=== PATIENT | female | born 1970 | race Caucasian/White ===

== ENCOUNTER → 2017-09-24 | Outpatient (CLI) | payer BC, SELFPAY | PROVIDERS: Visit Provider Nurse Practitioner Family | DX: K29.50 Unspecified chronic gastritis without bleeding (principal) | CPT/HCPCS: 36415; 80053; 82607; 85025 ==

== ENCOUNTER → 2017-11-25 11:49 | Outpatient (CLI) | payer BC, SELFPAY ==
[2017-11-25 13:05] LABS: Blood Urea Nitrogen 8 mg/dL (7-18); Creatinine,Serum 0.63 mg/dL (0.55-1.02); Estimated Glomerular Filt Rate 101 ml/min (>60); GFR (African American) 123 ML/MIN (>60)
== END ==
PROVIDERS: PCP Internal Medicine Adolescent Medicine; Visit Provider Internal Medicine Adolescent Medicine
DX: R63.4 Abnormal weight loss (principal)
CPT/HCPCS: 36415; 82565; 84520

== ENCOUNTER → 2017-11-27 09:46 | Outpatient (CLI) | payer BC, SELFPAY ==
--- NOTE | 2017-11-27 09:51 | CT_ITS ---
CT abdomen pelvis wo/w con CLINICAL INDICATION: ITS.REASON: WGT LOSS, ELEVATED LIVER ENZYMES, DYSPEPSIA ORDERING PHYSICIAN: Tamiko Russo PATIENT AGE: 47 years COMPARISON: None TECHNIQUE: Axial images obtained without and with contrast with sagittal and coronal reformats. PROCEDURE: Oral Contrast: Redicat IV Contrast: 75 mL is Isovue-370. FINDINGS: No acute finding in the lung bases. The liver, spleen, adrenal glands, and pancreas have an unremarkable appearance. No calcified gallstones are evident. Small amount of gas is present in the distal esophagus which may be seen with reflux. No renal calculi or ureteral calculi evident. There is minimal ectasia of the right renal pelvis and proximal right ureter which is nonspecific. No obstructing stones evident. No stones evident within the urinary bladder. No abdominal or pelvic mass or adenopathy. Unremarkable appendix. No evidence of diverticulitis. No focal inflammatory change in the abdomen or pelvis. No acute bony anomalies. IMPRESSION: No acute abdominal or pelvic findings. Small amount of gas in the distal esophagus which may be seen with reflux. Minimal ectasia of the right renal collecting system of questionable etiology and clinical significance
--- NOTE | 2017-11-27 10:55 | MM_ITS ---
MM Dig screening mamm BI w/CAD CAD Screening COMPARISON: Digital mammograms 05/02/2015 and 02/09/2013 INDICATION: There is a history of breast cancer patient's paternal aunt. There is been previous biopsy left breast. TECHNIQUE: Standard CC and MLO images were obtained. R2 CAD reviewed. FINDINGS: Prominent fibroglandular densities are seen in the upper outer quadrants of both breasts. There is a biopsy clip upper outer quadrant left breast. There is no suspicious lesion and there are no suspicious microcalcifications. IMPRESSION: Stable exam with no suspicious lesion seen BI-RADS Category: 2 Benign Finding(s) RECOMMENDED FOLLOW-UP: 1YR - 1 YEAR FOLLOW-UP (A letter has been sent to the patient regarding results of the study.)
== END ==
PROVIDERS: Family Provider Nurse Practitioner Family; PCP Internal Medicine Adolescent Medicine; Visit Provider Nurse Practitioner Family
DX: R63.4 Abnormal weight loss (principal); R10.13 Epigastric pain; R74.8 Abnormal levels of other serum enzymes; Z12.31 Encounter for screening mammogram for malignant neoplasm of breast
CPT/HCPCS: 74170; 74178; 77067; Q9967

== ENCOUNTER → 2018-02-06 12:25 | Outpatient (CLI) | payer BC, SELFPAY ==
[2018-02-06 13:16] LABS: Basophils # 0.1 K/mm3 (0-0.2); Basophils % 0.9 % (0.1-2.0); Eosinophils # 0.1 K/mm3 (0.0-0.4); Hematocrit 48.3 % (37.0-47.0); Lymphocytes # 1.5 K/mm3 (0.7-4.5); Lymphocytes % 21.9 K/mm3 (10-50); Mean Corpuscular HGB Conc 31.1 g/dL (31.8-35.4); Mean Corpuscular Hemoglobin 30.4 pg (27.0-31.2); Mean Corpuscular Volume 97.5 fl (81-99); Mean Platelet Volume 8.5 fl (7.4-10.4); Monocytes # 0.5 K/mm3 (0.1-1.0); Monocytes % 6.7 % (1.7-9.3); Neutrophils # 4.8 K/mm3 (1.8-7.8); Neutrophils % 68.5 % (37.0-80.0); Platelet Count 222 K/mm3 (142-424); Red Blood Count 4.95 M/mm3 (4.20-5.40); Red Cell Distribution Width 14.7 % (11.5-17.5); White Blood Count 6.9 K/mm3 (4.8-10.8)
[2018-02-06 13:53] LABS: Alanine Aminotransferase 15 U/L (12-78); Albumin Level 3.4 gm/dL (3.4-5.0); Albumin/Globulin Ratio 0.9 (1.1-1.8); Alkaline Phosphatase 171 U/L (46-116); Anion Gap 12.1 mEq/L (5-15); Aspartate Amino Transferase 17 U/L (15-37); Bilirubin,Total 0.6 mg/dL (0.2-1.0); Blood Urea Nitrogen 5 mg/dL (7-18); Calcium 9.2 mg/dL (8.5-10.1); Carbon Dioxide 29 mmol/L (21.0-32.0); Chloride 104 mmol/L (98-107); Chol/HDL Ratio 3.5 (1-3.5); Cholesterol 184 mg/dL (140-200); Creatinine,Serum 0.54 mg/dL (0.55-1.02); Estimated Glomerular Filt Rate 121 ml/min (>60); GFR (African American) 146 ML/MIN (>60); Globulin 3.8 gm/dl (1.3-3.2); Glucose 80 mg/dL (74-106); HDL Cholesterol 53 mg/dL (29-89); LDL Cholesterol 117 mg/dL (0-130); Potassium 4.1 mmoL/L (3.5-5.1); Sodium 141 mmol/L (136-145); Total Protein,Serum 7.2 gm/dL (6.4-8.2); Triglycerides 71 mg/dL (30-200); VLDL Cholesterol 14 mg/dL (0-40)
[2018-02-07 10:19] LABS: Vitamin D 25 Hydroxy 19.5 ng/mL (30.0-100.0)
== END ==
PROVIDERS: Visit Provider Nurse Practitioner Family
DX: I10 Essential (primary) hypertension (principal); E78.5 Hyperlipidemia, unspecified; E55.9 Vitamin D deficiency, unspecified; J44.9 Chronic obstructive pulmonary disease, unspecified
CPT/HCPCS: 36415; 80053; 80061; 82652; 85025

== ENCOUNTER → 2018-07-17 11:34 | Outpatient (CLI) | payer BC, SELFPAY ==
--- NOTE | 2018-07-17 11:41 | MR_ITS ---
MR head/brain wo/w con Ordering Physician: Sabina Cavanaugh Patient Age: 48 years: Female HISTORY: ITS.REASON: TIA, SYNCOPE Syncopal episode. HISTORY of stroke 3 days ago. Slurred speech blacked out. Headache. Dizzy when standing. Pain at neck. TECHNIQUE: Pre and postcontrast imaging brain performed Precontrast Multiplanar FLAIR, T1, T2 weighted images along with axial diffusion/ADC imaging performed on 1.5 T. Siemens, MRI. Postcontrast imaging [id number] ProHance T1-weighted images axial & coronal plane performed COMPARISON :07/26/2017 MRI brain with and without contrast FINDINGS Diffusion images reveal no acute nor very recent infarct. The sensitive FLAIR images in the axial & coronal plane demonstrate numerous high signal foci throughout deep white matter throughout cerebral hemispheres bilateral. Numerous both periventricular & subcortical high signal foci.. These are most numerous superior to the lateral ventricles bilaterally but are scattered elsewhere throughout the cerebral hemispheres as well. No high signal foci are seen at the posterior fossa... Overall these high signal foci are fairly similar to last year's study. There may be very slight progression of a few of the foci for example at the left frontal lobe subcortical deep white matter; and possibly some very slight additional foci more intense small foci at the right cerebral hemisphere. However changes negligible and could merely be accentuated by differences in imaging parameters noting the slightly different FLAIR parameters utilized today These are nonspecific high signal foci. I would note stated given history of stroke. This would suspect these are most likely related to to underlying microvascular disease. Does this patient have history of significant vascular risk factors?, Such as vasculitis, diabetes, hypertension etc.. In this younger age patient demyelinating disease would be included in the differential & cannot be excluded; however we see no classic or pathognomonic lesions for such are identified.- Specifically NO corpus callosum involvement evident no temporal lobe involvement, (features which would tend to support demyelinating disease). No abnormal enhancement to raise concern regarding a more diffuse process or metastatic disease.. No mass lesions.. Of there are other conditions can arise to the white matter lesions such as sarcoid. Thus clinical Correlation required Postcontrast images show no abnormal areas of enhancement today. No mass lesion. No extra-axial nor subdural collection. Normal enhancement of the dural venous sinuses. CP angles are clear. No abnormal enhancement here. Cranial nerve VII and VIII appear unremarkable, normal. . Included blood sensitive sequence unremarkable.. No recent hemorrhage evident Orbits appear satisfactory. The visualized paranasal sinuses clear and unremarkable. The mastoid air cells unremarkable. Middle ear clear bilaterally no fluid. Mild deviation nasal septum noted. IMPRESSION... No evidence of recent or acute infarct. (Normal diffusion study) . Numerous, fairly Extensive white matter high signal foci cerebral hemispheres bilaterally. These similar to the to Jul 2017 MR brain, with only suggestion of possible subtle progression deep white matter features bilaterally in the interval . If there is a history of stroke & vascular disease, with suspect these are most likely related to microangiopathic ischemic gliotic foci;but in a patient this younger age of of 48, demyelinating disease & other conditions would be included in the differential . No abnormal areas of enhancement post contrast. No mass lesion
--- NOTE | 2018-07-17 12:44 | HMH.ITSHM ---
RELPAX ERGOCALCIFEROL NADOLOL ALPRAZOLAM GABAPENTIN MELOXICAM ZOFRAN DEXILANT FLUOXETINE HYDROCHLORIDE VENLAFAXINE HYDROCHLORIDE TIZANIDINE HYDROCHLORIDE SUPER B COMPLEX PROAIR HFA
== END ==
PROVIDERS: Family Provider Nurse Practitioner Family; PCP Nurse Practitioner Family; Visit Provider Nurse Practitioner Family
DX: G45.9 Transient cerebral ischemic attack, unspecified (principal); R55 Syncope and collapse; R93.89 Abnormal findings on diagnostic imaging of other specified body structures
CPT/HCPCS: 70553; A9576

== ENCOUNTER → 2018-07-18 10:15 | Outpatient (CLI) | payer BC, SELFPAY ==
--- NOTE | 2018-07-18 10:22 | CI_ITS ---
Cerebrovascular Exam Indications: 780.2 Syncope and collapse. IMPRESSIONS 1. The bilateral vertebral arteries are patent with normal antegrade flow. 2. Study suggests less than 20% stenosis involving the right internal carotid artery and the left internal carotid artery. Carotid duplex study. Complete study and Doppler flow study including spectral analysis, color and mesa scale imaging. Location: Vascular laboratory. Patient status: Outpatient. Tables: Arterial flow: + +--------+--------+ Location V sys V ed + +--------+--------+ Right CCA - proximal 53.4cm/s 18.1cm/s + +--------+--------+ Right CCA - distal 64.4cm/s 25.1cm/s + +--------+--------+ Right ECA 55.8cm/s -------- + +--------+--------+ Right ICA - proximal 80.9cm/s 32.2cm/s + +--------+--------+ Right ICA - mid 77.8cm/s 29.9cm/s + +--------+--------+ Right ICA - distal 88.8cm/s 42.4cm/s + +--------+--------+ Right vertebral 46.4cm/s -------- + +--------+--------+ Left CCA - proximal 84.1cm/s 25.9cm/s + +--------+--------+ Left CCA - distal 56.6cm/s 15.7cm/s + +--------+--------+ Left ECA 57.4cm/s -------- + +--------+--------+ Left ICA - proximal 39.3cm/s 19.6cm/s + +--------+--------+ Left ICA - mid 91.9cm/s 35.4cm/s + +--------+--------+ Left ICA - distal 88.8cm/s 33.8cm/s + +--------+--------+ Left vertebral 48.7cm/s -------- + +--------+--------+ Velocity ratios: + + + + + + Right, V sys Right, V ed Left, V sys Left, V ed + + + + + + Max ICA/dist CCA 1.38 1.69 1.62 2.25 + + + + + + (Report amended ) Electronically signed by: Alvaro Buckner [id number]
--- NOTE | 2018-07-18 10:22 | CA_ITS ---
PROCEDURE: 2-D M-mode and color Doppler study INDICATIONS FOR THE TEST: Chest pain COPDX Heart Murmur Tobacco SmokingX Palpitations Fatigue SyncopeX Edema Hypertension Diabetes Mellitus Rheumatic Fever SOB NICE Obesity Hyperlipidemia Family History HD Additional History TACHYCARDIA,MIGRAINES BUBBLE STUDY DONE APPEARS NEGATIVE PATIENT INFORMATION HEIGHT: 62 WEIGHT:105 GENDER: Female B/P:137/94 2-D/M-MODE INTERPRETATION: 2-D MEASUREMENTS OBSERVED VALUES IN CMS Right Ventricular Dimension (RVDd) 2.2 Interventricular Septum (Thickness)(IVsd) .7 Left Ventricular Internal Dimensions(LVIDd) 4.4 Left Ventricular Posterior Wall (Thickness)(LVPWd) .7 Aortic Root 2.9 Aortic Cusp Separation 1.6 Left Atrial Dimensions (LAD) 2.6 2D 1. Left atrium is normal size, left ventricle is normal size, there is no concentric left ventricular hypertrophy, visually estimated ejection fraction of 55% with no regional wall motion abnormality. 2. The right atrium and right ventricle are normal size and contractility. 3. The aortic, mitral and tricuspid valve are grossly normal. 4. The pulmonic valve is poorly visualized. 5. No significant pericardial effusion noted. DOPPLER INTERROGATION: Doppler interrogation of the aortic, mitral and tricuspid valve reveals presence of mild mitral and tricuspid regurgitation, tricuspid regurgitation jet velocity for calculation of the right ventricular systolic pressure, diastolic parameters are within normal range. Agitated saline contrast study fails to identify intracardiac shunt CONCLUSION: 1. Normal left ventricular size, preserved left ventricular systolic function, visually estimated ejection fraction 55% with no regional wall motion abnormality, diastolic parameters are within normal range. 2. Mild mitral and tricuspid regurgitation 3. Agitated saline contrast study fails to identify intracardiac shunt
== END ==
PROVIDERS: Family Provider Nurse Practitioner Family; PCP Nurse Practitioner Family; Visit Provider Nurse Practitioner Family
DX: G45.9 Transient cerebral ischemic attack, unspecified (principal); R55 Syncope and collapse
CPT/HCPCS: 93306; 93880

== ENCOUNTER → 2018-07-24 12:48 | Outpatient (CLI) | payer BC, SELFPAY | PROVIDERS: PCP Internal Medicine Adolescent Medicine; Visit Provider Nurse Practitioner Family | DX: G43.109 Migraine with aura, not intractable, without status migrainosus (principal) | CPT/HCPCS: 93225; 93226 ==

== ENCOUNTER → 2018-08-22 11:49 | Outpatient (CLI) | payer BC, SELFPAY ==
[2018-08-22 12:29] LABS: Basophils # 0.1 K/mm3 (0-0.2); Basophils % 0.8 % (0.1-2.0); Eosinophils # 0.3 K/mm3 (0.0-0.4); Eosinophils % 3.3 % (0.1-12.0); Hematocrit 47.2 % (37.0-47.0); Hemoglobin 15.1 g/dL (12.2-16.2); Lymphocytes % 26.6 % (10-50); Mean Corpuscular Hemoglobin 30.9 pg (27.0-31.2); Mean Corpuscular Volume 96.7 fl (81-99); Monocytes # 0.4 K/mm3 (0.1-1.0); Monocytes % 5.3 % (1.7-9.3); Neutrophils # 4.8 K/mm3 (1.8-7.8); Platelet Count 227 K/mm3 (142-424); Red Blood Count 4.88 M/mm3 (4.20-5.40); Red Cell Distribution Width 14.6 % (11.5-17.5); White Blood Count 7.5 K/mm3 (4.8-10.8)
[2018-08-22 15:16] LABS: Alanine Aminotransferase 29 U/L (12-78); Albumin Level 3.6 gm/dL (3.4-5.0); Alkaline Phosphatase 134 U/L (46-116); Anion Gap 15.2 mEq/L (5-15); Aspartate Amino Transferase 17 U/L (15-37); Bilirubin,Total 0.9 mg/dL (0.2-1.0); Blood Urea Nitrogen 5 mg/dL (7-18); Calcium 9.1 mg/dL (8.5-10.1); Carbon Dioxide 25 mmol/L (21.0-32.0); Chloride 99 mmol/L (98-107); Chol/HDL Ratio 3.2 (1-3.5); Cholesterol 246 mg/dL (140-200); Creatinine,Serum 0.51 mg/dL (0.55-1.02); Estimated Glomerular Filt Rate 129 ml/min (>60); GFR (African American) 156 ML/MIN (>60); Globulin 3.6 gm/dl (1.3-3.2); Glucose 76 mg/dL (74-106); HDL Cholesterol 78 mg/dL (29-89); LDL Cholesterol 147 mg/dL (0-130); Potassium 4.2 mmoL/L (3.5-5.1); Sodium 135 mmol/L (136-145); Total Protein,Serum 7.2 gm/dL (6.4-8.2); Triglycerides 106 mg/dL (30-200); VLDL Cholesterol 21 mg/dL (0-40)
[2018-08-23 15:39] LABS: Hemoglobin A1C 5.6 % (0.0-7.0)
[2018-08-25 11:15] LABS: Vitamin D 25 Hydroxy 40.8 ng/mL (30.0-100.0)
== END ==
PROVIDERS: Visit Provider Nurse Practitioner Family
DX: I67.9 Cerebrovascular disease, unspecified (principal); E55.9 Vitamin D deficiency, unspecified; Z72.0 Tobacco use; Z78.9 Other specified health status
CPT/HCPCS: 36415; 80053; 80061; 82652; 83036; 84443; 85025

== ENCOUNTER → 2018-09-04 12:46 | Outpatient (CLI) | payer BC, SELFPAY ==
--- NOTE | 2018-09-04 12:48 | MR_ITS ---
MR lumbar spine wo con, MR 3-d myelogram/MRCP HISTORY: PT states low back pain which has layered up X 1 month. Left leg pain and some numbness. ITS.REASON: LOW BACK PAIN ORDERING PHYSICIAN: Tamiko Russo PATIENT AGE: 48 years Comparison: Mri 03/15/14 TECHNIQUE: Standard multiplanar multiecho sequences are performed without contrast. 3-D MIP and myelographic images are also rendered and reviewed FINDINGS: Normal alignment. The spinal cord ends at the L1 level. L2-L3: Small Schmorl's nodes not significant change. L3-4: Unremarkable. L4-L5: There is bulging disc at L4-L5. There is a small right paracentral extruded disc which extends inferiorly abutting the anterior aspect of the right L5 nerve root with severe right lateral recess narrowing. This has developed since the previous exam. There is also central and left paracentral disc protrusion at L4-L5 slightly more prominent than when compared to the previous study. This portion of the disc is causing some compression anteriorly on the left L5 nerve root. In addition there is canal stenosis at this level with facet and ligamentum flavum hypertrophy. L5-S1: Degenerative disc disease with bulging disc with small central disc protrusion abutting the anterior medial aspect of both S1 nerve roots. IMPRESSION: 1. L4-L5: There is bulging disc at L4-L5. There is a small right paracentral extruded disc which extends inferiorly abutting the anterior aspect of the right L5 nerve root with severe right lateral recess narrowing. This has developed since the previous exam. There is also central and left paracentral disc protrusion at L4-L5 slightly more prominent than when compared to the previous study. This portion of the disc is causing some compression anteriorly on the left L5 nerve root. In addition there is canal stenosis at this level with facet and ligamentum flavum hypertrophy. 2. L5-S1: Degenerative disc disease with bulging disc with small central disc protrusion abutting the anterior medial aspect of both S1 nerve roots.
== END ==
PROVIDERS: PCP Nurse Practitioner Family; Visit Provider Nurse Practitioner Family
DX: M54.5 Low back pain (principal)
CPT/HCPCS: 72148; 76376

== ENCOUNTER → 2018-09-25 13:06 | Outpatient (POV) | payer BC, SELFPAY | PROVIDERS: Visit Provider Neurological Surgery | DX: Z00.00 Encounter for general adult medical examination without abnormal findings (principal) ==

== ENCOUNTER 2018-10-28 10:00 | Outpatient (RCR) | payer BC, SELFPAY | END 2018-10-28 10:05 | disposition home or self-care (01) | LOC: PT 10:00 | PROVIDERS: Visit Provider Neurological Surgery | DX: M54.5 Low back pain (principal); M54.9 Dorsalgia, unspecified | CPT/HCPCS: 97010; 97014; 97035; 97110; 97140; 97163; G0283 ==

== ENCOUNTER → 2019-04-14 10:17 | Outpatient (CLI) | payer BC, SELFPAY ==
--- NOTE | 2019-04-14 10:26 | MM_ITS ---
MM Dig screening mamm BI w/CAD CAD Screening COMPARISON: Digital mammograms with CAD 11/27/2017 and 05/02/2015 INDICATION: There is a history of breast cancer in the patient's paternal aunt. TECHNIQUE: Standard CC and MLO images were obtained. R2 CAD reviewed. FINDINGS: Moderate fibro glandular densities are seen in both breasts. There are nodular density central portion of the right breast only definitely seen on the exaggerated cc view. This may been present previously but appears more prominent on today's study. This has benign features but recommend patient return for spot compression CC view and 90 degrees lateral view, ultrasound may be necessary as well. Again noted is a biopsy clip left breast. There are no suspicious microcalcifications. IMPRESSION: Moderate diffuse breast density with possible new or developing asymmetric density right breast BI-RADS Category: 0 Need Additional Imaging Evaluation RECOMMENDED FOLLOW-UP: IMM - IMMEDIATE FOLLOW-UP RECOMMENDED (A letter has been sent to the patient regarding results of the study.)
== END ==
PROVIDERS: PCP Internal Medicine Adolescent Medicine; Visit Provider Nurse Practitioner Family
DX: Z12.31 Encounter for screening mammogram for malignant neoplasm of breast (principal)
CPT/HCPCS: 77067

== ENCOUNTER → 2019-04-24 12:52 | Outpatient (CLI) | payer BC, SELFPAY ==
--- NOTE | 2019-04-24 12:58 | MM_ITS ---
MM Dig mamm DX unilat RT CAD COMPARISON: Digital mammograms with CAD 04/14/2019 INDICATION: Additional views of possible interval change in size and appearance of asymmetric density right breast TECHNIQUE: Spot compression MLO and CC views and 90 degrees lateral view FINDINGS: The asymmetric density appears to be a true lesion and does not press out and show slightly irregular borders. Ultrasound performed the same date showed slightly thickened and irregular borders with no acoustic enhancement noted. This does not have findings of a typical benign cyst and recommend the patient have ultrasound-guided biopsy for diagnosis. IMPRESSION: Slightly suspicious asymmetric nodular density right breast BI-RADS Category: 4 Suspicious Abnormality-Biopsy Considered RECOMMENDED FOLLOW-UP: BIO - BIOPSY RECOMMENDED (A letter has been sent to the patient regarding results of the study.)
--- NOTE | 2019-04-24 12:59 | US_ITS ---
US breast RT complete COMPARISON: Ultrasound right breast 03/17/2013 HISTORY: Evaluation of possible change in asymmetric density right breast TECHNIQUE: Targeted ultrasound FINDINGS: Somewhat heterogenic echogenicity seen in the breast parenchyma. There is a dominant hypoechoic lesion at the 7:00 position near the nipple with somewhat crinkled or irregular and slightly thickened borders. There is no acoustic enhancement deep to the lesion. Recommend the patient be scheduled for ultrasound-guided biopsy. There are couple of additional tiny benign-appearing hypoechoic likely cystic lesions. There is a normal-appearing node right axilla. IMPRESSION: Hypoechoic lesion at 7:00 position as described with somewhat suspicious borders and lack of acoustic enhancement and biopsy is recommended.
== END ==
PROVIDERS: PCP Nurse Practitioner Family; Visit Provider Nurse Practitioner Family
DX: R92.8 Other abnormal and inconclusive findings on diagnostic imaging of breast (principal)
CPT/HCPCS: 76641; 77065

== ENCOUNTER → 2019-05-13 12:33 | Outpatient (CLI) | payer BC, SELFPAY ==
--- NOTE | 2019-05-13 | MM_ITS ---
US FNA Breast Right mammogram post biopsy HISTORY: Complex nodule right breast 7:00 with abnormal mammogram and ultrasound ITS.REASON: ABNORMAL MAMM ORDERING PHYSICIAN: Tamiko Russo APRN PATIENT AGE: 49 years COMPARISON: 04/24/2019 TECHNIQUE: Following obtaining informed consent, using aseptic technique and local anesthesia with buffered lidocaine, fine-needle aspiration was performed of the nodule of interest using sonographic guidance less than 1 cc of liquid was aspirated from the nodule in the 7:00 region of the right breast. The nodule dissipated on the ultrasound. The patient tolerated the procedure well without evidence of immediate complications and left the ultrasound suite in stable condition. Right mammogram: Previously noted nodule in the lower outer aspect of the right breast is no longer apparent status post FNA CYTOLOGY:Numerous bone cells consistent with cyst contents IMPRESSION: Status post ultrasound-guided FNA of the complex nodule in the 7:00 region of the right breast which appear to represent a complex cyst and was completely aspirated and no longer evident on the mammogram or the ultrasound. Cytology showed benign findings. Recommendations: 6 month mammographic follow-up per routine protocol
--- NOTE | 2019-05-13 14:34 | HMH.ITSHM ---
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 []lisinopril
== END ==
LOC: RAD 12:33
PROVIDERS: PCP Nurse Practitioner Family; Visit Provider Nurse Practitioner Family
DX: R92.8 Other abnormal and inconclusive findings on diagnostic imaging of breast (principal); N63.13 Unspecified lump in the right breast, lower outer quadrant
CPT/HCPCS: 10005; 76942; 77065

== ENCOUNTER → 2019-06-15 10:33 | Outpatient (CLI) | payer BC, SELFPAY ==
[2019-06-15 11:59] LABS: Alanine Aminotransferase 18 U/L (12-78); Albumin Level 3.7 gm/dL (3.4-5.0); Albumin/Globulin Ratio 1.1 (1.1-1.8); Alkaline Phosphatase 162 U/L (46-116); Anion Gap 15.3 mEq/L (5-15); Aspartate Amino Transferase 19 U/L (15-37); Bilirubin,Total 1.2 mg/dL (0.2-1.0); Blood Urea Nitrogen 5 mg/dL (7-18); Calcium 9.6 mg/dL (8.5-10.1); Carbon Dioxide 26 mmol/L (21.0-32.0); Chloride 103 mmol/L (98-107); Chol/HDL Ratio 4.8 (1-3.5); Cholesterol 207 mg/dL (140-200); Creatinine,Serum 0.64 mg/dL (0.55-1.02); Estimated Glomerular Filt Rate 99 ml/min (>60); GFR (African American) 119 ML/MIN (>60); Globulin 3.4 gm/dl (1.3-3.2); Glucose 97 mg/dL (74-106); HDL Cholesterol 43 mg/dL (29-89); LDL Cholesterol 147 mg/dL (0-130); Potassium 4.3 mmoL/L (3.5-5.1); Sodium 140 mmol/L (136-145); Total Protein,Serum 7.1 gm/dL (6.4-8.2); Triglycerides 86 mg/dL (30-200); VLDL Cholesterol 17 mg/dL (0-40)
[2019-06-15 12:14] LABS: Basophils % 0.6 % (0.1-2.0); Eosinophils # 0.1 K/mm3 (0.0-0.4); Eosinophils % 1.2 % (0.1-12.0); Hematocrit 47.6 % (37.0-47.0); Hemoglobin 15.4 g/dL (12.2-16.2); Lymphocytes # 1.5 K/mm3 (0.7-4.5); Lymphocytes % 19.7 % (10-50); Mean Corpuscular HGB Conc 32.3 g/dL (31.8-35.4); Mean Corpuscular Volume 89.7 fl (81-99); Mean Platelet Volume 10.3 fl (7.4-10.4); Monocytes # 0.4 K/mm3 (0.1-1.0); Monocytes % 5.5 % (1.7-9.3); Neutrophils # 5.6 K/mm3 (1.8-7.8); Platelet Count 187 K/mm3 (142-424); Red Blood Count 5.31 M/mm3 (4.20-5.40); Red Cell Distribution Width 13.3 % (11.5-17.5); White Blood Count 7.7 K/mm3 (4.8-10.8)
[2019-06-16 10:32] LABS: Vitamin D 25 Hydroxy 22.4 ng/mL (30.0-100.0)
== END ==
PROVIDERS: Visit Provider Nurse Practitioner Family
DX: E78.5 Hyperlipidemia, unspecified (principal); E55.9 Vitamin D deficiency, unspecified; Z72.0 Tobacco use
CPT/HCPCS: 36415; 80053; 80061; 82652; 85025

== ENCOUNTER → 2020-02-24 13:44 | Outpatient (CLI) | payer BC, SELFPAY ==
--- NOTE | 2020-02-24 | US_ITS ---
PROCEDURE: MM DIG MAMM DX UNILAT RT CAD Digital Breast Tomosynthesis Included CLINICAL INDICATION: 6 MONTH F/U TO BX COMPARISON: [facility]B DIGITAL MAMM-SCREEN BILATERAL from 02/09/2013 [facility] DIG MAMM-SCREEN ANNY from 05/02/2015 DIG MAMM-SCREEN ANNY from 04/14/2019 DIG MAMM-DX UNI-RT from 04/24/2019 [facility] US Biopsy Breast from 05/13/2019 DIG MAMM-DX UNI-RT from 05/13/2019 TECHNIQUE: Standard CC and MLO images and 3D Tomosynthesis was obtained. R2 CAD reviewed. FINDINGS: There is average fibroglandular tissue. No discrete mass or malignant-appearing microcalcification is evident. There is some asymmetric density in the medial aspect of the right breast which may be due to fibroglandular tissue. Right breast ultrasound: There has been reoccurrence of the complicated cyst at 7 o'clock measuring 7 x 6 mm. This was previously completely aspirated but has recurred. IMPRESSION: Recurrent right breast cyst. Probably benign findings regarding asymmetric density in the medial right breast. Continued six-month follow-up suggested. BI-RAD Category: 3 Probably Benign Finding Short Term Follow-up FOLLOW-UP: 6M 6Month Follow-up (A letter has been sent to the patient regarding results of the study.) Dictated by: Alvaro Buckner MD 02/26/2020 09:48 Electronically signed by Alvaro Buckner MD in [place] 02/26/2020 09:48
--- NOTE | 2020-02-24 13:52 | XR_ITS ---
PROCEDURE: XR HIP RT 2-3V W/PELVIS CLINICAL INDICATION: RT HIP PAIN COMPARISON: No exams were available for comparison FINDINGS: No fracture or dislocation is evident. No significant degenerative change. No lytic or blastic change. Unremarkable soft tissues. IMPRESSION: Negative right hip Dictated by: Alvaro Buckner MD 02/24/2020 14:58 Electronically signed by Alvaro Buckner MD in [place] 02/24/2020 14:58
== END ==
LOC: RAD 13:45
PROVIDERS: PCP Nurse Practitioner Family; Visit Provider Nurse Practitioner Family
DX: R92.8 Other abnormal and inconclusive findings on diagnostic imaging of breast (principal); M25.551 Pain in right hip
CPT/HCPCS: 73502; 76641; 77061; 77065; G0279

== ENCOUNTER → 2020-03-23 11:28 | Outpatient (CLI) | payer BC, SELFPAY ==
[2020-03-23 12:34] LABS: Coronavirus 19 IgG Antibody Negative (Negative); Coronavirus 19 IgM Antibody Negative (Negative)
== END ==
PROVIDERS: Visit Provider Surgery
DX: Z01.818 Encounter for other preprocedural examination (principal)
CPT/HCPCS: 36415; 86328

== ENCOUNTER 2020-03-24 06:36 | Day surgery (SDC) | payer BC, SELFPAY ==
[2020-03-22 10:56] VITALS: BMI 17.5
[2020-03-24] VITALS (7 sets, daily range): BP systolic 77–143; BP diastolic 49–77; PULSE 63–82; RESP 14–20; TEMP 36.1–37; O2SAT 97–99
--- NOTE | 2020-03-24 07:38 | P.PN_ITS ---
[facility] Anesthesia Checklist - Patient Identification Patient Identification: Arm Band, Verbal (Name & ) - Structural Data Admitted From: Home Planned Operative Procedure/s: Colonoscopy Consent for Planned Operative Procedure(s) Verified: Yes Verified Documents: Surgical Consent, History and Physical - NPO Status Verified Time NPO: 00:00 - Chart Verification Results Verified: None - Additional verifications Patient : No Anesthesia Reactions: No - Airway Assessment C-Spine Mobility Assessed: Yes TMJ Mobility Assessed: Yes Dentition: Edentulous (Full set of dentures removed) - Neurological Assessment Level of Consciousness: Awake, Alert, Appropriate, Follows Commands Hx Seizures: No Numbness or tingling in extremities: Yes (Chronic back pain issues) - Anesthesia Plan Anesthesia Risk discussed: Yes Anesthesia Plan: Verified ASA Class: III Anesthesia Type: MAC [facility] History I have reviewed the patient's past medical history: Yes Medical History: Reports:: Anxiety, Chronic Obstructive Pulmonary Disease (COPD), Gastroesophageal Reflux Disease(GERD), Hyperlipidemia Denies:: Cancer, Diabetes Mellitus Type 1, Diabetes Mellitus Type 2, Internal Pacemaker, MRSA, Seizures *Have you ever received a pneumonia vaccine?: Yes *Have you received a flu vaccine this season?: Yes Anesthesia experience/problems:: None Other Surgeries: Yes: Other. No: Pacemaker Amputation: No Fractures: No Comment: lumbar discectomy - *Social History Educational Level: Completed GED/General Educational Development Smoking Status: Current every day smoker Tobacco Type: cigarettes # Packs/Day (cigarettes): 1 #Yrs smoked (if former smoker): 30 Alcohol Intake: never Substance Use Type: denies use *Occupational Status:: unemployed Housing: house Household Members: spouse *Travel in the last 8 weeks: None - Psychiatric History Pschychiatric History:: Reports:: Anxiety Family Hx:: No significant family history
--- NOTE | 2020-03-24 08:03 | P.PCN_ITS ---
- Procedure: Date: 03/24/20 Procedure Performed:: Colonoscopy Indications:: Screening Performing Provider:: Humberto Harkins MD Referring Provider:: . Sedation:: Monitored anesthesia care Procedure:: After informed consent was obtained the patient was taken to the endoscopy suite. Sedation ensued after the patient was transferred to the left lateral decubitus position. Pulse, blood pressure, and oxygen saturation were monitored throughout the procedure. Digital rectal exam revealed no significant abnormality. The colonoscope was placed in position. The entire colon was evaluated. The colonoscope was carefully removed and the patient was transferred to recovery in stable condition. Please see findings and specimens below for detail. Findings:: Bowel preparation fair to moderate Hemorrhoidal tag/cushions with no active bleeding or thrombosis Moderate tortuosity Significant spasticity and lack of relaxation A few isolated sigmoid diverticuli Small scattered hyperplastic-appearing rectosigmoid polyps Specimens:: None Recommendations:: Timing of repeat colonoscopy should be around 3 years secondary to slightly- limited bowel preparation, spasticity, lack of relaxation, and notation of hyperplastic-appearing small rectosigmoid polyps Complications:: No immediate Estimated blood obtained (mL): 0
== END 2020-03-24 08:50 | disposition home or self-care (01) ==
LOC: OUTP 06:37
PROVIDERS: PCP Nurse Practitioner Family; Visit Provider Surgery
PROC: 0DJD8ZZ Inspection of Lower Intestinal Tract, Via Natural or Artificial Opening Endoscopic (ICD-10-PCS; CPT 45378; principal; 2020-03-24 07:30)
DX: Z12.11 Encounter for screening for malignant neoplasm of colon (principal); K63.5 Polyp of colon; K57.90 Diverticulosis of intestine, part unspecified, without perforation or abscess without bleeding; K64.9 Unspecified hemorrhoids; K63.89 Other specified diseases of intestine; K58.9 Irritable bowel syndrome, unspecified; Z88.1 Allergy status to other antibiotic agents; Z88.5 Allergy status to narcotic agent; Z88.8 Allergy status to other drugs, medicaments and biological substances; Z79.899 Other long term (current) drug therapy; Z79.82 Long term (current) use of aspirin; Z72.0 Tobacco use
CPT/HCPCS: 45378; J2704

== ENCOUNTER → 2020-11-19 13:00 | Outpatient (CLI) | payer BC, SELFPAY ==
[2020-11-19 13:21] LABS: Basophils # 0.1 K/mm3 (0-0.2); Basophils % 0.8 % (0.1-2.0); Eosinophils # 0.3 K/mm3 (0.0-0.4); Eosinophils % 3.6 % (0.1-12.0); Hematocrit 46.2 % (37.0-47.0); Hemoglobin 14.9 g/dL (12.2-16.2); Lymphocytes # 2.4 K/mm3 (0.7-4.5); Lymphocytes % 27.4 % (10-50); Mean Corpuscular HGB Conc 32.2 g/dL (31.8-35.4); Mean Corpuscular Hemoglobin 31.8 pg (27.0-31.2); Mean Corpuscular Volume 98.6 fl (81-99); Mean Platelet Volume 9.4 fl (7.4-10.4); Monocytes # 0.5 K/mm3 (0.1-1.0); Neutrophils # 5.5 K/mm3 (1.8-7.8); Neutrophils % 62.1 % (37.0-80.0); Platelet Count 178 K/mm3 (142-424); Red Blood Count 4.68 M/mm3 (4.20-5.40); Red Cell Distribution Width 13.7 % (11.5-17.5); White Blood Count 8.8 K/mm3 (4.8-10.8)
[2020-11-19 14:08] LABS: Alanine Aminotransferase 14 U/L (12-78); Albumin Level 4.3 g/dl (3.5-5.0); Albumin/Globulin Ratio 1.4 (1.1-1.8); Alkaline Phosphatase 129 U/L (38-126); Anion Gap 8.2 mEq/L (5-15); Aspartate Amino Transferase 29 U/L (14-36); Bilirubin,Total 0.7 mg/dl (0.2-1.3); Blood Urea Nitrogen 8 mg/dl (7-17); Calcium 9.3 mg/dl (8.4-10.2); Carbon Dioxide 30 mmol/L (22.0-30.0); Chloride 101 mmol/L (98-107); Chol/HDL Ratio 2.5 (1-3.5); Cholesterol 179 mg/dl (140-200); Estimated Glomerular Filt Rate 89 ml/min (>60); GFR (African American) 107 ML/MIN (>60); Globulin 3.1 g/dL (1.3-3.2); Glucose 84 mg/dl (74-100); HDL Cholesterol 71 mg/dl (40-60); Potassium 4.2 mmoL/L (3.5-5.1); Sodium 135 mmol/L (136-145); Total Protein,Serum 7.4 g/dl (6.3-8.2); Triglycerides 104 mg/dl (30-150); VLDL Cholesterol 21 mg/dL (0-40)
[2020-11-19 14:19] LABS: Direct LDL Cholesterol 90.57 mg/dL (100-129)
[2020-11-19 14:25] LABS: 25-OH Vitamin D, Total 22.2 ng/mL (30-100)
[2020-11-19 14:58] LABS: Vitamin B12 441 pg/mL (239-931)
== END ==
PROVIDERS: Visit Provider Nurse Practitioner Family
DX: E78.5 Hyperlipidemia, unspecified (principal); E55.9 Vitamin D deficiency, unspecified; E53.8 Deficiency of other specified B group vitamins
CPT/HCPCS: 36415; 80053; 80061; 82306; 82607; 85025

== ENCOUNTER → 2020-11-22 14:06 | Outpatient (CLI) | payer BC, SELFPAY ==
--- NOTE | 2020-11-22 14:12 | MM_ITS ---
PROCEDURE: MM DIG MAMM BI DX W/CAD Digital Breast Tomosynthesis Included CLINICAL INDICATION: 6 mth f/u rt, screening lt There is a history of breast cancer in the patient's paternal aunt. There has been a previous biopsy left breast for benign disease. COMPARISON: MG DIG MAMM-SCREEN ANNY from 04/14/2019 MG DIG MAMM-DX UNI-RT from 04/24/2019 MG MM DIG MAMM DX UNILAT RT CAD from 05/13/2019 MG MM DIG MAMM DX UNILAT RT CAD from 02/24/2020 TECHNIQUE: Standard CC and MLO images and 3D Tomosynthesis was obtained. R2 CAD reviewed. FINDINGS: Moderate diffuse fibroglandular densities are seen throughout both breast. The possible asymmetric density medial aspect right breast is less prominent on today's study. There is no suspicious lesion in either breast and no suspicious microcalcifications. IMPRESSION: Moderate diffuse breast density with no suspicious lesions seen BI-RAD Category: 2 Benign Finding(s) FOLLOW-UP: 1YR 1 Year Follow-up (A letter has been sent to the patient regarding results of the study.) Dictated by: Dr. Vini Clinton MD 11/25/2020 08:31 Dr. Vini Clinton MD in [place] 11/25/2020 08:31
== END ==
PROVIDERS: PCP Nurse Practitioner Family; Visit Provider Internal Medicine Adolescent Medicine
DX: R92.8 Other abnormal and inconclusive findings on diagnostic imaging of breast (principal)
CPT/HCPCS: 77062; 77066; G0279

== ENCOUNTER → 2021-01-30 17:01 | Outpatient (CLI) | payer BC, SELFPAY | PROVIDERS: PCP Nurse Practitioner Family; Visit Provider Nurse Practitioner Family | DX: Z20.822 Contact with and (suspected) exposure to COVID-19 (principal); R05 Cough; R50.9 Fever, unspecified | CPT/HCPCS: U0003 ==

== ENCOUNTER → 2021-03-08 12:07 | Outpatient (CLI) | payer BC, SELFPAY ==
--- NOTE | 2021-03-08 12:12 | XR_ITS ---
PROCEDURE: XR CHEST 2V CLINICAL HISTORY: MUCOPURULENT CHRONIC BRONCHITIS COMPARISON: CR CXR CHEST(2 VIEWS-NOT PORTABLE) from 01/04/2017 CR CXR CHEST(2 VIEWS-NOT PORTABLE) from 05/31/2017 CR [id number] XR chest portable from 07/31/2018 FINDINGS: The cardiomediastinal silhouette and pulmonary vascularity are within normal limits. COPD. Lungs are free of acute infiltrate. No acute bony abnormalities. IMPRESSION: COPD changes, no acute finding Dictated by: Alvaro Buckner MD 03/08/2021 12:49 Alvaro Buckner MD in [place] 03/08/2021 12:49
== END ==
PROVIDERS: PCP Nurse Practitioner Family; Visit Provider Internal Medicine Adolescent Medicine
DX: J41.1 Mucopurulent chronic bronchitis (principal)
CPT/HCPCS: 71046

== ENCOUNTER → 2021-03-15 13:48 | Outpatient (CLI) | payer BC, SELFPAY ==
[2021-03-15 14:08] LABS: Alanine Aminotransferase 16 U/L (12-78); Albumin Level 4.1 g/dl (3.5-5.0); Albumin/Globulin Ratio 1.5 (1.1-1.8); Alkaline Phosphatase 111 U/L (38-126); Anion Gap 10.4 mEq/L (5-15); Aspartate Amino Transferase 30 U/L (14-36); Bilirubin,Total 0.5 mg/dl (0.2-1.3); Blood Urea Nitrogen 3 mg/dl (7-17); Calcium 9.4 mg/dl (8.4-10.2); Carbon Dioxide 27 mmol/L (22.0-30.0); Chloride 98 mmol/L (98-107); Estimated Glomerular Filt Rate 106 ml/min (>60); GFR (African American) 128 ML/MIN (>60); Globulin 2.7 g/dL (1.3-3.2); Glucose 82 mg/dl (74-100); Potassium 4.4 mmoL/L (3.5-5.1); Sodium 131 mmol/L (136-145); Total Protein,Serum 6.8 g/dl (6.3-8.2)
[2021-03-15 14:13] LABS: Basophils # 0.1 K/mm3 (0-0.2); Basophils % 0.9 % (0.1-2.0); Eosinophils # 0.1 K/mm3 (0.0-0.4); Eosinophils % 2.1 % (0.1-12.0); Hematocrit 40.9 % (37.0-47.0); Hemoglobin 13.3 g/dL (12.2-16.2); Lymphocytes # 1.9 K/mm3 (0.7-4.5); Lymphocytes % 27.7 % (10-50); Mean Corpuscular HGB Conc 32.6 g/dL (31.8-35.4); Mean Corpuscular Hemoglobin 32.1 pg (27.0-31.2); Mean Corpuscular Volume 98.6 fl (81-99); Mean Platelet Volume 7.8 fl (7.4-10.4); Monocytes # 0.4 K/mm3 (0.1-1.0); Monocytes % 6.3 % (1.7-9.3); Neutrophils # 4.3 K/mm3 (1.8-7.8); Neutrophils % 62.9 % (37.0-80.0); Platelet Count 286 K/mm3 (142-424); Red Blood Count 4.15 M/mm3 (4.20-5.40); Red Cell Distribution Width 13.8 % (11.5-17.5); White Blood Count 6.8 K/mm3 (4.8-10.8)
[2021-03-15 14:14] LABS: C-Reactive Protein 2.3 mg/L (0-4)
[2021-03-15 14:39] LABS: Thyroid Stimulating Hormone 1.47 uIU/mL (0.465-4.68)
[2021-03-15 14:43] LABS: Erythrocyte Sedimentation Rate 17 mm/hr (0-20)
[2021-03-15 14:57] LABS: Vitamin B12 525 pg/mL (239-931)
[2021-03-15 15:24] LABS: 25-OH Vitamin D, Total 51.4 ng/mL (30-100)
[2021-03-20 10:16] LABS: Antinuclear Antibodies, IFA Positive (.)
== END ==
PROVIDERS: Visit Provider Nurse Practitioner Family
DX: L40.9 Psoriasis, unspecified (principal); F32.9 Major depressive disorder, single episode, unspecified; E53.8 Deficiency of other specified B group vitamins; E55.9 Vitamin D deficiency, unspecified
CPT/HCPCS: 80053; 82306; 82607; 84443; 85025; 85651; 86038; 86140

== ENCOUNTER → 2021-06-21 08:55 | Outpatient (CLI) | payer BC, SELFPAY | PROVIDERS: Visit Provider Nurse Practitioner Family | DX: Z20.822 Contact with and (suspected) exposure to COVID-19 (principal) | CPT/HCPCS: C9803; U0003; U0005 ==

== ENCOUNTER → 2021-09-09 11:08 | Outpatient (CLI) | payer BC, SELFPAY ==
[2021-09-09 11:50] LABS: Basophils # 0.2 K/mm3 (0-0.2); Basophils % 0.6 % (0.1-2.0); Eosinophils # 0.3 K/mm3 (0.0-0.4); Hemoglobin 14.5 g/dL (12.2-16.2); Lymphocytes # 1.9 K/mm3 (0.7-4.5); Mean Corpuscular HGB Conc 31.5 g/dL (31.8-35.4); Mean Corpuscular Hemoglobin 30.4 pg (27.0-31.2); Mean Corpuscular Volume 96.5 fl (81-99); Mean Platelet Volume 8.3 fl (7.4-10.4); Monocytes # 0.8 K/mm3 (0.1-1.0); Monocytes % 2.9 % (1.7-9.3); Neutrophils # 23.6 K/mm3 (1.8-7.8); Neutrophils % 88.5 % (37.0-80.0); Platelet Count 251 K/mm3 (142-424); Red Blood Count 4.76 M/mm3 (4.20-5.40); Red Cell Distribution Width 13.4 % (11.5-17.5); White Blood Count 26.7 K/mm3 (4.8-10.8)
[2021-09-09 12:12] LABS: MANUAL DIFFERENTIAL MANUAL DIFFERENTIAL (MANUAL DIFF)
[2021-09-09 14:29] LABS: Lymphocytes % 6 % (10-50); Monocytes % 5 % (2-9); Neutrophils % 86 % (42-76); Platelet Estimate Normal; Total Cells Counted 100
[2021-09-09 15:13] LABS: Chloride 91 mmol/L (98-107); Potassium 4.7 mmoL/L (3.5-5.1); Sodium 129 mmol/L (136-145)
[2021-09-09 15:16] LABS: Alanine Aminotransferase 19 U/L (12-78); Albumin Level 4.4 g/dl (3.5-5.0); Albumin/Globulin Ratio 1.5 (1.1-1.8); Alkaline Phosphatase 156 U/L (38-126); Amylase 56 U/L (30-110); Anion Gap 20.7 mEq/L (5-15); Aspartate Amino Transferase 34 U/L (14-36); Bilirubin,Total 1.2 mg/dl (0.2-1.3); Blood Urea Nitrogen 9 mg/dl (7-17); Calcium 9.6 mg/dl (8.4-10.2); Carbon Dioxide 22 mmol/L (22.0-30.0); Estimated Glomerular Filt Rate 88 ml/min (>60); GFR (African American) 107 ML/MIN (>60); Globulin 2.9 g/dL (1.3-3.2); Glucose 65 mg/dl (74-100); Lipase 35 U/L (23-300); Total Protein,Serum 7.3 g/dl (6.3-8.2)
== END ==
PROVIDERS: Visit Provider Nurse Practitioner Family
DX: R10.10 Upper abdominal pain, unspecified (principal)
CPT/HCPCS: 36415; 80053; 82150; 83690; 85007; 85025

== ENCOUNTER 2021-09-09 13:49 | Emergency (ER) | payer BC, SELFPAY ==
[2021-09-09] VITALS (8 sets, daily range): BP systolic 100–114; BP diastolic 64–72; PULSE 111–116; RESP 18–20; TEMP 36.8; O2SAT 93–96; BMI 24.8
--- NOTE | 2021-09-09 14:11 | XR_ITS ---
PROCEDURE INFORMATION: Exam: XR Chest Exam date and time: 09/09/2021 2:11 PM Age: 51 years old Clinical indication: Cough TECHNIQUE: Imaging protocol: XR of the chest. Views: 1 view. COMPARISON: CR XR CHEST 2V 03/08/2021 12:22 PM FINDINGS: Lungs: 4.1 x 3.0 left hilar mass is present. Atelectasis and/or early infiltrative changes noted within the right lung base. Pleural spaces: Unremarkable. No pleural effusion. No pneumothorax. Heart/Mediastinum: Unremarkable. No cardiomegaly. Bones/joints: Unremarkable. IMPRESSION: 1. Left hilar mass. Further evaluation with CT chest recommended.The lungs are hyperinflated, consistent with underlying small airways disease. Impression. 2. Atelectasis and/or early infiltrative changes noted within the right lung base. Scoliotic curvature of the thoracic spine.
[2021-09-09 14:36] LABS: Basophils # 0.1 K/mm3 (0-0.2); Basophils % 0.2 % (0.1-2.0); Eosinophils # 0.4 K/mm3 (0.0-0.4); Eosinophils % 1.1 % (0.1-12.0); Hemoglobin 13.1 g/dL (12.2-16.2); Lymphocytes # 0.8 K/mm3 (0.7-4.5); Lymphocytes % 2.8 % (10-50); Mean Corpuscular HGB Conc 32.6 g/dL (31.8-35.4); Mean Corpuscular Hemoglobin 30.6 pg (27.0-31.2); Mean Corpuscular Volume 93.8 fl (81-99); Mean Platelet Volume 8.4 fl (7.4-10.4); Monocytes # 1.1 K/mm3 (0.1-1.0); Monocytes % 3.8 % (1.7-9.3); Neutrophils # 27.9 K/mm3 (1.8-7.8); Neutrophils % 92.1 % (37.0-80.0); Platelet Count 266 K/mm3 (142-424); Red Blood Count 4.27 M/mm3 (4.20-5.40); Red Cell Distribution Width 13.4 % (11.5-17.5); White Blood Count 30.3 K/mm3 (4.8-10.8)
--- NOTE | 2021-09-09 14:38 | HMH.EDGENADL ---
ED Disposition Clinical Impression: Bronchitis Leukocytosis Qualifiers: Leukocytosis type: bandemia Qualified Code(s): D72.825 - Bandemia Disposition: Home, Self-Care Condition on Discharge: Good Instructions: Pneumonia-Adult Prescriptions: Doxycycline Monohydrate [Doxycycline Yates 100mg Tab] 100 mg PO Q12 #20 tab Transmission Status: Pending to [id number] Referrals: Tamiko Russo APRN [Primary Care Provider] - - Critical Care Critical Care Time: No Attestation: On 09/09/21, the high probability of a clinically significant, sudden or life threatening deterioration of the following system(s) required my full and direct attention, intervention and personal management. The time I documented below is in addition to time spent performing reported procedures but includes the following listed in this critical care notation. Medical Decision Making - Medical Records Medical records reviewed: Yes: I reviewed the patient's medical records. - Benjamin Inquiry Pt receiving controlled substance: No Vital Signs: 09/09/21 13:51 09/09/21 14:16 Temperature 98.3 F Temperature Source Oral Pulse Rate [Left Radial] 113 H Respiratory Rate 18 Blood Pressure 114/67 Blood Pressure [Right Arm] 105/71 L Blood Pressure Mean [Right Arm] 82 Blood Pressure Source [Right Arm] Automatic Cuff Blood Pressure Position [Right Arm] Sitting 02 Sat by Pulse Oximetry 96 Oxygen Delivery Method Room Air - Lab Data Lab Results 09/09/21 14:00: WBC 30.3 H*, RBC 4.27, Hgb 13.1, Hct 40.0, MCV 93.8, MCH 30.6, MCHC 32.6, RDW 13.4, Plt Count 266, MPV 8.4, Neut % (Auto) 92.1 H, Lymph % (Auto) 2.8 L, Yates % (Auto) 3.8, Eos % (Auto) 1.1, Baso % (Auto) 0.2, Neut # (Auto) 27.9 H, Lymph # (Auto) 0.8, Yates # (Auto) 1.1 H, Eos # (Auto) 0.4, Baso # (Auto) 0.1 09/09/21 14:00: Sodium 126 L, Potassium 3.8, Chloride 93 L, Carbon Dioxide 24, Anion Gap 12.8, BUN 9, Creatinine 0.70, Estimated Creat Clear 93, Estimated GFR 88, Est GFR ( Amer) 107, Glucose 86 D, Calcium 9.4, Total Bilirubin 1.3, AST 38 H, ALT 25, Alkaline Phosphatase 147 H, Total Protein 7.2, Albumin 4.2, Globulin 3.0, Albumin/Globulin Ratio 1.4, Lipase 23 09/09/21 14:00: Lactate 1.9 09/09/21 15:40: Urine Color Yellow, Urine Appearance Clear, Urine pH 7.5, Ur Specific Jupiter 1.010, Urine Protein Negative, Urine Glucose (UA) Negative, Urine Ketones Negative, Urine Blood Trace-l, Urine Nitrate Negative, Urine Bilirubin Negative, Urine Urobilinogen 0.2, Ur Leukocyte Esterase 1+ A, Urine RBC Occasional, Urine WBC Occasional, Ur Squamous Epith Cells 5-10, Urine Bacteria None Result diagrams: 09/09/21 14:00 09/09/21 14:00 Orders (Tests/Meds): ED MEDICATIONS Generic Name Dose Route Start Last Admin Trade Name Freq PRN Reason Stop Dose Admin Sodium Chloride 10 ml 09/09/21 16:26 09/09/21 16:27 Sodium Chloride 0.9% 10ml Syr (Rad Only) IV 10/09/21 16:25 10 ml NEEDED PRN Administration Maintain IV Site Discontinued Medications Generic Name Dose Route Start Last Admin Trade Name Freq PRN Reason Stop Dose Admin Sodium Chloride 1,000 mls @ 999 mls/hr 09/09/21 14:15 09/09/21 14:26 Sod Chlor 0.9% 1000ml Bag IV 09/09/21 15:15 999 mls/hr .Q1H1M BASSAM Administration Iopamidol 75 ml 09/09/21 16:26 09/09/21 16:27 Iopamidol-370 (76%);100ml Bottle IV 09/09/21 16:27 75 ml ONCE ONE Administration ORDERS Category Date Time Status Urine Culture Stat Micro 09/09/21 15:40 Received - CT Data CT Scan: Abdomen, Pelvis, Chest Time Received: 17:[address] Reviewed: Yes: I have reviewed the patient's CT results, I have viewed the radiologist's interpretation Findings Narrative: IMPRESSION: 1. Left hilar lymphadenopathy is present with infiltrative changes noted within the lingula. Short-term follow-up is recommended. 2. Centrilobular emphysematous changes noted bilaterally. 3. No evidence of pulmonary embolism. 4. No
[2021-09-09 15:11] LABS: Chloride 93 mmol/L (98-107); Potassium 3.8 mmoL/L (3.5-5.1); Sodium 126 mmol/L (136-145)
[2021-09-09 15:13] LABS: Blood Urea Nitrogen 9 mg/dl (7-17); Creatinine Clearance Estimated 93 mL/min (50-200); Estimated Glomerular Filt Rate 88 ml/min (>60); GFR (African American) 107 ML/MIN (>60)
[2021-09-09 15:14] LABS: Alanine Aminotransferase 25 U/L (12-78); Albumin Level 4.2 g/dl (3.5-5.0); Albumin/Globulin Ratio 1.4 (1.1-1.8); Alkaline Phosphatase 147 U/L (38-126); Anion Gap 12.8 mEq/L (5-15); Aspartate Amino Transferase 38 U/L (14-36); Bilirubin,Total 1.3 mg/dl (0.2-1.3); Calcium 9.4 mg/dl (8.4-10.2); Carbon Dioxide 24 mmol/L (22.0-30.0); Glucose 86 mg/dl (74-100); Lipase 23 U/L (23-300); Total Protein,Serum 7.2 g/dl (6.3-8.2)
[2021-09-09 15:16] LABS: Lactic Acid 1.9 mmol/L (0.7-2.1)
--- NOTE | 2021-09-09 15:18 | CT_ITS ---
PROCEDURE INFORMATION: Exam: CT Chest With Contrast; Diagnostic Exam date and time: 09/09/2021 3:18 PM Age: 51 years old Clinical indication: Smoker's cough; Patient HX: Cough with neck ache TECHNIQUE: Imaging protocol: Diagnostic computed tomography of the chest with contrast. Radiation optimization: All CT scans at this facility use at least one of these dose optimization techniques: automated exposure control; mA and/or kV adjustment per patient size (includes targeted exams where dose is matched to clinical indication); or iterative reconstruction. Contrast material: ISOVUE; Contrast volume: 75 ml; Contrast route: IV; COMPARISON: CR XR CHEST PORTABLE 09/09/2021 2:37 PM FINDINGS: Lungs: Centrilobular emphysematous changes noted bilaterally. Granulomatous calcifications noted within the mediastinum and bilateral hilar regions. Atelectatic changes noted within both lung bases. Pleural spaces: Unremarkable. No pneumothorax. No pleural effusion. Heart: Unremarkable. No cardiomegaly. No pericardial effusion. Pulmonary arteries: No evidence of pulmonary embolism. Aorta: No evidence of aortic dissection. Lymph nodes: Left hilar lymphadenopathy is present with infiltrative changes noted within the lingula. No mediastinal lymphadenopathy. Bones/joints: Unremarkable. No acute fracture. Soft tissues: Unremarkable. IMPRESSION: 1. Left hilar lymphadenopathy is present with infiltrative changes noted within the lingula. Short-term follow-up is recommended. 2. Centrilobular emphysematous changes noted bilaterally. 3. No evidence of pulmonary embolism. 4. No evidence of aortic dissection. 5. No mediastinal lymphadenopathy. 6. Atelectatic changes noted within both lung bases.
--- NOTE | 2021-09-09 15:18 | CT_ITS ---
PROCEDURE INFORMATION: Exam: CT Abdomen And Pelvis With Contrast Exam date and time: 09/09/2021 3:18 PM Age: 51 years old Clinical indication: Other: Elevated white blood caount; Patient HX: Elevated white blood count; Additional info: Pain TECHNIQUE: Imaging protocol: Computed tomography of the abdomen and pelvis with contrast. Radiation optimization: All CT scans at this facility use at least one of these dose optimization techniques: automated exposure control; mA and/or kV adjustment per patient size (includes targeted exams where dose is matched to clinical indication); or iterative reconstruction. Contrast material: ISOVUE; Contrast volume: 75 ml; Contrast route: IV; COMPARISON: ABDPELWW CT abdomen pelvis wo/w con 11/27/2017 10:35 AM FINDINGS: Liver: Normal. No mass. Gallbladder and bile ducts: Normal. No calcified stones. No ductal dilation. Pancreas: Normal. No ductal dilation. Spleen: Normal. No splenomegaly. Adrenal glands: Normal. No mass. Kidneys and ureters: Normal. No hydronephrosis. Stomach and bowel: Unremarkable. No obstruction. No mucosal thickening. Appendix: No evidence of appendicitis. Intraperitoneal space: Normal. No significant fluid collection. Vasculature: Unremarkable. No abdominal aortic aneurysm. Lymph nodes: Unremarkable. No enlarged lymph nodes. Urinary bladder: Unremarkable as visualized. Reproductive: Unremarkable as visualized. Bones/joints: Unremarkable. No acute fracture. Soft tissues: Soft tissues are normal. IMPRESSION: No acute findings.
[2021-09-09 15:43] LABS: Microscopic, Urine URINE MICROSCOPIC (MICROSCOPIC)
[2021-09-09 15:48] LABS: Appearance,Urine CLEAR (Clear); Bilirubin,Urine Negative (Negative); Blood, Urine TRACE-L (Negative); Color,Urine YELLOW (Yellow); Glucose,Urine (UA) Negative (Negative); Ketones,Urine Negative (Negative); Leukocyte Esterase,Urine 1+ (Negative); Nitrate,Urine Negative (Negative); PH,Urine 7.5 (5.0-8.5); Protein,Urine Negative (Negative); Urobilinogen,Urine 0.2 EU/dl (0.2)
[2021-09-09 15:55] LABS: RBC,Urine Occasional #/hpf (0-3); WBC,Urine Occasional #/hpf (0-3)
== END 2021-09-09 17:49 | disposition home or self-care (01) ==
PROVIDERS: Emergency Provider Emergency Medicine; PCP Nurse Practitioner Family
DX: J20.9 Acute bronchitis, unspecified (principal); D72.825 Bandemia; K21.9 Gastro-esophageal reflux disease without esophagitis; E78.5 Hyperlipidemia, unspecified; I10 Essential (primary) hypertension; F41.9 Anxiety disorder, unspecified; F17.210 Nicotine dependence, cigarettes, uncomplicated; F10.10 Alcohol abuse, uncomplicated
CPT/HCPCS: 36415; 71045; 71260; 74177; 80053; 81001; 83605; 83690; 85025; 87086; 96365; 99283; Q9967

== ENCOUNTER → 2021-09-13 18:00 | Outpatient (CLI) | payer BC, SELFPAY ==
[2021-09-13 19:11] LABS: Basophils # 0.2 K/mm3 (0-0.2); Basophils % 1.5 % (0.1-2.0); Eosinophils # 0.2 K/mm3 (0.0-0.4); Eosinophils % 1.6 % (0.1-12.0); Hematocrit 40.2 % (37.0-47.0); Hemoglobin 12.6 g/dL (12.2-16.2); Lymphocytes # 1.8 K/mm3 (0.7-4.5); Mean Corpuscular HGB Conc 31.3 g/dL (31.8-35.4); Mean Corpuscular Hemoglobin 29.8 pg (27.0-31.2); Mean Corpuscular Volume 95.3 fl (81-99); Mean Platelet Volume 9.3 fl (7.4-10.4); Monocytes # 0.8 K/mm3 (0.1-1.0); Monocytes % 8.3 % (1.7-9.3); Neutrophils # 7.1 K/mm3 (1.8-7.8); Neutrophils % 70.6 % (37.0-80.0); Platelet Count 385 K/mm3 (142-424); Red Blood Count 4.22 M/mm3 (4.20-5.40); Red Cell Distribution Width 13.8 % (11.5-17.5)
[2021-09-13 20:09] LABS: Anion Gap 10.6 mEq/L (5-15); Blood Urea Nitrogen 5 mg/dl (7-17); Calcium 9.3 mg/dl (8.4-10.2); Carbon Dioxide 28 mmol/L (22.0-30.0); Chloride 100 mmol/L (98-107); Estimated Glomerular Filt Rate 105 ml/min (>60); GFR (African American) 128 ML/MIN (>60); Glucose 93 mg/dl (74-100); Potassium 4.6 mmoL/L (3.5-5.1); Sodium 134 mmol/L (136-145)
== END ==
PROVIDERS: Visit Provider Nurse Practitioner Family
DX: D72.829 Elevated white blood cell count, unspecified (principal); R59.0 Localized enlarged lymph nodes
CPT/HCPCS: 80048; 85025

== ENCOUNTER → 2021-10-25 11:40 | Outpatient (CLI) | payer BC, SELFPAY ==
--- NOTE | 2021-10-25 12:01 | XR_ITS ---
FINAL REPORT CLINICAL HISTORY: follow up pneumonia, pt was dx x 1 month ago COMPARISON: September 09, 2021 FINDINGS: Two views of the chest were obtained. The heart size and pulmonary vascularity are within normal limits. The mediastinum is normal. There are improved bilateral pulmonary opacities. No new abnormality is identified. There is no pneumothorax. The bony thorax is intact. IMPRESSION: Improved bilateral pulmonary opacities. Reviewed, Interpreted and Dictated by Balwinder Jose III, MD Transcribed by Eli Aguilar Authenticated by Balwinder Jose III, MD on 10/25/2021 12:34:11 PM [facility]
[2021-10-25 13:12] LABS: Basophils # 0.1 K/mm3 (0-0.2); Basophils % 0.9 % (0.1-2.0); Eosinophils # 0.2 K/mm3 (0.0-0.4); Eosinophils % 1.7 % (0.1-12.0); Hematocrit 42.4 % (37.0-47.0); Hemoglobin 13.3 g/dL (12.2-16.2); Lymphocytes # 2.2 K/mm3 (0.7-4.5); Lymphocytes % 22.4 % (10-50); Mean Corpuscular HGB Conc 31.5 g/dL (31.8-35.4); Mean Corpuscular Hemoglobin 30.4 pg (27.0-31.2); Mean Corpuscular Volume 96.5 fl (81-99); Mean Platelet Volume 9.1 fl (7.4-10.4); Monocytes # 0.5 K/mm3 (0.1-1.0); Monocytes % 5.4 % (1.7-9.3); Neutrophils # 6.8 K/mm3 (1.8-7.8); Neutrophils % 69.5 % (37.0-80.0); Platelet Count 337 K/mm3 (142-424); Red Cell Distribution Width 13.8 % (11.5-17.5); White Blood Count 9.8 K/mm3 (4.8-10.8)
[2021-10-26 08:16] LABS: Alpha-1-Antitrypsin 159 mg/dL (101-187)
[2021-10-29 21:22] LABS: D001-IgE D pteronyssinus <0.10 kU/L (Class 0); D002-IgE D farinae <0.10 kU/L (Class 0); E001-IgE Cat Dander <0.10 kU/L (Class 0); E005-IgE Dog Dander <0.10 kU/L (Class 0); E072-IgE Mouse Urine <0.10 kU/L (Class 0); G002-IgE Bermuda Grass <0.10 kU/L (Class 0); G006-IgE Timothy Grass <0.10 kU/L (Class 0); I006-IgE Cockroach, German <0.10 kU/L (Class 0); Immunoglobulin E, Total 58 IU/mL (6-495); M001-IgE Penicillium chrysogen <0.10 kU/L (Class 0); M002-IgE Cladosporium herbarum <0.10 kU/L (Class 0); M003-IgE Aspergillus fumigatus <0.10 kU/L (Class 0); M006-IgE Alternaria alternata <0.10 kU/L (Class 0); T001-IgE Maple/Box Elder <0.10 kU/L (Class 0); T003-IgE Common Silver Birch <0.10 kU/L (Class 0); T006-IgE Cedar, Mountain <0.10 kU/L (Class 0); T007-IgE Oak, White <0.10 kU/L (Class 0); T008-IgE Elm, American <0.10 kU/L (Class 0); T010-IgE Walnut <0.10 kU/L (Class 0); T011-IgE Maple Leaf Sycamore <0.10 kU/L (Class 0); T014-IgE Cottonwood <0.10 kU/L (Class 0); T015-IgE Ash, White <0.10 kU/L (Class 0); T022-IgE Pecan, Hickory <0.10 kU/L (Class 0); T070-IgE White Mulberry <0.10 kU/L (Class 0); W001-IgE Ragweed, Short <0.10 kU/L (Class 0); W011-IgE Thistle, Russian <0.10 kU/L (Class 0); W014-IgE Pigweed, Common <0.10 kU/L (Class 0); W018-IgE Sheep Sorrel <0.10 kU/L (Class 0)
== END ==
PROVIDERS: PCP Nurse Practitioner Family; Visit Provider Internal Medicine Pulmonary Disease
DX: R06.02 Shortness of breath (principal); J44.9 Chronic obstructive pulmonary disease, unspecified; J45.909 Unspecified asthma, uncomplicated
CPT/HCPCS: 36415; 71046; 82103; 82785; 85025; 86003

== ENCOUNTER → 2021-11-07 12:57 | Outpatient (CLI) | payer BC, SELFPAY ==
[2021-11-07 13:35] VITALS: PULSE 92; PULSE 97
== END ==
LOC: RT 12:58
PROVIDERS: PCP Nurse Practitioner Family; Visit Provider Internal Medicine Pulmonary Disease
DX: R06.09 Other forms of dyspnea (principal)
CPT/HCPCS: 94060; 94618; 94640; 94727; 94729

== ENCOUNTER → 2022-04-19 12:31 | Outpatient (CLI) | payer BC, SELFPAY ==
--- NOTE | 2022-04-19 | CA_ITS ---
FINAL REPORT TECHNIQUE: Ultrasound images of the deep venous system were obtained from the right groin to the calf veins. CLINICAL HISTORY: .rt leg pain x 3 days FINDINGS: The deep venous system is normally compressible. Normal flow is identified. IMPRESSION: No evidence of right lower extremity DVT. Reviewed, Interpreted and Dictated by Bran Smyth MD Transcribed by Saul Espitia Authenticated and [facility]
[2022-04-19 14:01] LABS: Basophils # 0.1 K/mm3 (0-0.2); Basophils % 1.6 % (0.1-2.0); Eosinophils # 0.2 K/mm3 (0.0-0.4); Eosinophils % 1.9 % (0.1-12.0); Hematocrit 40.1 % (37.0-47.0); Hemoglobin 12.7 g/dL (12.2-16.2); Lymphocytes # 1.8 K/mm3 (0.7-4.5); Lymphocytes % 21.8 % (10-50); Mean Corpuscular HGB Conc 31.6 g/dL (31.8-35.4); Mean Corpuscular Hemoglobin 28.2 pg (27.0-31.2); Mean Corpuscular Volume 89.2 fl (81-99); Mean Platelet Volume 9.2 fl (7.4-10.4); Monocytes # 0.4 K/mm3 (0.1-1.0); Monocytes % 5.1 % (1.7-9.3); Neutrophils # 5.7 K/mm3 (1.8-7.8); Neutrophils % 69.7 % (37.0-80.0); Platelet Count 276 K/mm3 (142-424); Red Cell Distribution Width 14.4 % (11.5-17.5); White Blood Count 8.2 K/mm3 (4.8-10.8)
[2022-04-19 14:17] LABS: Alanine Aminotransferase 16 U/L (12-78); Albumin/Globulin Ratio 1.4 (1.1-1.8); Alkaline Phosphatase 194 U/L (38-126); Anion Gap 13.3 mEq/L (5-15); Aspartate Amino Transferase 27 U/L (14-36); Bilirubin,Total 0.4 mg/dl (0.2-1.3); Blood Urea Nitrogen 2 mg/dl (7-17); Calcium 9.4 mg/dl (8.4-10.2); Carbon Dioxide 26 mmol/L (22.0-30.0); Chloride 95 mmol/L (98-107); Estimated Glomerular Filt Rate 105 ml/min (>60); GFR (African American) 127 ML/MIN (>60); Globulin 2.8 g/dL (1.3-3.2); Glucose 94 mg/dl (74-100); Potassium 4.3 mmoL/L (3.5-5.1); Sodium 130 mmol/L (136-145); Total Protein,Serum 6.8 g/dl (6.3-8.2)
[2022-04-19 14:25] LABS: NT Pro Brain Natriuretic Pep. 72.6 pg/mL (0-125)
[2022-04-19 14:46] LABS: Thyroid Stimulating Hormone 1.02 uIU/mL (0.465-4.68)
== END ==
LOC: RT 12:34
PROVIDERS: PCP Nurse Practitioner Family; Visit Provider Nurse Practitioner Family
DX: R60.0 Localized edema (principal)
CPT/HCPCS: 36415; 80053; 83880; 84443; 85025; 93971

== ENCOUNTER → 2022-04-27 09:16 | Outpatient (CLI) | payer BC, SELFPAY ==
--- NOTE | 2022-04-27 09:33 | US_ITS ---
FINAL REPORT CLINICAL HISTORY: .DM, HLD, TIA/CVA, FINDINGS: COMPLETE ANKLE/BRACHIAL INDICES BILATERAL The right TYLOR is 1.1. The left TYLOR is 1.1. IMPRESSION: ABIs are within normal limits bilaterally. Reviewed, Interpreted and Dictated by Balwinder Jose III, MD Transcribed by Anna Rebolledo Authenticated and [facility]
== END ==
LOC: RT 09:17
PROVIDERS: PCP Nurse Practitioner Family; Visit Provider Nurse Practitioner Family
DX: R60.0 Localized edema (principal); R09.89 Other specified symptoms and signs involving the circulatory and respiratory systems
CPT/HCPCS: 93923

== ENCOUNTER → 2022-05-03 10:49 | Outpatient (CLI) | payer BC, SELFPAY ==
--- NOTE | 2022-05-03 10:53 | XR_ITS ---
FINAL REPORT CLINICAL HISTORY: LEFT FOOT PAIN FINDINGS: AP, oblique and lateral views of the left foot were obtained. There is no prior exam for comparison. There is no acute fracture or dislocation. The joint spaces are preserved. Soft tissues are normal. IMPRESSION: No acute osseous abnormality of the left foot. Reviewed, Interpreted and Dictated by Trish Bautista MD Transcribed by Emperatriz Tovar Authenticated and [facility]
== END ==
LOC: RAD 10:49
PROVIDERS: PCP Nurse Practitioner Family; Visit Provider Nurse Practitioner Family
DX: M79.672 Pain in left foot (principal)
CPT/HCPCS: 73630

== ENCOUNTER → 2022-12-12 12:41 | Outpatient (CLI) | payer BC, SELFPAY ==
--- NOTE | 2022-12-12 13:03 | CT_ITS ---
FINAL REPORT CLINICAL HISTORY: H/O TOBACCO USE, currently smokes 1 pk per day 35 yrs, no cancer hx COMPARISON: 09/09/2021 FINDINGS: Low-Dose Chest CT Axial images were obtained from the lung apex to the mid abdomen by computed tomography. Low-dose protocol was utilized. CTDI vol (mGy): 2.90 DLP (mGy-cm): 92.99 There is no axillary adenopathy. There is no hilar adenopathy. There are multiple borderline size mediastinal lymph nodes. The heart is proper size. There is no pericardial or pleural effusion. Lung window images demonstrate moderate changes of emphysema with mild pulmonary scarring. There is been interval resolution of lingular pneumonia. There is a calcified granuloma in the left lower lobe. Limited images of the upper abdomen are unremarkable. IMPRESSION: Lung RADS category 1. Recommend 12 month follow-up low-dose chest CT. Reviewed, Interpreted and Dictated by Balwinder Jose III, MD Transcribed by Eli Aguilar Authenticated and [facility]
[2022-12-12 13:10] LABS: Basophils # 0.1 K/mm3 (0-0.2); Basophils % 0.9 % (0.1-2.0); Eosinophils # 0.2 K/mm3 (0.0-0.4); Eosinophils % 2.4 % (0.1-12.0); Hematocrit 44.3 % (37.0-47.0); Hemoglobin 13.7 g/dL (12.2-16.2); Lymphocytes # 1.6 K/mm3 (0.7-4.5); Lymphocytes % 25.4 % (10-50); Mean Corpuscular Hemoglobin 26.1 pg (27.0-31.2); Mean Corpuscular Volume 84.3 fl (81-99); Mean Platelet Volume 8.7 fl (7.4-10.4); Monocytes # 0.3 K/mm3 (0.1-1.0); Monocytes % 5.3 % (1.7-9.3); Neutrophils # 4.1 K/mm3 (1.8-7.8); Platelet Count 295 K/mm3 (142-424); Red Blood Count 5.25 M/mm3 (4.20-5.40); Red Cell Distribution Width 15.4 % (11.5-17.5); White Blood Count 6.2 K/mm3 (4.8-10.8)
[2022-12-12 13:36] LABS: Hemoglobin A1C 5.7 % (4.0-6.0)
[2022-12-12 15:36] LABS: Alanine Aminotransferase 16 U/L (12-78); Albumin Level 4.5 g/dl (3.5-5.0); Albumin/Globulin Ratio 1.6 (1.1-1.8); Alkaline Phosphatase 191 U/L (38-126); Anion Gap 11.3 mEq/L (5-15); Aspartate Amino Transferase 26 U/L (14-36); Bilirubin,Total 0.7 mg/dl (0.2-1.3); Blood Urea Nitrogen 5 mg/dl (7-17); Calcium 8.8 mg/dl (8.4-10.2); Carbon Dioxide 29 mmol/L (22.0-30.0); Chloride 96 mmol/L (98-107); Chol/HDL Ratio 5.1 (1-3.5); Cholesterol 241 mg/dl (140-200); Estimated Glomerular Filt Rate 105 ml/min (>60); GFR (African American) 127 ML/MIN (>60); Globulin 2.9 g/dL (1.3-3.2); Glucose 92 mg/dl (74-100); HDL Cholesterol 47 mg/dl (40-60); Potassium 4.3 mmoL/L (3.5-5.1); Sodium 132 mmol/L (136-145); Total Protein,Serum 7.4 g/dl (6.3-8.2); Triglycerides 160 mg/dl (30-150); VLDL Cholesterol 32 mg/dL (0-40)
[2022-12-12 15:42] LABS: 25-OH Vitamin D, Total 22.3 ng/mL (30-100)
[2022-12-12 15:47] LABS: Direct LDL Cholesterol 154.26 mg/dL (100-129)
[2022-12-12 16:07] LABS: Thyroid Stimulating Hormone 1.59 uIU/mL (0.465-4.68)
[2022-12-12 16:26] LABS: Vitamin B12 370 pg/mL (239-931)
== END ==
LOC: RAD 12:41
PROVIDERS: PCP Nurse Practitioner Family; Visit Provider Nurse Practitioner Family
DX: Z87.891 Personal history of nicotine dependence (principal); Z12.2 Encounter for screening for malignant neoplasm of respiratory organs; J44.9 Chronic obstructive pulmonary disease, unspecified; E78.5 Hyperlipidemia, unspecified; E53.8 Deficiency of other specified B group vitamins; E55.9 Vitamin D deficiency, unspecified; R63.5 Abnormal weight gain
CPT/HCPCS: 36415; 71271; 80053; 80061; 82306; 82607; 83036; 84443; 85025

== ENCOUNTER 2023-04-03 10:16 | Emergency (ER) | payer OTHER, SELFPAY ==
--- NOTE | 2023-04-03 10:17 | HMH.EDGENADL ---
Discharge Plan Disposition Patient Disposition: Xfer [facility] Condition: Critical Chief Complaint: Headache Prescriptions Prescriptions: No Action omeprazole 40 mg capsule,delayed release(DR/EC) 40 mg PO DAILY aspirin 81 mg tablet,delayed release (DR/EC) 81 mg PO DAILY atorvastatin 40 mg tablet 10 mg PO DAILY Breo Ellipta 100-25 mcg/dose blister with device 1 inh INHALATION DAILY Qty: 90 3RF fluticasone propionate [Flonase Allergy Relief] 50 mcg/actuation spray,suspension 1 spray INTRANASAL DAILY 90 Days Qty: 16 3RF Rx Instructions: administer into each nostril All Day Allergy (cetirizine) 10 mg capsule 10 mg PO DAILY PRN (Reason: allergy symptoms) Qty: 30 0RF paroxetine HCl 40 mg tablet 40 mg PO DAILY buspirone 10 mg tablet 10 mg PO TID ondansetron HCl 4 mg tablet 4 mg PO HS metoprolol succinate [Toprol XL] 50 mg tablet extended release 24 hr 50 mg PO DAILY diphenhydramine-acetaminophen [Tylenol PM Extra Strength] 25-500 mg tablet 1 tab PO HS PRN meloxicam 15 MG tablet 15 mg PO DAILY alprazolam 0.5 MG tablet 0.5 mg PO TID albuterol sulfate 8.5 GM HFA aerosol inhaler 2 puffs IH QIDP PRN (Reason: Shortness Of Breath Or Wheezing) gabapentin 300 mg capsule 300 mg PO BID aripiprazole 20 mg tablet 5 mg PO DAILY doxycycline monohydrate 100 MG tablet 100 mg PO Q12 Qty: 20 0RF Referrals Follow up/Referrals: Provider,Referral, MD [Primary Care Provider] - See instructions Clinical Impressions Clinical Impression: SAH (subarachnoid hemorrhage), Ruptured aneurysm of intracranial artery Discharge ED Provider: Asha Culp General Adult HPI General Chief complaint: Headache Stated complaint: headache Time Seen by Provider: 04/03/23 10:26 History of Present Illness HPI narrative: Patient is a 53-year-old female presenting with a thunderclap headache. She states this began 30 minutes prior to arrival and time of onset to time of maximal intensity was a matter of moments stating that it was a 10 out of 10 diffuse headache associated with some neck meningismus that is subsequently improved over the last 30 minutes now is down to a 4 out of 10. She had no neurologic deficits at any point during this time. She was brought in by EMS no medications were given. She does state that her grandmother has a history of a ruptured cerebral aneurysm and she from this in her 20s. No other family history. Patient has no neck pain or any other symptoms at the moment. She is not anticoagulated but is on aspirin. Related Data Home Medications Medication Instructions Recorded Confirmed albuterol sulfate 90 mcg/actuation 2 puffs IH QIDP PRN Shortness Of 07/14/18 10/25/21 aerosol inhaler Breath Or Wheezing alprazolam 0.5 mg tablet 0.5 mg PO TID anxiety 07/14/18 10/25/21 meloxicam 15 mg tablet 15 mg PO DAILY Arthritis 07/14/18 10/25/21 aspirin 81 mg tablet,delayed 81 mg PO DAILY . 03/02/20 10/25/21 release omeprazole 40 mg capsule,delayed 40 mg PO DAILY . 03/02/20 10/25/21 release aripiprazole 20 mg tablet 5 mg PO DAILY . 10/25/21 10/25/21 atorvastatin 40 mg tablet 10 mg PO DAILY . 10/25/21 10/25/21 buspirone 10 mg tablet 10 mg PO TID 10/25/21 10/25/21 diphenhydramine 25 1 tab PO HS PRN 10/25/21 10/25/21 mg-acetaminophen 500 mg tablet (Tylenol PM Extra Strength) gabapentin 300 mg capsule 300 mg PO BID Pain 10/25/21 10/25/21 metoprolol succinate 50 mg 50 mg PO DAILY 10/25/21 10/25/21 tablet,extended release 24 hr (Toprol XL) ondansetron HCl 4 mg tablet 4 mg PO HS 10/25/21 10/25/21 paroxetine HCl 40 mg tablet 40 mg PO DAILY 10/25/21 10/25/21 Previous Rx's Medication Instructions Recorded doxycycline monohydrate 100 mg 100 mg PO Q12 #20 tabs 09/09/21 tablet cetirizine 10 mg capsule (All Day 10 mg PO DAILY PRN allergy 11/15/21 Allergy (cetirizine)) symptoms #30 caps fluticasone furoate 100 1 inh
--- NOTE | 2023-04-03 10:19 | CT_ITS ---
FINAL REPORT TECHNIQUE: Thin section axial CT with IV contrast supplemented with multiplanar reconstruction under CT angiogram protocol. This study was performed with techniques to keep radiation doses as low as reasonably achievable (ALARA). Individualized dose reduction techniques using automated exposure control or adjustment of mA and/or kV according to the patient''s size were employed. NASCET criteria was utilized during interpretation. CLINICAL HISTORY: thunderclap BROWN, r/u SAH/vascular dissection COMPARISON: None FINDINGS: Aortic arch: Arch shows no significant narrowing. Great vessel origins are widely patent. Right carotid: No significant stenosis is seen of the cervical common or internal carotid artery. Left carotid: No significant stenosis is seen of the cervical common or internal carotid artery. Vertebral: Left vertebral artery is dominant. No significant stenosis is present. IMPRESSION: No evidence of significant stenosis or major branch occlusion. Reviewed, Interpreted and Dictated by Balwinder Jose III, MD Transcribed by Macey Hinton Authenticated and [facility]
--- NOTE | 2023-04-03 10:19 | CT_ITS ---
FINAL REPORT TECHNIQUE: Thin section axial CT with IV contrast supplemented with multiplanar reconstruction under CT angiogram protocol. 3-D reconstructions were performed. This study was performed with techniques to keep radiation doses as low as reasonably achievable (ALARA). Individualized dose reduction techniques using automated exposure control or adjustment of mA and/or kV according to the patient''s size were employed. CLINICAL HISTORY: thunderclap BROWN, r/u SAH/vascular dissection COMPARISON: None FINDINGS: The distal vertebral and basilar arteries and left internal carotid artery have an unremarkable appearance. There is a 6 mm focus of contrast in the region of the right posterior communicating artery consistent with right posterior communicating aneurysm. The anterior, middle, and posterior cerebral arteries have an unremarkable appearance. 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 Reviewed, Interpreted and Dictated by Balwinder Jose III, MD Transcribed by Macey Hinton Authenticated and [facility]
--- NOTE | 2023-04-03 10:19 | CT_ITS ---
FINAL REPORT CLINICAL HISTORY: thunderclap BROWN, r/u SAH/vascular dissection, stroke protocol FINDINGS: HEAD CT HISTORY: Thunderclap headache TECHNIQUE: Multiple axial CT images were performed from the foramen magnum to the vertex without enhancement. FINDINGS: The ventricles are normal in size.There is a widespread subarachnoid hemorrhage worrisome for aneurysmal rupture. No masses are identified. IMPRESSION: . Widespread subarachnoid hemorrhage worsened for aneurysmal rupture. Dr. Culp, the emergency room physician, was phoned this report. Films reviewed , interpreted and dictated by Dr. Jose Transcribed by Yovani Gill PA-C. Reviewed, Interpreted and Dictated by Balwinder Jose III, MD Transcribed by ALAN Funez Authenticated and [facility]
[2023-04-03 10:21] VITALS: BMI 29.2
[2023-04-03 10:27] VITALS: BP 143/88; PULSE 81; O2SAT 92
[2023-04-03 10:27] LABS: Basophils % 0.4 % (0.1-2.0); Eosinophils # 0.1 K/mm3 (0.0-0.4); Eosinophils % 1.8 % (0.1-12.0); Hematocrit 44.5 % (37.0-47.0); Hemoglobin 13.3 g/dL (12.2-16.2); Lymphocytes % 25.4 % (10-50); Mean Corpuscular HGB Conc 29.9 g/dL (31.8-35.4); Mean Corpuscular Hemoglobin 25.7 pg (27.0-31.2); Mean Corpuscular Volume 86.2 fl (81-99); Mean Platelet Volume 8.6 fl (7.4-10.4); Monocytes # 0.4 K/mm3 (0.1-1.0); Monocytes % 4.3 % (1.7-9.3); Neutrophils # 5.5 K/mm3 (1.8-7.8); Neutrophils % 68.1 % (37.0-80.0); Platelet Count 283 K/mm3 (142-424); Red Blood Count 5.16 M/mm3 (4.20-5.40); Red Cell Distribution Width 15.5 % (11.5-17.5)
[2023-04-03 10:30] VITALS: BP 148/87; BP 150/98; PULSE 70; PULSE 73; RESP 20; TEMP 36.8; O2SAT 92; O2SAT 98; BMI 29.2
[2023-04-03 10:39] LABS: Alanine Aminotransferase 23 U/L (12-78); Albumin Level 4.1 g/dl (3.5-5.0); Albumin/Globulin Ratio 1.3 (1.1-1.8); Alkaline Phosphatase 193 U/L (38-126); Anion Gap 13.8 mEq/L (5-15); Aspartate Amino Transferase 32 U/L (14-36); Bilirubin,Total 0.4 mg/dl (0.2-1.3); Blood Urea Nitrogen 10 mg/dl (7-17); Calcium 8.7 mg/dl (8.4-10.2); Carbon Dioxide 27 mmol/L (22.0-30.0); Chloride 97 mmol/L (98-107); Creatinine Clearance Estimated 124 mL/min (50-200); Estimated Glomerular Filt Rate 105 ml/min (>60); GFR (African American) 127 ML/MIN (>60); Globulin 3.1 g/dL (1.3-3.2); Glucose 136 mg/dl (74-100); Potassium 3.8 mmoL/L (3.5-5.1); Sodium 134 mmol/L (136-145); Total Protein,Serum 7.2 g/dl (6.3-8.2)
--- NOTE | 2023-04-03 10:48 | PC.NURSE ---
Called [facility] for possible transfer
--- NOTE | 2023-04-03 10:50 | PC.NURSE ---
[facility] contacted for weather check. [place] [facility] available and on hold at this time.
--- NOTE | 2023-04-03 10:50 | PC.NURSE ---
pt moved from room 11 to room 4 at this time and placed on air sampling and monitoring
[2023-04-03 10:56] VITALS: BP 167/92; PULSE 77; O2SAT 93
--- NOTE | 2023-04-03 10:57 | INFXCTL.NOTE ---
Dr. Culp speaking with Radiologist at this time
--- NOTE | 2023-04-03 10:57 | PC.NURSE ---
[facility] declined transport at this time
--- NOTE | 2023-04-03 10:58 | PC.NURSE ---
Dr. Culp speaking with [facility].
[2023-04-03 11:00] VITALS: BP 147/92; PULSE 87; O2SAT 91
--- NOTE | 2023-04-03 11:00 | PC.NURSE ---
pt accepted to [facility] by Dr. Bowens
--- NOTE | 2023-04-03 11:04 | PC.NURSE ---
[facility] declined due to weather.
[2023-04-03 11:12] VITALS: BP 151/82; PULSE 84; O2SAT 95
--- NOTE | 2023-04-03 11:19 | PC.NURSE ---
no changes to orientation. pt a&o x4. pt reports mild headache with no other complaints
--- NOTE | 2023-04-03 11:20 | PC.NURSE ---
[facility] arrived
--- NOTE | 2023-04-03 11:24 | PC.NURSE ---
[facility] at for patient transfer to [facility]
[2023-04-03 11:33] VITALS: BP 133/87; PULSE 80; RESP 20; TEMP 36.8; O2SAT 96
== END 2023-04-03 11:35 ==
PROVIDERS: Emergency Provider Student in an Organized Health Care Education/Training Program; PCP Nurse Practitioner Family
DX: I60.7 Nontraumatic subarachnoid hemorrhage from unspecified intracranial artery (principal); G44.53 Primary thunderclap headache; F17.210 Nicotine dependence, cigarettes, uncomplicated
CPT/HCPCS: 51702; 70450; 70496; 70498; 80053; 85025; 96361; 96374; 96375; 99291; Q9967

== ENCOUNTER → 2023-05-20 16:08 | Outpatient (CLI) | payer OTHER, SELFPAY ==
[2023-05-20 16:23] LABS: Microscopic, Urine URINE MICROSCOPIC (MICROSCOPIC)
--- NOTE | 2023-05-20 16:30 | XR_ITS ---
PROCEDURE INFORMATION: Exam: XR Abdomen Exam date and time: 05/20/2023 4:35 PM Age: 53 years old Clinical indication: Abdominal pain; Other: Right sided abd pain; Additional info: Right sided pain TECHNIQUE: Imaging protocol: Radiologic exam of the abdomen. Views: 2 Views. Upright and supine views. COMPARISON: CT ABDOMEN PELVIS W CON 09/09/2021 4:02 PM FINDINGS: Gastrointestinal tract: Normal. No bowel dilation. Intraperitoneal space: Normal. No free air. Bones/joints: Unremarkable for age. IMPRESSION: No acute findings.
[2023-05-20 16:37] LABS: Appearance,Urine CLEAR (Clear); Bilirubin,Urine Negative (Negative); Blood, Urine TRACE-I (Negative); Color,Urine YELLOW (Yellow); Glucose,Urine (UA) Negative (Negative); Ketones,Urine Negative (Negative); Leukocyte Esterase,Urine TRACE (Negative); Nitrate,Urine Negative (Negative); Protein,Urine Negative (Negative); Specific Gravity, Urine <= 1.005 (1.005-1.030); Urobilinogen,Urine 0.2 EU/dl (0.2)
[2023-05-20 17:10] LABS: RBC,Urine Occasional #/hpf (0-3); Squamous Epithelial Cell,Urine Occasional #/hpf (0-5); WBC,Urine Occasional #/hpf (0-3)
== END ==
PROVIDERS: PCP Nurse Practitioner Family; Visit Provider Nurse Practitioner Family
DX: R10.9 Unspecified abdominal pain (principal)
CPT/HCPCS: 74019; 81001

== ENCOUNTER → 2023-05-29 09:54 | Outpatient (CLI) | payer OTHER, SELFPAY ==
--- NOTE | 2023-05-29 10:05 | MM_ITS ---
PROCEDURE INFORMATION: Exam: MG Bilateral Screening 3D Mammography Exam date and time: 05/29/2023 10:09 AM Age: 53 years old Clinical indication: Screening examination; Family history of breast cancer in aunt. TECHNIQUE: Imaging protocol: Bilateral Screening tomosynthesis and 2D mammography including computer-aided detection (CAD) when performed. COMPARISON: 1. MG MM DIG MAMM BI DX W/CAD 11/22/2020 2:13 PM 2. MG MM DIG MAMM DX UNILAT RT CAD 02/24/2020 2:12 PM 3. MG MM DIG MAMM DX UNILAT RT CAD 05/13/2019 2:12 PM 4. MG DIG MAMM-DX UNI-RT 04/24/2019 1:11 PM FINDINGS: MAMMOGRAPHY: Breast composition: There are scattered areas of fibroglandular density. Mass: None. Architectural distortion: None. Calcifications: No suspicious calcifications. Asymmetric density: None. Skin thickening: None. Axillary adenopathy: None. Other: Left biopsy clip. IMPRESSION: No mammographic evidence of malignancy. Annual screening is recommended unless otherwise clinically indicated. ASSESSMENT: BI-RADS Category 2: Benign
== END ==
PROVIDERS: PCP Nurse Practitioner Family; Visit Provider Nurse Practitioner Family
DX: Z12.31 Encounter for screening mammogram for malignant neoplasm of breast (principal)
CPT/HCPCS: 77063; 77067

== ENCOUNTER → 2023-06-04 07:49 | Outpatient (CLI) | payer OTHER, SELFPAY ==
--- NOTE | 2023-06-04 07:56 | CT_ITS ---
FINAL REPORT TECHNIQUE: Postcontrast axial images through the abdomen and pelvis were performed. This study was performed with techniques to keep radiation doses as low as reasonably achievable, (ALARA). Individualized dose reduction techniques using automated exposure control or adjustment of mA and/or kV according to the patient's size were employed. CLINICAL HISTORY: RT SIDED ABD PAIN,HEMATURIA 75 cc of isovue 370 saline flush FINDINGS: Abdomen: The lung bases are clear. The liver is normal in size and attenuation. The gallbladder is present. The spleen is unremarkable. The adrenals are normal. The pancreas is unremarkable. The kidneys enhance appropriately. The aorta is normal in caliber. No free fluid or adenopathy is identified. No findings for mechanical bowel obstruction are identified. Pelvis: The appendix is not identified. The urinary bladder is unremarkable. The uterus is present. There is a small amount of free fluid which is likely physiologic. There is vacuum disc phenomenon at L4-L5 and L5-S1 with bilateral neural foraminal narrowing most evident on the right. IMPRESSION: No acute process identified. Reviewed, Interpreted and Dictated by Bran Smyth MD Transcribed by Saul Espitia Authenticated and [facility]
[2023-06-04 08:34] LABS: Blood Urea Nitrogen 6 mg/dl (7-17); Estimated Glomerular Filt Rate 88 ml/min (>60); GFR (African American) 106 ML/MIN (>60)
== END ==
PROVIDERS: PCP Nurse Practitioner Family; Visit Provider Nurse Practitioner Family
DX: R10.9 Unspecified abdominal pain (principal); R31.9 Hematuria, unspecified
CPT/HCPCS: 36415; 74177; 82565; 84520; Q9967

== ENCOUNTER → 2023-07-03 09:31 | Outpatient (CLI) | payer OTHER, SELFPAY ==
--- NOTE | 2023-07-03 09:39 | US_ITS ---
PROCEDURE: US TRANSVAGINAL CLINICAL INDICATION: LOWER ABDIMINAL PAIN COMPARISON: No exams were available for comparison FINDINGS: Transabdominal sonographic images of the pelvis were obtained. UTERUS: 4.7 cm x 2.1 cmx 3.6 cm with a combined endometrial thickness of 1.4mm. LEFT OVARY: 1.7 cmx1.0 cmx0.8 cm with a volume of 0.6ml. RIGHT OVARY: 1.8 cmx 1.9 cmx1.0 cm with a volume of 1.8ml. Both ovaries are seen and appear normal. Doppler flow to both ovaries are seen. There is a moderate amount of fluid in the cul-de-sac. There is a shunt visible in the cul-de-sac. IMPRESSION: 1. Anteverted small uterus. 2. The endometrium is thin at 1.4 mm 3. Both ovaries appear normal. They appear atrophic. 4. Moderate fluid in the cul-de-sac with a shunt present. Dictated by: Rg Copeland MD 07/03/2023 17:42 Rg Copeland MD in OV 07/03/2023 17:42
== END ==
PROVIDERS: PCP Nurse Practitioner Family; Visit Provider Nurse Practitioner Family
DX: R10.30 Lower abdominal pain, unspecified (principal)
CPT/HCPCS: 76830

== ENCOUNTER → 2023-12-17 14:52 | Outpatient (CLI) | payer OTHER, SELFPAY | PROVIDERS: PCP Nurse Practitioner Family; Visit Provider Nurse Practitioner Family | DX: G47.30 Sleep apnea, unspecified (principal); G47.36 Sleep related hypoventilation in conditions classified elsewhere; R06.83 Snoring | CPT/HCPCS: G0399 ==

== ENCOUNTER 2024-08-14 08:46 | Emergency (ER) | payer OTHER, SELFPAY ==
[2024-08-14 09:10] VITALS: BP 188/89; PULSE 81; RESP 20; TEMP 36.6; O2SAT 96; BMI 25.2
--- NOTE | 2024-08-14 09:10 | XR_ITS ---
FINAL REPORT CLINICAL HISTORY: fall, right foot pain COMPARISON: None FINDINGS: RIGHT FOOT 3 views of the right foot were obtained. There is a calcification adjacent to the distal lateral calcaneus worrisome for an avulsion fracture. There is a small calcification superior to the distal talus which may also represent a small avulsion fracture. Mild degenerative changes are noted. There is a plantar calcaneal spur. Medial and lateral soft tissue swelling is present. IMPRESSION: Soft tissue swelling with findings worrisome for avulsion fractures as above. Reviewed, Interpreted and Dictated by Balwinder Jose III, MD Transcribed by Macey Hinton Authenticated and . [facility]
--- NOTE | 2024-08-14 09:10 | XR_ITS ---
FINAL REPORT CLINICAL HISTORY: fall, left knee pain COMPARISON: None FINDINGS: Three views of the left knee reveal no evidence of fracture or dislocation. The bony alignment is normal. The joint spaces are preserved. There is no evidence of joint effusion. No localized soft tissue abnormality is seen. IMPRESSION: No acute abnormality identified. Reviewed, Interpreted and Dictated by Balwinder Jose III, MD Transcribed by Macey Hinton Authenticated and [facility]
--- NOTE | 2024-08-14 09:10 | XR_ITS ---
FINAL REPORT CLINICAL HISTORY: fall, right ankle pain COMPARISON: None FINDINGS: RIGHT ANKLE 3 views of the right ankle were obtained. There is a calcification adjacent to the distal lateral calcaneus worrisome for an avulsion fracture. There is a small calcification superior to the distal talus which may also represent a small avulsion fracture. The joint spaces are preserved. There is a plantar calcaneal spur. Medial and lateral soft tissue swelling is present. IMPRESSION: Soft tissue swelling with findings worrisome for avulsion fractures as above. Reviewed, Interpreted and Dictated by Balwinder Jose III, MD Transcribed by Macey Hinton Authenticated and [facility]
--- NOTE | 2024-08-14 09:23 | EXP.UTC ---
Discharge Plan Disposition Patient Disposition: Home, Self-Care Condition: Good Prescriptions Prescriptions: No Action omeprazole 40 mg capsule,delayed release(DR/EC) 40 mg PO DAILY aspirin 81 mg tablet,delayed release (DR/EC) 81 mg PO DAILY atorvastatin 40 mg tablet 10 mg PO DAILY Breo Ellipta 100-25 mcg/dose blister with device 1 inh INHALATION DAILY Qty: 90 3RF fluticasone propionate [Flonase Allergy Relief] 50 mcg/actuation spray,suspension 1 spray INTRANASAL DAILY 90 Days Qty: 16 3RF Rx Instructions: administer into each nostril All Day Allergy (cetirizine) 10 mg capsule 10 mg PO DAILY PRN (Reason: allergy symptoms) Qty: 30 0RF paroxetine HCl 40 mg tablet 40 mg PO DAILY buspirone 10 mg tablet 10 mg PO TID ondansetron HCl 4 mg tablet 4 mg PO HS metoprolol succinate [Toprol XL] 50 mg tablet extended release 24 hr 50 mg PO DAILY diphenhydramine-acetaminophen [Tylenol PM Extra Strength] 25-500 mg tablet 1 tab PO HS PRN meloxicam 15 MG tablet 15 mg PO DAILY alprazolam 0.5 MG tablet 0.5 mg PO TID albuterol sulfate 8.5 GM HFA aerosol inhaler 2 puffs IH QIDP PRN (Reason: Shortness Of Breath Or Wheezing) gabapentin 300 mg capsule 300 mg PO BID aripiprazole 20 mg tablet 5 mg PO DAILY doxycycline monohydrate 100 MG tablet 100 mg PO Q12 Qty: 20 0RF Referrals Follow up/Referrals: Colby Pandey DO [Staff Physician] - See instructions Tamiko Russo APRN [Primary Care Provider] - See instructions Filomena Munoz DPM [Staff Physician] - See instructions Activity Restrictions/Add. Instructions Additional Instructions/Restrictions: *No weight bearing use crutches to get around *RICE, Rest the extremity, Ice 15-20 minutes 3-4 times daily, Compress- wear the claudine wrap as discussed as much as possible to help reduce swelling and pain, Elevate the extremity when at rest *Walking boot is for support and help control swelling, Be sure that is not to tight but not to loose either *Elevate when resting? *Ibuprofen 600-800mg every 6-8 hours as needed for pain an inflammation. If need something more can take Tylenol in between doses of Ibuprofen to help Immediately follow up with your family doctor for new or worsening of symptoms, or no noticeable improvement over the next 3-5 days Call and make appointment with Podiatry or Orthopedics for further evaluation and treatment Clinical Impressions Clinical Impression: Injury of ankle and foot Qualifiers: Encounter type: initial encounter Laterality: right Qualified Code(s): S99.911A - Unspecified injury of right ankle, initial encounter Instructions Patient Instructions: How to Use Crutches, How To Perform RICE (Rest, Ice, Compress, Elevate), How to Use a Walking Boot Print Language Print Language: Austrian Discharge ED Provider: Deysi Payne [facility] General Stated complaint: AO 08/13-pain and swelling L knee, R ankle Time Seen by Provider: 08/14/24 09:23 History of Present Illness Provider Complaint: Patient states that she was walking down the stairs last night when she slipped and fell on the steps twisting her right foot and ankle and landed on her left knee States that this morning she is having pain in her left knee but no swelling but her right foot and ankle is swollen and bruised so she came in to get it checked denies any other injury Related Data Home Medications ?Medication ?Instructions ?Recorded ?Confirmed albuterol sulfate 90 mcg/actuation 2 puffs IH QIDP PRN Shortness Of 07/14/18 10/25/21 aerosol inhaler Breath Or Wheezing alprazolam 0.5 mg tablet 0.5 mg PO TID anxiety 07/14/18 10/25/21 meloxicam 15 mg tablet 15 mg PO DAILY Arthritis 07/14/18 10/25/21 aspirin 81 mg tablet,delayed 81 mg PO DAILY . 03/02/20 10/25/21 release omeprazole 40 mg capsule,delayed 40 mg PO DAILY . 03/02/20 10/25/21 release aripiprazole 20 mg tablet 5 mg PO DAILY . 10/25/21 10/25/21 atorvastatin 40 mg tablet 10 mg PO DAILY . 10/25/21 10/25/21 buspirone 10 mg tablet 10 mg PO TID 10/25/21 10/25/21 diphenhydramine 25 1 tab PO HS PRN 10/25/21 10/25/21 mg-acetaminophen 500 mg tablet (Tylenol PM Extra Strength) gabapentin 300 mg capsule 300 mg PO BID Pain 10/25/21 10/25/21 metoprolol succinate 50 mg 50 mg PO DAILY 10/25/21 10/25/21 tablet,extended release 24 hr (Toprol XL) ondansetron HCl 4 mg tablet 4 mg PO HS 10/25/21 10/25/21 paroxetine HCl 40 mg tablet 40 mg PO DAILY 10/25/21 10/25/21 Previous Rx's ?Medication ?Instructions ?Recorded doxycycline monohydrate 100 mg 100 mg PO Q12 #20 tabs 09/09/21 tablet cetirizine 10 mg capsule (All Day 10 mg PO DAILY PRN allergy 11/15/21 Allergy (cetirizine)) symptoms #30 caps fluticasone furoate 100 1 inh inhalation DAILY #90 ea 11/15/21 mcg-vilanterol 25 mcg/dose inhalation powder (Breo Ellipta) fluticasone propionate 50 1 spray intranasal DAILY 90 days 11/15/21 mcg/actuation nasal #16 grams spray,suspension (Flonase Allergy Relief) Allergies Allergy/AdvReac Type Severity Reaction Status Date / Time cephalexin [CEPHALEXIN] Allergy Mild rash Verified 10/25/21 10:49 codeine [CODEINE] Allergy Mild makes Verified 10/25/21 10:49 jittery and spacy prednisone Allergy rash Verified 10/25/21 10:49 [facility] Disclaimer: The information contained in this section may have been updated after the patient was seen, as this information can be updated by other users. Social History Smoking Status: Current every day smoker tobacco type: cigarettes packs per day: 1 alcohol intake: never substance use type: denies use current occupational status: unemployed Travel in the last 8 weeks: None household members: spouse housing: house number of children: 1 caffeine: Yes ROS Obtained: Yes All systems reviewed & no additional complaints except as documented and Yes Systems reviewed as appropriate & no additional complaints except as documented Constitutional Constitutional: Reports system reviewed and no additional complaints, except as documented and Reports as per HPI ENT Ears, Nose, Mouth, and Throat: Reports system reviewed and no additional complaints, except as documented and Reports as per HPI Cardiovascular Cardiovascular: Reports system reviewed and no additional complaints, except as documented and Reports as per HPI Respiratory Respiratory: Reports system reviewed and no additional complaints, except as documented and Reports as per HPI Gastrointestinal Gastrointestingal: Reports system reviewed and no additional complaints, except as documented and as per HPI Musculoskeletal Musculoskeletal: Reports system reviewed and no additional complaints, except as documented, Reports as per HPI and Reports other Comments: pain in left knee and swelling and bruising in her right ankle and foot Physical Exam General General appearance: alert and in no apparent distress ENT ENT exam: Present mucous membranes moist Expanded ENT Exam Nose exam: Absent sinus tenderness Throat exam: Present normal inspection Chest Chest inspection: Present normal inspection and symmetric chest wall rise Respiratory Respiratory exam: Present normal lung sounds bilaterally; Absent respiratory distress or wheezes Cardiovascular Cardiovascular exam: Present regular rate, normal rhythm and normal heart sounds Abdominal Exam Abdominal exam: Present soft and normal bowel sounds; Absent distention or tenderness Expanded Lower Extremity Exam Left: Leg image: 1. reports tenderness no swelling no bruising Knee exam: Present normal inspection Lower leg exam: Present normal inspection Ankle exam: Present normal inspection Foot/toe exam: Present normal inspection Neurovascular/Tendon exam: Present normal capillary refill Gait: observed and limited by pain Right: Ankle exam: Present tenderness, swelling and ecchymosis Ankle image: 1. swelling and bruising noted Foot/toe exam: Present tenderness, swelling and ecchymosis Neurovascular/Tendon exam: Present normal capillary refill Gait: observed and limited by pain Neurological Exam Neurological exam: Present alert, oriented X3 and normal gait Medical Decision Making Medical Records Screening: Per USPSTF and CDC recommendations, given the prevalence of disease in our region, it is our hospital?s policy to screen for HIV and viral Hepatitis for all patients aged 18 and over and those with ongoing risk factors. Benjamin Inquiry Pt receiving controlled substance: No Benjamin was queried for this patient: No Orders (Tests/Meds): ORDERS Category Date Time Status Ankle XR -Right minimum 3 Views [XR ankle RT min 3V] Exams 08/14/24 09:10 Ordered Stat XR foot RT min 3V Stat Exams 08/14/24 09:10 Ordered XR knee LT 3V Stat Exams 08/14/24 09:10 Ordered Radiology Data #1: Image(s): Knee Image Reviewed: Yes I have reviewed radiologist's interpretation IMPRESSION: No acute abnormality identified. #2: Image(s): Ankle Image Reviewed: Yes I have reviewed radiologist's interpretation IMPRESSION: Soft tissue swelling with findings worrisome for avulsion fractures as above. #3: Image(s): Foot/Toes Image Reviewed: Yes I have reviewed radiologist's interpretation IMPRESSION: Soft tissue swelling with findings worrisome for avulsion fractures as above. Procedures Orthopedic Splinting/Casting Injury #1: Side: right Lower Extremity Injury Location: ankle and foot Lower Extremity Immobilizer: boot orthosis and applied by nurse/dr cantu Other Orthopedic Equipment: crutches Post Cast/Splinting Neuro Status: intact and no change Post Cast/Splinting Vasc Status: intact and no change
[2024-08-14 11:19] VITALS: BP 188/89; PULSE 81; RESP 20; TEMP 36.6; O2SAT 96
== END 2024-08-14 11:28 | disposition home or self-care (01) ==
PROVIDERS: Emergency Provider Nurse Practitioner; PCP Nurse Practitioner Family
DX: S99.911A Unspecified injury of right ankle, initial encounter (principal); M25.571 Pain in right ankle and joints of right foot; M79.671 Pain in right foot; M25.562 Pain in left knee; W10.9XXA Fall (on) (from) unspecified stairs and steps, initial encounter; Y93.89 Activity, other specified; Y92.9 Unspecified place or not applicable
CPT/HCPCS: 73562; 73610; 73630; 99212; G0381

== ENCOUNTER 2024-09-09 12:28 | Outpatient (CLI) | payer OTHER, SELFPAY ==
--- NOTE | 2024-09-09 12:33 | XR_ITS ---
FINAL REPORT CLINICAL HISTORY: right talus avulsion fracture COMPARISON: 08/14/2024 FINDINGS: RIGHT ANKLE: Three views of the right ankle were obtained. There is a small calcification adjacent to the superior distal portion of the talus, stable since the prior exam, and likely an avulsion fracture. There is also a calcification lateral to the calcaneus, likely a prior avulsion fracture. A plantar calcaneal spur is noted. The joint spaces and mortise are intact. There is no soft tissue abnormality. IMPRESSION: Calcifications likely secondary to avulsion fractures as described above. Plantar calcaneal spur. Reviewed, Interpreted and Dictated by Balwinder Jose III, MD Transcribed by Unique Christopher Authenticated and . [facility]
== END 2024-09-09 23:59 | disposition home or self-care (01) ==
LOC: RAD 12:29
PROVIDERS: PCP Nurse Practitioner Family; Visit Provider Podiatrist
DX: S92.151A Displaced avulsion fracture (chip fracture) of right talus, initial encounter for closed fracture (principal)
CPT/HCPCS: 73610

== ENCOUNTER 2025-03-18 12:46 | Outpatient (CLI) | payer OTHER, SELFPAY ==
--- OUTSIDE RECORDS SUMMARY | 2025-01-09 17:30 | XMS_ITS ---
Author Organization [facility] D JAVIER Address [address] [facility] [address] [place] [address] Care Team Providers Care Cad Designer Name Role Phone Berry Santana Primary Care Provider [phone] Tamiko Russo Unavailable [phone] Migration, Provider Unavailable Unavailable Allergies Allergen (clinical drug ingredient) Drug/Non Drug Allergy documented on EMR Reaction Allergy Type Onset Date Status KEFLEX (uncoded) Unknown Allergy Act angie PREDNISONE-ORAL FORM (uncoded) hives Allergy Active TYLENOL # 3 (uncoded) Unknown Allergy Active REASON FOR VISIT [facility] To [facility] Conversion Encounter Medications Medication SIG (Take, Route, Frequency, Duration) Notes Start Date End Date Status Gabapentin 300 MG 2 caps orally once daily at bedtime for 30 days 01/05/2025 Active Losartan Potassium 50 MG 1 tab(s) orally once a day for 90 days 12/08/2024 Active PARoxetine HCl 40 MG 1 tab(s) orally once a day for 90 days Active ARIPiprazole 10 MG 1 tab(s) orally once a day for 90 days Active ALPRAZolam 0.25 MG 1 tab(s) orally every 8 hours for 30 days 10/19/2024 Active Metoprolol Succinate ER 50 MG Take 1 tablet by mouth once daily for 90 Active Omeprazole 40 MG 1 cap(s) orally once a day for 90 days Active Meloxicam 15 MG 1 tab(s) orally once a day for arthritis pain for 90 days Active Atorvastatin Calcium 20 MG 1/2 tab(s) orally once a day for 30 days Active buPROPion HCl ER (SR) 150 MG 1 tab(s) orally 2 times a day for 90 days Active Cyclobenzaprine HCl 5 MG 1 tab(s) orally at bedtime for 90 days Active busPIRone HCl 10 MG 1 tab(s) orally three times a day for 90 days Active Terbinafine HCl 1 % 1 tucker applied topically 2 times a day for 14 days 12/05/2023 Active Albuterol Sulfate (2.5 MG/3ML) 0.083% 3 ml by nebulizer every 4 hours prn for 30 day(s) 06/20/2021 Active Trelegy Ellipta 100 MCG-62.5 MCG-25 MCG/INH 1 PUFF(S) INHALED ONCE A DAY for 90 DAYS *Please review and pick correct strength-formulati on from [employer] options. If intended option is not shown, discontinue and re-order from Quick Search* Active Furosemide 20 MG 1 tab(s) orally once a day as needed for 90 days 04/19/2022 Active ALBUTEROL (EQV-PROAIR HFA) 90 MCG/INH 2 PUFF(S) INHALED EVERY 6 HOURS NEEDED FOR SOA for 30 DAYS *Please review for potential replacement for e-prescription and drug interaction check* Active Encounters Encounter Location Date Provider Diagnosis [facility] IM [facility] [address] [facility] [address] [facility] [address] [place] [address] 01/09/2025 Provider Migration Plan Of Treatment Medication Medication Name Sig Start Date Stop Date Notes Gabapentin 300 MG 2 caps orally once d aily at bedtime for 30 days 01/05/2025 Next Appt Details Provider Name:Tamiko Linder ce, 04/01/2025 12:15:00 PM, [address] [facility] [address] [facility], [address], [place], [place], [address], Progress Notes * Ellyn SALASDOB:[birth year] (55 yo F)Acc No.[id number]:01/09/2025 Patient: Kandace CHAUDHRY Ellyn Asha Provider: Paulie weir Migration :1970 A ge:54 Y S ex:Female Date:01/09/2025 Address:[address] [place], [place] [address], [id number] Pcp:Berry Santana Subjective: * Chief Complaints: * [facility] . [facility] En[facility]. * Medical History: * Medications: T aking ALBUTEROL (EQV-PROAIR HFA) 90 MCG/INH AEROSOL 2 PUFF(S) INHALED EVERY 6 HOURS NEEDED FOR SOA , Notes to Pharmacist: *Please review for potential replacement for e-prescription and drug interaction check*, Taking Furosemide 20 MG Tablet 1 tab(s) orally once a day as needed , Taking Trelegy Ellipta 100 MCG-62.5 MCG-25 MCG/INH POWDER 1 PUFF(S) INHALED ONCE A DAY , Notes to Pharmacist: *Please review and pick correct strength-formulation from [facility] options. If intended option is not shown, discontinue and re-order from Quick Search*, Taking Albuterol Sulfate (2.5 MG/3ML) 0.083% Nebulization Solution 3 ml by nebulizer every 4 hours prn , Taking Terbinafine HCl 1 % Cream 1 tucker applied topically 2 times a day , Taking busPIRone HCl 10 MG Tablet 1 tab(s) orally three times a day , Taking Cyclobenzaprine HCl 5 MG Tablet 1 tab(s) orally at bedtime , Taking Metoprolol Succinate ER 50 MG Tablet Extended Release 24 Hour Take 1 tablet by mouth once daily , Taking buPROPion HCl ER (SR) 150 MG Tablet Extended Release 12 Hour 1 tab(s) orally 2 times a day , Taking Atorvastatin Calcium 20 MG Tablet 1/2 tab(s) orally once a day , Taking Meloxicam 15 MG Tablet 1 tab(s) orally once a day for arthritis pain , Taking Omeprazole 40 MG Capsule Delayed Release 1 cap(s) orally once a day , Taking ALPRAZolam 0.25 MG Tablet 1 tab(s) orally every 8 hours , Taking ARIPiprazole 10 MG Tablet 1 tab(s) orally once a day , Taking PARoxetine HCl 40 MG Tablet 1 tab(s) orally once a day , Taking Losartan Potassium 50 MG Tablet 1 tab(s) orally once a day * Allergies: T YLENOL # 3, KEFLEX, PREDNISONE-ORAL FORM: hives. Objective: * Vitals: Assessment: Plan: * Treatment: * * Electronic signature of Prov ider Migration on 03/18/2025 at 01:45 PM EDT Sign off status: Pending * Provider: Paulie weir Migration Date: 0 01/09/2025 Generated for Rogelio sanders/Immanuel/Carlos on: 0 03/18/2025 01:45 PM EDT
--- OUTSIDE RECORDS SUMMARY | 2025-03-04 11:00 | XMS_ITS | Encounter Summary ---
Author Organization [facility] Address [address] [place] [address] Care Team Providers Care Sports Journalist Name Role Phone Tamiko Russo D[place] Primary Care Provider [phone] Carline Ballesteros Unavailable [phone] Reason for Referral * Imaging (Routine) - Authorized Specialty Diagnoses / Procedures Referred By Contac t Referred To Contact Diagnoses SAH (subarachnoid hemorrhage) ([facility]) Procedures CT Head wo IV Contrast Carline Ballesteros PA [address] [address] Phone: tel: fax: Referral ID Status Reason Start Date Expiration Date V isits Requested Visits Authorized [id number] Authorized 03/04/2025 09/03/2026 1 1 * Consultation (Routine) - Authorized Specialty Diagnoses / Procedures Referred By Contac t Referred To Contact Neurology Diagnoses Intractable headache, unspecified chronicity pattern, unspecified headache type Memory changes Carline Ballesteros PA [address] [address] Phone: tel: fax: Referral ID Status Reason Start Date Expiration Date Visits Requested Visits Authorized [id number] Authorized Specialty Services Required 03/04/2025 09/03/2026 1 1 Scheduling Instructions Please schedule locally for eval Encounter Details Date Type Department Care Team (Late st Contact Info) Description 03/04/2025 11:00 AM EDT Office Visit [place] [facility] [address], [address] [place] [address] Carline Ballesteros PA [address] [place] [address] Cerebral arterial aneurysm (Primary Dx); Pre-op exam; Intractable headache, unspecified chronicity pattern, unspecified headache type; Memory changes; SAH (subarachnoid hemorrhage) ([facility]) Social History Tobacco Use Types Packs/Day Years Used Date Smoking Tobacco: Former Cigarettes 2 2022 Passive Smoke Exposure: Never Smokeless Tobacco: [...] - 03/04/2025 11:00 AM EDT Dear Tamiko Russo APRN, We had the pleasure of seeing your [...] Influenza, recombinant, quadrivalent, injectable, preservative free 09/21/2020 [email or web address] COVID-19 Vaccine (Purple Cap) 12+ 03/16/2021, 04/06/2021 [...] BID Headaches/STM/post SAH Refer to Neurology near [facility] HTN, chronic, stable BP Readings from Last [...] concerns please feel free to contact us: [facility] Department of Neurosurgery [address] [place] [address] [place] [address] ; [1] Patient Active Problem List Diagnosis COPD (chronic obstructive pulmonary disease) ([facility]) Smoker Hypertension TIA (transient ischemic attack) Anxiety History of hyperlipidemia GERD (gastroesophageal reflux disease) Chronic pain Back pain Hyperlipidemia Lumbar disc herniation with radiculopathy [2] Past Surgical History: Procedure Laterality Date BACK SURGERY N/A Back Surgery from [facility] [3] Social History Tobacco Use Smoking status: [...] tablet (5 mg) by mouth every night. Apnrdwtyzsm-Dilsejfqh-Vmgaha (Trelegy Ellipta) 100-62.5-25 MCG/ACT aerosol powder 1 [...] hours. (Patient not taking: Reported on 03/04/2025) tmaowddxpa-npzheeiipeior-wmjiikkl (Esgic) 50-325-40 MG tablet Take 1 tablet by mouth every four hours as needed for post-op headache. Do not exceed 6 tablets per 24 hours. (Patient not taking: Reported on 03/04/2025) 42 tablet 0 cyclobenzaprine (Flexeril) 5 MG tablet (Patient not taking: Reported on 03/04/2025) ergocalciferol (Vitamin D-2) 1.25 MG (88485 UT) capsule (Patient not taking: Reported on [...] documented in this encounter Plan of Treatment Upcoming Encounters Date Type Department Care Team (Late st Contact Info) Description 03/29/2025 8:45 AM EDT Appointment [facility] Interventional Radiology [address] [place] [address] 04/01/2025 9:00 AM EDT Office Visit [place] [facility] [address] [place] [address] Carline Ballesteros PA [address] [place] [address] Scheduled Orders Name Type Priority Associated Diagnoses Orde r Schedule CT Head wo IV Contrast Imaging Routine SAH (subarachnoid hemorrhage) (CMS/HCC) Expected: 03/18/2025 (Approximate), Expires: 09/04/2026 Scheduled Referrals [...] <5 mIU/mL 03/04/2025 2:[address] [facility] Blood Venous blood specimen / Unknown Venipuncture / Unknown 03/04/2025 12:14 PM EDT 03/04/2025 12:15 PM EDT Narrative [facility] - 03/04/2025 2:22 PM EDT [...] PHILLIPS LAB BLOOD ORDERABLES Final R esult [facility] [address] [place] [address] * Protime-INR (03/04/2025 12:14 PM EDT) Prothrombin Time 12.3 12.0 - 14.3 sec LAB COAGULATION METHOD 03/04/2025 1:56 PM EDT [facility] INR 0.9 0.9 - 1.1 LAB COAGULATION METHOD 03/04/2025 1:56 PM EDT [facility] Blood Venous blood specimen / Unknown Venipuncture / Unknown 03/04/2025 12:14 PM EDT 03/04/2025 12:15 PM EDT Narrative [facility] - 03/04/2025 1:56 PM EDT OPTIMAL INR RANGES FOR PATIENT ON ORAL ANTICOAGULANT THERAPY Prevention of venous thromboembolism INR 2.0 to 3.0 In patients with heart disease: Atrial fibrillation INR 2.0 to 3.0 Valvular heart disease INR 2.0 to 3.0 Tissue heart valves INR 2.0 to 3.0 Mechanical prosthetic valves INR 2.5 to 3.5 Prevention of recurrent ME INR 2.5 to 3.5 us Carline PH[facility]IPS LAB BLOOD ORDERABLES Final R esult Performing Organization Address City/[facility]/ZIP Co de Phone Number [facility] [address] [place] [address] * (ABNORMAL) APTT (03/04/2025 12:14 PM EDT) [facility] aPTT 24(L) 25 - 35 sec LAB COAGULATION METHOD 03/04/2025 1:56 PM EDT [facility] Blood Venous blood specimen / Unknown Venipuncture / Unknown 03/04/2025 12:14 PM EDT 03/04/2025 12:15 PM EDT Carline PHILLIPS LAB BLOOD ORDERABLES Final R esult Performing Organization Address City/[facility]/ZIP Co de Phone Number [facility] [address] [place] [address] * (ABNORMAL) CBC and differential (03/04/2025 12:14 PM EDT) [facility] WBC Count 4.30 3.70 - 10.30 10*3/uL LAB HEMATOLOGY METHOD 03/04/2025 1:57 PM EDT [facility] RBC Count 4.93 3.90 - 5.20 10*6/uL LAB HEMATOLOGY METHOD 03/04/2025 1:57 PM EDT [facility] HGB 13.0 11.2 - 15.7 g/dL LAB HEMATOLOGY METHOD 03/04/2025 1:57 PM EDT [facility] HCT 43.3 34.0 - 45.0 % LAB HEMATOLOGY METHOD 03/04/2025 1:57 PM EDT [facility] Platelet Count 234 155 - 369 10*3/uL LAB HEMATOLOGY METHOD 03/04/2025 1:57 PM EDT [facility] MCV 88 79 - 98 fL LAB HEMATOLOGY METHOD 03/04/2025 1:57 PM EDT [facility] MCH 26.4 26.0 - 32.0 pg LAB HEMATOLOGY METHOD 03/04/2025 1:57 PM EDT [facility] MCHC 30.0(L) 30.7 - 35.5 g/dL LAB HEMATOLOGY METHOD 03/04/2025 1:57 PM EDT [facility] RDW 13.2 11.5 - 14.5 % LAB HEMATOLOGY METHOD 03/04/2025 1:57 PM EDT [facility] MPV 11.2 8.8 - 12.5 fL LAB HEMATOLOGY METHOD 03/04/2025 1:57 PM EDT [facility] nRBC 0.0 <=0.0 per 100 WBCs LAB HEMATOLOGY METHOD 03/04/2025 1:57 PM EDT [facility] Differential Type Automated LAB HEMATOLOGY METHOD 03/04/2025 1:57 PM EDT [facility] Neutrophils % 56 % LAB HEMATOLOGY METHOD 03/04/2025 1:57 PM EDT [facility] Lymphocytes % 30 % LAB HEMATOLOGY METHOD 03/04/2025 1:57 PM EDT [facility] Monocytes % 11 % LAB HEMATOLOGY METHOD 03/04/2025 1:57 PM EDT [facility] Eosinophils % 2 % LAB HEMATOLOGY METHOD 03/04/2025 1:57 PM EDT [facility] Basophils % 1 % LAB HEMATOLOGY METHOD 03/04/2025 1:57 PM EDT [facility] Immature Granulocytes % 0 % LAB HEMATOLOGY METHOD 03/04/2025 1:57 PM EDT [facility] Neutrophils Absolute 2.43 1.60 - 6.10 10*3/uL LAB HEMATOLOGY METHOD 03/04/2025 1:57 PM EDT [facility] Lymphocytes Absolute 1.28 1.20 - 3.90 10*3/uL LAB HEMATOLOGY METHOD 03/04/2025 1:57 PM EDT [facility] Monocytes Absolute 0.47 0.30 - 0.90 10*3/uL LAB HEMATOLOGY METHOD 03/04/2025 1:57 PM EDT [facility] Eosinophils Absolute 0.08 0.00 - 0.50 10*3/uL LAB HEMATOLOGY METHOD 03/04/2025 1:57 PM EDT [facility] Basophils Absolute 0.03 0.00 - 0.10 10*3/uL LAB HEMATOLOGY METHOD 03/04/2025 1:57 PM EDT [facility] Immature Granulocytes Absolute 0.01 0.00 - 0.06 10*3/uL LAB HEMATOLOGY METHOD 03/04/2025 1:57 PM EDT [facility] Blood Venous blood specimen / Unknown Venipuncture / Unknown 03/04/2025 12:14 PM EDT 03/04/2025 12:15 PM EDT Narrative [facility] - 03/04/2025 1:57 PM EDT Therapeutic decision making should be based on absolute values, rather than percentages. us Carline PH[facility]IPS LAB BLOOD ORDERABLES Final R esult [facility] [address] [place] [address] * (ABNORMAL) Basic metabolic panel (03/04/2025 12:14 PM EDT) Glucose, Plasma 97 74 - 99 mg/dL 03/04/2025 2:22 PM EDT [facility] BUN, Plasma 7 7 - 21 mg/dL 03/04/2025 2:22 PM EDT [facility] Creatinine, Plasma 0.85 0.60 - 1.10 mg/dL 03/04/2025 2:22 PM EDT [facility] BUN/Creatinine Ratio 8 03/04/2025 2:22 PM EDT [facility] Sodium, Plasma 132(L) 136 - 145 mmol/L 03/04/2025 2:22 PM EDT [facility] Potassium, Plasma 4.3 3.6 - 4.9 mmol/L 03/04/2025 2:22 PM EDT [facility] Chloride, Plasma 96(L) 97 - 107 mmol/L 03/04/2025 2:22 PM EDT [facility] CO2, Plasma 22 22 - 29 mmol/L 03/04/2025 2:22 PM EDT [facility] Anion Gap 14 6 - 16 mmol/L 03/04/2025 2:22 PM EDT [facility] Total Calcium, Plasma 9.5 8.9 - 10.2 mg/dL 03/04/2025 2:22 PM EDT [facility] eGFRcr 81.5 mL/min/1.7 3m*2 03/04/2025 2:22 PM EDT [facility] Comment:Reported eGFRcr in m L/min/1.73m2 is based the CKD-EPI 2020 equation that does not use a race coefficient. Blood Venous blood specimen / Unknown Venipuncture / Unknown 03/04/2025 12:14 PM EDT 03/04/2025 12:15 PM EDT us Carline PH[facility]IPS LAB BLOOD ORDERABLES Final R esult [facility] [address] [place] [address] documented in this encounter Visit Diagnoses Diagnosis Cerebral arterial aneurysm- Primary Cerebral aneurysm, nonruptured Pre-op exam Intractable headache, unspecified chronicity pattern, unspecified headache type Memory changes SAH (subarachnoid hemorrhage) (CMS/HCC) Subarachnoid hemorrhage documented in this encounter Additional Health Concerns Assessment Noted Time A fall risk assessment has been complete d for the patient 03/04/2025 11:04 AM EDT A Body Mass Index follow-up plan has been documented for the patient 03/05/2025 5:42 PM EDT documented as of this encounter Care Teams Sports Journalist Relationship Specialty Start Date End Date Tamiko Russo APRN [address] [place] [address] PCP - General 04/03/23 Carline Ballesteros PA [id number] [place] [address] Physician Quality Technician [employer] Neurosurgery 05/06/23 documented as of this encounter
--- NOTE | 2025-03-18 12:47 | CT_ITS ---
FINAL REPORT TECHNIQUE: Axial CT images were performed through the head. Coronal and sagittal reformatted images were submitted. This study was performed with techniques to keep radiation doses as low as reasonably achievable (ALARA). Individualized dose reduction techniques using automated exposure control or adjustment of mA and/or kV according to the patient's size were employed. CLINICAL HISTORY: SAH COMPARISON: 04/03/2023 FINDINGS: Since the prior 05/26/2023 there has been interval placement of right sided intraventricular shunt, which terminates adjacent to the anterior falx. There is streak artifact present in the right parasellar region, consistent with aneurysm coiling. There is patchy deep white matter low-attenuation, that may be the sequela of chronic microvascular disease. This is greater than would be normally expected for the patient's chronologic age. No acute intracranial abnormality is identified. IMPRESSION: Interval placement of right sided intraventricular shunt since the prior exam, as well as evidence of aneurysm coiling in the interval. Patchy deep white matter low-attenuation foci that may be the sequela of chronic microvascular disease, although this is greater than would be normally expected for the patient's chronologic age. Reviewed, Interpreted and Dictated by Bran Smyth MD Transcribed by Unique [employer] Authenticated and [facility]
--- OUTSIDE RECORDS SUMMARY | 2025-03-18 13:46 | XMS_ITS | Encounter Summary ---
Author Organization [facility] Address [address] [place] [address] Care Team Providers Care Mainspring Barrel Assembly Cleaner Name Role Phone Tamiko Russo Dom HAYNES Primary Care Provider [phone] Carline Ballesteros Unavailable [phone] Reason for Referral * Imaging (Routine) - Pending Review Specialty Diagnoses / Procedures Referred By Contac t Referred To Contact Radiology Diagnoses Hydrocephalus, acquired (CMS/HCC) Cerebral arterial aneurysm Procedures MR Angio Head wo IV Contrast Daniel Villalpando MD [address] [address] Phone: tel: fax: Referral ID Status Reason Start Date Expiration Date V isits Requested Visits Authorized [id number] Pending Review 02/16/2025 08/18/2026 1 1 Encounter Details Date Type Department Care Team (Late st Contact Info) Description 02/16/2025 Orders Only [place] [facility] [address] [place] [address] Daniel Villalpando MD [id number] [place] [address] Hydrocephalus, acquired (CMS/HCC) (Primary Dx); Cerebral arterial aneurysm Social History Tobacco Use Types Packs/Day Years Used Date Smoking Tobacco: Former Cigarettes 2 30 1 2022 Smokeless Tobacco: Never Alcohol Use Standard Drinks/Week Comments Yes 4 (1 standard drink = 0.6 oz pur e alcohol) Comments No Sex and Gender Information Value Date Recorded Sex Assigned at Female 04/20/2023 6:58 AM EDT Legal Sex Female 6:00 PM EDT Gender Identity Female 04/20/2023 6:58 AM EDT Sexual Orientation Not on file documented as of this encounter Plan of Treatment Upcoming Encounters Date Type Department Care Team (Late st Contact Info) Description 03/29/2025 8:45 AM EDT Appointment [facility] Interventional Radiology [address] [place] [address] 04/01/2025 9:00 AM EDT Office Visit [place] [facility] [address] [place] [address] Carline Ballesteros PA [id number] [place] [address] Scheduled Orders Name Type Priority Associated Diagnoses Orde r Schedule MR Angio Head wo IV Contrast Imaging Routine Hydrocephalus, acquired (CMS/HCC) Cerebral arterial aneurysm 1 Occurrences starting 02/16/2025 until 08/19/2026 documented as of this encounter Visit Diagnoses Diagnosis Hydrocephalus, acquired (CMS/HCC)- Primary Cerebral arterial aneurysm Cerebral aneurysm, nonruptured documented in this encounter Additional Health Concerns Assessment Noted Time A fall risk assessment has been complete d for the patient 08/02/2023 3:40 PM EDT documented as of this encounter Care Teams Mainspring Bar[employer] Assembly Cleaner Relationship Specialty Start Date End Date Tamiko Russo APRN [address] [facility] [address] [place] [address] PCP - General 04/03/23 Carline Ballesteros PA [address] [facility] [address] [place] [address] Physician Recreation Technician Neurosurgery 05/06/23 documented as of this encounter
--- OUTSIDE RECORDS SUMMARY | 2025-03-18 13:46 | XMS_ITS | Patient Health Record ---
Author Organization [facility] Address [address] [facility] [address] [facility] [place] [address] Care Team Providers Care Manager Package Name Role Phone Berry Santana Primary Care Provider [phone] Tamiko Russo Unavailable [phone] Migration, Provider Unavailable Unavailable Allergies Allergen (clinical drug ingredient) Drug/Non Drug Allergy documented on EMR Reaction Allergy Type Onset Date Status KEFLEX (uncoded) Unknown Allergy Act angie PREDNISONE-ORAL FORM (uncoded) hives Allergy Active TYLENOL # 3 (uncoded) Unknown Allergy Active Results Component Value Reference Range Notes LIPID PANEL, STANDARD (7600) Reviewed date:08/12/2024 11:05:29 AM Interpretation: Performing Lab:CB, [facility] [id number] [facility], [facility] Gran[facility] ManorBmarZU[address] Mario Vazquez Notes/Report: NON-FASTING; NON-FASTING; NON-FASTING; NON-FASTING; NON-FAST FASTING:YES FASTING: YES CHOLESTEROL, TOTAL 167 <200 mg/dL HDL CHOLESTEROL 67 > OR = 50 mg/dL TRIGLYCERIDES 91 <150 mg/dL LDL-CHOLESTEROL 81 (http://education.91JinRong/faq/RJI884) Reference range: <100 Desirable range <100 mg/dL for primary prevention; <70 mg/dL for patients with CHD or diabetic patients with > or = 2 CHD risk factors. LDL-C is now calculated using the Stephanie calculation, which is a validated novel method providing better accuracy than the Friedewald equation in the estimation of LDL-C. Ever COLINDRES et al. HONORIO. 2013;310(19): 4568-0839 CHOL/HDLC RATIO 2.5 <5.0 (calc) NON HDL CHOLESTEROL 100 <130 mg/dL (calc) For patients with diabetes plus 1 major ASCVD risk factor, treating to a non-HDL-C goal of <100 mg/dL (LDL-C of <70 mg/dL) is considered a therapeutic option. COMPREHENSIVE METABOLIC PANE (06403) Reviewed date:08/12/2024 11:05:29 AM Interpretation: Performing Lab:CB, [facility] Technologiese1355 [employer], Prism Solar [id number] Mario Vazquez Notes/Report: NON-FASTING; NON-FASTING; NON-FASTING; NON-FASTING; NON-FAST FASTING:YES FASTING: YES GLUCOSE 86 65-99 mg/dL Fasting reference interval UREA NITROGEN (BUN) 6 7-25 mg/dL CREATININE 0.77 0.50-1.03 mg/dL EGFR 92 > OR = 60 mL/min/1.73m2 BUN/CREATININE RATIO 8 6-22 (calc) SODIUM 140 135-146 mmol/L POTASSIUM 4.6 3.5-5.3 mmol/L CHLORIDE 103 98-110 mmol/L CARBON DIOXIDE 25 20-32 mmol/L CALCIUM 9.5 8.6-10.4 mg/dL PROTEIN, TOTAL 7.3 6.1-8.1 g/dL ALBUMIN 4.0 3.6-5.1 g/dL GLOBULIN 3.3 1.9-3.7 g/dL (calc) ALBUMIN/GLOBULIN RATIO 1.2 1.0-2.5 (calc) BILIRUBIN, TOTAL 0.3 0.2-1.2 mg/dL ALKALINE PHOSPHATASE 197 37-153 U/L AST 16 10-35 U/L ALT 12 6-29 U/L CBC (INCLUDES DIFF/PLT) (229 9) Reviewed date:08/12/2024 11:05:29 AM Interpretation: Performing Lab:ARLIN, [facility] Pfxt7614 [employer], Prism Solar [id number] Mario Vazquez Notes/Report: NON-FASTING; NON-FASTING; NON-FASTING; NON-FASTING; NON-FAST FASTING:YES FASTING: YES WHITE BLOOD CELL COUNT 6.9 3.8-10.8 Thousand/ uL RED BLOOD CELL COUNT 4.42 3.80-5.10 Million/uL HEMOGLOBIN 13.0 11.7-15.5 g/dL HEMATOCRIT 42.5 35.0-45.0 % MCV 96.2 80.0-100.0 fL MCH 29.4 27.0-33.0 pg MCHC 30.6 32.0-36.0 g/dL For adults, a slight decrease in the calculated MCHC value (in the range of 30 to 32 g/dL) is most likely not clinically significant; however, it should be interpreted with caution in correlation with other red cell parameters and the patient's clinical condition. RDW 12.4 11.0-15.0 % PLATELET COUNT 333 140-400 Thousand/uL MPV 10.6 7.5-12.5 fL ABSOLUTE NEUTROPHILS 5023 5919-7924 cells/uL ABSOLUTE LYMPHOCYTES 5482 889-4311 cells/uL ABSOLUTE MONOCYTES 538 200-950 cells/uL ABSOLUTE EOSINOPHILS 110 15-500 cells/uL ABSOLUTE BASOPHILS 62 0-200 cells/uL NEUTROPHILS 72.8 LYMPHOCYTES 16.9 MONOCYTES 7.8 EOSINOPHILS 1.6 BASOPHILS 0.9 TSH W/REFLEX TO FT4 (53545) Reviewed date:08/12/2024 11:05:29 AM Interpretation: Performing Lab:ARLIN [facility], [employer] Water TechnologiesThlzSQ[address] Mario Vazquez Notes/Report: NON-FASTING; NON-FASTING; NON-FASTING; NON-FASTING; NON-FAST FASTING:YES FASTING: YES TSH W/REFLEX TO FT4 1.92 Ranges First trimester 0.26-2.66 Second trimester 0.55-2.73 Third trimester 0.43-2.91 Reference Range > or = 20 Years 0.40-4.50 VITAMIN D,25-OH,TOTAL,IA (17 306) Reviewed date:08/12/2024 11:05:29 AM Interpretation: Performing Lab:ARLIN [employer], Blue Water TechnologiesTczqNA[address] Mario Vazquez Notes/Report: NON-FASTING; NON-FASTING; NON-FASTING; NON-FASTING; NON-FAST FASTING:YES FASTING: YES VITAMIN D,25-OH,TOTAL,IA 38 30-100 ng/mL educational purposes only.) Vitamin D Status 25-OH Vitamin D: Deficiency: <20 ng/mL Insufficiency: 20 - 29 ng/mL Optimal: > or = 30 ng/mL For 25-OH Vitamin D testing on patients on D2-supplementation and patients for whom quantitation of D2 and D3 fractions is required, the QuestAssureD(TM) 25-OH VIT D, (D2,D3), LC/MS/MS is recommended: order code 56687 (patients >2yrs). See Note 1 Note 1 For additional information, please refer to http://education.[place] [employer] (GLCF)/faq/OHL532 (This link is being provided for informational/ Medications Medication SIG (Take, Route, Frequency, Duration) Notes Start Date End Date Status ARIPiprazole 10 MG Take 1 tablet by mouth once daily for 90 days for 90 Active Cyclobenzaprine HCl 5 MG TAKE 1 TABLET BY MOUTH EVERY DAY AT BEDTIME for 90 Active Terbinafine HCl 1 % 1 tucker applied topically 2 times a day for 14 days 12/05/2023 Active Losartan Potassium 50 MG 1 tab(s) orally once a day for 90 days 12/08/2024 Active Albuterol Sulfate (2.5 MG/3ML) 0.083% 3 ml by nebulizer every 4 hours prn for 30 day(s) 06/20/2021 Active PARoxetine HCl 40 MG 1 tab(s) orally once a day for 90 days Active Trelegy Ellipta 100 MCG-62.5 MCG-25 MCG/INH 1 PUFF(S) INHALED ONCE A DAY for 90 DAYS *Please review and pick correct strength-formulati on from [employer] options. If intended option is not shown, discontinue and re-order from Quick Search* Active Furosemide 20 MG 1 tab(s) orally once a day as needed for 90 days 04/19/2022 Active ALBUTEROL (EQV-PROAIR HFA) 90 MCG/INH 2 PUFF(S) INHALED EVERY 6 HOURS NEEDED FOR SOA for 30 DAYS *Please review for potential replacement for e-prescription and drug interaction check* Active Omeprazole 40 MG 1 cap(s) orally once a day for 90 days Active ALPRAZolam 0.25 MG TAKE 1 TABLET BY MOUTH EVERY 8 HOURS for 30 02/27/2025 Active Meloxicam 15 MG 1 tab(s) orally once a day for arthritis pain for 90 days Active buPROPion HCl ER (SR) 150 MG 1 tab(s) orally 2 times a day for 90 days Active Gabapentin 300 MG 2 caps orally once daily at bedtime for 30 days 01/05/2025 Active Metoprolol Succinate ER 50 MG Take 1 tablet by mouth once daily for 90 Active busPIRone HCl 10 MG 1 tab(s) orally three times a day for 90 days Active Atorvastatin Calcium 20 MG Take 1/2 (one-half) tablet by mouth once daily for 30 Active Immunizations Vaccine Route Administration Date Status Comme nts Prevnar PCV-13 (Pneumococcal conjugate 13) IM Intramuscular 12/19/2015 Administered Pneumococcal Vaccine IM Intramuscular 09/20/2010 Administe red Influenza-Fluzone 3+years (NON-MEDICARE) IM Intramuscular 10/16/2016 Administered Given by Miguelt-10/14/16- Rt arm Influenza-Fluzone 3+years (NON-MEDICARE) IM Intramuscular 07/25/2017 Administered Influenza-Fluzone 3+years (NON-MEDICARE) IM Intramuscular 07/24/2018 Administered FLUZONE 6MO - OLDER IM Intramuscular 09/23/2019 Administer ed Fluvirin--Influenza vaccine 3+ year IM Intramuscular 06/21/2011 Administered Fluvirin--Influenza vaccine 3+ year IM Intramuscular 07/16/2012 Administered Fluvirin--Influenza vaccine 3+ year IM Intramuscular 06/29/2013 Administered Fluvirin--Influenza vaccine 3+ year IM Intramuscular 07/05/2015 Administered Exp date-02/2016 Flublok IM Intramuscular 09/21/2020 Administered Flublok IM Intramuscular 08/10/2024 Administered Social History Tobacco Use: Social History Observation Description Date Details (start date - stop date) Former Smoker NA - NA Smoking: Question Answer Notes Are you a: former smoker How long has it been since y ou last smoked? 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) Active confirmed Problem 36321579 Other chronic pain (G89.29) Active confirmed Problem 94724148 Mucopurulent chronic bronchitis (J41.1) Active confirmed Problem 779513755 Chronic obstructive pulmonary disease, unspecified (J44.9) Active confirmed Problem 657018997 Lumbago with sciatica, right side (M54.41) Active confirmed Problem 09355264 Fibromyalgia (M79.7) Active confirmed Problem 313051163 COPD with exacerbation (J44.1) Active confirmed Problem 56376221 Constipation (K59.00) Active confirmed Problem 21386468 Paresthesia (R20.2) Active confirmed Problem Hematuria (38084853) Hematuria (R31.9) Active c onfirmed Problem 340726164 Tobacco use disorder (Z72.0) Active confirmed Problem 88010847 Essential hypertension (I10) Active confirmed Problem 261971672 GERD without esophagitis (K21.9) Active confirmed Problem 0074674 Psoriasis (L40.9) Active confirmed Problem 61545557 Weight loss (R63.4) Active confirmed Problem 444933251 COPD exacerbatio n (J44.1) Active confirmed Problem 965990868 Nocturnal hypoxi a (G47.34) Active confirmed Problem 25782186 Migraine (G43.909) Active confirmed Problem 54473145 Chronic migraine (G43.709) Active confirmed Problem Insomnia disorder related to another mental disorder (67221674) Insomnia due to mental condition (F51.05) Active confirmed Problem 242999405 Anxiety associated with depression (F41.8) Active confirmed Problem 318663554 Abnormal mammogram (R92.8) Active confirmed Problem 3687889 Arthritis of multiple sites (M19.90) Active confirmed Problem 732308492 Arthropathy, multiple sites (M12.9) Active confirmed Problem 72856227772471757 Spider veins o f both lower extremities (I83.93) Active confirmed Problem 49870934 Other and unspecified hyperlipidemia (E78.5) Active confirmed Problem 96507786 Lumbar degenerative disc disease (M51.36) Active confirmed Problem 10816542 Hyperlipidemia, unspecified hyperlipidemia type (E78.5) Active confirmed Problem 88909526 Alcohol abuse (F10.10) Active confirmed Problem 924023797678 Daytime somnolence (R40.0) Active confirmed Problem 856097184 TIA (transient ischemic attack) (G45.9) Active confirmed Problem 730236607 Right sided abdominal pain (R10.9) Active confirmed Problem 877171649 Alcohol use (Z78.9) Active confirmed Problem 044930552 Leukocytosis, unspecified (D72.829) Active confirmed Problem 553287001 Complicated migraine (G43.109) Active confirmed Problem 06360254 Unspecified vitamin D deficiency (E55.9) Active confirmed Problem 2571247 Chronic gastriti s without bleeding, unspecified gastritis type (K29.50) Active confirmed Problem 293633977 Low vitamin B12 level (E53.8) Active confirmed Problem 175411025 Major depression , chronic (F32.9) Active confirmed Problem 951889581 Secondary insomnia (G47.00) Active confirmed Problem 57753557 Cerebral microvascular disease (I67.9) Active confirmed Problem 076908629 History of subarachnoid hemorrhage (Z86.79) Active confirmed Vital Signs Heart Rate 92 /min 12/22/2024 Temperature 97.7 degrees Fahrenheit 12/22/2024 Blood pressure diastolic 80 mm Hg 12/22/2024 Height 5 ft 3 in in 12/22/2024 Blood pressure systolic 110 mm Hg 12/22/2024 Weight 152.2 lbs 12/22/2024 BMI 26.96 kg/m2 12/22/2024 Encounters Encounter Location Date Provider Diagnosis [facility] [address] [facility] [address] [place] [address] 01/09/2025 Provider Migration [facility] [address] [facility] [address] [place] [address] 05/07/2024 Tamiko Russo Major depression, chronic F32.9 ; Anxiety associated with depression F41.8 ; History of subarachnoid hemorrhage Z86.79 ; Dermatitis L30.9 and Alcohol abuse F10.10 [facility] [address] [address] 07/22/2024 Tamiko Russo URI with cough and congestion J06.9 [facility] [address] [facility] [address] [place] [address] 08/10/2024 Tamiko Russo Major depression, chronic F32.9 ; Anxiety associated with depression F41.8 ; History of subarachnoid hemorrhage Z86.79 ; Alcohol abuse F10.10 ; Chronic obstructive pulmonary disease, unspecified J44.9 ; Unspecified vitamin D deficiency E55.9 ; Other and unspecified hyperlipidemia E78.5 and Immunization(s) administered Z23 [facility] [address] [place] [address] 12/08/2024 Tamiko Rafaela Essential hypertensi on I10 and Upper back pain M54.9 [facility] [address] [place] [address] 12/22/2024 Tamiko Rafaela Essential hypertensi on I10 [facility] [address] [place] [address] 06/05/2024 Berry Besrylan Major depression, chronic F32.9 [facility] [address] [place] [address] 06/10/2024 Tamiko Rafaela [facility] [address] [place] [address] 06/22/2024 Tamiko Rafaela [facility] [address] [place] [address] 08/15/2024 Tamiko Rafaela [facility] [address] [place] [address] 08/18/2024 Tamiko Rafaela [facility] [address] [place] [address] 09/02/2024 Berry Max Major depression, chronic F32.9 [facility] [address] [place] [address] 09/28/2024 Berry Besson [facility] [address] [place] [address] 01/05/2025 Berry Besson [facility] [address] [place] [address] 02/24/2025 Berry Besson [facility] [address] [place] [address] 03/02/2025 Berry Santana Assessments Encounter Date Diagnosis (ICD Code) Assessment Notes Treatment Notes Treatment Clinical Notes Section Notes 05/07/2024 Major depression, chronic (ICD-10 - F32.9) Overall her mood and energy have improved, tolerating current therapy. Reccommend no changes today. continue to work on cessation of alcohol use. Encouraged limiting to no more than one alcoholic drink per day. 06/05/2024 Major depression, chronic (ICD-10 - F32.9) 08/10/2024 Anxiety associated with depression (ICD-10 - F41.8) continue buspar, SSRI and lower dose xanax 08/10/2024 Major depression, chronic (ICD-10 - F32.9) Overall her mood and energy have improved, tolerating current therapy. Reccommend no changes today. continue to work on cessation of alcohol use. Encouraged limiting to no more than one alcoholic drink per day. 09/02/2024 Major depression, chronic (ICD-10 - F32.9) 12/08/2024 Essential hypertension (ICD-10 - I10) add losartan as noted, close FU in 2 weeks, monitor for symptoms. 12/08/2024 Upper back pain (ICD-10 - M54.9) improved 12/22/2024 Essential hypertension (ICD-10 - I10) Rec continue losartan, work on weight loss, good water intake. FU again in 3-4 months, sooner with concerns. 07/22/2024 URI with cough and congestion (ICD-10 - J06.9) Discussed the etiology and expected course of a viral URI. Discussed supportive care and symptom management with PO fluids, Antipyretics, and antihistamines. Discussed the rational for not prescribing antibiotics for viral infection. Discussed the signs and symptoms of worsening condition and need for reassessment in clinic or ED. 08/10/2024 History of subarachnoid hemorrhage (ICD-10 - Z86.79) has NS FU arranged 05/07/2024 Anxiety associated with depression (ICD-10 - F41.8) continue buspar, SSRI and lower dose xanax 05/07/2024 History of subarachnoid hemorrhage (ICD-10 - Z86.79) has NS FU arranged 08/10/2024 Alcohol abuse (ICD-10 - F10.10) 08/10/2024 Chronic obstructive pulmonary disease, unspecified (ICD-10 - J44.9) 05/07/2024 Dermatitis (ICD-10 - L30.9) Continue topical triamcinolone and refer to dermatology 08/10/2024 Unspecified vitamin D deficiency (ICD-10 - E55.9) 08/10/2024 Other and unspecified hyperlipidemia (ICD-10 - E78.5) 05/07/2024 Alcohol abuse (ICD-10 - F10.10) 08/10/2024 Immunization(s) administered (ICD-10 - Z23) Plan Of Treatment Pending Test Test Name Order Date X ray : Chest 11/28/2016 X ray : Spines, Lumbosacral 04/06/2010 CT Scan : Chest, Without Contrast 2016 X ray : Hand, Left 04/06/2010 X ray : Wrist, Left 04/06/2010 Mammogram : Diagnostic 11/21/2020 Mammogram : Left breast 11/22/2020 EKG : In House 01/04/2017 Physical Therapy 02/08/2014 Ultrasound : Gallbladder 12/20/2010 Mammogram : Bilateral 02/04/2013 Mammogram : Bilateral 06/01/2016 Holter Monitor, 48 hour 07/24/2018 H-CBC with AUTO DIFF 02/06/2018 H-CBC with AUTO DIFF 12/20/2010 H-CBC with AUTO DIFF 09/12/2017 H-CBC with AUTO DIFF 12/19/2011 H-CBC with AUTO DIFF 04/14/2015 H-CBC with AUTO DIFF 08/25/2009 H-VITAMIN B12 09/12/2017 H-CMP 09/12/2017 H-CMP 04/14/2015 H-CMP 12/19/2011 H-CMP 12/20/2010 H-CMP 08/25/2009 H-BUN 11/14/2017 H-CREATININE SERUM 11/14/2017 H-LIPID PANEL 04/14/2015 H-LIPID PANEL 12/19/2011 H-LIPID PANEL 12/20/2010 H-LIPID PANEL 02/04/2013 H-LIPID PANEL 08/25/2009 H-TSH 12/19/2011 H-TSH 04/14/2015 H-TSH 08/25/2009 H-VIT D, 25-HYDROXY 04/14/2015 H-VIT D, 25-HYDROXY 12/19/2011 H-RHEUMATOID ARTHRITIS PROFILE 7 H-ANSON PROFILE 01/04/2017 H-H.PYLORI ANTIGEN 12/20/2010 C-FOLATE 02/17/2020 H-SS A 08/25/2009 H-SS B 08/25/2009 h-leutinizing hormone 03/10/2009 M-Complete Blood Count Auto Diff 021 M-Complete Blood Count Auto Diff 018 M-Complete Blood Count Auto Diff 023 M-Complete Blood Count Auto Diff 019 M-Comprehensive Metabolic Panel 05/18/20 19 M-Comprehensive Metabolic Panel 11/08/19 23 M-Comprehensive Metabolic Panel 11/11/19 21 M-Comprehensive Metabolic Panel 08/13/20 18 M-Comprehensive Metabolic Panel 02/13/20 19 M-Hemoglobin A1C 08/13/2018 M-Hemoglobin A1C 11/08/2022 M-Lipid Panel 11/08/2022 M-Lipid Panel 05/18/2019 M-Lipid Panel 02/12/2019 M-Lipid Panel 08/13/2018 M-Lipid Panel 11/11/2020 M-Thyroid Stimulating Hormone 08/13/2018 M-Thyroid Stimulating Hormone 11/08/2022 E-Admo-Xlkcsgz Antibody Titer 03/15/2021 M-Vitamin B12 03/15/2021 M-Vitamin B12 11/08/2022 M-Vitamin B12 11/11/2020 M-Vitamin D 25 Hydroxy 11/11/2020 M-Vitamin D 25 Hydroxy 02/12/2019 M-Vitamin D 25 Hydroxy 08/13/2018 M-Vitamin D 25 Hydroxy 11/08/2022 M-Vitamin D 25 Hydroxy 05/18/2019 M-Vitamin D 25 Hydroxy 03/15/2021 M-COVID PCR SINGLE RAPID 06/20/2021 M-COVID PCR SINGLE RAPID 01/30/2021 Rapid Covid Antigen 03/01/2021 Rapid Covid Antigen 09/13/2021 Next Appt Details Provider Name:Tamiko Fernandes Kailash ce, 04/01/2025 12:15:00 PM, [address] [facility] [address] [facility] [address], [place], [address], Insurance Providers Payer Name Payer Address Payer Phone Subscriber Number Group Number Insured Name Patient Relationship to Insured Coverage Start Date Coverage End Date [employer] [address] [address] [place] [address] [id number] [phone] Ellyn Osuna Self - patient is the insured Medications Administered Medication Instructions Date of Administration Dosage Notes Dexamethasone 4mg Injection 12/20/2021 4 mg Dexamethasone 4mg Injection 06/14/2022 4 mg Dexamethasone 4mg Injection 02/20/2024 4 mg Kenalog 40mg 07/25/2017 40 mg Kenalog 40mg 06/18/2018 40 mg Triamcinolone Acetonide 40mg Injection 08/25/2018 1 mL Triamcinolone Acetonide 40mg Injection 11/30/2020 1 mL Triamcinolone Acetonide 40mg Injection 03/03/2021 1 mL Triamcinolone Acetonide 40mg Injection 05/27/2021 1 mL Kenalog 12/28/2013 1 Kenalog 04/05/2014 Kenalog 07/07/2014 1 mL Kenalog 10/27/2014 1 mL Kenalog 05/11/2015 1 mL Injection give n by So Reich Kenalog 12/19/2015 1 mL Kenalog 05/28/2016 1 mL Kenalog 01/04/2017 1 mL Medical (General) History Medical History History ICD Code migraine headache smoking-COPD depession/anxiety asthma fibromyalgia EGD 2015 with gastritis and duodentitis Stroke TIA Breast biopsy benign 2018 - normal mammo gram 11/2020 Colonoscopy 03/2020, Dr Harkins, repeat in 3 years recommended Subarachnoid Hemorrhage 04/2023, treated at [facility] Nocturnal Hypoxia, started on supplement al O2 12/2023 Surgical History Surgery Date(Month/Year) back surgery 12/2018 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
--- OUTSIDE RECORDS SUMMARY | 2025-03-18 13:46 | XMS_ITS | Encounter Summary ---
Author Organization Healthcare Address [address] [place] [address] Care Team Providers Care Meal Packer Name Role Phone Tamiko Russo D[place] Primary Care Provider [phone]- [phone] Carline Ballesteros Unavailable [phone] Reason for Visit * Reason Comments Med Refill Encounter Details Date Type Department Care Team (Late st Contact Info) Description 07/30/2023 Refill [place] [facility] [address], [address] [place] [address] Sayra Hogan PA [address] [place] [address] Social History Tobacco Use Types Packs/Day Years Used Date Smoking Tobacco: Former Cigarettes Smokeless Tobacco: Never Alcohol Use Standard Drinks/Week Comments Yes 4 (1 standard drink = 0.6 oz pur e alcohol) Comments No Sex and Gender Information Value Date Recorded Sex Assigned at Female 04/20/2023 6:58 AM EDT Legal Sex Female 6:00 PM EDT Gender Identity Female 04/20/2023 6:58 AM EDT Sexual Orientation Not on file documented as of this encounter Miscellaneous Notes * Telephone Encounter - Carline Ballesteros PA - 08/06/2023 2:39 PM EDT Yep, will close. * Telephone Encounter - Carline Ballesteros PA - 08/06/2023 10:36 AM EDT What did they discuss on Saturday? * Telephone Encounter - Carline Ballesteros PA - 07/31/2023 5:04 PM EDT Is she still having headaches 3 months out? Or is it for breakthrough headaches? Let's see how her headaches are doing. She also sees Villalpando intwo days with new scan. Does she have enough until then? documented in this encounter Plan of Treatment Upcoming Encounters Date Type Department Care Team (Late st Contact Info) Description 03/29/2025 8:45 AM EDT Appointment [facility] Inter[facility] Rad[facility] [address] [place] [address] 04/01/2025 9:00 AM EDT Office Visit [place] [facility] [address], [address] [place] [address] Carline Ballesteros PA [address] [address] documented as of this encounter Visit Diagnoses Not on filedocumented in this encounter Additional Health Concerns Assessment Noted Time A fall risk assessment has been complete d for the patient 05/06/2023 10:49 AM EDT documented as of this encounter Care Teams Meal Packer Relationship Specialty Start Date End Date Tamiko Russo APRN [facility] [address] [address] PCP - General 04/03/23 Carline Ballesteros PA [address] [address] Physician Race Car Driver Neurosurgery 05/06/23 documented as of this encounter
--- OUTSIDE RECORDS SUMMARY | 2025-03-18 13:46 | XMS_ITS | Encounter Summary ---
Author Organization [facility] Address [address] [place] [address] Care Team Providers Care Client Services Representative Name Role Phone Tamiko Russo Dom HAYNES Primary Care Provider [phone]- [phone] Carline Ballesteros Unavailable [phone] Encounter Details Date Type Department Care Team (Latest Contact Info) Description 03/04/2025 Travel Social History Tobacco Use Types Packs/Day Years Used Date Smoking Tobacco: Former Cigarettes 2 30 1 - 2022 Passive Smoke Exposure: Never Smokeless Tobacco: Never Alcohol Use Standard Drinks/Week [...] on file documented as of this encounter Functional Status * Over the [...] Health Questionnaire-2 Score 0 02/05 11:04 AM EDJeff Fenton documented as of this encounter Plan of Treatment Upcoming Encounters Date Type Department Care Team (Late st Contact Info) Description 03/29/2025 8:45 AM EDT Appointment [facility] Radiology [address] [place] [address] 04/01/2025 9:00 AM EDT Office Visit [place] [facility] [address], [address] [place] [address] Carline Ballesteros PA [address] [address] documented as of this encounter Visit Diagnoses Not on filedocumented in this encounter Additional Health Concerns Assessment Noted Time A fall risk assessment has been complete d for the patient 03/04/2025 11:04 AM EDT A Body Mass Index follow-up plan has been documented for the patient 03/05/2025 5:42 PM EDT documented as of this encounter Care Teams Client Services Representative Relationship Specialty Start Date End Date Tamiko Russo APRN [address] [address] PCP - General 04/03/23 Carline Ballesteros PA [address] [address] Physician Jigger Artisan Neurosurgery 05/06/23 documented as of this encounter
--- OUTSIDE RECORDS SUMMARY | 2025-03-18 13:46 | XMS_ITS | Encounter Summary ---
Author Organization [facility] Address [address] [place] [address] Care Team Providers Care Claim Representative Name Role Phone Tamiko Russo Dom HAYNES Primary Care Provider [phone]- [phone] Carline Ballesteros Unavailable [phone] Encounter Details Date Type Department Care Team (Late st Contact Info) Description 02/16/2025 Telephone [place] [facility] [address], [address] [place] [address] Daniel Villalpando MD [address] [place] [address] Social History Tobacco Use Types Packs/Day Years Used Date Smoking Tobacco: Former Cigarettes 2 30 1 993 - 2022 Smokeless Tobacco: Never Alcohol Use Standard [...] encounter Miscellaneous Notes * Telephone Encounter - Lala Reynoso - 02/16/2025 11:52 AM EDT Patient Phone Message Reason for Call: Patient is calling to schedule f/u appt. She missed hers last year Best contact number and optimal time of day to reach caller: [phone] Note: Please do not reply to this message. Follow-up communication and further actions as a result of this message need to be communicated with the patient directly, if the patient is not active onMyChart. If the patient is active on MyChart, they will receive notification of the communication/outcome via MyChart. documented in this encounter Plan of Treatment Upcoming Encounters Date Type Department Care Team (Late st Contact Info) Description 03/29/2025 8:45 AM EDT Appointment [facility] Inter[facility] Radiology [address] [place] [address] 04/01/2025 9:00 AM EDT [facility] [place] [facility] [address], [address] [place] [address] Carline Ballesteros PA [address] [address] documented as of this encounter Visit Diagnoses Not on filedocumented in this encounter Additional Health Concerns Assessment Noted Time A fall risk assessment has been complete d for the patient 08/02/2023 3:40 PM EDT documented as of this encounter Care Teams Claim Representative Relationship Specialty Start Date End Date Tamiko Russo APRN [facility] [place] [id number] PCP - General 04/03/23 Carline Ballesteros PA [address] [address] Physician Vascular Specialists Neurosurgery 05/06/23 documented as of this encounter
--- OUTSIDE RECORDS SUMMARY | 2025-03-18 13:46 | XMS_ITS | Encounter Summary ---
Author Organization [facility] Address [address] [place] [address] Care Team Providers Care Manufacturing Machine Operator Name Role Phone Tamiko Russo D[place] Primary Care Provider [phone]- [phone] Carline Ballesteros PA Unavailable [phone] Encounter Details Date Type Department Care Team (Late st Contact Info) Description 04/15/2023 Lab Requisition [facility] [address] [place] [address] Sharifa Torres MD [address] [address] Encounter for general adult medical examination without abnormal findings Social History Tobacco Use Types Packs/Day Years Used Date Smoking Tobacco: Every Day Comments Unknown Sex and Gender Information Value Date Recorded Sex Assigned at Female 04/20/2023 6:58 AM EDT Legal Sex Female 6:00 PM EDT Gender Identity Female 04/20/2023 6:58 AM EDT Sexual Orientation Not on file documented as of this encounter Functional Status * Calculated C-SSRS Risk Score (Lifetime/Recent) Answer Date of Assessment Author No Risk Indicated 04/17/2023 9:00 PM EDT Anant Gallegos RN * Question Answer Date of Assessment Author 1. Wish to be (Past 1 Month) No 023 9:00 PM EDT Anant Gallegos, SONNY 2. Non-Specific Active Suici alva Thoughts (Past 1 Month) No 04/17/2023 9:00 PM EDT Anant Gallegos , RN 6. Suicidal Behavior (Lifetime) No 9:00 PM EDT Anant Gallegos, RN documented as of this encounter Plan of Treatment Upcoming Encounters Date Type Department Care Team (Late st Contact Info) Description 03/29/2025 8:45 AM EDT Appointment [facility] Inter[facility] Radiology [address] [place] [address] 04/01/2025 9:00 AM EDT Office Visit [place] [facility] [address], [address] [place] [address] Carline Ballesteros, ALAN [address] [place] [address] documented as of this encounter Procedures Procedure Name Priority Date/Time Associated Diagnosis Comments MULTI DRUG RESISTANCE TEST Routine 04/15/2023 12:15 PM EDT Encounter for general adult medical examination without abnormal findings documented in this encounter Results * Multi Drug Resistance Test (04/15/2023 12:15 PM EDT) Culture No growth at day 2 04/17/2023 8:48 AM EDT [facility] Swab (Nares and Nkechi Rectal) 04/15/2023 12:15 PM EDT 04/15/2023 1:23 PM EDT us Sharifa Varghese MD LAB MICROBIOLOGY - GENERAL ORDERABLES Final Result [facility] [address] [place] [address] documented in this encounter Visit Diagnoses Diagnosis Encounter for general adult medical examination without abnormal findings documented in this encounter Care Teams Manufacturing Machine Operator Relationship Specialty Start Date End Date Tamiko Russo APRN [address] [address] PCP - General 04/03/23 Carline Ballesteros PA [address] [place] [address] Physician Hospital Nurse Neurosurgery 05/06/23 documented as of this encounter
--- OUTSIDE RECORDS SUMMARY | 2025-03-18 13:46 | XMS_ITS | Encounter Summary ---
Author Organization [facility] Address [address] [place] [address] Care Team Providers Care Casing Splitter Name Role Phone Tamiko Russo [place] Primary Care Provider [phone]- [phone] Carline Ballesteros Unavailable [phone] Reason for Visit * Reason Onset Date Comments HCN - Patient Message 04/30/2023 Post op qu estions and pain meds Encounter Details Date Type Department Care Team (Late st Contact Info) Description 04/30/2023 Telephone [place] [facility] [address] [place] [address] Carline Ballesteros PA [address] [place] [address] HCN - Patient Message (Post op questions and pain meds) Social History Tobacco Use Types Packs/Day Years Used Date Smoking Tobacco: Every Day Comments No Sex and Gender Information Value Date Recorded Sex Assigned at Female 04/20/2023 6:58 AM EDT Legal Sex Female 6:00 PM EDT Gender Identity Female 04/20/2023 6:58 AM EDT Sexual Orientation Not on file documented as of this encounter Miscellaneous Notes * Telephone Encounter - Carline Ballesteros PA - 04/30/2023 10:37 AM EDT Is she speaking of the gabapentin? We can refill that. Is it working for her pain? Carline * Telephone Encounter - Lala Reynoso - 04/30/2023 9:19 AM EDT Patient Phone Message Reason for Call: Spouse is calling to check on when/how stitches will be removed and that pt only has 1 pain pill left for her head hurting and needs something called in to [facility] Best contact number and optimal time of day to reach caller: [phone] Jayce Note: Please do not reply to this message. Follow-up communication and further actions as a result of this message need to be communicated with the patient directly, if the patient is not active on MyChart. If the patient is active on MyChart, they will receive notification of the communication/outcome via GrabInbox[employer]. documented in this encounter Plan of Treatment Upcoming Encounters Date Type Department Care Team (Late st Contact Info) Description 03/29/2025 8:45 AM EDT Appointment [facility] Inter[facility] Radiology [address] [place] [address] 04/01/2025 9:00 AM EDT Office Visit [place] [facility] [address] [place] [address] Carline Ballesteros PA [id number] [place] [address] documented as of this encounter Visit Diagnoses Not on filedocumented in this encounter Care Teams Casing Splitter Relationship Specialty Start Date End Date Tamiko Russo APRN [address] [address] PCP - General 04/03/23 Carline Ballesteros PA [address] [address] Physician Asphalt Tamper Neurosurgery 05/06/23 documented as of this encounter
--- OUTSIDE RECORDS SUMMARY | 2025-03-18 13:46 | XMS_ITS | Encounter Summary ---
Author Organization Healthcare Address [address] [place] [address] Care Team Providers Care Nuclear Powerplant Mechanic Helper Name Role Phone Berry Santana MD Primary Care Provider [phone] Tamiko Russo APRN Primary Care Provider + [phone] Carline Ballesteros Unavailable [phone] Encounter Details Date Type Department Care Team (Late st Contact Info) Description 09/04/2018 Orders Only External Location [address] [place] [address] Provider, External Social History Tobacco Use Types Packs/Day Years Used Date Smoking Tobacco: Never Assessed Comments Unknown Sex and Gender Information Value [...] Appointment [facility] Inter[facility] Radiology [address] [place] [address] 04/01/2025 9:00 AM EDT Office Visit [place] [facility] [address] [place] [address] Carline Ballesteros PA [address] [place] [address] documented as of this encounter Procedures Procedure Name Priority Date/Time Associated Diagnosis Comments MR LUMBAR SPINE W IV CONTRAST 09/04/2018 12:54 PM EST documented in this encounter Results * MR Lumbar Spine w IV Contrast (09/04/2018 12:54 PM EST) Anatomical Region Laterality Modality L-spine Magnetic Resonan ce 09/04/2018 12:5 4 PM EST us External Provider IMG MRI PROCEDURES Final Resul t documented in this encounter Visit Diagnoses Not on filedocumented in this encounter Additional Health Concerns Infection Onset Date Last Indicated Resolved Time Meningitis Rule-Out 04/05/2023 04/05/2023 04/05/20 4:56 PM EDT Meningitis Rule-Out 04/08/2023 04/08/2023 04/08/20 12:36 PM EDT documented as of this encounter Care Teams Nuclear Powerplant Mechanic Helper Relationship Specialty Start Date End Date Berry Santana MD [address] [facility] [address] [facility] [address] [place] [address] PCP - General 02/17/21 04/02/23 Tamiko Russo APRN [address] [place] [address] PCP - General 04/03/23 Carline Ballesteros PA [address] [facility] [address] [place] [address] Physician Latin Dance Instructor Neurosurgery 05/06/23 documented as of this encounter
--- OUTSIDE RECORDS SUMMARY | 2025-03-18 13:46 | XMS_ITS | Encounter Summary ---
Author Organization [facility] Address [address] [place] [address] Care Team Providers Care Laboratory Secretary Name Role Phone Berry Santana MD Primary Care Provider [phone] Tamiko Russo APRN Primary Care Provider + [phone] Carline Ballesteros Unavailable [phone] Encounter Details Date Type Department Care Team (Late st Contact Info) Description 05/22/2022 [facility] [address] [place] [address] Tamiko Russo, DALLAS [address] [id number] Social History Tobacco Use Types Packs/Day Years [...] Appointment [facility] Rad[facility] [address] [place] [address] 04/01/2025 9:00 AM EDT Office Visit [place] [facility] [address] [place] [address] Carline Ballesteros PA [address] [facility] [place] [address] documented as of this encounter Visit Diagnoses Not on filedocumented in this encounter Additional Health Concerns Infection Onset Date Last Indicated Resolved Time Meningitis Rule-Out 04/05/2023 04/05/2023 04/05/20 4:56 PM EDT Meningitis Rule-Out 04/08/2023 04/08/2023 04/08/20 12:36 PM EDT documented as of this encounter Care Teams Laboratory Secretary Relationship Specialty Start Date End Date Berry Santana MD [address] [facility] [address] [facility] [address] [place] [address] PCP - General 02/17/21 04/02/23 Tamiko Russo APRN 1210 [facility] 36 [place] [address] PCP - General 04/03/23 Carline Ballesteros PA [address] [facility]01 [place] [address] Physician Technical Internship Neurosurgery 05/06/23 documented as of this encounter
--- OUTSIDE RECORDS SUMMARY | 2025-03-18 13:46 | XMS_ITS | Encounter Summary ---
Author Organization Healthcare Address [address] [place] [address] Care Team Providers Care Exhibit Technician Name Role Phone Tamiko Russo D[place]AS Primary Care Provider [phone] Carline Ballesteros Unavailable Encounter Details Date Type Department Care Team (Late st Contact Info) Description 03/05/2025 Telephone [place] [facility] [address] [place] [address] Carline Ballesteros PA [address] [place] [address] Social History Tobacco Use Types Packs/Day Years Used Date Smoking Tobacco: Former Cigarettes 3 - 2022 Passive Smoke Exposure: Never Smokeless [...] * Telephone Encounter - Lala Reynoso - 03/05/2025 12:43 PM EDT Patient Phone Message Reason for Call: Can CT order be placed at [facility] instead? Best contact number and optimal time of day to reach caller: [phone] Note: Please do not reply to this [...] Appointment [facility] Interventional Radiology [address] [place] [address] 04/01/2025 9:00 AM EDT Office Visit [place] [facility] [address] [place] [address] Carline Ballesteros PA [id number] [place] [address] documented as of this encounter Visit Diagnoses Not on filedocumented in this encounter Additional Health Concerns Assessment Noted Time A fall risk assessment has been complete d for the patient 03/04/2025 11:04 AM EDT A Body Mass Index follow-up plan has been documented for the patient 03/05/2025 5:42 PM EDT documented as of this encounter Care Teams Exhibit Technician Relationship Specialty Start Date End Date Tamiko Russo APRN [address] [address] PCP - General 04/03/23 Carline Ballesteros PA [id number] [place] [address] Physician Federal Appellate Law Clerk Neurosurgery 05/06/23 documented as of this encounter
--- OUTSIDE RECORDS SUMMARY | 2025-03-18 13:46 | XMS_ITS | Clinical Summary ---
Author Organization [facility] Address [address] [place] [address] Care Team Providers Care Yard Pipe Grader Name Role Phone Tamiko Russo [place] Primary Care Provider [phone]- [phone] Carline Ballesteros Unavailable Allergies Active Allergy Reactions Criticality Noted Date Comments Cephalexin Rash,Other - please document in the comment field,Unknown - Patient states they do not know rxn details Low 11/05/2018 Codeine Dizziness Low 10/25/2021 Prednisone Rash,Unknown - Patient states they do not know rxn details Low 11/05/2018 Pt states that she can't tolerate PO but can tolerate IV. Acetaminophen-Codeine Rash Low 04/03/2023 Medications ARIPiprazole (Abilify) 5 MG tablet Take 1 tablet (5 mg) by mouth 1 (one) time each day. Active atorvastatin (Lipitor) 20 MG tablet Take 1 tablet (20 mg) by mouth 1 (one) time each day. Active buPROPion XL (Wellbutrin XL) 300 MG 24 hr tablet Take 1 tablet (300 mg) by mouth 1 (one) time each day. Active busPIRone (Buspar) 10 MG tablet Take 1 tablet (10 mg) by mouth 3 (three) times a day. Active cyclobenzaprine (Flexeril) 5 MG tablet Take 1 tablet (5 mg) by mouth every night. Active furosemide (Lasix) 20 MG tablet Take 1 tablet (20 mg) by mouth 1 (one) time each day if needed. Active gabapentin (Neurontin) 300 MG capsule Take 2 capsules (600 mg) by mouth every night. Active meloxicam (Mobic) 15 MG tablet Take 1 tablet (15 mg) by mouth 1 (one) time each day. Active metoprolol succinate XL (Toprol-XL) 50 MG 24 hr tablet Take 1 tablet (50 mg) by mouth 1 (one) time each day. Active omeprazole (PriLOSEC) [address] capsule Take 1 capsule (40 mg) by mouth 1 (one) time each day. Active PARoxetine (Paxil) 40 MG tablet Take 1 tablet (40 mg) by mouth 1 (one) time each day. Active triamcinolone (Kenalog) 0.1 % ointment Apply 1 Application topically 2 (two) times a day. Active ALPRAZolam (Xanax) 0.5 MG tablet Take 1 tablet (0.5 mg) by mouth 3 (three) times a day. Active albuterol 108 (90 Base) MCG/ACT inhaler Inhale 2 puffs every 4 (four) hours if needed. Active butalbital-acet aminophen-caffe ine (Esgic) 50-325-40 MG tablet Take 1 tablet by mouth every four hours as needed for post-op headache. Do not exceed 6 tablets per 24 hours. 42 tablet 3 Active Additional Information Patient not taking.Reported on 03/04/2025 ALPRAZolam (Xanax) 0.5 MG tablet 8 Active atorvastatin (Lipitor) 10 MG tablet Take 1 tablet (10 mg) by mouth 1 (one) time each day. 2 Active buPROPion XL (Wellbutrin XL) 300 MG 24 hr tablet Active busPIRone (Buspar) 10 MG tablet every 8 (eight) hours. Active cetirizine (ZyrTEC) 10 MG tablet 1 (one) time each day at the same time. Active cyclobenzaprine (Flexeril) 5 MG tablet 9 Active ergocalciferol (Vitamin D-2) 1.25 MG (48294 UT) capsule 8 Active Fluticasone-Ume clidin-Vilant (Trelegy Ellipta) 100-62.5-25 MCG/ACT aerosol powder 1 (one) time each day at the same time. Active gabapentin (Neurontin) 300 MG capsule 1 cap(s) orally 2 times a day PRN back pain for 30 days 8 Active meloxicam (Mobic) 15 MG tablet 1 tab(s) orally once a day for arthritis pain for 90 days 8 Active omeprazole (PriLOSEC) [address] capsule 1 (one) time each day at the same time. Active pravastatin (Pravachol) 20 MG tablet Take 1 tablet (20 mg) by mouth 1 (one) time each day. 3 Active ALPRAZolam (Xanax) 0.25 MG tablet Take 1 tablet by mouth 3 times a day as needed. 5 Active losartan (Cozaar) 50 MG tablet Take 1 tablet by mouth Daily. 5 Active buPROPion SR (Wellbutrin SR) 150 MG 12 hr tablet Take 1 tablet by mouth 2 times a day. 5 Active topiramate (Topamax) 25 MG tablet Take one at night for one week, then increase to 25mg BID for TWO weeks, then 50mg BID. 60 tablet 1 5 Active Active Problems Problem Noted Date Diagnosed Date Hyperlipidemia 04/21/2023 04/21/2023 History of hyperlipidemia 04/04/2023 Overview (04/12/2023): Triglycerides 150 on admission Continue home atorvastatin GERD (gastroesophageal reflux disease) 3 Overview (04/10/2023): Continue PPI Chronic pain 04/04/2023 Overview (04/12/2023): Continue nightly Gabapentin Continue to follow COPD (chronic obstructive pulmonary disease) Overview (04/10/2023): Continue Dulera, PRN Duo-nebs wean O2 for SpO2 > 88% Smoker 04/03/2023 Overview (04/05/2023): Smoking cessation and education recommended Complicates all aspects of care Hypertension 04/03/2023 Overview (04/10/2023): SBP < 200 PRN Labetalol and Hydralazine Resume home medications as needed TIA (transient ischemic attack) 04/03/2023 Overview (04/10/2023): History of Taking ASA at home Complicates all aspects of care Anxiety 04/03/2023 Overview (04/12/2023): Continue paroxetine, aripiprazole Resume Wellbutrin/Buspar as appropriate Back pain 09/26/2018 04/21/2023 Lumbar disc herniation with radiculopathy 201704/21/2023 Resolved Problems Problem Noted Date Diagnosed Date Resolved Date UTI (urinary tract infection) 04/11/2023 04/11/2023 Overview (04/11/2023): See fever UTI (urinary tract infection) 04/08/2023 04/16/2023 Overview (04/14/2023): UA 04/11 large leuk, (-) nitrites, + bacteria Continue levofloxacin through 04/16 Hydrocephalus, unspecified 04/05/2023 0 04/21/2023 Overview (04/07/2023): See SAH for additional details Hyponatremia 04/05/2023 04/12/2023 Overview (04/11/2023): Goal normonatremia Switch 1.5% to NS Monitor Electrolyte imbalance 04/04/20232022 Overview (04/04/2023): Monitor and replace per ICU protocol History of mood disorder 04/04/2023 Overview (04/04/2023): Continue Paxil, Abilify today Resume Wellbutrin/Buspar as appropriate Atelectasis 04/04/2023 04/06/2023 Overview (04/05/2023): 04/04 CXR - Hypoventilatory changes with perihilar and basilar opacities favoring atelectasis. Pulmonary vascular congestion. Extubated to 3L NC 04/04 Maintain oxygen saturation > 92% Continue Dulera Encourage aggressive pulmonary hygiene - IS, PEP, duonebs SAH (subarachnoid hemorrhage) 04/03/2023 04/21/2023 Overview (04/13/2023): 04/03: SAH HH2F3, R PCOMM aneurysm. S/p coil embo EVD in place - clamped 04/13 Maintain SBP < 200 Normonatremia Daily TCD Monitor for S/S vasospasm Serial neuro exams per ICU protocol Daily nimodipine ECHO 04/04: EF 54%, LV and RV normal Monitor pain closely Maintain euvolemic, Close monitoring of I/Os Aneurysmal subarachnoid hemorrhage 04/06/2023 Encounters Date Type Department Care Team Description 03/05/2025 Telephone [place] [address], [address] [place] [phone] Carline Ballesteros PA 03/04/2025 11:00 AM EDT Office Visit [facility] [address], [address] [place] [phone] Carline Ballesteros PA Cerebral arterial aneurysm (Primary Dx); Pre-op exam; Intractable headache, unspecified chronicity pattern, unspecified headache type; Memory changes; SAH (subarachnoid hemorrhage) ([facility]) 03/04/2025 Orders Only [facility] [address], [address] [place] [phone] Daniel Villalpando MD Pre-op exam (Primary Dx); Cerebral arterial aneurysm 03/04/2025 Travel 02/16/2025 Orders Only [facility] [address], [address] [place] [phone] Daniel Villalpando MD Hydrocephalus, acquired ([facility]) (Primary Dx); Cerebral arterial aneurysm 02/16/2025 Telephone [place] [address], [address] [place] [address] [place] [phone] Daniel Villalpando MD from Last 3 Months Immunizations Immunization Administration Dates Next Due Influenza, injectable, MDCK, preservative free, quadrivalent 10/14/2016 Influenza, injectable, quadrivalent 07/24/2018,1 Influenza, injectable, quadrivalent, preservativ e free 09/23/2019 Influenza, recombinant, quad rivalent, injectable, preservative free 09/21/2020 Family History Medical History Relation Name Comments Breast cancer Mother Cardiac disorder Mother Colon cancer Mother Diabetes Mother Other cancer Mother Stroke Mother Relation Name Status Comments Mother Social History Tobacco Use Types Packs/Day Years Used Date Smoking Tobacco: Former Cigarettes 2022 Passive Smoke Exposure: Never Smokeless Tobacco: [...] AM EDT Sexual Orientation Not on file Last Filed Vital Signs Vital Sign Reading Time Taken Comments Blood Pressure 138/76 03/04/2025 10:53 AM EDT Pulse 72 03/04/2025 10:53 AM EDT Temperature 36.6 C (97.8 F) 04/21/2023 4:18 PM EDT Respiratory Rate 18 08/02/2023 3:36 PM EDT Oxygen Saturation 98% 03/04/2025 10: 53 AM EDT Inhaled Oxygen Concentration - - Weight 68.9 kg (151 lb 14.4 oz) 025 10:53 AM EDT Height 157.5 cm (5' 2 ) 03/04/2025 10:5 3 AM EDT Body Mass Index 27.78 03/04/2025 10:53 AM EDT Plan of Treatment Upcoming Encounters Date Type Department Care Team (Late st Contact Info) Description 03/29/2025 8:45 AM EDT Appointment [facility] Interventional Radiology [address] [place] [address] 04/01/2025 9:00 AM EDT Office Visit [place] [facility] [address], [address] [place] [address] Carline Ballesteros, PA [address] [place] [phone] Health Maintenance Due Date Last Done Comments [facility]-Infant/Child/Adol SDOH Screenings 1970 [facility]- SDOH Screenings 1988 [facility]-Adult SDOH Screenings 1988 [facility]-DTaP,Tdap,and Td Vaccines (1 - Tdap) 1989 [facility]-Hepatitis B Vaccines (1 of 3 - 19+ 3-dose series) 1989 [facility]-Pap Smear 1991 [facility]-Cervical Cancer Screening 2000 [facility]-HPV/Cotest 2000 CT Colonography 2015 Colonoscopy 2015 FIT-DNA 2015 FIT 2015 FOBT 2015 Sigmoidoscopy 2015 [facility]-Colorectal Cancer Screening 2015 [facility]-Breast Cancer Screening 2020 [facility]-Lung Cancer Screening 2020 [facility]-Pneumococcal Vaccine: 50+ Years (1 of 1 - PCV) 2020 [facility]-Zoster Vaccines (1 of 2) 2020 [id number] Vaccine ( season) 2024 04/06/2021, 03/16/2021 [facility]-Depression Screening 03/04/2026 03/04/2025 [facility]-HIV Screening Completed 04/03/2023 [facility]-Hepatitis C Screening Completed 04/03/2023 [facility]-Influenza Vaccine Completed 08/10/2024 , 09/21/2020, 09/23/2019, Additional history exists [facility]-Obesity Intervention Completed 03/04/2025 HPV Vaccines Aged Out No longer eligi ble based on patient's age to complete this topic [facility]-HIB Vaccines Aged Out No longer e ligible based on patient's age to complete this topic [facility]-Hepatitis A Vaccines Aged Out No longer eligible based on patient's age to complete this topic [facility]-IPV Vaccines Aged Out No longer e ligible based on patient's age to complete this topic [facility]-Rotavirus Vaccines Aged Out No lo nger eligible based on patient's age to complete this topic Medical Devices Implanted Type Area Dragsaw Operator Device Identifier Shelf Expiration Date Model / Serial / Lot Coil 360 Ultra 5 X 10 - [id number] Implanted:Qty: 1 on 04/03/2023 by Sandrine Mcguire RN at [facility] Neurovascular-31 7568 07/29/2025 [id number] 0 / / [id number] Hip Stem Inzone Detachment - [id number] Implanted:Qty: 1 on 04/03/2023 by Sandrine Mcguire RN at [facility] [employer] Neurovascular-31 7568 08/18/2024 [id number] / / [id number] Coil 360 Ultra 2.5 X 4 - [id number] Implanted:Qty: 1 on 04/03/2023 by Sandrine Mcguire RN at [facility] Neurovascular-31 7568 06/20/2025 [id number] / / [id number] Catheter Bactiseal Stripe - [id number] Implanted:Qty: 1 on 04/20/2023 by Daniel Villalpando MD at [facility] Right: Cranial Integra [employer] [id number] 12/05/2023 [id number] / / [id number] Catheter Antibiotic Str Vent - [id number] Implanted:Qty: 1 on 04/20/2023 by Daniel Villalpando MD at [facility] Right: Cranial Integra [employer] [id number] 01/05/2024 [id number] / / [id number] Certas Plus Inline Siphon - [id number] Implanted:Qty: 1 on 04/20/2023 by Daniel Villalpando MD at [facility] Right: Cranial Integra [employer] [id number] 12/05/2027 [id number] / / [id number] Procedures Procedure Name Priority Date/Time Associated Diagnosis Comments BASIC METABOLIC PANEL, PLASMA Routine 03/04/2025 12:14 PM EDT Cerebral arterial aneurysm Pre-op exam CBC WITH AUTO DIFFERENTIAL Routine 03/04/2025 12:14 PM EDT Cerebral arterial aneurysm Pre-op exam APTT Routine 03/04/2025 12:14 PM EDT Cerebral arterial aneurysm Pre-op exam PROTHROMBIN TIME(PT) / INR Routine 03/04/2025 12:14 PM EDT Cerebral arterial aneurysm Pre-op exam HCG, QUANTITATIVE Routine 03/04/2025 12: 14 PM EDT Cerebral arterial aneurysm Pre-op exam HEPATITIS C ANTIBODY - ED W/REFLEX TO HCV QUANT PCR STAT 04/03/2023 12:27 PM EDT HIV 1/2 ANTIBODY/ANTIGEN SCREEN WITH REFLEX TO HIV I/II DIFFERENTIATION STAT 04/03/2023 12:27 PM EDT from Last 3 Months or Most Recently Relevant to Health Maintenance Results * (ABNORMAL) APTT (03/04/2025 12:14 PM EDT) aPTT 24(L) 25 - 35 sec LAB COAGULATION METHOD 03/04/2025 1:56 PM EDT [facility] Blood Venous blood specimen / Unknown Venipuncture / Unknown 03/04/2025 12:14 PM EDT 03/04/2025 12:15 PM EDT us Carline PHILLIPS LAB BLOOD ORDERABLES Final R esult [facility] [address] [place] [address] * Protime-INR (03/04/2025 12:14 PM EDT) Prothrombin Time 12.3 12.0 - 14.3 sec LAB COAGULATION METHOD 03/04/2025 1:56 PM EDT [facility] INR 0.9 0.9 - 1.1 LAB COAGULATION METHOD 03/04/2025 1:56 PM EDT [facility] Blood Venous blood specimen / Unknown Venipuncture / Unknown 03/04/2025 12:14 PM EDT 03/04/2025 12:15 PM EDT Narrative [facility] - 03/04/2025 1:56 PM EDT OPTIMAL INR RANGES FOR PATIENT ON ORAL ANTICOAGULANT THERAPY Prevention of venous thromboembolism INR 2.0 to 3.0 In patients with heart disease: Atrial fibrillation INR 2.0 to 3.0 Valvular heart disease INR 2.0 to 3.0 Tissue heart valves INR 2.0 to 3.0 Mechanical prosthetic valves INR 2.5 to 3.5 Prevention of recurrent AK INR 2.5 to 3.5 us Carline PHILLIPS LAB BLOOD ORDERABLES Final R esult [facility] [address] [place] [address] * (ABNORMAL) CBC and differential (03/04/2025 12:14 PM EDT) WBC Count 4.30 3.70 - 10.30 10*3/uL LAB HEMATOLOGY METHOD 03/04/2025 1:57 PM EDT [facility] RBC Count 4.93 3.90 - 5.20 10*6/uL LAB HEMATOLOGY METHOD 03/04/2025 1:57 PM EDT [facility] HGB 13.0 11.2 - 15.7 g/dL LAB HEMATOLOGY METHOD 03/04/2025 1:57 PM EDT [facility] HCT 43.3 34.0 - 45.0 % LAB HEMATOLOGY METHOD 03/04/2025 1:57 PM EDT [facility] Platelet Count 234 155 - 369 10*3/uL LAB HEMATOLOGY METHOD 03/04/2025 1:57 PM EDT [facility] MCV 88 79 - 98 fL LAB HEMATOLOGY METHOD 03/04/2025 1:57 PM EDT [facility] MCH 26.4 26.0 - 32.0 pg LAB HEMATOLOGY METHOD 03/04/2025 1:57 PM EDT [facility] MCHC 30.0(L) 30.7 - 35.5 g/dL LAB HEMATOLOGY METHOD 03/04/2025 1:57 PM EDT [facility] RDW 13.2 11.5 - 14.5 % LAB HEMATOLOGY METHOD 03/04/2025 1:57 PM EDT [facility] MPV 11.2 8.8 - 12.5 fL LAB HEMATOLOGY METHOD 03/04/2025 1:57 PM EDT [facility] nRBC 0.0 <=0.0 per 100 WBCs LAB HEMATOLOGY METHOD 03/04/2025 1:57 PM EDT [facility] Differential Type Automated LAB HEMATOLOGY METHOD 03/04/2025 1:57 PM EDT [facility] Neutrophils % 56 % LAB HEMATOLOGY METHOD 03/04/2025 1:57 PM EDT [facility] Lymphocytes % 30 % LAB HEMATOLOGY METHOD 03/04/2025 1:57 PM EDT [facility] Monocytes % 11 % LAB HEMATOLOGY METHOD 03/04/2025 1:57 PM EDT [facility] Eosinophils % 2 % LAB HEMATOLOGY METHOD 03/04/2025 1:57 PM EDT [facility] Basophils % 1 % LAB HEMATOLOGY METHOD 03/04/2025 1:57 PM EDT [facility] Immature Granulocytes % 0 % LAB HEMATOLOGY METHOD 03/04/2025 1:57 PM EDT [facility] Neutrophils Absolute 2.43 1.60 - 6.10 10*3/uL LAB HEMATOLOGY METHOD 03/04/2025 1:57 PM EDT [facility] Lymphocytes Absolute 1.28 1.20 - 3.90 10*3/uL LAB HEMATOLOGY METHOD 03/04/2025 1:57 PM EDT [facility] Monocytes Absolute 0.47 0.30 - 0.90 10*3/uL LAB HEMATOLOGY METHOD 03/04/2025 1:57 PM EDT [facility] Eosinophils Absolute 0.08 0.00 - 0.50 10*3/uL LAB HEMATOLOGY METHOD 03/04/2025 1:57 PM EDT [facility] Basophils Absolute 0.03 0.00 - 0.10 10*3/uL LAB HEMATOLOGY METHOD 03/04/2025 1:57 PM EDT [facility] Immature Granulocytes Absolute 0.01 0.00 - 0.06 10*3/uL LAB HEMATOLOGY METHOD 03/04/2025 1:57 PM EDT [facility] Blood Venous blood specimen / Unknown Venipuncture / Unknown 03/04/2025 12:14 PM EDT 03/04/2025 12:15 PM EDT Narrative [facility] - 03/04/2025 1:57 PM EDT Therapeutic decision making should be based on absolute values, rather than percentages. Result [facility] Carline PHILLISP LAB BLOOD ORDERABLES Final R esult Performing Organization Address [facility] de Phone Number [facility] [address] [place] [address] * (ABNORMAL) hCG, Total Beta, Quantitative, Plasma (03/04/2025 12:14 PM EDT) hCG, Total Beta 17.8(H) <5 mIU/mL 03/04/2025 2:22 PM EDT [facility] Blood Venous blood specimen / Unknown Venipuncture / Unknown 03/04/2025 12:14 PM EDT 03/04/2025 12:15 PM EDT Narrative [facility] - 03/04/2025 2:22 PM EDT Patients: Normal [...] methods or kits cannot be used interchangeably. Carline PHILLIPS LAB BLOOD ORDERABLES Final R esult Performing Organization Address [facility] Co de Phone Number [facility] [address] [place] [address] * (ABNORMAL) Basic metabolic panel (03/04/2025 12:14 PM EDT) Pathologist [facility] Glucose, Plasma 97 74 - 99 mg/dL 03/04/2025 2:22 PM EDT [facility] BUN, Plasma 7 7 - 21 mg/dL 03/04/2025 2:22 PM EDT [facility] Creatinine, Plasma 0.85 0.60 - 1.10 mg/dL 03/04/2025 2:22 PM EDT [facility] BUN/Creatinine Ratio 8 03/04/2025 2:22 PM EDT [facility] Sodium, Plasma 132(L) 136 - 145 mmol/L 03/04/2025 2:22 PM EDT [facility] Potassium, Plasma 4.3 3.6 - 4.9 mmol/L 03/04/2025 2:22 PM EDT [facility] Chloride, Plasma 96(L) 97 - 107 mmol/L 03/04/2025 2:22 PM EDT [facility] CO2, Plasma 22 22 - 29 mmol/L 03/04/2025 2:22 PM EDT [facility] Anion Gap 14 6 - 16 mmol/L 03/04/2025 2:22 PM EDT [facility] Total Calcium, Plasma 9.5 8.9 - 10.2 mg/dL 03/04/2025 2:22 PM EDT [facility] eGFRcr 81.5 mL/min/1.7 3m*2 03/04/2025 2:22 PM EDT [facility] Comment:Reported eGFRcr in m L/min/1.73m2 is based the CKD-EPI 2020 equation that does not use a race coefficient. Blood Venous blood specimen / Unknown Venipuncture / Unknown 03/04/2025 12:14 PM EDT 03/04/2025 12:15 PM EDT us Carline PHILLIPS LAB BLOOD ORDERABLES Final R esult [facility] [address] [place] [address] * HIV 1 & 2 Antibody/Antigen Screen (04/03/2023 12:27 PM EDT) Pathologist [facility] HIV 1 & 2 Antibody/Antigen Screen Non Reactive Non Reactive 04/03/2023 1:25 PM EDT [facility] Comment:Screening for HIV 1 & 2 antibodies, and P24 antigen is NONREACTIVE. No confirmatory testing is required. Blood Venous blood specimen / Unknown Venipuncture / Unknown 04/03/2023 12:27 PM EDT 04/03/2023 12:40 PM EDT Daquan Burns MD LAB BLOOD ORDERABLES Final Result Performing Organization Address [facility] Co de Phone Number [facility] [address] [place] [address] * Hepatitis C Antibody - ED (04/03/2023 12:27 PM EDT) Hepatitis C Antibody Negative Negative 04/03/2023 1:25 PM EDT [facility] Blood Venous blood specimen / Unknown Venipuncture / Unknown 04/03/2023 12:27 PM EDT 04/03/2023 12:40 PM EDT Daquan Burns MD LAB BLOOD ORDERABLES Final Result Performing Organization Address [facility] de Phone Number [facility] [address] [place] [address] from Last 3 Months or Most Recently Relevant to Health Maintenance Insurance [facility] Advance Directives * Full Code (Latest Code Status on File) Date Activated Date Inactivated Comments 04/03/2023 3:09 PM 04/21/2023 7:12 PM Question Answer Comments Patient has decision-making capacity? Yes Care Teams Yard Pipe Grader Relationship Specialty Start Date End Date Tamiko Russo APRN [address] [address] PCP - General 04/03/23 Carline Ballesteros PA [address] [phone] Physician Business Intelligence Administrator Neurosurgery 05/06/23
--- OUTSIDE RECORDS SUMMARY | 2025-03-18 13:46 | XMS_ITS | Encounter Summary ---
Author Organization Healthcare Address [address] [place] [address] Care Team Providers Care Utility Agent Name Role Phone Tamiko Russo [place] Primary Care Provider [phone] Carline Ballesteros Unavailable [phone] Encounter Details Date Type Department Care Team (Late st Contact Info) Description 03/04/2025 Orders Only [place] [facility] [address] [place] [address] Daniel Villalpando MD [address] [place] [address] Pre-op exam (Primary Dx); Cerebral arterial aneurysm Social History Tobacco Use Types Packs/Day Years Used Date Smoking Tobacco: Former Cigarettes 2 30 1 993 - 2022 Passive Smoke Exposure: Never Smokeless [...] Jeff Child documented as of this encounter Plan of Treatment Upcoming Encounters Date Type Department Care Team (Late st Contact Info) Description 03/29/2025 8:45 AM EDT Appointment [facility] Interventional Radiology [address] [place] [address] 04/01/2025 9:00 AM EDT Office Visit [facility] [address] [place] [address] Carline Ballesteros PA [id number] [place] [address] documented as of this encounter Visit Diagnoses Diagnosis Pre-op exam- Primary Cerebral arterial aneurysm Cerebral aneurysm, nonruptured documented in this encounter Additional Health Concerns Assessment Noted Time A fall risk assessment has been complete d for the patient 03/04/2025 11:04 AM EDT A Body Mass Index follow-up plan has been documented for the patient 03/05/2025 5:42 PM EDT documented as of this encounter Care Teams Utility Agent Relationship Specialty Start Date End Date Tamiko Russo APRN [facility] [address] [address] PCP - General 04/03/23 Carline Ballesteros PA [address] [place] [address] Physician Mattress Specialist Neurosurgery 05/06/23 documented as of this encounter
== END 2025-03-18 23:59 | disposition home or self-care (01) ==
LOC: RAD 12:47
PROVIDERS: PCP Nurse Practitioner Family; Visit Provider Physician Assistant
DX: R90.82 White matter disease, unspecified (principal); R90.89 Other abnormal findings on diagnostic imaging of central nervous system; I60.9 Nontraumatic subarachnoid hemorrhage, unspecified
CPT/HCPCS: 70450

== ENCOUNTER 2025-04-13 15:48 | Outpatient (CLI) | payer OTHER, SELFPAY ==
--- OUTSIDE RECORDS SUMMARY | 2025-01-09 17:30 | XMS_ITS ---
Author Organization [facility] D JAVIER Address [address] [facility] [address] [place] [address] Care Team Providers Care Rate Engineer Name Role Phone Berry Santana Primary Care Provider Tamiko Russo Unavailable [phone] Migration, Provider Unavailable Unavailable Allergies Allergen (clinical drug ingredient) Drug/Non Drug Allergy documented on EMR Reaction Allergy Type Onset Date Status KEFLEX (uncoded) Unknown Allergy Act angie PREDNISONE-ORAL FORM (uncoded) hives Allergy Active TYLENOL # 3 (uncoded) Unknown Allergy Active REASON FOR VISIT [facility] To [facility] Conversion Encounter Medications Medication SIG (Take, Route, [...] review and pick correct strength-formulati on from [employer] options. If intended option is not shown, [...] Active Encounters Encounter Location Date Provider Diagnosis [facility] IM PED [facility] [address] [facility] [address] [place] [address] 01/09/2025 Provider Migration Plan Of Treatment Medication Medication Name Sig Start Date Stop Date Notes Gabapentin 300 MG 2 caps orally once d aily at bedtime; Duration: 30 days 01/05/2025 Progress Notes * Ellyn SALASDOB:[birth year] (55 yo F)Acc No.[id number]:01/09/2025 Patient: Kandace CHAUDHRYEllyn Provider: Paulie weir Migration :1970 A ge:54 Y S ex:Female Date:01/09/2025 Address:[address] [place] [address], [id number] Pcp:Berry Santana Subjective: * Chief Complaints: * [facility] . [facility] En[facility]. * Medical History: * Medications: [...] *Please review and pick correct strength-formulation from [facility] options. If intended option is not shown, [...] Electronic signature of Prov mercedes Migration on 04/13/2025 at 03:50 PM EDT Sign off status: Pending * Provider: Paulie weir Migration Date: 0 01/09/2025 Generated for Rogelio sanders/Immanuel/Kristaitting on: 0 04/13/2025 03:50 PM EDT
--- OUTSIDE RECORDS SUMMARY | 2025-03-04 11:00 | XMS_ITS | Encounter Summary ---
Author Organization [facility] Address [address] [place] [address] Care Team Providers Care Mobile Home Servicer Name Role Phone Tamiko Russo [place] Primary Care Provider [phone] Carline Ballesteros Unavailable [phone] Reason for Referral * Imaging (Routine) - Authorized Specialty Diagnoses / Procedures Referred By Contac t Referred To Contact Diagnoses SAH (subarachnoid hemorrhage) ([facility]) Procedures CT Head wo IV Contrast Carline Ballesteros PA [address] [address] Phone: tel: fax: Referral ID Status Reason Start Date Expiration Date V isits Requested Visits Authorized [id number] Authorized 03/04/2025 09/03/2026 1 1 * Consultation (Routine) - Authorized Specialty Diagnoses / Procedures Referred By Contac t Referred To Contact Neurology Diagnoses Intractable headache, unspecified chronicity pattern, unspecified headache type Memory changes Carline Ballesteros PA [address] [address] Phone: tel: fax: Referral ID Status Reason Start Date Expiration Date Visits Requested Visits Authorized [id number] Authorized Specialty Services Required 03/04/2025 09/03/2026 1 1 Scheduling Instructions Please schedule locally for eval Encounter Details Date Type Department Care Team (Late st Contact Info) Description 03/04/2025 11:00 AM EDT Office Visit [place] [facility] [address], [address] [place] [address] Carline Ballesteros PA [address] [place] [address] Cerebral arterial aneurysm (Primary Dx); Pre-op exam; Intractable headache, unspecified chronicity pattern, unspecified headache type; Memory changes; SAH (subarachnoid hemorrhage) ([facility]) Social History Tobacco Use Types Packs/Day Years [...] Influenza, recombinant, quadrivalent, injectable, preservative free 09/21/2020 [employer] COVID-19 Vaccine (Purple Cap) 12+ 03/16/2021, 04/06/2021 [...] out shunt malfunction F/U with CT third constitution party to evaluate Will start Topamax 25 mg tapering up to 50 BID Headaches/STM/post SAH Refer to Neurology near [facility] HTN, chronic, stable BP Readings from Last [...] concerns please feel free to contact us: [facility] Department of Neurosurgery [address], [place] [address] [place], [place] [id number] ; [1] Patient Active Problem List Diagnosis COPD (chronic obstructive pulmonary disease) ([facility]) Smoker Hypertension TIA (transient ischemic attack) Anxiety History of hyperlipidemia GERD (gastroesophageal reflux disease) Chronic pain Back pain Hyperlipidemia Lumbar disc herniation with radiculopathy [2] Past Surgical History: Procedure Laterality Date BACK SURGERY N/A Back Surgery from [facility] [3] Social History Tobacco Use Smoking status: [...] tablet (5 mg) by mouth every night. Azlzrozprdr-Nphcrkhkb-Eappru (Trelegy Ellipta) 100-62.5-25 MCG/ACT aerosol powder 1 [...] hours. (Patient not taking: Reported on 03/04/2025) yvlpmvzivg-hmsvijjdlrsat-uowvxwzi (Esgic) 50-325-40 MG tablet Take 1 tablet by mouth every four hours as needed for post-op headache. Do not exceed 6 tablets per 24 hours. (Patient not taking: Reported on 03/04/2025) 42 tablet 0 cyclobenzaprine (Flexeril) 5 MG tablet (Patient not taking: Reported on 03/04/2025) ergocalciferol (Vitamin D-2) 1.25 MG (63974 UT) capsule (Patient not taking: Reported on [...] IV Contrast Imaging Routine SAH (subarachnoid hemorrhage) ([facility]) Expected: 03/18/2025 (Approximate), Expires: 09/04/2026 Scheduled Referrals [...] 17.8(H) <5 mIU/mL 03/04/2025 2:22 PM EDT [facility] Blood Venous blood specimen / Unknown Venipuncture / Unknown 03/04/2025 12:14 PM EDT 03/04/2025 12:15 PM EDT Narrative [facility] - 03/04/2025 2:22 PM EDT Patients: [...] PHILLIPS LAB BLOOD ORDERABLES Final R esult [facility] [address] [place] [address] * Protime-INR (03/04/2025 12:14 PM EDT) Prothrombin Time 12.3 12.0 - 14.3 sec LAB COAGULATION METHOD 03/04/2025 1:56 PM EDT [facility] INR 0.9 0.9 - 1.1 LAB COAGULATION METHOD 03/04/2025 1:56 PM EDT [facility] Blood Venous blood specimen / Unknown Venipuncture / Unknown 03/04/2025 12:14 PM EDT 03/04/2025 12:15 PM EDT Narrative [facility] - 03/04/2025 1:56 PM EDT OPTIMAL [...] ORDERABLES Final R esult Performing Organization Address City/[facility]/ZIP Co de Phone Number [facility] [address] [place] [address] * (ABNORMAL) APTT (03/04/2025 12:14 PM EDT) aPTT 24(L) 25 - 35 sec LAB COAGULATION METHOD 03/04/2025 1:56 PM EDT [facility] Blood Venous blood specimen / Unknown Venipuncture / Unknown 03/04/2025 12:14 PM EDT 03/04/2025 12:15 PM EDT us Carline PHILLIPS LAB BLOOD ORDERABLES Final R esult Performing Organization Address City/[facility]/ZIP Co de Phone Number [facility] [address] [place] [address] * (ABNORMAL) CBC and differential (03/04/2025 12:14 PM EDT) Pathologist [facility] WBC Count 4.30 3.70 - 10.30 10*3/uL LAB HEMATOLOGY METHOD 03/04/2025 1:57 PM EDT [facility] RBC Count 4.93 3.90 - 5.20 10*6/uL LAB HEMATOLOGY METHOD 03/04/2025 1:57 PM EDT [facility] HGB 13.0 11.2 - 15.7 g/dL LAB HEMATOLOGY METHOD 03/04/2025 1:57 PM EDT [facility] HCT 43.3 34.0 - 45.0 % LAB HEMATOLOGY METHOD 03/04/2025 1:57 PM EDT [facility] Platelet Count 234 155 - 369 10*3/uL LAB HEMATOLOGY METHOD 03/04/2025 1:57 PM EDT [facility] MCV 88 79 - 98 fL LAB HEMATOLOGY METHOD 03/04/2025 1:57 PM EDT [facility] MCH 26.4 26.0 - 32.0 pg LAB HEMATOLOGY METHOD 03/04/2025 1:57 PM EDT [facility] MCHC 30.0(L) 30.7 - 35.5 g/dL LAB HEMATOLOGY METHOD 03/04/2025 1:57 PM EDT [facility] RDW 13.2 11.5 - 14.5 % LAB HEMATOLOGY METHOD 03/04/2025 1:57 PM EDT [facility] MPV 11.2 8.8 - 12.5 fL LAB HEMATOLOGY METHOD 03/04/2025 1:57 PM EDT [facility] nRBC 0.0 <=0.0 per 100 WBCs LAB HEMATOLOGY METHOD 03/04/2025 1:57 PM EDT [facility] Differential Type Automated LAB HEMATOLOGY METHOD 03/04/2025 1:57 PM EDT [facility] Neutrophils % 56 % LAB HEMATOLOGY METHOD 03/04/2025 1:57 PM EDT [facility] Lymphocytes % 30 % LAB HEMATOLOGY METHOD 03/04/2025 1:57 PM EDT [facility] Monocytes % 11 % LAB HEMATOLOGY METHOD 03/04/2025 1:57 PM EDT [facility] Eosinophils % 2 % LAB HEMATOLOGY METHOD 03/04/2025 1:57 PM EDT [facility] Basophils % 1 % LAB HEMATOLOGY METHOD 03/04/2025 1:57 PM EDT [facility] Immature Granulocytes % 0 % LAB HEMATOLOGY METHOD 03/04/2025 1:57 PM EDT [facility] Neutrophils Absolute 2.43 1.60 - 6.10 10*3/uL LAB HEMATOLOGY METHOD 03/04/2025 1:57 PM EDT [facility] Lymphocytes Absolute 1.28 1.20 - 3.90 10*3/uL LAB HEMATOLOGY METHOD 03/04/2025 1:57 PM EDT [facility] Monocytes Absolute 0.47 0.30 - 0.90 10*3/uL LAB HEMATOLOGY METHOD 03/04/2025 1:57 PM EDT [facility] Eosinophils Absolute 0.08 0.00 - 0.50 10*3/uL LAB HEMATOLOGY METHOD 03/04/2025 1:57 PM EDT [facility] Basophils Absolute 0.03 0.00 - 0.10 10*3/uL LAB HEMATOLOGY METHOD 03/04/2025 1:57 PM EDT [facility] Immature Granulocytes Absolute 0.01 0.00 - 0.06 10*3/uL LAB HEMATOLOGY METHOD 03/04/2025 1:57 PM EDT [facility] Blood Venous blood specimen / Unknown Venipuncture / Unknown 03/04/2025 12:14 PM EDT 03/04/2025 12:15 PM EDT Narrative [facility] - 03/04/2025 1:57 PM EDT Therapeutic decision making should be based on absolute values, rather than percentages. us Carline PHILLIPS LAB BLOOD ORDERABLES Final R esult [facility] [address] [place] [address] * (ABNORMAL) Basic metabolic panel (03/04/2025 12:14 PM EDT) Glucose, Plasma 97 74 - 99 mg/dL 03/04/2025 2:22 PM EDT [facility] BUN, Plasma 7 7 - 21 mg/dL 03/04/2025 2:22 PM EDT [facility] Creatinine, Plasma 0.85 0.60 - 1.10 mg/dL 03/04/2025 2:22 PM EDT [facility] BUN/Creatinine Ratio 8 03/04/2025 2:22 PM EDT [facility] Sodium, Plasma 132(L) 136 - 145 mmol/L 03/04/2025 2:22 PM EDT [facility] Potassium, Plasma 4.3 3.6 - 4.9 mmol/L 03/04/2025 2:22 PM EDT [facility] Chloride, Plasma 96(L) 97 - 107 mmol/L 03/04/2025 2:22 PM EDT [facility] CO2, Plasma 22 22 - 29 mmol/L 03/04/2025 2:22 PM EDT [facility] Anion Gap 14 6 - 16 mmol/L 03/04/2025 2:22 PM EDT [facility] Total Calcium, Plasma 9.5 8.9 - 10.2 mg/dL 03/04/2025 2:22 PM EDT [facility] eGFRcr 81.5 mL/min/1.7 3m*2 03/04/2025 2:22 PM EDT [facility] Comment:Reported eGFRcr in m L/min/1.73m2 is based the CKD-EPI 2020 equation that does not use a race coefficient. Blood Venous blood specimen / Unknown Venipuncture / Unknown 03/04/2025 12:14 PM EDT 03/04/2025 12:15 PM EDT us Carline PH[facility]IPS LAB BLOOD ORDERABLES Final R esult [facility] [address] [place] [address] documented in this encounter Visit Diagnoses Diagnosis Cerebral arterial aneurysm- Primary Cerebral aneurysm, nonruptured Pre-op exam Intractable headache, unspecified chronicity pattern, unspecified headache type Memory changes SAH (subarachnoid hemorrhage) ([facility]) Subarachnoid hemorrhage documented in this encounter Additional Health Concerns Assessment Noted Time A fall risk assessment has been complete d for the patient 03/04/2025 11:04 AM EDT A Body Mass Index follow-up plan has been documented for the patient 03/05/2025 5:42 PM EDT documented as of this encounter Care Teams Mobile Home Servicer Relationship Specialty Start Date End Date Tamiko Russo APRN [address] [address] PCP - General 04/03/23 Carline Ballesteros PA [address] [place] [address] Physician Staff Accountant Neurosurgery 05/06/23 documented as of this encounter
--- OUTSIDE RECORDS SUMMARY | 2025-03-29 07:12 | XMS_ITS | Encounter Summary ---
Author Organization [facility] Address [address] [place] [address] Care Team Providers Care Chiller Operator Name Role Phone Tamiko Russo Dom HAYNES Primary Care Provider [phone] Carline Ballesteros PA Unavailable [phone] Reason for Referral * Imaging (Routine) - Closed Specialty Diagnoses / Procedures Referred By Contac t Referred To Contact Radiology Diagnoses Aneurysm (CMS/HCC) Procedures IR Angiogram Daniel Villalpando MD [address] [address] Phone: tel: fax: Referral ID Status Reason Start Date Expiration Date Visits Re quested Visits Authorized [id number] Closed 03/04/2025 09/03/2026 1 1 Reason for Visit * Imaging (Routine) - Closed Specialty Diagnoses / Procedures Referred By Contac t Referred To Contact Radiology Diagnoses Aneurysm ([facility]/HCC) Procedures IR Angiogram Daniel Villalpando MD [address] [address] Phone: tel: fax: Referral ID Status Reason Start Date Expiration Date Visits Re quested Visits Authorized [id number] Closed 03/04/2025 09/03/2026 1 1 Encounter Details Date Type Department Care Team (Latest Contact Info) Description 03/29/2025 7:12 AM EDT - 03/29/2025 11:59 PM EDT Hospital Encounter [facility] Interventional Radiology [address] [place] [address] Sara Lowe RN ``````````````` ``````````````` `````CH - PACU - MAJOR, PAV A Rogelio Maxwell Aneurysm ([facility]); Pre-op exam Discharge Disposition: Home or Self Care Social History Tobacco Use Types Packs/Day Years Used Date Smoking Tobacco: Former Cigarettes 2 30 1 2022 Passive Smoke Exposure: Never Smokeless Tobacco: [...] Sign Reading Time Taken Comments Blood Pressure 122/72 03/29/2025 12:45 PM EDT Pulse 61 03/29/2025 12:45 PM EDT Temperature 36.3 C (97.4 F) 03/29/2025 9:55 AM EDT Respiratory Rate 19 03/29/2025 12:45 PM EDT Oxygen Saturation 99% 03/29/2025 12:45 PM EDT Inhaled Oxygen Concentration - - Weight 68 kg (149 lb 14.6 oz) 03/29/2025 7:35 AM EDT Height 157.5 cm (5' 2 ) 03/29/2025 7:35 AM EDT Body Mass Index 27.42 03/29/2025 7:35 AM EDT documented in this encounter Functional Status * Calculated C-SSRS Risk Score (Lifetime/Recent) Answer Date of Assessment Author No Risk Indicated 03/29/2025 7:35 AM EDT Rogelio Maxwell * Question Answer Date of Assessment Author 1. Wish to be (Past 1 Month) No 025 7:35 AM EDT Rogelio Maxewll 2. Non-Specific Active Suici alva Thoughts (Past 1 Month) No 03/29/2025 7:35 AM EDT Abdi Maxwell 6. Suicidal Behavior (Lifetime) No 7:35 AM EDT Rogelio Maxwell documented as of this encounter Discharge Instructions * Discharge Instructions* Rogelio Maxwell - 03/29/2025 11:42 AM EDT TR BAND DISCHARGE INSTRUCTIONS Activity -No driving for 24 hours. -No Flexion of the accessed wrist for 24 hours. -No Lifting more than 5 pounds using the accessed wrist/arm. Showering You may shower the day after your procedure. After you shower, pat the procedural site dry and cover with a band-aid. DO NOT soak in the bathtub or immerse in a swimming pool or hot tub for 3 days after your procedure. Dressing You may remove the dressing 24 hours after your procedure and replace it with a regular band-aid. Leave the band-aid on for 24 hours. After 48 hours, no dressing is required. Procedural Site It is normal for you to have a small bruise or a lump at the procedural site for a couple of weeks. Bleeding If you notice a small amount of bleeding at the procedural site, sit down and immediately apply firm pressure to the site for 10 minutes. If the bleeding stops, sit quietly and do not move the affected arm for 2 hours. Notify your doctorof the bleeding as soon as possible. If the bleeding does not stop after 10 minutes, or these is a large amount of bleeding or spurting,call [address] yourself to the hospital. Continue to sit or lie down while holding firm pressure on the site until help arrive. Medications You can continue your medications as previously prescribed to you unless your physician gives you different instructions. Do not start taking Metformin or Glucophage until 48 hours after your procedure, unless your physician gives you different instructions. When to call your doctor You should call your doctor if you experience any of the following: -Changes in the bruise or lump -Redness at the procedural site -Drainage from the procedural site -Increased pain or swelling at the procedural site -Numbness in your wrist or arm If you are unable to get to your doctor???s office to be seen, go to the nearest emergency department. [facility] Department of Neurosurgery [address], [address], [address] [place] [address] When to seek emergency help: Please go to the nearest Emergency Room or dial 911 if: You have heavy bleeding from the procedure site. You need emergency medical help for any reason. When to call the [facility]: Call if you have questions or concerns about the Neurology Interventional Radiology procedure. How to call the [facility]: Saturday-Saturday, 8 a.m.-4:30 p.m., call the [facility] at [phone]. After hours, weekends, and holidays, call [phone]. Ask for the Neurosurgery or [facility] Resident oncall. documented in this encounter Medications at Time of Discharge albuterol 108 (90 Base) MCG/ACT inhaler Inhale 2 puffs every 4 (four) hours if needed. ALPRAZolam (Xanax) 0.25 MG tablet Take 1 tablet by mouth 3 times a day as needed. 03/02/2025 ALPRAZolam (Xanax) 0.5 MG tablet Take 1 tablet (0.5 mg) by mouth 3 (three) times a day. ALPRAZolam (Xanax) 0.5 MG tablet 06/19/2018 ARIPiprazole (Abilify) 5 MG tablet Take 1 tablet (5 mg) by mouth 1 (one) time each day. atorvastatin (Lipitor) 10 MG tablet Take 1 tablet (10 mg) by mouth 1 (one) time each day. 06/04/2022 atorvastatin (Lipitor) 20 MG tablet Take 1 tablet (20 mg) by mouth 1 (one) time each day. buPROPion SR (Wellbutrin SR) 150 MG 12 hr tablet Take 1 tablet by mouth 2 times a day. 12/23/2024 buPROPion XL (Wellbutrin XL) 300 MG 24 hr tablet Take 1 tablet (300 mg) by mouth 1 (one) time each day. buPROPion XL (Wellbutrin XL) 300 MG 24 hr tablet busPIRone (Buspar) 10 MG tablet Take 1 tablet (10 mg) by mouth 3 (three) times a day. busPIRone (Buspar) 10 MG tablet every 8 (eight) hours. butalbital-aceta minophen-caffein e (Esgic) 50-325-40 MG tablet Take 1 tablet by mouth every four hours as needed for post-op headache. Do not exceed 6 tablets per 24 hours. 42 tablet 04/30/2023 cetirizine (ZyrTEC) 10 MG tablet 1 (one) time each day at the same time. cyclobenzaprine (Flexeril) 5 MG tablet Take 1 tablet (5 mg) by mouth every night. cyclobenzaprine (Flexeril) 5 MG tablet 12/25/2018 ergocalciferol (Vitamin D-2) 1.25 MG (48820 UT) capsule 07/28/2018 Fluticasone-Umec lidin-Vilant (Trelegy Ellipta) 100-62.5-25 MCG/ACT aerosol powder 1 (one) time each day at the same time. furosemide (Lasix) 20 MG tablet Take 1 tablet (20 mg) by mouth 1 (one) time each day if needed. gabapentin (Neurontin) 300 MG capsule Take 2 capsules (600 mg) by mouth every night. gabapentin (Neurontin) 300 MG capsule 1 cap(s) orally 2 times a day PRN back pain for 30 days 06/27/2018 meloxicam (Mobic) 15 MG tablet Take 1 tablet (15 mg) by mouth 1 (one) time each day. meloxicam (Mobic) 15 MG tablet 1 tab(s) orally once a day for arthritis pain for 90 days 06/13/2018 metoprolol succinate XL (Toprol-XL) 50 MG 24 hr tablet Take 1 tablet by mouth daily. omeprazole (PriLOSEC) [address] capsule Take 1 capsule (40 mg) by mouth 1 (one) time each day. omeprazole (PriLOSEC) [address] capsule 1 (one) time each day at the same time. PARoxetine (Paxil) 40 MG tablet Take 1 tablet (40 mg) by mouth 1 (one) time each day. pravastatin (Pravachol) 20 MG tablet Take 1 tablet (20 mg) by mouth 1 (one) time each day. 04/27/2023 topiramate (Topamax) 25 MG tablet Take one at night for one week, then increase to 25mg BID for TWO weeks, then 50mg BID. 60 tablet 1 03/04/2025 triamcinolone (Kenalog) 0.1 % ointment Apply 1 Application topically 2 (two) times a day. documented as of this encounter Miscellaneous Notes * Pre-Sedation Documentation - Aviva Ortiz MD - 03/29/2025 8:45 AM EDT Physical Exam Airway Mallampati: II TM distance: >3 FB Neck ROM: full Cardiovascular - normal exam Rhythm: regular Rate: normal Dental - normal exam Pulmonary - normal exam Plan ASA 2 Moderate (Will proceed to IR under conscious sedation ) Aviva Ortiz MD Neuro Endovascular Fellow * Brief Op Note - Daniel Villalpando MD - 03/29/2025 8:45 AM EDT Date: 03/29/25 Location: [facility] Name: Ellyn Salas, : 1970, Diagnoses: Pre-op Diagnosis Aneurysm Post-op Diagnosis Aneurysm Procedure(s): Cerebral Angiogram Attending Surgeon(s): Daniel Villalpando MD Anesthesia: Moderate Sedation (2mg Versed, 50 microgr Fentanyl) ASA: ASA status not filed in the log. Blood Administration: Blood Product Administration History None Estimated Blood Loss: None Findings: s/p coiling of Pcomm aneurysm with stable small neck remnant Complications: None; patient tolerated the procedure well. Submitted by: Daniel Villalpando MD - 03/29/2025 * H&P - vAiva Ortiz MD - 03/29/2025 8:45 AM EDT NEURO INTERVENTIONAL PRE PROCEDURAL H&P NOTE HISTORY OF PRESENT ILLNESS Ellyn Salas is a 55 y.o. 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 Past Medical History[1] Surgical History[2] Family History[3] Social History[4] Cephalexin, Codeine, Prednisone, and Tylenol with codeine #3 [acetaminophen-codeine] REVIEW OF SYSTEMS: 14 system review of systems was conducted and was negative. PHYSICAL EXAMINATION Vitals: There were no vitals filed for this visit. General: No acute distress. HEENT: Normocephalic, atraumatic PULM: No increased work of breathing CV: Vital signs stable. LABS Lab Results Component Value Date GLUCOSE 97 03/04/2025 CALCIUM 9.5 03/04/2025 NA 132 (L) 03/04/2025 K 4.3 03/04/2025 CO2 22 03/04/2025 CL 96 (L) 03/04/2025 BUN 7 03/04/2025 CREATININE 0.85 03/04/2025 Lab Results Component Value Date WBC 4.30 03/04/2025 HGB 13.0 03/04/2025 HCT 43.3 03/04/2025 MCV 88 03/04/2025 PLT 234 03/04/2025 Lab Results Component Value Date INR 0.9 03/04/2025 INR 1.0 04/20/2023 INR 1.0 04/03/2023 ASSESSMENT AND PLAN - Proceed to MEERA Ortiz MD Neuro Endovascular Fellow [1] Past Medical History: Diagnosis Date Anxiety disorder, unspecified Anxiety and depression Cerebral infarction, unspecified (CMS/HCC) Mini stroke History of mood disorder 04/04/2023 Continue Paxil, Abilify today Resume Wellbutrin/Buspar as appropriate Hypertension Personal history of other diseases of the musculoskeletal system and connective tissue History of arthritis Personal history of other diseases of the musculoskeletal system and connective tissue History of fibromyalgia [2] Past Surgical History: Procedure Laterality Date BACK SURGERY N/A Back Surgery from [facility] [3] Family History Problem Relation Name Age of Onset Cardiac disorder Mother Stroke Mother Diabetes Mother Other cancer Mother Breast cancer Mother Colon cancer Mother [4] Social History Tobacco Use Smoking status: Former Current packs/day: 0.00 Average packs/day: 2.0 packs/day for 30.0 years (60.0 ttl pk-yrs) Types: Cigarettes Start date: 1992 Quit date: 2022 Years since quittin.4 Passive exposure: Never Smokeless tobacco: Never Substance Use Topics Alcohol use: Yes Alcohol/week: 4.0 standard drinks of alcohol Types: 4 Cans of beer per week Drug use: Never documented in this encounter Plan of Treatment Not on file documented as of this encounter Procedures Procedure Name Priority Date/Time Associated Diagnosis Comments IR ANGIOGRAM Routine 03/29/2025 9:42 AM EDT Aneurysm (CMS/HCC) documented in this encounter Results * IR Angiogram (03/29/2025 9:42 AM EDT) Anatomical Region Laterality Modality X-Ray Angiograph y Impressions 03/31/2025 4:17 PM EDT Status post coil embolization of a previous right posterior communicating artery aneurysm with no evidence of significant recurrence of aneurysm. The neck of the aneurysm connects to the origin of the posterior communicating artery. COMMUNICATION: I communicated the findings to the patient and her family. Drafted by Daniel Villalpando on 03/31/2025 4:12 PM Final report signed by Daniel Villalpando on 03/31/2025 4:17 PM Narrative 03/31/2025 4:17 PM EDT CLINICAL INDICATION: 55-year-old female with a history of subarachnoid hemorrhage and coiling of a posterior communicating artery aneurysm presents for angiogram. PRE-OP EVALUATION: The patient's preoperative neurological exam demonstrated the following findings: Neurologically intact DATE: 03/29/2025 9:23 AM EXAM: Diagnostic Cerebral Angiogram COMPARISON:Comparison is made to prior angiogram performed on April 03, 2023 TELEPHONE TECHNICIAN: Daniel Villalpando M.D. LENGTH OF PROCEDURE: 20 minutes CONTRAST: 90 cc FLUORO TIME: 4.8 Minutes DOSE: 175 mGy MEDICATIONS: Bupivicaine, Nitroglycerin, Verapamil, Heparin Omnipaque 300. [Conscious sedation was utilized for the procedure, with 2 mg of Versed IV, and 50 micrograms of Fentanyl IV. DURATION OF CONSCIOUS SEDATION: 20 minutes] TECHNIQUE:The procedure was explained in its entirety to patient by Dr. Villalpando prior to transport to the neuroangiography suite. This included a discussion of the risks, benefits, and alternatives to cerebral angiography. Risks discussed included stroke or transient neurologic deficit (TIA), vascular injury, distal embolization, allergic reaction, pain, bleeding, and infection. The patient gave both verbal and written consent to proceed. Timeout was done at the beginning the procedure.Strict hand hygiene protocol was observed. All personnel in the room were attired in surgical hat and mask. The operators were in surgical hat, mask, sterile gown, and sterile gloves. The access site was prepped and draped in the standard sterile fashion with 2% chlorohexadine. Conscious sedation was subsequently initiated with intravenous fentanyl and versed during continuous cardiorespiratory monitoring. The right radial artery was prepped and draped in the usual sterile fashion. Next, the right radial artery was localized with ultrasound. Bupivicaine mixed with nitroglycerin per protocol was infused locally. The artery was accessed using ultrasound and an arterial angiocatheter kit with microwire. The angiocath was advanced into the artery, and the microwire was removed. A cocktail of lidocaine 2%, verapamil, nitroglycerin, and heparin per protocol was infused through the angiocath. The angiocath was exchanged over a wire for a 5 Swiss slender sheath. The sheath was connected to a regulated, pressurized infusion of heparinized saline. During access, ultrasound guidance was used to confirm vessel patency, and to visualize the vascular needle entry during access. Ultrasound images were included in the final report. Radial artery angiogram: Brachial view Contrast was injected and angiography performed through the sheath demonstrating in the AP projection anterograde flow from the brachial to the radial and ulnar arteries. There is no evidence of dissection, pseudoaneurysm, or fistula. A 5 Swiss Nagy 2 catheter was advanced over a 0.035 [place] guidewire through the sheath and into the subclavian artery under fluoroscopic guidance. The catheter was advanced over the guidewire into the Left subclavian artery. Left Vertebral Artery Angiogram: Cervical and Cranial View Using roadmap technique, the catheter was advanced into the left vertebral artery from the left subclavian artery. Contrast was injected and angiography performed in the AP and lateral projection through the left vertebral artery demonstrating the left vertebral artery, and the basilar artery and its branches. No significant stenosis, dissection, or vascular malformation was identified. Left Common Carotid Artery Angiogram: Cervical View The catheter was advanced over the guidewire using fluoroscopic guidance and roadmap technique. Contrast was injected and angiography performed in the AP and lateral projection through the left common carotid artery demonstrating the left common carotid artery, the left external carotid artery and its branches, and the left internal carotid artery. No significant stenosis, dissection, or vascular malformation was identified. Left Common Carotid Artery Angiogram: Cranial View Contrast was injected and angiography performed in the AP, lateral, and oblique projection through the left common carotid artery demonstrating the left external carotid artery branches, the left internal carotid artery, the middle cerebral artery, and anterior cerebral artery. No significant stenosis, dissection, or vascular malformation was identified. Right Common Carotid Artery Angiogram: Cervical View Contrast was injected and angiography performed in the AP and lateral projection through the right common carotid artery demonstrating the right common carotid artery, the right external carotid artery and its branches, and the right internal carotid artery. No significant stenosis, dissection, or vascular malformation was identified. Right Common Carotid Artery Angiogram: Cranial View Contrast was injected and angiography performed in the AP and lateral projection through the right common carotid artery demonstrating the right external carotid artery branches, the right internal carotid artery, the middle cerebral artery, and anterior cerebral artery. No significant stenosis, dissection, or vascular malformation was identified. There is a previously coiled right posterior communicating artery aneurysm. Right Internal Carotid Artery Angiogram: Cranial View Using roadmap technique, the catheter was advanced into the right internal carotid artery. Contrast was injected and angiography performed in the AP, lateral, and oblique projection through the right internal carotid artery demonstrating the right internal carotid artery, the middle cerebral artery, and anterior cerebral artery. No significant stenosis, dissection, or vascular malformation was identified. There is a previously coiled right posterior communicating artery aneurysm. There is patency of the right posterior communicating artery without clear recurrence or residual aneurysm. Right nonselective Vertebral Artery Angiogram: Cervical and Cranial View Using roadmap technique, the catheter was advanced into the right subclavian artery. Contrast was injected and angiography performed in the AP and lateral projection through the right vertebral artery demonstrating the right vertebral artery, and the basilar artery and its branches. No significant stenosis, dissection, or vascular malformation was identified. The catheter was removed. The sheath was again infused with a cocktail of verapamil, nitroglycerin, and heparin. The sheath was removed and the radial artery was closed with a TR band. FINDINGS: Status post coil embolization of a previous right posterior communicating artery aneurysm with no evidence of significant recurrence of aneurysm. The neck of the aneurysm connects to the origin of the posterior communicating artery. Procedure Note Daniel Villalpando MD - 03/31/2025 CLINICAL INDICATION: 55-year-old female with a history of subarachnoidhemorrhage and coiling of a posterior communicating artery aneurysmpresents for angiogram. PRE-OP EVALUATION: The patient's preoperative neurological examdemonstrated the following findings: Neurologically intact DATE: 03/29/2025 9:23 AM EXAM: Diagnostic Cerebral Angiogram COMPARISON:Comparison is made to prior angiogram performed on March TELEPHONE TECHNICIAN: Daniel Villalpando M.D. LENGTH OF PROCEDURE: 20 minutes CONTRAST: 90 cc FLUORO TIME: 4.8 Minutes DOSE: 175 mGy MEDICATIONS: Bupivicaine, Nitroglycerin, Verapamil, Heparin Omnipaque 300.[Conscious sedation was utilized for the procedure, with 2 mg of VersedIV, and 50 micrograms of Fentanyl IV. DURATION OF CONSCIOUS SEDATION: 20 minutes] TECHNIQUE:The procedure was explained in its entirety to patient by prior to transport to the neuroangiography suite. This included adiscussion of the risks, benefits, and alternatives to cerebralangiography. Risks discussed included stroke or transient neurologicdeficit (TIA), vascular injury, distal embolization, allergic reaction,pain, bleeding, and infection. The patient gave both verbal and writtenconsent to proceed. Timeout was done at the beginning the procedure.Strict hand hygieneprotocol was observed. All personnel in the room were attired in surgicalhat and mask. The operators were in surgical hat, mask, sterile gown, andsterile gloves. The access site was prepped and draped in the standardsterile fashion with 2% chlorohexadine. Conscious sedation was subsequently initiated with intravenous fentanyland versed during continuous cardiorespiratory monitoring. The right radial artery was prepped and draped in the usual sterilefashion. Next, the right radial artery was localized with ultrasound.Bupivicaine mixed with nitroglycerin per protocol was infused locally.The artery was accessed using ultrasound and an arterial angiocatheter kitwith microwire. The angiocath was advanced into the artery, and themicrowire was removed. A cocktail of lidocaine 2%, verapamil,nitroglycerin, and heparin per protocol was infused through the angiocath.The angiocath was exchanged over a wire for a 5 Swiss slender sheath.The sheath was connected to a regulated, pressurized infusion ofheparinized saline. During access, ultrasound guidance was used to confirmvessel patency, and to visualize the vascular needle entry during access.Ultrasound images were included in the final report. Radial artery angiogram: Brachial view Contrast was injected and angiography performed through the sheathdemonstrating in the AP projection anterograde flow from the brachial tothe radial and ulnar arteries. There is no evidence of dissection,pseudoaneurysm, or fistula. A 5 Swiss Nagy 2 catheter was advanced over a 0.035 Angle-[place]guidewire through the sheath and into the subclavian artery underfluoroscopic guidance. The catheter was advanced over the guidewire intothe Left subclavian artery. Left Vertebral Artery Angiogram: Cervical and Cranial View Using roadmap technique, the catheter was advanced into the left vertebralartery from the left subclavian artery. Contrast was injected andangiography performed in the AP and lateral projection through the leftvertebral artery demonstrating the left vertebral artery, and the basilarartery and its branches. No significant stenosis, dissection, or vascularmalformation was identified. Left Common Carotid Artery Angiogram: Cervical View The catheter was advanced over the guidewire using fluoroscopic guidanceand roadmap technique. Contrast was injected and angiography performed inthe AP and lateral projection through the left common carotid arterydemonstrating the left common carotid artery, the left external carotidartery and its branches, and the left internal carotid artery. Nosignificant stenosis, dissection, or vascular malformation wasidentified. Left Common Carotid Artery Angiogram: Cranial View Contrast was injected and angiography performed in the AP, lateral, andoblique projection through the left common carotid artery demonstratingthe left external carotid artery branches, the left internal carotidartery, the middle cerebral artery, and anterior cerebral artery. Nosignificant stenosis, dissection, or vascular malformation wasidentified. Right Common Carotid Artery Angiogram: Cervical View Contrast was injected and angiography performed in the AP and lateralprojection through the right common carotid artery demonstrating the rightcommon carotid artery, the right external carotid artery and its branches,and the right internal carotid artery. No significant stenosis,dissection, or vascular malformation was identified. Right Common Carotid Artery Angiogram: Cranial View Contrast was injected and angiography performed in the AP and lateralprojection through the right common carotid artery demonstrating the rightexternal carotid artery branches, the right internal carotid artery, themiddle cerebral artery, and anterior cerebral artery. No significantstenosis, dissection, or vascular malformation was identified. There is apreviously coiled right posterior communicating artery aneurysm. Right Internal Carotid Artery Angiogram: Cranial View Using roadmap technique, the catheter was advanced into the right internalcarotid artery. Contrast was injected and angiography performed in theAP, lateral, and oblique projection through the right internal carotidartery demonstrating the right internal carotid artery, the middlecerebral artery, and anterior cerebral artery. No significant stenosis,dissection, or vascular malformation was identified. 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 There is patency ofthe right posterior communicating artery without clear recurrence orresidual aneurysm. Right nonselective Vertebral Artery Angiogram: Cervical and CranialView Using roadmap technique, the catheter was advanced into the rightsubclavian artery. Contrast was injected and angiography performed in theAP and lateral projection through the right vertebral artery demonstratingthe right vertebral artery, and the basilar artery and its branches. Nosignificant stenosis, dissection, or vascular malformation wasidentified. The catheter was removed. The sheath was again infused with a cocktail ofverapamil, nitroglycerin, and heparin. The sheath was removed and theradial artery was closed with a TR band. FINDINGS: Status post coil embolization of a previous right posterior communicatingartery aneurysm with no evidence of significant recurrence of aneurysm.The neck of the aneurysm connects to the origin of the posteriorcommunicating artery. IMPRESSION: Status post coil embolization of a previous right posterior communicatingartery aneurysm with no evidence of significant recurrence of aneurysm.The neck of the aneurysm connects to the origin of the posteriorcommunicating artery. COMMUNICATION: I communicated the findings to the patient and her family. Drafted by Daniel Villalpando on 03/31/2025 4:12 PM Final report signed by Daniel Villalpando on 03/31/2025 4:17 PM us Daniel Villalpando MD IMG IR PROCEDURES Final Resul t documented in this encounter Visit Diagnoses Diagnosis Aneurysm (CMS/HCC) Other aneurysm of unspecified site Pre-op exam documented in this encounter Administered Medications Inactive Administered Medications - up to 3 most recent administrations Medication Order MAR Action Action Date Dose Rate Site bupivacaine PF (Marcaine) 0.25 % injection Injection, As needed, Starting on Sat03/29/25 at 0923, Until Sat03/29/25 at 0923, Routine, Intraprocedure Given 03/29/2025 9:23 AM EDT 5 mL Right Radial fentaNYL (Sublimaze) injection Intravenous, As needed, Starting on Sat03/29/25 at 0923, Until Sat03/29/25 at 0923, Routine, Intraprocedure Given 03/29/2025 9:23 AM EDT 50 mcg heparin (porcine) injection Intra-arterial, As needed, Starting on Sat03/29/25 at 0932, Until Sat03/29/25 at 0932, Routine, Intraprocedure Given 03/29/2025 9:32 AM EDT 2,000 Units Right Radial iohexol (OMNIPaque) 300 MG/ML injection - Pyxis Override Pull 1 dose, Starting on Sat03/29/25 at 0836, Until Sat03/29/25 at 0945 Given by Other 03/29/2025 9:45 AM EDT 90 mL lidocaine (Anecream) 4 % cream 1 Application Topical, Once, 1 dose, On Sat03/29/25 at 0815, RoutineIndications:Pre- op exam Given 03/29/2025 8:09 AM EDT 1 Application Right Arm lidocaine (Xylocaine) 1 % injection Intradermal, As needed, Starting on Sat03/29/25 at 0923, Until Sat03/29/25 at 0923, Routine, Intraprocedure Given 03/29/2025 9:23 AM EDT 10 mL Right Radial midazolam (Versed) injection Intravenous, As needed, Starting on Sat03/29/25 at 0923, Until Sat03/29/25 at 0923, Routine, Intraprocedure Given 03/29/2025 9:23 AM EDT 2 mg nitroglycerin (Wilman-Bid) 2 % ointment 2 inch 2 inch, Transdermal, Once as needed, 1 dose, Starting on Sat03/29/25 at 0719, Until Sat03/29/25 at 0809, Routine, Holding - Preprocedure, Apply topically to the ulnar, proximal radial and distal radial access sites, once 30 mins prior to procedureIndications:Pr e-op exam Given 03/29/2025 8:09 AM EDT 2 inches Right Arm nitroglycerin (Tridil) in D5W IV solution 100 mcg/mL As needed, Starting on Sat03/29/25 at 0932, Until Sat03/29/25 at 0932, Routine, Intraprocedure Given 03/29/2025 9:32 AM EDT 200 mcg Right Radial verapamil (Isoptin) injection Intra-arterial, As needed, Starting on Sat03/29/25 at 0932, Until Sat03/29/25 at 0932, Routine, Intraprocedure Given 03/29/2025 9:32 AM EDT 2.5 mg Right Radial documented in this encounter Additional Health Concerns Assessment Noted Time A fall risk assessment has been complete d for the patient 03/04/2025 11:04 AM EDT A Body Mass Index follow-up plan has been documented for the patient 03/29/2025 12:39 PM EDT documented as of this encounter Care Teams Chiller Operator Relationship Specialty Start Date End Date Tamiko Russo APRN [facility] [address] [address] PCP - General 04/03/23 Carline Ballesteros PA [id number] [place] [address] Physician Instrument Room Technician Neurosurgery 05/06/23 documented as of this encounter
--- OUTSIDE RECORDS SUMMARY | 2025-04-01 08:15 | XMS_ITS ---
Author Organization [facility] D JAVIER Address [address] [facility] [address] [place] [address] Care Team Providers Care Distribution Lead Name Role Phone Berry Santana Primary Care Provider [phone] Tamiko Russo [phone] Allergies Allergen (clinical drug ingredient) Drug/Non Drug Allergy documented on EMR Reaction Allergy Type Onset Date Status KEFLEX (uncoded) Unknown Allergy Act angie PREDNISONE-ORAL FORM (uncoded) hives Allergy Active TYLENOL # 3 (uncoded) Unknown Allergy Active Results Component Value Reference Range Notes LIPID PANEL, STANDARD (7600) Reviewed date:04/05/2025 11:32:17 AM Interpretation: Performing Lab:[facility], [facility] [id number] [id number] Mario Vazquez Notes/Report: NON-FASTING; NON-FASTING; NON-FASTING FASTING:YES [...] LDL-C. Ever COLINDRES et al. HONORIO. 2013;310(19): 9952-0940 (http://education.Retail Convergence/faq/GCD219) CHOL/HDLC RATIO 2.9 <5.0 (calc) NON HDL CHOLESTEROL 113 <130 mg/dL (calc) For patients with diabetes plus 1 major ASCVD risk factor, treating to a non-HDL-C goal of <100 mg/dL (LDL-C of <70 mg/dL) is considered a therapeutic option. COMPREHENSIVE METABOLIC PANE (29102) Reviewed date:04/05/2025 11:32:17 AM Interpretation: Performing Lab:ARLIN, [employer], [id number] Mario Vazquez Notes/Report: NON-FASTING; NON-FASTING; NON-FASTING FASTING:YES [...] 9) Reviewed date:04/05/2025 11:32:17 AM Interpretation: Performing Lab:RALIN [address], [id number] Mario Vazquez Notes/Report: NON-FASTING; NON-FASTING; NON-FASTING FASTING:YES [...] MPV 11.1 7.5-12.5 fL ABSOLUTE NEUTROPHILS 3080 7791-6940 cells/uL ABSOLUTE LYMPHOCYTES 762 801-2075 cells/uL ABSOLUTE MONOCYTES 352 200-950 cells/uL ABSOLUTE EOSINOPHILS 48 15-500 cells/uL ABSOLUTE BASOPHILS 40 0-200 cells/uL NEUTROPHILS 70 LYMPHOCYTES 20.0 MONOCYTES 8.0 EOSINOPHILS 1.1 BASOPHILS 0.9 Reason For Referral Reason LDCT chest Diagnosis 1 Personal history of tobacco use (Z87.891) Referral Organization [facility] Referring Provider First Name Tamiko Referring Provider Last Name Rafaela Referring Provider Speciality [facility] Referred Organization Referred Address [address] [place] [address], [place], [place],[address], Referred Provider Specialty Diagnostic R adiology General Notes Jennifer Villegas 2024 11:57:45 AM >sent to [facility] to schedule appt Referral Priority Routine [...] review and pick correct strength-formulati on from [employer] options. If intended option is not shown, [...] Risk Notes Problem Gastroesophageal reflux disease (disorder) (650210966) Chronic GERD (K21.9) Active confirmed Problem Sciatica (25621127) Lumbago with sciatica, left side (M54.42) Active confirmed Vital Signs Temperature 97.0 degrees Fahrenheit 04/01/20 25 Heart Rate 72 /min 04/01/2025 Blood pressure systolic 130 mm Hg 04/01/20 25 Blood pressure diastolic 80 mm Hg 025 Height 5 ft 3 in in 04/01/2025 Weight 146.6 lbs 04/01/2025 BMI 25.97 kg/m2 04/01/2025 Encounters Encounter Location Date Provider Diagnosis [facility] J[facility] [address] [place] [address] 04/01/2025 Tamiko Russo Major depression, chronic F32.9 [...] Date Notes Mupirocin 2 % 1 application Stock Room Manager ally Twice a day; Duration: 5 days 04/02/2025 Treatment Notes Assessment Notes Anxiety associated with depression henrique nue buspar, SSRI and lower dose xanax Pending Test Test Name Order Date CT Scan : Chest, Lung Cancer Screening 0 04/01/2025 Mammogram: Screening 04/01/2025 Referrals Referral Date Details 04/02/2025 04/02/2025, LDCT [facility], [address] [facility], [place], [address], Next Appt Details Follow Up: 4 Months, Reason: Progress Notes * Ellyn SALAS:[birth year] (55 yo F)Acc No.[id number]:04/01/2025 Progress Notes Patient: Ellyn MCKEON Provider: BENITO Schreiber :1970 A ge:55 Y S ex:Female Date:04/01/2025 Address:[address] [place] [address] [place] , [place], [id number] Pcp:Berry Santana Subjective: * Chief Complaints: * [...] She continues to follow-up with neurosurgery at [facility] following an aneurysm repair in April 2023. [...] igraine headache, smoking-COPD, Depession/anxiety, Asthma, Fibromyalgia, EGD 2015 with gastritis and duodentitis, Stroke, TIA, Breast biopsy benign 2018 - normal mammogram 11/2020, Colonoscopy 03/2020, Dr Harkins, repeat in 3 years recommended, Subarachnoid Hemorrhage 04/2023, treated at [facility], Nocturnal Hypoxia, started on supplemental O2 12/2023. [...] *Please review and pick correct strength-formulation from [employer] options. If intended option is not shown, [...] for immunization - Z23 9 . B AK 25.0-25.9,adult - Z68.25? 10. E ssential hypertension [...] 11:32 AM EDT ?LAB: COMPREHENSIVE METABOLIC PANEL (73886) (Collection Date & Time - 04/01/2025 12:46 [...] - % * A BSOLUTE NEUTROPHILS 3080 5140-8608 - cells/uL * L YMPHOCYTES 20.0 - % * A BSOLUTE LYMPHOCYTES 765 974-7660 - cells/uL * M ONOCYTES 8.0 - [...] chest 12.?Visit for screening mammogram?Imaging: Mammogram: Screening* 13.?Skin abrasion? Start Mupirocin Ointment, 2 %, 1 application, Externally, Twice a day, 5 days, 1, Refills 0.? * Immunizations: Boostrix : .5 mL (Route: Intramuscular) given by BRYSON Ulrich on Right Arm Prevnar PCV-21 (Pneumococcal conjugate 20) : 0.5 mL (Route: Intramuscular) given by BRYSON Ulrich on Left Arm (Encounter for immunization) * Procedure Codes: 9 0715 Boostrix, 37052 immunization administration through 18 years of age via any route of administration., 02780 PCV21 VACCINE IM, 06846 ADMINISTRATION IMMUNIZATION ONE VACCINE * Preventive Medicine: [...] 04/01/2025 Generated for Rogelio sanders/Immanuel/Kristaitting on: 0 04/13/2025 03:51 PM EDT History and Physical Notes * [...] She continues to follow-up with neurosurgery at [facility] following an aneurysm repair in April 2023. [...]
--- OUTSIDE RECORDS SUMMARY | 2025-04-01 09:00 | XMS_ITS | Encounter Summary ---
Author Organization Healthcare Address [address] [place] [address] Care Team Providers Care Horse Trader Name Role Phone Tamiko Russo DALLAS Primary Care Provider [phone] Carline Ballesteros Unavailable Encounter Details Date Type Department Care Team (Late st Contact Info) Description 04/01/2025 9:00 AM EDT Office Visit [place] [facility] [address] [place] [address] Carline Ballesteros PA [address] [place] [address] Cerebral arterial aneurysm (Primary Dx); [...] interpreted the following: CT performed 03/18/2025 @ [facility] shows no evidence of HCP, [...] please feel free to contact us: [facility] Department of Neurosurgery [address] [place] [address] [place], [place] [id number] ; Telehealth Statement Patient Verification Patient identity has been confirmed using name and date of ? Yes Authorizations and Agreements/Telemedicine Consent sent and consent confirmed? Yes Patient Location: Patient's Home Patient confirms they are physically located in [place]? Yes If the patient is not physically located in [place], the provider has confirmed with Legal thatthe [...] documented as of this encounter Care Teams Horse Trader Relationship Specialty Start Date End Date Tamiko Russo APRN [facility] [address] [address] PCP - General 04/03/23 [facility]os [facility] [address] [facility] [address] [place] [address] Physician Encapsulator Neurosurgery 05/06/23 documented as of this encounter
--- OUTSIDE RECORDS SUMMARY | 2025-04-13 15:50 | XMS_ITS | Clinical Summary ---
Author Organization [facility] Address [address] [place] [address] Care Team Providers Care Generating Plant Superintendent Name Role Phone Tamiko Russo Dom HAYNES Primary Care Provider [phone] Carlien Ballesteros PA Unavailable [phone] Allergies Active Allergy Reactions Criticality Noted Date [...] tablet Take 1 tablet by mouth daily. Active omeprazole (PriLOSEC) [address] capsule [...] 9 Active ergocalciferol (Vitamin D-2) 1.25 MG (30046 UT) capsule 8 Active Fluticasone-Ume clidin-Vilant (Trelegy [...] weeks, then 50mg BID. 60 tablet 1 Active Hospital, Clinic, or Other Facility Administered Medication Ordered Dose Route Frequency Start Date End Date Status nitroglycerin (Wilman-Bid) 2 % ointment 2 inchIndications:Pre-o p exam 2 inch TD Once as needed 03/29/2025 03/29/2025 Ended lidocaine (Anecream) 4 % cream 1 ApplicationIndication s:Pre-op exam 1 Application TOP Once 03/29/2025 03/29/2025 Ended Active Problems Problem Noted Date Diagnosed Date Hyperlipidemia 04/21/2023 04/21/2023 History of hyperlipidemia 04/04/2023 Overview (04/12/2023): Triglycerides 150 on admission Continue home atorvastatin GERD (gastroesophageal reflux disease) Overview (04/10/2023): Continue PPI Chronic pain 04/04/2023 [...] unspecified 04/05/2023 0 04/21/2023 Overview (04/07/2023): See [facility] for additional details Hyponatremia 04/05/2023 04/12/2023 Overview [...] Encounters Date Type Department Care Team Description 04/01/2025 9:00 AM EDT [facility] Visit [facility] [address], [address] [place] [address] Carline Ballesteros, PA Cerebral arterial aneurysm (Primary Dx); Hydrocephalus, acquired (CMS/HCC) 03/31/2025 Travel 03/29/2025 7:12 AM EDT - 03/29/2025 11:59 PM EDT Hospital Encounter [facility] [address] [place] [address] Sara Lowe, RN Rogelio Maxwell Aneurysm (CMS/HCC); Pre-op exam Discharge Disposition: Home or Self Care 03/29/2025 Orders Only External Location [address] [place] [address] Provider, External 03/29/2025 Travel 03/22/2025 Telephone [facility] [address] [place] [address] Brandt Saldaña, RN 03/18/2025 Orders Only External Location [address] [place] [address] Provider, External 03/05/2025 Telephone [facility] [address], [address] [place] [address] Carline Ballesteros PA 03/04/2025 11:00 AM EDT Office Visit [place] [address], [address] [place] [address] Carline Ballesteros, PA Cerebral arterial aneurysm (Primary Dx); Pre-op exam; Intractable headache, unspecified chronicity pattern, unspecified headache type; Memory changes; SAH (subarachnoid hemorrhage) ([facility]) 03/04/2025 Orders Only [place] [id number] [facility], [address] [place] [phone] Daniel Villalpando MD Pre-op exam (Primary Dx); Cerebral arterial aneurysm 03/04/2025 Travel 02/16/2025 Orders Only [place] [address] [facility], [address] [place] [phone] Daniel Villalpando MD Hydrocephalus, acquired ([facility]) (Primary Dx); Cerebral arterial aneurysm 02/16/2025 Telephone [place] [address] [facility], [address] [place] [phone] Daniel Villalpando MD from Last 3 Months [...] Smoking Tobacco: Former Cigarettes 2 30 1 3 - 2022 Passive Smoke Exposure: Never [...] Mass Index 27.42 03/29/2025 7:35 AM EDT Plan of Treatment Health Maintenance Due Date Last Done Comments [...] 2020 [facility]-Zoster Vaccines (1 of 2) 2020 QCE-DYOYG-80 Vaccine (3 - season) 2024 04/06/2021, 03/16/2021 [facility]-Influenza Vaccine (#1) 06/07/202508/10, 09/21/2020, 09/23/2019, Additional history exists [facility]-Depression Screening 03/04/2026 03/04/2025 [facility]-HIV Screening Completed 04/03/2023 [facility]-Hepatitis C Screening Completed 04/03/2023 [facility]-Obesity Intervention Completed 025, 03/29/2025, 03/04/2025 HPV Vaccines Aged Out No longer [...] this topic Medical Devices Implanted Type Area Ship'S Cook Device Identifier Shelf Expiration Date Model / Serial / Lot Coil 360 Ultra 5 X 10 - [id number] Implanted:Qty: 1 on 04/03/2023 by Sandrine Mcguire RN at [facility]-31 [id number] 07/29/2025 [id number] / / [id number] Hip Stem Inzone Detachment - [id number] Implanted:Qty: 1 on 04/03/2023 by Sandrine Mcguire RN at [facility]-31 7568 08/18/2024 [id number] / / [id number] Coil 360 Ultra 2.5 X 4 - [id number] Implanted:Qty: 1 on 04/03/2023 by Sandrine Mcguire RN at [facility]-31 7568 06/20/2025 [id number] / / [id number] Catheter Bactiseal Stripe - [id number] Implanted:Qty: 1 on 04/20/2023 by Daniel Villalpando MD at [facility] Right: Cranial Integra [employer] [id number] 12/05/2023 [id number] / / [id number] Catheter Antibiotic Str Vent - [id number] Implanted:Qty: 1 on 04/20/2023 by Daniel Villalpando MD at [facility] Right: Cranial Integra [employer] [id number] 01/05/2024 [id number] / / [id number] Certas Plus Inline Siphon - [id number] Implanted:Qty: 1 on 04/20/2023 by Daniel Villalpando MD at [facility] Right: Cranial Integra [employer] [id number] 12/05/2027 [id number] / / [id number] Procedures Procedure Name Priority Date/Time Associated Diagnosis Comments IR ANGIOGRAM Routine 03/29/2025 9:42 AM EDT Aneurysm (CMS/HCC) POC ULTRASOUND 03/29/2025 CT NEURO OUTSIDE IMAGES 03/18/20 1:04 PM EDT BASIC METABOLIC PANEL, PLASMA Routine 03/04/2025 12:14 [...] Recently Relevant to Health Maintenance Results * IR Angiogram (03/29/2025 9:42 AM [...] prior angiogram performed on April 03, 2023 BEAM SEALER: Daniel Villalpando M.D. LENGTH OF PROCEDURE: 20 [...] exchanged over a wire for a 5 Gibraltarian slender sheath. The sheath was connected to [...] of dissection, pseudoaneurysm, or fistula. A 5 Gibraltarian Nagy 2 catheter was advanced over a 0.035 [place] guidewire through the sheath and into the [...] made to prior angiogram performed on March BEAM SEALER: Daniel Villalpando M.D. LENGTH OF PROCEDURE: 20 [...] exchanged over a wire for a 5 Gibraltarian slender sheath.The sheath was connected to a [...] evidence of dissection,pseudoaneurysm, or fistula. A 5 Gibraltarian Nagy 2 catheter was advanced over a [...] by Daniel Villalpando on 03/31/2025 4:17 PM Daniel Villaplando MD IMG IR PROCEDURES Final Resul t * POC Imaging (03/29/2025) Anatomical Region Laterality Modality Pelvis Other 03/29/2025 us External Provider IMG POINT OF CARE ULTRASOUND F inal Result * CT NEURO OUTSIDE IMAGES (03/18/2025 1:04 PM EDT) Anatomical Region Laterality Modality Computed Tomogra phy 03/18/2025 1:04 PM EDT us External Provider IMG CT PROCEDURES Final Result * (ABNORMAL) APTT (03/04/2025 12:14 PM EDT) aPTT 24(L) 25 - 35 sec LAB COAGULATION METHOD 03/04/2025 1:56 PM EDT [facility] Blood Venous blood specimen / Unknown Venipuncture / Unknown 03/04/2025 12:14 PM EDT 03/04/2025 12:15 PM EDT Carline PHILLIPS LAB BLOOD ORDERABLES Final R esult [facility] [address] [place] [address] * Protime-INR (03/04/2025 12:14 PM EDT) Pathologist [facility] Prothrombin Time 12.3 12.0 - 14.3 sec LAB COAGULATION METHOD 03/04/2025 1:56 PM EDT [facility] INR 0.9 0.9 - 1.1 LAB COAGULATION METHOD 03/04/2025 1:56 PM EDT [facility] Blood Venous blood specimen / Unknown Venipuncture / Unknown 03/04/2025 12:14 PM EDT 03/04/2025 12:15 PM EDT Narrative [facility] - 03/04/2025 1:56 PM EDT OPTIMAL INR RANGES FOR PATIENT ON ORAL ANTICOAGULANT THERAPY Prevention of venous thromboembolism INR 2.0 to 3.0 In patients with heart disease: Atrial fibrillation INR 2.0 to 3.0 Valvular heart disease INR 2.0 to 3.0 Tissue heart valves INR 2.0 to 3.0 Mechanical prosthetic valves INR 2.5 to 3.5 Prevention of recurrent CA INR 2.5 to 3.5 us Carline PHILLIPS LAB BLOOD ORDERABLES Final R esult [facility] [address] [place] [address] * (ABNORMAL) CBC and differential (03/04/2025 12:14 PM EDT) WBC Count 4.30 3.70 - 10.30 10*3/uL LAB HEMATOLOGY METHOD 03/04/2025 1:57 PM EDT [facility] RBC Count 4.93 3.90 - 5.20 10*6/uL LAB HEMATOLOGY METHOD 03/04/2025 1:57 PM EDT [facility] HGB 13.0 11.2 - 15.7 g/dL LAB HEMATOLOGY METHOD 03/04/2025 1:57 PM EDT [facility] HCT 43.3 34.0 - 45.0 % LAB HEMATOLOGY METHOD 03/04/2025 1:57 PM EDT [facility] Platelet Count 234 155 - 369 10*3/uL LAB HEMATOLOGY METHOD 03/04/2025 1:57 PM EDT [facility] MCV 88 79 - 98 fL LAB HEMATOLOGY METHOD 03/04/2025 1:57 PM EDT [facility] MCH 26.4 26.0 - 32.0 pg LAB HEMATOLOGY METHOD 03/04/2025 1:57 PM EDT [facility] MCHC 30.0(L) 30.7 - 35.5 g/dL LAB HEMATOLOGY METHOD 03/04/2025 1:57 PM EDT [facility] RDW 13.2 11.5 - 14.5 % LAB HEMATOLOGY METHOD 03/04/2025 1:57 PM EDT [facility] MPV 11.2 8.8 - 12.5 fL LAB HEMATOLOGY METHOD 03/04/2025 1:57 PM EDT [facility] nRBC 0.0 <=0.0 per 100 WBCs LAB HEMATOLOGY METHOD 03/04/2025 1:57 PM EDT [facility] Differential Type Automated LAB HEMATOLOGY METHOD 03/04/2025 1:57 PM EDT [facility] Neutrophils % 56 % LAB HEMATOLOGY METHOD 03/04/2025 1:57 PM EDT [facility] Lymphocytes % 30 % LAB HEMATOLOGY METHOD 03/04/2025 1:57 PM EDT [facility] Monocytes % 11 % LAB HEMATOLOGY METHOD 03/04/2025 1:57 PM EDT [facility] Eosinophils % 2 % LAB HEMATOLOGY METHOD 03/04/2025 1:57 PM EDT [facility] Basophils % 1 % LAB HEMATOLOGY METHOD 03/04/2025 1:57 PM EDT [facility] Immature Granulocytes % 0 % LAB HEMATOLOGY METHOD 03/04/2025 1:57 PM EDT [facility] Neutrophils Absolute 2.43 1.60 - 6.10 10*3/uL LAB HEMATOLOGY METHOD 03/04/2025 1:57 PM EDT [facility] Lymphocytes Absolute 1.28 1.20 - 3.90 10*3/uL LAB HEMATOLOGY METHOD 03/04/2025 1:57 PM EDT [facility] Monocytes Absolute 0.47 0.30 - 0.90 10*3/uL LAB HEMATOLOGY METHOD 03/04/2025 1:57 PM EDT [facility] Eosinophils Absolute 0.08 0.00 - 0.50 10*3/uL LAB HEMATOLOGY METHOD 03/04/2025 1:57 PM EDT [facility] Basophils Absolute 0.03 0.00 - 0.10 10*3/uL LAB HEMATOLOGY METHOD 03/04/2025 1:57 PM EDT [facility] Immature Granulocytes Absolute 0.01 0.00 - 0.06 10*3/uL LAB HEMATOLOGY METHOD 03/04/2025 1:57 PM EDT [facility] Blood Venous blood specimen / Unknown Venipuncture / Unknown 03/04/2025 12:14 PM EDT 03/04/2025 12:15 PM EDT Narrative [facility] - 03/04/2025 1:57 PM EDT Therapeutic decision making should be based on absolute values, rather than percentages. us Carline PHILLIPS LAB BLOOD ORDERABLES Final R esult [facility] [address] [place] [address] * (ABNORMAL) hCG, Total Beta, Quantitative, Plasma (03/04/2025 12:14 PM EDT) hCG, Total Beta 17.8(H) <5 mIU/mL 03/04/2025 2:22 PM EDT [facility] Blood Venous blood specimen / Unknown Venipuncture / Unknown 03/04/2025 12:14 PM EDT 03/04/2025 12:15 PM EDT Narrative [facility] - 03/04/2025 2:22 PM EDT [...] PHILLIPS LAB BLOOD ORDERABLES Final R esult [facility] [address] [place] [address] * (ABNORMAL) Basic metabolic panel (03/04/2025 12:14 PM EDT) Glucose, Plasma 97 74 - 99 mg/dL 03/04/2025 2:22 PM EDT [facility] BUN, Plasma 7 7 - 21 mg/dL 03/04/2025 2:22 PM EDT [facility] Creatinine, Plasma 0.85 0.60 - 1.10 mg/dL 03/04/2025 2:22 PM EDT [facility] BUN/Creatinine Ratio 8 03/04/2025 2:22 PM EDT [facility] Sodium, Plasma 132(L) 136 - 145 mmol/L 03/04/2025 2:22 PM EDT [facility] Potassium, Plasma 4.3 3.6 - 4.9 mmol/L 03/04/2025 2:22 PM EDT [facility] Chloride, Plasma 96(L) 97 - 107 mmol/L 03/04/2025 2:22 PM EDT [facility] CO2, Plasma 22 22 - 29 mmol/L 03/04/2025 2:22 PM EDT [facility] Anion Gap 14 6 - 16 mmol/L 03/04/2025 2:22 PM EDT [facility] Total Calcium, Plasma 9.5 8.9 - 10.2 mg/dL 03/04/2025 2:22 PM EDT [facility] eGFRcr 81.5 mL/min/1.7 3m*2 03/04/2025 2:22 PM EDT [facility] Comment:Reported eGFRcr in m L/min/1.73m2 is based the CKD-EPI 2020 equation that does not use a race coefficient. Blood Venous blood specimen / Unknown Venipuncture / Unknown 03/04/2025 12:14 PM EDT 03/04/2025 12:15 PM EDT us Carline PHILLIPS LAB BLOOD ORDERABLES Final R esult Performing Organization Address City/[facility]/ZIP Co de Phone Number [facility] [address] [place] [address] * HIV 1 & 2 Antibody/Antigen Screen (04/03/2023 12:27 PM EDT) HIV 1 & 2 Antibody/Antigen Screen Non Reactive Non Reactive 04/03/2023 1:25 PM EDT [facility] Comment:Screening for HIV 1 & 2 antibodies, and P24 antigen is NONREACTIVE. No confirmatory testing is required. Blood Venous blood specimen / Unknown Venipuncture / Unknown 04/03/2023 12:27 PM EDT 04/03/2023 12:40 PM EDT us Daquan Burns MD LAB BLOOD ORDERABLES Final Result Performing Organization Address City/[facility]/ZIP Co de Phone Number [facility] [address] [place] [address] * Hepatitis C Antibody - ED (04/03/2023 12:27 PM EDT) Hepatitis C Antibody Negative Negative 04/03/2023 1:25 PM EDT [facility] Blood Venous blood specimen / Unknown Venipuncture / Unknown 04/03/2023 12:27 PM EDT 04/03/2023 12:40 PM EDT us Daquan Burns MD LAB BLOOD ORDERABLES Final Result [facility] [address] [place] [address] from Last 3 Months or Most Recently Relevant to Health Maintenance Insurance [facility] Advance Directives * Full Code (Latest Code Status on File) Date Activated Date Inactivated Comments 04/03/2023 3:09 PM 04/21/2023 7:12 PM Question Answer Comments Patient has decision-making capacity? Yes Care Teams Generating Plant Superintendent Relationship Specialty Start Date End Date Tamiko Russo APRN [address] [address] PCP - General 04/03/23 Carline Ballesteros PA [address] [place] [address] Physician Looper Operator Neurosurgery 05/06/23
--- OUTSIDE RECORDS SUMMARY | 2025-04-13 15:50 | XMS_ITS | Encounter Summary ---
Author Organization [facility] Address [address] [place] [address] Care Team Providers Care Plate Molder Name Role Phone Berry Santana MD Primary Care Provider [phone] Tamiko Russo APRN Primary Care Provider + [phone] Carline Ballesteros Unavailable [phone] Encounter Details Date Type Department Care Team (Late st Contact Info) Description 09/04/2018 Orders Only External Location [address] [place] [address] Provider, External Social History Tobacco Use Types Packs/Day Years Used Date Smoking Tobacco: Never Assessed Comments Unknown Sex and Gender Information Value Date Recorded Sex Assigned at Female 04/20/2023 6:58 AM EDT Legal Sex Female 6:00 PM EDT Gender Identity Female 04/20/2023 6:58 AM EDT Sexual Orientation Not on file documented as of this encounter Plan of Treatment Not on [...] documented as of this encounter Care Teams Plate Molder Relationship Specialty Start Date End Date Berry Santana MD [address] [facility] [address] [facility] [address] [place] [address] PCP - General 02/17/21 04/02/23 Tamiko Russo APRN [address] [place] [address] PCP - General 04/03/23 Carline Ballesteros PA [address] [facility] [address] [place] [address] Physician Cloth Beamer Neurosurgery 05/06/23 documented as of this encounter
--- OUTSIDE RECORDS SUMMARY | 2025-04-13 15:50 | XMS_ITS | Encounter Summary ---
Author Organization [facility] Address [address] [place] [address] Care Team Providers Care Field Cane Scale Clerk Name Role Phone Tamiko Russo Dom HAYNES Primary Care Provider [phone] Carline Ballesteros PA Unavailable [phone] Encounter Details Date Type Department Care Team (Latest Contact Info) Description 03/29/2025 Travel Social History Tobacco Use Types Packs/Day Years Used Date Smoking Tobacco: Former Cigarettes 2 1 - 2022 Passive Smoke Exposure: Never [...] Rogelio Maxwell documented as of this encounter Plan of [...] documented as of this encounter Care Teams Field Cane Scale Clerk Relationship Specialty Start Date End Date Tamiko Russo APRN [facility] [place] [address] PCP - General 04/03/23 Carline Ballesteros PA [id number] [place] [address] Physician International Marketing Specialist Neurosurgery 05/06/23 documented as of this encounter
--- OUTSIDE RECORDS SUMMARY | 2025-04-13 15:50 | XMS_ITS | Encounter Summary ---
Author Organization [facility] Address [address] [place] [address] Care Team Providers Care Lead Programmer Name Role Phone Berry Santana MD Primary Care Provider [phone] Tamiko Russo APRN Primary Care Provider +- [phone] Carline Ballesteros Unavailable [phone] Encounter Details Date Type Department Care Team (Late st Contact Info) Description 05/22/2022 [facility] [address] [place] [address] Tamiko Russo APRN [address] [place] [id number] Social History Tobacco Use Types Packs/Day Years [...] Resolved Time Meningitis Rule-Out 04/05/2023 04/05/2023 04/05/20 23 4:56 PM EDT Meningitis Rule-Out 04/08/2023 04/08/2023 04/08/20 23 12:36 PM EDT documented as of this encounter Care Teams Lead Programmer Relationship Specialty Start Date End Date Berry Santana MD [address] [place] [address] [place] [address] PCP - General 02/17/21 04/02/23 Tamiko Russo APRN [address] [place] [address] PCP - General 04/03/23 Carline Ballesteros PA [address] [facility] [address] [place] [address] Physician Informatics Scientist Neurosurgery 05/06/23 documented as of this encounter
--- OUTSIDE RECORDS SUMMARY | 2025-04-13 15:50 | XMS_ITS | Encounter Summary ---
Author Organization Healthcare Address [address] [place] [address] Care Team Providers Care Receptionist Name Role Phone RafaelaTamiko sims Dom HAYNES Primary Care Provider [phone]- [phone] Carline Ballesteros PA Unavailable [phone] Encounter Details Date Type Department Care Team (Late st Contact Info) Description 03/22/2025 Telephone [facility] [address] [place] [address] Brandt Saldaña, RN Social History Tobacco Use Types Packs/Day Years [...] documented as of this encounter Care Teams Receptionist Relationship Specialty Start Date End Date Marcelo Rusosah DALLAS Fernandes [address] [place] [address] PCP - General 04/03/23 Carline Ballesteros PA [id number] [place] [address] Physician Fermentation Operator Neurosurgery 05/06/23 documented as of this encounter
--- OUTSIDE RECORDS SUMMARY | 2025-04-13 15:50 | XMS_ITS | Encounter Summary ---
Author Organization [facility] Address [address] [place] [address] Care Team Providers Care Prekindergarten Teacher Name Role Phone Tamiko Russo APRN Primary Care Provider [phone] Carline Ballesteros PA Unavailable [phone] Encounter Details Date Type Department Care Team (Late st Contact Info) Description 03/18/2025 Orders Only External Location [address] [place] [address] Provider, External Social History Tobacco Use Types [...] Procedure Name Priority Date/Time Associated Diagnosis Comments CT NEURO OUTSIDE IMAGES 03/18/2025 1:04 PM EDT documented in this encounter Results * CT NEURO OUTSIDE IMAGES (03/18/2025 1:04 PM EDT) Anatomical Region Laterality Modality Computed Tomogra phy 03/18/2025 1:04 PM EDT us External Provider IMG CT PROCEDURES Final Result documented in this encounter Visit Diagnoses Not on filedocumented in this encounter Additional Health Concerns Assessment Noted Time A fall risk assessment has been complete d for the patient 03/04/2025 11:04 AM EDT A Body Mass Index follow-up plan has been documented for the patient 03/05/2025 5:42 PM EDT documented as of this encounter Care Teams Prekindergarten Teacher Relationship Specialty Start Date End Date Tamiko Russo APRN [id number] PCP - General 04/03/23 Carline Ballesteros PA [id number] [place] [address] Physician Director Of Online Merchandising Neurosurgery 05/06/23 documented as of this encounter
--- OUTSIDE RECORDS SUMMARY | 2025-04-13 15:50 | XMS_ITS | Encounter Summary ---
Author Organization [facility] Address [address] [place] [address] Care Team Providers Care Education Associate Name Role Phone Rafaela Tamikonicol Fernandes APRN Primary Care Provider [phone] Carline Ballesteros PA Unavailable [phone] Encounter Details Date Type Department Care Team ([facility] st Contact Info) Description 03/29/2025 Orders Only External Location [address] [place] [address] Provider, External Social History Tobacco Use Types Packs/Day Years Used Date Smoking Tobacco: Former Cigarettes 2 1 3 - 2022 Passive Smoke Exposure: [...] No 03/29/2025 7:35 AM EDT Abdi Maxwell F 6. Suicidal Behavior (Lifetime) No 7:35 AM EDT Rogelio Maxwell documented as of this encounter Plan of Treatment Not on file documented as of this encounter Procedures Procedure Name Priority Date/Time Associated Diagnosis Comments POC ULTRASOUND 03/29/2025 documented in this encounter Results * POC Imaging (03/29/2025) Anatomical Region Laterality Modality Pelvis Other 03/29/2025 us External Provider IMG POINT OF CARE ULTRASOUND F inal Result documented in this encounter Visit Diagnoses Not on filedocumented in this encounter Additional Health Concerns Assessment Noted Time A fall risk assessment has been complete d for the patient 03/04/2025 11:04 AM EDT A Body Mass Index follow-up plan has been documented for the patient 03/29/2025 12:39 PM EDT documented as of this encounter Care Teams Education Associate Relationship Specialty Start Date End Date Tamiko Russo APRN [address] [facility] [address] [place] [id number] PCP - General 04/03/23 Carline Ballesteros PA [address] [facility] [address] [place] [address] Physician Clinical Pharmacy Manager Neurosurgery 05/06/23 documented as of this encounter
--- OUTSIDE RECORDS SUMMARY | 2025-04-13 15:50 | XMS_ITS | Encounter Summary ---
Author Organization [facility] Address [address] [place] [address] Care Team Providers Care Systems Architecture Analyst Name Role Phone Tamiko Russo APRN Primary Care Provider [phone]- [phone] Carline Ballesteros PA Unavailable [phone] Encounter Details Date Type Department Care Team (Latest Contact Info) Description 03/31/2025 Travel Social History Tobacco Use Types Packs/Day [...] documented as of this encounter Care Teams Systems Architecture Analyst Relationship Specialty Start Date End Date Tamiko Russo APRN [address] [address] PCP - General 04/03/23 Carline Ballesteros PA [id number] [place] [address] Physician Plastics Supervisor Neurosurgery 05/06/23 documented as of this encounter
--- OUTSIDE RECORDS SUMMARY | 2025-04-13 15:51 | XMS_ITS | Encounter Summary ---
Author Organization [facility] Address [address] [place] [address] Care Team Providers Care Grey Tender Name Role Phone Tamiko Russo Dom HAYNES Primary Care Provider [phone]- [phone] Carline Ballesteros PA Unavailable [phone] Encounter Details Date Type Department Care Team (Late st Contact Info) Description 04/15/2023 Lab Requisition [facility] [address] [place] [address] Sharifa Torres MD [address] [id number] Encounter for general adult medical examination without [...] Behavior (Lifetime) No 9:00 PM EDT Anant Gallegos RN documented as of this encounter Plan [...] at day 2 04/17/2023 8:48 AM EDT [facility] Swab (Nares and Nkechi Rectal) 04/15/2023 12:15 PM EDT 04/15/2023 1:23 PM EDT us Sharifa Varghese MD LAB MICROBIOLOGY - GENERAL ORDERABLES Final Result [facility] [address] [place] [address] documented in this encounter Visit Diagnoses Diagnosis Encounter for general adult medical examination without abnormal findings documented in this encounter Care Teams Grey Tender Relationship Specialty Start Date End Date Tamiko Russo APRN [address] [place] [address] PCP - General 04/03/23 Carline Ballesteros PA [address] [place] [address] Physician Drainlayer Neurosurgery 05/06/23 documented as of this encounter
--- OUTSIDE RECORDS SUMMARY | 2025-04-13 15:51 | XMS_ITS | Encounter Summary ---
Author Organization [facility] Address [address] [place] [address] Care Team Providers Care Director Of Workforce Development Name Role Phone Tamiko Russo Dom HAYNES Primary Care Provider [phone]- [phone] Carline Ballesteros PA Unavailable [phone] Encounter Details Date Type Department Care Team (Late st Contact Info) Description 02/16/2025 Telephone [facility] [address] [place] [address] Daniel Villalpando MD [address] [place] [address] Social History Tobacco Use Types [...] encounter Miscellaneous Notes * Telephone Encounter - MichaelferminLala - 02/16/2025 11:52 AM EDT Patient Phone Message Reason for Call: Patient is calling to schedule f/u appt. She missed hers last year Best contact number and optimal time of day to reach caller: [phone] Note: Please do not reply to this message. Follow-up communication and further actions as a result of this message need to be communicated with the patient directly, if the patient is not active onMyChart. If the patient is active on MyChart, they will receive notification of the communication/outcome via [employer]. documented in this encounter Plan of Treatment Not on file documented as of this encounter Visit Diagnoses Not on filedocumented in this encounter Additional Health Concerns Assessment Noted Time A fall risk assessment has been complete d for the patient 08/02/2023 3:40 PM EDT documented as of this encounter Care Teams Director Of Workforce Development Relationship Specialty Start Date End Date Tamiko Russo APRN [address] [address] PCP - General 04/03/23 Carline Ballesteros PA [id number] [place] [address] Physician Splitter Operator Neurosurgery 05/06/23 documented as of this encounter
--- OUTSIDE RECORDS SUMMARY | 2025-04-13 15:51 | XMS_ITS | Patient Health Record ---
Author Organization Formerly [facility] Address [address] [facility] [address] [facility] [place] [address] Care Team Providers Care Onboarding Specialist Name Role Phone Berry Santana Primary Care Provider [phone] Tamiko Russo Unavailable [phone] Migration, Provider Unavailable Unavailable Allergies Allergen (clinical drug ingredient) Drug/Non Drug Allergy documented on EMR Reaction Allergy Type Onset Date Status KEFLEX (uncoded) Unknown Allergy Act angie PREDNISONE-ORAL FORM (uncoded) hives Allergy Active TYLENOL # 3 (uncoded) Unknown Allergy Active Results Component Value Reference Range Notes LIPID PANEL, STANDARD (7600) Reviewed date:04/05/2025 11:32:17 AM Interpretation: Performing Lab:CB, [facility] [id number] [facility], [facility] HospitalCubdYV[address] Mario Vazquez Notes/Report: NON-FASTING; NON-FASTING; NON-FASTING FASTING:YES [...] LDL-C. Ever COLINDRES et al. HONORIO. 2013;310(19): 2739-3188 (http://education.Quest[facility]ostics.com/faq/BWG461) CHOL/HDLC RATIO 2.9 <5.0 (calc) NON HDL CHOLESTEROL 113 <130 mg/dL (calc) For patients with diabetes plus 1 major ASCVD risk factor, treating to a non-HDL-C goal of <100 mg/dL (LDL-C of <70 mg/dL) is considered a therapeutic option. COMPREHENSIVE METABOLIC PANE (91927) Reviewed date:04/05/2025 11:32:17 AM Interpretation: Performing Lab:ARLIN [facility], ExanetNviaTF[address] Mario Vazquez Notes/Report: NON-FASTING; NON-FASTING; NON-FASTING FASTING:YES [...] Reviewed date:04/05/2025 11:32:17 AM Interpretation: Performing Lab:ARLIN [address], ExanetFofuKB[address] Mario Vazquez Notes/Report: NON-FASTING; NON-FASTING; NON-FASTING FASTING:YES [...] MPV 11.1 7.5-12.5 fL ABSOLUTE NEUTROPHILS 3080 [phone] cells/uL ABSOLUTE LYMPHOCYTES 705 171-9016 cells/uL ABSOLUTE MONOCYTES 352 200-950 cells/uL ABSOLUTE EOSINOPHILS 48 15-500 cells/uL ABSOLUTE BASOPHILS 40 0-200 cells/uL NEUTROPHILS 70 LYMPHOCYTES 20.0 MONOCYTES 8.0 EOSINOPHILS 1.1 BASOPHILS 0.9 VITAMIN D,25-OH,TOTAL,IA (17 306) Reviewed date:08/12/2024 11:05:29 AM Interpretation: Performing Lab:CB, [facility] [id number] [facility], [facility] ClinicUhanCD[address] Mario Vazquez Notes/Report: NON-FASTING; NON-FASTING; NON-FASTING; NON-FASTING; [...] D, (D2,D3), LC/MS/MS is recommended: order code 02434 (patients >2yrs). See Note 1 Note 1 For additional information, please refer to http://education.[employer]/faq/LJD051 (This link is being provided for informational/ TSH W/REFLEX TO FT4 (21603) Reviewed date:08/12/2024 11:05:29 AM Interpretation: Performing Lab:ARLIN, [facility] [address], [facility] ClinicUbgeBC[address] Mario Vazquez Notes/Report: NON-FASTING; NON-FASTING; NON-FASTING; NON-FASTING; NON-FAST FASTING:YES FASTING: YES TSH W/REFLEX TO FT4 1.92 Ranges First trimester 0.26-2.66 Second trimester 0.55-2.73 Third trimester 0.43-2.91 Reference Range > or = 20 Years 0.40-4.50 CBC (INCLUDES DIFF/PLT) (639 9) Reviewed date:08/12/2024 11:05:29 AM Interpretation: Performing Lab:ARLIN, [facility] [id number] [facility] [facility] Centertel [facility], [facility] ClinicCndrLX[address] Mario Vazquez Notes/Report: NON-FASTING; NON-FASTING; NON-FASTING; NON-FASTING; [...] MPV 10.6 7.5-12.5 fL ABSOLUTE NEUTROPHILS 5023 7071-2904 cells/uL ABSOLUTE LYMPHOCYTES 6558 269-6409 cells/uL ABSOLUTE MONOCYTES 538 200-950 cells/uL ABSOLUTE EOSINOPHILS 110 15-500 cells/uL ABSOLUTE BASOPHILS 62 0-200 cells/uL NEUTROPHILS 72.8 LYMPHOCYTES 16.9 MONOCYTES 7.8 EOSINOPHILS 1.6 BASOPHILS 0.9 COMPREHENSIVE METABOLIC PANE L (02347) Reviewed date:08/12/2024 11:05:29 AM Interpretation: Performing Lab:ARLIN [employer] Lyad4287 [facility], [facility] ClinicLsdhEW[address] Mario Vazquez Notes/Report: NON-FASTING; NON-FASTING; NON-FASTING; NON-FASTING; [...] 16 10-35 U/L ALT 12 6-29 U/L LIPID PANEL, STANDARD (7600) Reviewed date:08/12/2024 11:05:29 AM Interpretation: Performing Lab:ARLIN [facility] TechnologiesBemidji Medical Centere1355 [facility], [facility] ClinicGlzhDV[address] Mario Vazquez Notes/Report: NON-FASTING; NON-FASTING; NON-FASTING; NON-FASTING; NON-FAST FASTING:YES FASTING: YES CHOLESTEROL, TOTAL 167 <200 mg/dL HDL CHOLESTEROL 67 > OR = 50 mg/dL TRIGLYCERIDES 91 <150 mg/dL LDL-CHOLESTEROL 81 (http://Care IT.ICRTec/faq/MMP875) Reference range: <100 Desirable range <100 mg/dL for primary prevention; <70 mg/dL for patients with CHD or diabetic patients with > or = 2 CHD risk factors. LDL-C is now calculated using the Stephanie calculation, which is a validated novel method providing better accuracy than the Friedewald equation in the estimation of LDL-C. Ever COLINDRES et al. HONORIO. 2013;310(19): 2904-9268 CHOL/HDLC RATIO 2.5 <5.0 (calc) NON HDL CHOLESTEROL 100 <130 mg/dL (calc) For patients with diabetes plus 1 major ASCVD risk factor, treating to a non-HDL-C goal of <100 mg/dL (LDL-C of <70 mg/dL) is considered a therapeutic option. Medications Medication SIG (Take, Route, Frequency, Duration) Notes Start Date End Date Status Losartan Potassium 50 MG 1 tab(s) orally once a day; Duration: 90 days 12/08/2024 Active PARoxetine HCl 40 MG 1 tab(s) orally once a day; Duration: 90 days Active ARIPiprazole 10 MG Take 1 tablet by mouth once daily for 90 days; Duration: 90 Active Gabapentin 300 MG 2 caps orally once daily at bedtime; Duration: 30 days 01/05/2025 Active Metoprolol Succinate ER 50 MG Take 1 tablet by mouth once daily; Duration: 90 Active Atorvastatin Calcium 20 MG Take 1/2 (one-half) tablet by mouth once daily Orally daily; Duration: 90 days Active Terbinafine HCl 1 % 1 tucker applied topically 2 times a day; Duration: 14 days 12/05/2023 Active Meloxicam 15 MG 1 tab(s) orally once a day for arthritis pain; Duration: 90 days Active Omeprazole 40 MG 1 cap(s) orally once a day; Duration: 90 days Active Mupirocin 2 % 1 application Externally Twice a day; Duration: 5 days 04/02/2025 Active buPROPion HCl ER (SR) 150 MG 1 tab(s) orally 2 times a day; Duration: 90 days Active Furosemide 20 MG 1 tab(s) orally once a day as needed; Duration: 90 days 04/19/2022 Active ALPRAZolam 0.25 MG TAKE 1 TABLET BY MOUTH EVERY 8 HOURS; Duration: 30 02/27/2025 Active ALBUTEROL (EQV-PROAIR HFA) 90 MCG/INH 2 PUFF(S) INHALED EVERY 6 HOURS NEEDED FOR SOA; Duration: 30 DAYS *Please review for potential replacement for e-prescription and drug interaction check* Active Albuterol Sulfate (2.5 MG/3ML) 0.083% 3 ml by nebulizer every 4 hours prn; Duration: 30 day(s) 06/20/2021 Active busPIRone HCl 10 MG 1 tab(s) orally three times a day; Duration: 90 days Active Trelegy Ellipta 100 MCG-62.5 MCG-25 MCG/INH 1 PUFF(S) INHALED ONCE A DAY; Duration: 90 DAYS *Please review and pick correct strength-formulati on from Teracentspan options. If intended option is not shown, discontinue and re-order from Quick Search* Active Cyclobenzaprine HCl 5 MG TAKE 1 TABLET BY MOUTH EVERY DAY AT BEDTIME; Duration: 90 Active Topiramate 25 MG 1 tablet Orally Once a day Active Immunizations Vaccine Route Administration Date Status Comme nts Boostrix IM Intramuscular 04/01/2025 Administered Flublok IM Intramuscular 09/21/2020 Administered Flublok IM Intramuscular 08/10/2024 Administered Fluvirin--Influenza vaccine 3+ year IM Intramuscular 06/21/2011 Administered Fluvirin--Influenza vaccine 3+ year IM Intramuscular 07/16/2012 Administered Fluvirin--Influenza vaccine 3+ year IM Intramuscular 06/29/2013 Administered Fluvirin--Influenza vaccine 3+ year IM Intramuscular 07/05/2015 Administered Exp date-02/2016 FLUZONE 6MO - OLDER IM Intramuscular 09/23/2019 Administer ed Influenza-Fluzone 3+years (NON-MEDICARE) IM Intramuscular 10/16/2016 Administered Given by Nataliya-10/14/16- Rt arm Influenza-Fluzone 3+years (NON-MEDICARE) IM Intramuscular 07/25/2017 Administered Influenza-Fluzone 3+years (NON-MEDICARE) IM Intramuscular 07/24/2018 Administered PCV-21 (Pneumococcal conjugate 20) IM Intramuscular 04/01/2025 Administered Pneumococcal Vaccine IM Intramuscular 09/20/2010 Administe red Prevnar PCV-13 (Pneumococcal conjugate 13) IM Intramuscular 12/19/2015 Administered Social History Tobacco Use: Social History [...] Problem Status W/U Status Risk Notes Problem Benign neoplasm of right breast (215770188031173) Benign neoplasm of right breast (D24.1) Active confirmed Problem Chronic pain (22285334) Other chronic pain (G89.29) Active confirmed Problem Mucopurulent chronic bronchitis (96157942) Mucopurulent chronic bronchitis (J41.1) Active confirmed Problem Chronic obstructive pulmonary disease (27133355) Chronic obstructive pulmonary disease, unspecified (J44.9) Active confirmed Problem Sciatica (08530604) Lumbago with sciatica, right side (M54.41) Active confirmed Problem Sciatica (10975804) Lumbago with sciatica, left side (M54.42) Active confirmed Problem Fibromyalgia (698433299) Fibromyalgia (M79.7) Active confirmed Problem Acute exacerbation of chronic obstructive airways disease (243321624) COPD with exacerbation (J44.1) Active confirmed Problem Constipation (20586653) Constipation (K59.00) Active confirmed Problem Paresthesia (76358645) Paresthesia (R20.2) Active confirmed Problem Hematuria (23396820) Hematuria (R31.9) Active confirmed Problem Tobacco use (510886499) Tobacco use disorder (Z72.0) Active confirmed Problem Essential hypertension (22055580) Essential hypertension (I10) Active confirmed Problem Psoriasis (6166004) Psoriasis (L40.9) Active co nfirmed Problem Weight loss (225577263) Weight loss (R63.4) Active confirmed Problem Acute exacerbation of chronic obstructive airways disease (948572355) COPD exacerbation (J44.1) Active confirmed Problem Idiopathic sleep related non-obstructive alveolar hypoventilation (199505684) Nocturnal hypoxia (G47.34) Active confirmed Problem Migraine (31374476) Migraine (G43.909) Active confirmed Problem Chronic migraine (565766065) Chronic migraine (G43.709) Active confirmed Problem Insomnia disorder related to another mental disorder (31064421) Insomnia due to mental condition (F51.05) Active confirmed Problem Mixed anxiety and depressive disorder (677399957) Anxiety associated with depression (F41.8) Active confirmed Problem Abnormal mammogram (747931137) Abnormal mammogram (R92.8) Active confirmed Problem Osteoarthritis (036018876) Arthritis of multiple sites (M19.90) Active confirmed Problem Arthropathy (142727382) Arthropathy, multiple sites (M12.9) Active confirmed Problem Varicose veins of bilateral lower limbs (92232725572054874) Spider veins of both lower extremities (I83.93) Active confirmed Problem Hyperlipidemia (19177034) Other and unspecified hyperlipidemia (E78.5) Active confirmed Problem Degeneration of lumbar intervertebral disc (46331641) Lumbar degenerative disc disease (M51.36) Active confirmed Problem Hyperlipidaemia (55523713) Hyperlipidemia, unspecified hyperlipidemia type (E78.5) Active confirmed Problem Alcohol abuse (65957873) Alcohol abuse (F10.10) Active confirmed Problem Daytime somnolence (062800504691) Daytime somnolence (R40.0) Active confirmed Problem Transient ischemic attack (117984995) TIA (transient ischemic attack) (G45.9) Active confirmed Problem Right sided abdominal pain (633131183) Right sided abdominal pain (R10.9) Active confirmed Problem Current drinker of alcohol (284907) Alcohol use (Z78.9) Active confirmed Problem Leukocytosis (028414976) Leukocytosis, unspecified (D72.829) Active confirmed Problem Gastroesophageal reflux disease (disorder) (522902747) Chronic GERD (K21.9) Active confirmed Problem Complicated migraine (250724139) Complicated migraine (G43.109) Active confirmed Problem Vitamin D deficiency (39183054) Unspecified vitamin D deficiency (E55.9) Active confirmed Problem Atrophic gastritis (36877839) Chronic gastritis without bleeding, unspecified gastritis type (K29.50) Active confirmed Problem Serum vitamin B12 low (421710436) Low vitamin B12 level (E53.8) Active confirmed Problem Major depression, single episode (34039542) Major depression, chronic (F32.9) Active confirmed Problem Insomnia (018002322) Secondary insomnia (G47.00) Active confirmed Problem Cerebrovascular disease (38835440) Cerebral microvascular disease (I67.9) Active confirmed Problem History of subarachnoid hemorrhage (602857937) History of subarachnoid hemorrhage (Z86.79) Active confirmed Vital Signs Heart Rate 72 /min 04/01/2025 Temperature 97.0 degrees Fahrenheit 04/01/2025 Blood pressure diastolic 80 mm Hg 04/01/2025 Height 5 ft 3 in in 04/01/2025 Blood pressure systolic 130 mm Hg 04/01/2025 Weight 146.6 lbs 04/01/2025 BMI 25.97 kg/m2 04/01/2025 Encounters Encounter Location Date Provider Diagnosis [facility] [address] [facility] [address] [place] [address] 01/09/2025 Provider Migration [facility] [address] [place] [address] 05/07/2024 Tamiko Russo Major depression, chronic F32.9 ; Anxiety associated with depression F41.8 ; History of subarachnoid hemorrhage Z86.79 ; Dermatitis L30.9 and Alcohol abuse F10.10 [facility] [address] [address] 07/22/2024 Tamiko Russo URI with cough and congestion J06.9 [facility] [address] [place] [address] 08/10/2024 Tamiko Russo Major depression, chronic F32.9 ; Anxiety associated with depression F41.8 ; History of subarachnoid hemorrhage Z86.79 ; Alcohol abuse F10.10 ; Chronic obstructive pulmonary disease, unspecified J44.9 ; Unspecified vitamin D deficiency E55.9 ; Other and unspecified hyperlipidemia E78.5 and Immunization(s) administered Z23 [facility] [address] [place] [address] 12/08/2024 Tamiko Russo Essential hypertensi on I10 and Upper back pain M54.9 [facility] [address] [place] [address] 12/22/2024 Tamiko Russo Essential hypertensi on I10 [facility] [address] [place] [address] 04/01/2025 Tamiko Russo Major depression, chronic F32.9 [...] screening mammogram Z12.31 and Skin abrasion T14.8XXA [facility] [address] [place] [address] 06/05/2024 Berry Max Major depression, chronic F32.9 [facility] [place] [address] [place] [address] 06/10/2024 Tamiko Rafaela [facility] [address] [place] [address] 06/22/2024 Tamiko Rafaela [facility] [address] [place] [address] 08/15/2024 Tamiko Rafaela [facility] [address] [facility] [address] [place] [address] 08/18/2024 Tamiko Rafaela [facility] [address] [place] [address] 09/02/2024 Berry Max Major depression, chronic F32.9 [facility] [address] [facility] [address] [place] [address] 09/28/2024 Berry Besson [facility] [place] [address] [place] [address], [place] [address] 01/05/2025 Berry Besson [facility] [address] [address] 02/24/2025 Berry Besson [facility] [address] [address] 03/02/2025 Berry Santana Assessments Encounter Date Diagnosis [...] 06/05/2024 Major depression, chronic (ICD-10 - F32.9) 07/22/2024 URI with cough and congestion (ICD-10 - J06.9) Discussed the etiology and expected course of a viral URI. Discussed supportive care and symptom management with PO fluids, Antipyretics, and antihistamines. Discussed the rational for not prescribing antibiotics for viral infection. Discussed the signs and symptoms of worsening condition and need for reassessment in clinic or ED. 08/10/2024 Anxiety associated with depression (ICD-10 - F41.8) continue buspar, SSRI and lower dose xanax 09/02/2024 Major depression, chronic (ICD-10 - F32.9) 12/08/2024 Essential hypertension (ICD-10 - I10) add losartan as noted, close FU in 2 weeks, monitor for symptoms. 12/08/2024 Upper back pain (ICD-10 - M54.9) improved 12/22/2024 Essential hypertension (ICD-10 - I10) Rec continue losartan, work on weight loss, good water intake. FU again in 3-4 months, sooner with concerns. 08/10/2024 Major depression, chronic (ICD-10 - F32.9) Overall her mood and energy have improved, tolerating current therapy. Reccommend no changes today. continue to work on cessation of alcohol use. Encouraged limiting to no more than one alcoholic drink per day. 04/01/2025 Routine medical exam (ICD-10 - Z00.00) Rec update vaccinations as noted and consider Shingrix series next visit. _update imaging as noted and encouraged to continue FU with NS at . 04/01/2025 Major depression, chronic (ICD-10 - F32.9) No changes recommended 04/01/2025 Anxiety associated with depression (ICD-10 - F41.8) continue buspar, SSRI and lower dose xanax 08/10/2024 History of subarachnoid hemorrhage (ICD-10 - Z86.79) has NS FU arranged 05/07/2024 Anxiety associated with depression (ICD-10 - F41.8) continue buspar, SSRI and lower dose xanax 05/07/2024 History of subarachnoid hemorrhage (ICD-10 - Z86.79) has NS FU arranged 08/10/2024 Alcohol abuse (ICD-10 - F10.10) 04/01/2025 History of subarachnoid hemorrhage (ICD-10 - Z86.79) 04/01/2025 Dermatitis (ICD-10 - L30.9) improved overall 08/10/2024 Chronic obstructive pulmonary disease, unspecified (ICD-10 - J44.9) 05/07/2024 Dermatitis (ICD-10 - L30.9) Continue topical triamcinolone and refer to dermatology 08/10/2024 Unspecified vitamin D deficiency (ICD-10 - E55.9) 04/01/2025 Nocturnal hypoxia (ICD-10 - G47.34) has O2 avaiable for use 04/01/2025 Alcohol abuse (ICD-10 - F10.10) encouraged cessation and certainly continued moderation 08/10/2024 Other and unspecified hyperlipidemia (ICD-10 - E78.5) 05/07/2024 Alcohol abuse (ICD-10 - F10.10) 08/10/2024 Immunization(s) administered (ICD-10 - Z23) 04/01/2025 Encounter for immunization (ICD-10 - Z23) [...] abrasion (ICD-10 - T14.8XXA) Plan Of Treatment Pending Test Test Name Order Date X ray : Chest 11/28/2016 X ray : Spines, Lumbosacral 04/06/2010 CT Scan : Chest, Without Contrast 2016 X ray : Hand, Left 04/06/2010 X ray : Wrist, Left 04/06/2010 Mammogram : Diagnostic 11/21/2020 Mammogram : Left breast 11/22/2020 EKG : In House 01/04/2017 Physical Therapy 02/08/2014 Ultrasound : Gallbladder 12/20/2010 Mammogram : Bilateral 06/01/2016 Mammogram : Bilateral 02/04/2013 Holter Monitor, 48 hour 07/24/2018 H-CBC with AUTO DIFF 12/19/2011 H-CBC with AUTO DIFF 02/06/2018 H-CBC with AUTO DIFF 09/12/2017 H-CBC with AUTO DIFF 12/20/2010 H-CBC with AUTO DIFF 08/25/2009 H-CBC with AUTO DIFF 04/14/2015 H-VITAMIN B12 09/12/2017 H-CMP 09/12/2017 H-CMP 12/19/2011 H-CMP 04/14/2015 H-CMP 12/20/2010 H-CMP 08/25/2009 H-BUN 11/14/2017 H-CREATININE SERUM 11/14/2017 H-LIPID PANEL 04/14/2015 H-LIPID PANEL 08/25/2009 H-LIPID PANEL 12/19/2011 H-LIPID PANEL 12/20/2010 H-LIPID PANEL 02/04/2013 H-TSH 12/19/2011 H-TSH 04/14/2015 H-TSH 08/25/2009 H-VIT D, 25-HYDROXY 04/14/2015 H-VIT D, 25-HYDROXY 12/19/2011 H-RHEUMATOID ARTHRITIS PROFILE 7 H-ANSON PROFILE 01/04/2017 H-H.PYLORI ANTIGEN 12/20/2010 C-FOLATE 02/17/2020 H-SS A 08/25/2009 H-SS B 08/25/2009 h-leutinizing hormone 03/10/2009 M-Complete Blood Count Auto Diff 019 M-Complete Blood Count Auto Diff 018 M-Complete Blood Count Auto Diff 023 M-Complete Blood Count Auto Diff 021 M-Comprehensive Metabolic Panel 11/11/19 21 M-Comprehensive Metabolic Panel 11/08/19 23 M-Comprehensive Metabolic Panel 08/13/20 18 M-Comprehensive Metabolic Panel 02/13/20 19 M-Comprehensive Metabolic Panel 05/18/20 19 M-Hemoglobin A1C 08/13/2018 M-Hemoglobin A1C 11/08/2022 M-Lipid Panel 11/08/2022 M-Lipid Panel 02/12/2019 M-Lipid Panel 08/13/2018 M-Lipid Panel 05/18/2019 M-Lipid Panel 11/11/2020 M-Thyroid Stimulating Hormone 08/13/2018 M-Thyroid Stimulating Hormone 11/08/2022 S-Rpsd-Xebxbwv Antibody Titer 03/15/2021 M-Vitamin B12 03/15/2021 M-Vitamin B12 11/11/2020 M-Vitamin B12 11/08/2022 M-Vitamin D 25 Hydroxy 11/08/2022 M-Vitamin D 25 Hydroxy 11/11/2020 M-Vitamin D 25 Hydroxy 03/15/2021 M-Vitamin D 25 Hydroxy 08/13/2018 M-Vitamin D 25 Hydroxy 05/18/2019 M-Vitamin D 25 Hydroxy 02/12/2019 CT Scan : Chest, Lung Cancer Screening 0 04/01/2025 M-COVID PCR SINGLE RAPID 06/20/2021 M-COVID PCR SINGLE RAPID 01/30/2021 Rapid Covid Antigen 03/01/2021 Rapid Covid Antigen 09/13/2021 Mammogram: Screening 04/01/2025 Insurance Providers Payer Name Payer Address Payer Phone Subscriber Number Group Number Insured Name Patient Relationship to Insured Coverage Start Date Coverage End Date R [address] [address] [place] [address] [id number] [id number] Ellyn Salas Self - patient is the insured Medications [...] years recommended Subarachnoid Hemorrhage 04/2023, treated at [facility] Nocturnal Hypoxia, started on supplement al O2 12/2023 Surgical History Surgery Date(Month/Year) back surgery 12/2018 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
--- OUTSIDE RECORDS SUMMARY | 2025-04-13 15:51 | XMS_ITS | Encounter Summary ---
Author Organization [facility] Address [address] [place] [address] Care Team Providers Care Electric Motor Assembler Name Role Phone RafaelaTamiko sims Dom HAYNES Primary Care Provider [phone] Carline Ballesteros PA Unavailable [phone] Encounter Details Date Type Department Care Team [...] documented as of this encounter Care Teams Electric Motor Assembler Relationship Specialty Start Date End Date Tamiko Russo APRN [facility] [place] [address] PCP - General 04/03/23 Carline Ballesteros PA [address] [address] Physician Sprayer Insecticide Neurosurgery 05/06/23 documented as of this encounter
--- OUTSIDE RECORDS SUMMARY | 2025-04-13 15:51 | XMS_ITS | Encounter Summary ---
Author Organization Healthcare Address [address] [place] [address] Care Team Providers Care Animal Care Provider Name Role Phone Tamiko Russo [place] Primary Care Provider [phone] Carline Ballesteros Unavailable [phone] Reason for Visit * Reason Comments Med Refill Encounter Details Date Type Department Care Team (Late st Contact Info) Description 07/30/2023 [facility]ill [facility] [address] [place] [address] Sayra Hogan PA [address] [place] [address] Social History Tobacco Use Types [...] her headaches are doing. She also sees Kwasi intwo days with new scan. Does she have enough until then? documented in this encounter Plan of Treatment Not on file documented as of this encounter Visit Diagnoses Not on filedocumented in this encounter Additional Health Concerns Assessment Noted Time A fall risk assessment has been complete d for the patient 05/06/2023 10:49 AM EDT documented as of this encounter Care Teams Animal Care Provider Relationship Specialty Start Date End Date Tamiko Russo APRN [address] [address] PCP - General 04/03/23 Carline Ballesteros PA [address] [facility] [address] [place] [address] Physician Manager Stone Neurosurgery 05/06/23 documented as of this encounter
--- OUTSIDE RECORDS SUMMARY | 2025-04-13 15:51 | XMS_ITS | Encounter Summary ---
Author Organization [facility] Address [address] [place] [address] Care Team Providers Care Manager Respiratory Name Role Phone Tamiko Russo D[place] Primary Care Provider [phone]- [phone] Carline Ballesteros Unavailable [phone] Reason for Visit * Reason Onset Date Comments HCN - Patient Message 04/30/2023 Post op qu estions and pain meds Encounter Details Date Type Department Care Team (Late st Contact Info) Description 04/30/2023 Telephone [place] [facility] [address] [place] [address] Carline Ballesteros PA [address] [place] [address] HCN - Patient Message (Post [...] hurting and needs something called in to [facility] in [place] Best contact number and optimal time of day to reach caller: [phone] Jayce Note: Please do not reply to this message. Follow-up communication and further actions as a result of this message need to be communicated with the patient directly, if the patient is not active onMyChart. If the patient is active on MyChart, they will receive notification of the communication/outcome via Biodirectionhart. documented in this encounter Plan of Treatment Not on file documented as of this encounter Visit Diagnoses Not on filedocumented in this encounter Care Teams Manager Respiratory Relationship Specialty Start Date End Date Tamiko Russo APRN [facility] [address] [address] PCP - General 04/03/23 Carline Ballesteros PA [id number] [place] [address] Physician Fence Gate Assembler Neurosurgery 05/06/23 documented as of this encounter
--- OUTSIDE RECORDS SUMMARY | 2025-04-13 15:51 | XMS_ITS | Encounter Summary ---
Author Organization [facility] Address [address] [place] [address] Care Team Providers Care Building Construction Teacher Name Role Phone Tamiko Russo Dom HAYNES Primary Care Provider [phone]- [phone] Carline Ballesteros PA Unavailable [phone] Encounter Details Date Type Department Care Team (Late st Contact Info) Description 03/04/2025 Orders Only [place] [facility] [address] [place] [address] Daniel Villalpando MD [address] [place] [address] Pre-op exam (Primary Dx); Cerebral [...] documented as of this encounter Care Teams Building Construction Teacher Relationship Specialty Start Date End Date Tamiko Russo APRN [id number] PCP - General 04/03/23 Carline Ballesteros PA [address] [address] Physician Healthcare Specialist Neurosurgery 05/06/23 documented as of this encounter
--- OUTSIDE RECORDS SUMMARY | 2025-04-13 15:51 | XMS_ITS | Encounter Summary ---
Author Organization [facility] Address [address] [place] [address] Care Team Providers Care Facilities Engineer Name Role Phone Tamiko Russo D[place] Primary Care Provider [phone]- [phone] Carline Ballesteros PA Unavailable [phone] Encounter Details Date Type Department Care Team (Late st Contact Info) Description 03/05/2025 Telephone [place] [facility] [address] [place] [address] Carline Ballesteros PA [address] [place] [address] Social History Tobacco Use Types Packs/Day Years Used Date Smoking Tobacco: Former Cigarettes 993 - 2022 Passive Smoke Exposure: Never [...] Rogelio Maxwell documented as of this encounter Miscellaneous Notes * Telephone Encounter - MichaelferminLala - 03/05/2025 12:43 PM EDT Patient Phone Message Reason for Call: Can CT order be placed at [facility] instead? Best contact number and optimal time of day to reach caller: [phone] Note: Please do not reply to this message. Follow-up communication and further actions as a result of this message need to be communicated with the patient directly, if the patient is not active onMyChart. If the patient is active on MyChart, they will receive notification of the communication/outcome via Sendmybag. documented in this encounter Plan of Treatment [...] documented as of this encounter Care Teams Facilities Engineer Relationship Specialty Start Date End Date Tamiko Russo APRN [address] [facility] [address] [place] [address] PCP - General 04/03/23 Carline Ballesteros PA [address] [facility] [address] [place] [address] Physician Processing Archivist Neurosurgery 05/06/23 documented as of this encounter
--- OUTSIDE RECORDS SUMMARY | 2025-04-13 15:51 | XMS_ITS | Encounter Summary ---
Author Organization [facility] Address [address] [place] [address] Care Team Providers Care Manager Entry Name Role Phone Tamiko Russo Dom HAYNES Primary Care Provider [phone]- [phone] Carline Ballesteros PA Unavailable [phone] Reason for Referral * Imaging (Routine) - Pending Review Specialty Diagnoses / Procedures Referred By Contac t Referred To Contact Radiology Diagnoses Hydrocephalus, acquired (CMS/HCC) Cerebral arterial aneurysm Procedures MR Angio Head wo IV Contrast Daniel Villalpando MD [id number] [place] [address] Phone: tel: fax: Referral ID Status Reason Start Date Expiration Date V isits Requested Visits Authorized [id number] Pending Review 02/16/2025 08/18/2026 1 1 Encounter Details Date Type Department Care Team (Late st Contact Info) Description 02/16/2025 Orders Only [place] [facility] [address] [place] [address] Daniel Villalpando MD [address] [facility] [address] [place] [address] Hydrocephalus, acquired (CMS/HCC) (Primary Dx); [...] as of this encounter Plan of Treatment Scheduled Orders [...] documented as of this encounter Care Teams Manager Entry Relationship Specialty Start Date End Date Tamiko Russo APRN [address] [address] PCP - General 04/03/23 Carline Ballesteros PA [address] [facility] [address] [place] [address] Physician Truckload Owner Operator Neurosurgery 05/06/23 documented as of this encounter
--- NOTE | 2025-04-13 15:52 | MM_ITS ---
PROCEDURE INFORMATION: Exam: MG Bilateral Screening 3D Mammography Exam date and time: 04/13/2025 3:56 PM Age: 55 years old Clinical indication: Screening examination TECHNIQUE: Imaging protocol: Bilateral Screening tomosynthesis and 2D mammography including computer-aided detection (CAD) when performed. COMPARISON: 1. MG MM DIG SCREENING MAMM BI W/CAD 05/29/2023 10:09 AM 2. MG MM DIG MAMM BI DX W/CAD 11/22/2020 2:13 PM FINDINGS: MAMMOGRAPHY: Breast composition: There are scattered areas of fibroglandular density. Mass: None. Architectural distortion: None. Calcifications: No suspicious calcifications. Asymmetric density: None. Skin thickening: None. Axillary adenopathy: None. IMPRESSION: No mammographic evidence of malignancy. Annual screening is recommended unless otherwise clinically indicated. ASSESSMENT: BI-RADS Category 1: Negative.
== END 2025-04-13 23:59 | disposition home or self-care (01) ==
LOC: RAD 15:49
PROVIDERS: PCP Nurse Practitioner Family; Visit Provider Nurse Practitioner Family
DX: Z12.31 Encounter for screening mammogram for malignant neoplasm of breast (principal); R92.323 Mammographic fibroglandular density, bilateral breasts
CPT/HCPCS: 77063; 77067

== ENCOUNTER 2025-04-20 15:19 | Outpatient (CLI) | payer OTHER, SELFPAY ==
--- OUTSIDE RECORDS SUMMARY | 2025-01-09 17:30 | XMS_ITS ---
Author Organization [facility] D JAVIER Address [address] [facility] [address] [place] [address] Care Team Providers Care Fibrous Plasterer Name Role Phone Berry Santana Primary Care Provider Tamiko Russo Unavailable [phone] Migration, Provider Unavailable Unavailable Allergies Allergen (clinical drug ingredient) Drug/Non Drug Allergy documented on EMR Reaction Allergy Type Onset Date Status KEFLEX (uncoded) Unknown Allergy Act angie PREDNISONE-ORAL FORM (uncoded) hives Allergy Active TYLENOL # 3 (uncoded) Unknown Allergy Active REASON FOR VISIT [facility] To [facility] Conversion Encounter Medications Medication SIG (Take, Route, Frequency, Duration) Notes Start Date End Date Status Gabapentin 300 MG 2 caps orally once daily at bedtime; Duration: 30 days 01/05/2025 Active Losartan Potassium 50 MG 1 tab(s) orally once a day; Duration: 90 days 12/08/2024 Active PARoxetine HCl 40 MG 1 tab(s) orally once a day; Duration: 90 days Active ARIPiprazole 10 MG 1 tab(s) orally once a day; Duration: 90 days Active ALPRAZolam 0.25 MG 1 tab(s) orally every 8 hours; Duration: 30 days 10/19/2024 Active Metoprolol Succinate ER 50 MG Take 1 tablet by mouth once daily; Duration: 90 Active Omeprazole 40 MG 1 cap(s) orally once a day; Duration: 90 days Active Meloxicam 15 MG 1 tab(s) orally once a day for arthritis pain; Duration: 90 days Active Atorvastatin Calcium 20 MG 1/2 tab(s) orally once a day; Duration: 30 days Active buPROPion HCl ER (SR) 150 MG 1 tab(s) orally 2 times a day; Duration: 90 days Active Cyclobenzaprine HCl 5 MG 1 tab(s) orally at bedtime; Duration: 90 days Active busPIRone HCl 10 MG 1 tab(s) orally three times a day; Duration: 90 days Active Terbinafine HCl 1 % 1 tucker applied topically 2 times a day; Duration: 14 days 12/05/2023 Active Albuterol Sulfate (2.5 MG/3ML) 0.083% 3 ml by nebulizer every 4 hours prn; Duration: 30 day(s) 06/20/2021 Active Trelegy Ellipta 100 MCG-62.5 MCG-25 MCG/INH 1 PUFF(S) INHALED ONCE A DAY; Duration: 90 DAYS *Please review and pick correct strength-formulati on from [employer] options. If intended option is not shown, discontinue and re-order from Quick Search* Active Furosemide 20 MG 1 tab(s) orally once a day as needed; Duration: 90 days 04/19/2022 Active ALBUTEROL (EQV-PROAIR HFA) 90 MCG/INH 2 PUFF(S) INHALED EVERY 6 HOURS NEEDED FOR SOA; Duration: 30 DAYS *Please review for potential replacement for e-prescription and drug interaction check* Active Encounters Encounter Location Date Provider Diagnosis [facility] IM P[facility] [address] [facility] [address] [place] [address] 01/09/2025 Provider Migration Plan Of Treatment Medication Medication Name Sig Start Date Stop Date Notes Gabapentin 300 MG 2 caps orally once d aily at bedtime; Duration: 30 days 01/05/2025 Progress Notes * Ellyn SALASDOB:[birth year] (55 yo F)Acc No.[id number]:01/09/2025 Patient: Kandace CHAUDHRYEllyn Provider: Paulie weir Migration :1970 A ge:54 Y S ex:Female Date:01/09/2025 Address:[address] [place] [address], [id number] Pcp:Berry Santana Subjective: * Chief Complaints: * 1 . [facility] To [facility] Conversion Encounter. * Medical History: * Medications: [...] *Please review and pick correct strength-formulation from [facility] options. If intended option is not [...] Treatment: * * Electronic signature of Prov mercedes Migration on 04/20/2025 at 03:21 PM EDT Sign off status: Pending * Provider: Paulie weir Migration Date: 0 01/09/2025 Generated for Rogelio sanders/Immanuel/Kristaitting on: 0 04/20/2025 03:21 PM EDT
--- OUTSIDE RECORDS SUMMARY | 2025-03-04 11:00 | XMS_ITS | Encounter Summary ---
Author Organization [facility] Address [address] [place] [address] Care Team Providers Care Mig Tig Welder Name Role Phone Tamiko Rusos [place] Primary Care Provider [phone] Carline Ballesteros Unavailable [phone] Reason for Referral * Imaging (Routine) - Authorized Specialty Diagnoses / Procedures Referred By Contac t Referred To Contact Diagnoses SAH (subarachnoid hemorrhage) ([facility]) Procedures CT Head wo IV Contrast Carline Ballesteros PA [address] [address] Phone: tel: fax: Referral ID Status Reason Start Date Expiration Date V isits Requested Visits Authorized [id number] Authorized 03/04/2025 09/03/2026 1 1 * Consultation (Routine) - Authorized Specialty Diagnoses / Procedures Referred By Contac t Referred To Contact Neurology Diagnoses Intractable headache, unspecified chronicity pattern, unspecified headache type Memory changes Carline Ballesteros PA [address] [address] Phone: tel: fax: Referral ID Status Reason Start Date Expiration Date Visits Requested Visits Authorized [id number] Authorized Specialty Services Required 03/04/2025 09/03/2026 1 1 Scheduling Instructions Please schedule locally for eval Encounter Details Date Type Department Care Team (Late st Contact Info) Description 03/04/2025 11:00 AM EDT Office Visit [place] [facility] [address], [address] [place] [address] Carline Ballesteros PA [address] [place] [address] Cerebral arterial aneurysm (Primary Dx); Pre-op exam; Intractable headache, unspecified chronicity pattern, unspecified headache type; Memory changes; SAH (subarachnoid hemorrhage) ([facility]) Social History Tobacco Use Types Packs/Day Years Used Date Smoking Tobacco: Former Cigarettes 2 30 1 - 2022 Passive Smoke Exposure: Never Smokeless Tobacco: Never Tobacco Cessation:Counseling Given: Not Answered Alcohol Use Standard Drinks/Week Comments Yes 4 (1 standard drink = 0.6 oz pur e alcohol) PHQ-2 Answer Date Recorded Patient Health Questionnaire-2 Score 0 03/04/2025 Comments No Sex and Gender Information Value Date Recorded Sex Assigned at Female 04/20/2023 6:58 AM EDT Legal Sex Female 6:00 PM EDT Gender Identity Female 04/20/2023 6:58 AM EDT Sexual Orientation Not on file documented as of this encounter Last Filed Vital Signs Vital Sign Reading Time Taken Comments Blood Pressure 138/76 03/04/2025 10:53 AM EDT Pulse 72 03/04/2025 10:53 AM EDT Temperature - - Respiratory Rate - - Oxygen Saturation 98% 03/04/2025 10: 53 AM EDT Inhaled Oxygen Concentration - - Weight 68.9 kg (151 lb 14.4 oz) 025 10:53 AM EDT Height 157.5 cm (5' 2 ) 03/04/2025 10:5 3 AM EDT Body Mass Index 27.78 03/04/2025 10:53 AM EDT documented in this encounter Functional Status * Over the past 2 weeks, how often have you been bothered by any of the following problems? Question Answer Date of Assessment Author Little interest or pleasure in doing things Not at all 03/04/2025 11:04 AM EDT Jeff Child Feeling down, depressed, or hopeless Not at all 02/05 11:04 AM EDT Jeff Child Patient Health Questionnaire-2 Score 0 02/05 11:04 AM EDT Jeff Child documented as of this encounter Miscellaneous Notes * Progress Notes - Carline Ballesteros PA - 03/04/2025 11:00 AM EDT Dear Tamiko Russo, [place], We had the pleasure of seeing your patient in our neurosurgical clinic today. HISTORY OF PRESENT ILLNESS: Ellyn Salas is a 54 y.o. year old female with right pcomm aneurysm h/o SAH s/p coiling 04/03/2023 with secondary HCP s/p Right Frontal Certas 04/20/2023, last set to 4. Still having STM issues forgetful, feels like she has ADHD. Headaches can be bad, back of head to top, have to lay down for 1-2 hours, dizziness/lightheaded, no spinning + blurry vision. Headaches are thumping different than her migraine. PMH: Problem List[1] Past Medical History: Diagnosis Date Anxiety disorder, unspecified Anxiety and depression Cerebral infarction, unspecified (CMS/HCC) Mini stroke History of mood disorder 04/04/2023 Continue Paxil, Abilify today Resume Wellbutrin/Buspar as appropriate Hypertension Personal history of other diseases of the musculoskeletal system and connective tissue History of arthritis Personal history of other diseases of the musculoskeletal system and connective tissue History of fibromyalgia PSH: Surgical History[2] Social History[3] Family History[4] Immunization History Administered Date(s) Administered Influenza, injectable, MDCK, preservative free, quadrivalent 10/14/2016 Influenza, injectable, quadrivalent 07/25/2017, 07/24/2018 Influenza, injectable, quadrivalent, preservative free 09/23/2019 Influenza, recombinant, quadrivalent, injectable, preservative free 09/21/2020 [employer] COVID-19 Vaccine (Purple Cap) 12+ 03/16/2021, 04/06/2021 Allergies[5] Medications Ordered Prior to Encounter[6] ROS: A 14 point review of systems was completed and reviewed. Negative other than indicated above in the history of present illness. Last Recorded Vitals Visit Vitals BP 138/76 (BP Location: Right arm, Patient Position: Sitting, BP Cuff Size: Adult) Pulse 72 Ht 1.575 m (5' 2 ) Wt 68.9 kg (151 lb 14.4 oz) SpO2 98% BMI 27.78 kg/m?? OB Status Perimenopausal Smoking Status Former BSA 1.74 m?? PHYSICAL EXAM: -Constitutional: Well developed, well nourished. No acute distress. Alert and oriented to person, place, and time. -Head, Eyes, Nose, Throat: Normocephalic, atraumatic. Pupils are equally round and reactive to light. Extra-ocular movements are intact without nystagmus. Oral mucosa is pink and moist. -Musculoskeletal: Moves all 4 extremities equally. Gait is steady and independent without spasticity. -Extremities: There is no clubbing, cyanosis, or edema. There is no pronator drift. -Neurologic: Alert and Oriented to person, place, and time. Speech is fluent. Patient follows commands and interacts appropriately. ASSESSMENT AND PLAN: Ellyn Salas is a 54 y.o. year old female with: Right pcomm aneurysm h/o SAH s/p coiling 04/03/2023 with secondary HCP Due to reassessment of aneurysm Decision for MAJOR procedure: Cerebral Catheter Angiography with Dr. Villalpando with [facility] on 03/29/2025. Ordering labs: BMP CBC PT PTT NPO after midnight Secondary HCP s/p Right Frontal Certas 04/20/2023, last set to 4 With headaches would like to rule out shunt malfunction F/U with CT third green party to evaluate Will start Topamax 25 mg tapering up to 50 BID Headaches/STM/post SAH Refer to Neurology near [facility] HTN, chronic, stable BP Readings from Last 3 Encounters: 03/04/25 138/76 08/02/23 124/84 05/06/23 110/70 Risk Discussion and Counseling: We discussed the risks and benefits of cerebral catheter angiography including but not limited to access site hematoma, infection, arterial injury, stroke, or brain hemorrhage with complication risk of less than 2%. Patient specific comorbidities that pose further risk of karan-procedural complication include: COPD, HTN, tob use. Consent was signed as benefits outweigh the risk. Thank you. If there are any questions or concerns please feel free to contact us: [facility] Department of Neurosurgery [address], [place] [address] [place], [place] [id number] ; [1] Patient Active Problem List Diagnosis COPD (chronic obstructive pulmonary disease) ([facility]) Smoker Hypertension TIA (transient ischemic attack) Anxiety History of hyperlipidemia GERD (gastroesophageal reflux disease) Chronic pain Back pain Hyperlipidemia Lumbar disc herniation with radiculopathy [2] Past Surgical History: Procedure Laterality Date BACK SURGERY N/A Back Surgery from [employer] [3] Social History Tobacco Use Smoking status: Former Current packs/day: 0.00 Average packs/day: 2.0 packs/day for 30.0 years (60.0 ttl pk-yrs) Types: Cigarettes Start date: 1992 Quit date: 2022 Years since quittin.4 Passive exposure: Never Smokeless tobacco: Never Substance Use Topics Alcohol use: Yes Alcohol/week: 4.0 standard drinks of alcohol Types: 4 Cans of beer per week Drug use: Never [4] Family History Problem Relation Name Age of Onset Cardiac disorder Mother Stroke Mother Diabetes Mother Other cancer Mother Breast cancer Mother Colon cancer Mother [5] Allergies Allergen Reactions Cephalexin Rash, Other - please document in the comment field and Unknown - Patient states they do not know rxn details Codeine Dizziness Prednisone Rash and Unknown - Patient states they do not know rxn details Pt states that she can't tolerate PO but can tolerate IV. Tylenol With Codeine #3 [Acetaminophen-Codeine] Rash [6] Current Outpatient Medications on File Prior to Visit Medication Sig Dispense Refill albuterol 108 (90 Base) MCG/ACT inhaler Inhale 2 puffs every 4 (four) hours if needed. ALPRAZolam (Xanax) 0.25 MG tablet Take 1 tablet by mouth 3 times a day as needed. ARIPiprazole (Abilify) 5 MG tablet Take 1 tablet (5 mg) by mouth 1 (one) time each day. atorvastatin (Lipitor) 10 MG tablet Take 1 tablet (10 mg) by mouth 1 (one) time each day. buPROPion SR (Wellbutrin SR) 150 MG 12 hr tablet Take 1 tablet by mouth 2 times a day. busPIRone (Buspar) 10 MG tablet Take 1 tablet (10 mg) by mouth 3 (three) times a day. cetirizine (ZyrTEC) 10 MG tablet 1 (one) time each day at the same time. cyclobenzaprine (Flexeril) 5 MG tablet Take 1 tablet (5 mg) by mouth every night. Wzpseedjvys-Nfjdphnae-Fdywad (Trelegy Ellipta) 100-62.5-25 MCG/ACT aerosol powder 1 (one) time eachday at the same time. furosemide (Lasix) 20 MG tablet Take 1 tablet (20 mg) by mouth 1 (one) time each day if needed. gabapentin (Neurontin) 300 MG capsule Take 2 capsules (600 mg) by mouth every night. losartan (Cozaar) 50 MG tablet Take 1 tablet by mouth Daily. meloxicam (Mobic) 15 MG tablet Take 1 tablet (15 mg) by mouth 1 (one) time each day. metoprolol succinate XL (Toprol-XL) 50 MG 24 hr tablet Take 1 tablet (50 mg) by mouth 1 (one) time each day. omeprazole (PriLOSEC) [address] capsule Take 1 capsule (40 mg) by mouth 1 (one) time each day. PARoxetine (Paxil) 40 MG tablet Take 1 tablet (40 mg) by mouth 1 (one) time each day. pravastatin (Pravachol) 20 MG tablet Take 1 tablet (20 mg) by mouth 1 (one) time each day. ALPRAZolam (Xanax) 0.5 MG tablet Take 1 tablet (0.5 mg) by mouth 3 (three) times a day. (Patient not taking: Reported on 03/04/2025) ALPRAZolam (Xanax) 0.5 MG tablet (Patient not taking: Reported on 03/04/2025) atorvastatin (Lipitor) 20 MG tablet Take 1 tablet (20 mg) by mouth 1 (one) time each day. (Patient not taking: Reported on 03/04/2025) buPROPion XL (Wellbutrin XL) 300 MG 24 hr tablet Take 1 tablet (300 mg) by mouth 1 (one) time each day. (Patient not taking: Reported on 03/04/2025) buPROPion XL (Wellbutrin XL) 300 MG 24 hr tablet (Patient not taking: Reported on 03/04/2025) busPIRone (Buspar) 10 MG tablet every 8 (eight) hours. (Patient not taking: Reported on 03/04/2025) emfajtkhhk-oigvmzalunrrw-eulhlhgh (Esgic) 50-325-40 MG tablet Take 1 tablet by mouth every four hours as needed for post-op headache. Do not exceed 6 tablets per 24 hours. (Patient not taking: Reported on 03/04/2025) 42 tablet 0 cyclobenzaprine (Flexeril) 5 MG tablet (Patient not taking: Reported on 03/04/2025) ergocalciferol (Vitamin D-2) 1.25 MG (12160 UT) capsule (Patient not taking: Reported on 03/04/2025) gabapentin (Neurontin) 300 MG capsule 1 cap(s) orally 2 times a day PRN back pain for 30 days (Patient not taking: Reported on 03/04/2025) meloxicam (Mobic) 15 MG tablet 1 tab(s) orally once a day for arthritis pain for 90 days (Patient not taking: Reported on 03/04/2025) omeprazole (PriLOSEC) [address] capsule 1 (one) time each day at the same time. (Patient not taking:Reported on 03/04/2025) triamcinolone (Kenalog) 0.1 % ointment Apply 1 Application topically 2 (two) times a day. (Patient not taking: Reported on 03/04/2025) No current facility-administered medications on file prior to visit. documented in this encounter Plan of Treatment Scheduled Orders Name Type Priority Associated Diagnoses Orde r Schedule CT Head wo IV Contrast Imaging Routine SAH (subarachnoid hemorrhage) ([facility]) Expected: 03/18/2025 (Approximate), Expires: 09/04/2026 Scheduled Referrals Name Type Priority Associated Diagnoses Orde r Schedule Ambulatory referral to Neurology Outpatient Referral Routine Intractable headache, unspecified chronicity pattern, unspecified headache type Memory changes Expected: 03/04/2025 (Approximate), Expires: 09/04/2026 documented as of this encounter Results * (ABNORMAL) hCG, Total Beta, Quantitative, Plasma (03/04/2025 12:14 PM EDT) hCG, Total Beta 17.8(H) <5 mIU/mL 03/04/2025 2:[address] [facility] Blood Venous blood specimen / Unknown Venipuncture / Unknown 03/04/2025 12:14 PM EDT 03/04/2025 12:[address] [facility] - 03/04/2025 2:22 PM EDT Patients: Normal Range Premenopausal Female < 5 mIU/mL Male < 3 mIU/mL Postmenopausal Female < 8 mIU/mL The [employer] Elecsys hCG+beta assay is standardized to the 4th IS for Chorionic Gonadotropin. The combination of the specific monoclonal antibodies used in this assay recognizes the holo-hormone, nicked forms of hCG, the Beta-core Fragment and the free beta-subunit. Elevated hCG concentrations not associated with are found in patients with gestational trophoblastic disease and choriocarcinoma as well as germ cell, ovarian, bladder, pancreas, stomach, lung and liver tumors. Performed by the [employer] electrochemiluminescent immunoassay which is traceable to the 4th International Standard for hCG (NIBSC 75/589). Results obtained with different test methods or kits cannot be used interchangeably. us Carline PHILLIPS [facility] BLOOD ORDERABLES Final R esult [facility] [address] [place] [address] * Protime-INR (03/04/2025 12:14 PM EDT) Prothrombin Time 12.3 12.0 - 14.3 sec LAB COAGULATION METHOD 03/04/2025 1:[address] [facility] INR 0.9 0.9 - 1.1 LAB COAGULATION METHOD 03/04/2025 1:[address] [facility] Blood Venous blood specimen / Unknown Venipuncture / Unknown 03/04/2025 12:14 PM EDT 03/04/2025 12:[address] [facility] - 03/04/2025 1:56 PM EDT OPTIMAL INR RANGES FOR PATIENT ON ORAL ANTICOAGULANT THERAPY Prevention of venous thromboembolism INR 2.0 to 3.0 In patients with heart disease: Atrial fibrillation INR 2.0 to 3.0 Valvular heart disease INR 2.0 to 3.0 Tissue heart valves INR 2.0 to 3.0 Mechanical prosthetic valves INR 2.5 to 3.5 Prevention of recurrent [place] INR 2.5 to 3.5 Carline PHILLIPS [facility] BLOOD ORDERABLES Final R esult Performing Organization Address City/[facility]/ZIP Co de Phone Number [facility] [address] [place] [address] * (ABNORMAL) APTT (03/04/2025 12:14 PM EDT) aPTT 24(L) 25 - 35 sec LAB COAGULATION METHOD 03/04/2025 1:[address] [facility] Blood Venous blood specimen / Unknown Venipuncture / Unknown 03/04/2025 12:14 PM EDT 03/04/2025 12:15 PM EDT us Carline PHILLIPS LAB BLOOD ORDERABLES Final R esult Performing Organization Address City/[facility]/ZIP Co de Phone Number [facility] [address] [place] [address] * (ABNORMAL) CBC and differential (03/04/2025 12:14 PM EDT) Pathologist [facility] WBC Count 4.30 3.70 - 10.30 10*3/uL LAB HEMATOLOGY METHOD 03/04/2025 1:[address] [facility] RBC Count 4.93 3.90 - 5.20 10*6/uL LAB HEMATOLOGY METHOD 03/04/2025 1:[address] [facility] HGB 13.0 11.2 - 15.7 g/dL LAB HEMATOLOGY METHOD 03/04/2025 1:[address] [facility] HCT 43.3 34.0 - 45.0 % LAB HEMATOLOGY METHOD 03/04/2025 1:[address] [facility] Platelet Count 234 155 - 369 10*3/uL LAB HEMATOLOGY METHOD 03/04/2025 1:[address] [facility] MCV 88 79 - 98 fL LAB HEMATOLOGY METHOD 03/04/2025 1:[address] [facility] MCH 26.4 26.0 - 32.0 pg LAB HEMATOLOGY METHOD 03/04/2025 1:[address] [facility] MCHC 30.0(L) 30.7 - 35.5 g/dL LAB HEMATOLOGY METHOD 03/04/2025 1:[address] [facility] RDW 13.2 11.5 - 14.5 % LAB HEMATOLOGY METHOD 03/04/2025 1:[address] [facility] MPV 11.2 8.8 - 12.5 fL LAB HEMATOLOGY METHOD 03/04/2025 1:[address] [facility] nRBC 0.0 <=0.0 per 100 WBCs LAB HEMATOLOGY METHOD 03/04/2025 1:[address] [facility] Differential Type Automated LAB HEMATOLOGY METHOD 03/04/2025 1:[address] [facility] Neutrophils % 56 % LAB HEMATOLOGY METHOD 03/04/2025 1:[address] [facility] Lymphocytes % 30 % LAB HEMATOLOGY METHOD 03/04/2025 1:[address] [facility] Monocytes % 11 % LAB HEMATOLOGY METHOD 03/04/2025 1:[address] [facility] Eosinophils % 2 % LAB HEMATOLOGY METHOD 03/04/2025 1:[address] [facility] Basophils % 1 % LAB HEMATOLOGY METHOD 03/04/2025 1:[address] [facility] Immature Granulocytes % 0 % LAB HEMATOLOGY METHOD 03/04/2025 1:[address] [facility] Neutrophils Absolute 2.43 1.60 - 6.10 10*3/uL LAB HEMATOLOGY METHOD 03/04/2025 1:[address] [facility] Lymphocytes Absolute 1.28 1.20 - 3.90 10*3/uL LAB HEMATOLOGY METHOD 03/04/2025 1:[address] [facility] Monocytes Absolute 0.47 0.30 - 0.90 10*3/uL LAB HEMATOLOGY METHOD 03/04/2025 1:[address] [facility] Eosinophils Absolute 0.08 0.00 - 0.50 10*3/uL LAB HEMATOLOGY METHOD 03/04/2025 1:[address] [facility] Basophils Absolute 0.03 0.00 - 0.10 10*3/uL LAB HEMATOLOGY METHOD 03/04/2025 1:[address] [facility] Immature Granulocytes Absolute 0.01 0.00 - 0.06 10*3/uL LAB HEMATOLOGY METHOD 03/04/2025 1:[address] [facility] Blood Venous blood specimen / Unknown Venipuncture / Unknown 03/04/2025 12:14 PM EDT 03/04/2025 12:[address] [facility] - 03/04/2025 1:57 PM EDT Therapeutic decision making should be based on absolute values, rather than percentages. us Carline PHILLIPS [facility] BLOOD ORDERABLES Final R esult [facility] [address] [place] [address] * (ABNORMAL) Basic metabolic panel (03/04/2025 12:14 PM EDT) Glucose, Plasma 97 74 - 99 mg/dL 03/04/2025 2:[address] [facility] BUN, Plasma 7 7 - 21 mg/dL 03/04/2025 2:[address] [facility] Creatinine, Plasma 0.85 0.60 - 1.10 mg/dL 03/04/2025 2:[address] [facility] BUN/Creatinine Ratio 8 03/04/2025 2:[address] [facility] Sodium, Plasma 132(L) 136 - 145 mmol/L 03/04/2025 2:[address] [facility] Potassium, Plasma 4.3 3.6 - 4.9 mmol/L 03/04/2025 2:[address] [facility] Chloride, Plasma 96(L) 97 - 107 mmol/L 03/04/2025 2:[address] [facility] CO2, Plasma 22 22 - 29 mmol/L 03/04/2025 2:[address] [facility] Anion Gap 14 6 - 16 mmol/L 03/04/2025 2:[address] [facility] Total Calcium, Plasma 9.5 8.9 - 10.2 mg/dL 03/04/2025 2:[address] [facility] eGFRcr 81.5 mL/min/1.7 3m*2 03/04/2025 2:[address] [facility] Comment:Reported eGFRcr in m L/min/1.73m2 is based the CKD-EPI 2020 equation that does not use a race coefficient. Blood Venous blood specimen / Unknown Venipuncture / Unknown 03/04/2025 12:14 PM EDT 03/04/2025 12:15 PM EDT us Carline PHILLIPS [facility] BLOOD ORDERABLES Final R esult [facility] [address] [place] [address] documented in this encounter Visit Diagnoses Diagnosis Cerebral arterial aneurysm- Primary Cerebral aneurysm, nonruptured Pre-op exam Intractable headache, unspecified chronicity pattern, unspecified headache type Memory changes SAH (subarachnoid hemorrhage) ([facility]) Subarachnoid hemorrhage documented in this encounter Additional Health Concerns Assessment Noted Time A fall risk assessment has been complete d for the patient 03/04/2025 11:04 AM EDT A Body Mass Index follow-up plan has been documented for the patient 03/05/2025 5:42 PM EDT documented as of this encounter Care Teams Mig Tig Welder Relationship Specialty Start Date End Date Tamiko Russo APRN [address] [address] PCP - General 04/03/23 Carline Ballesteros PA [address] [place] [address] Physician [employer] Neurosurgery 05/06/23 documented as of this encounter
--- OUTSIDE RECORDS SUMMARY | 2025-03-29 07:12 | XMS_ITS | Encounter Summary ---
Author Organization [facility] Address [address] [place] [address] Care Team Providers Care Roller Varnisher Name Role Phone Tamiko Russo Dom HAYNES Primary Care Provider [phone] Carline Ballesteros PA Unavailable [phone] Reason for Referral * Imaging (Routine) - Closed Specialty Diagnoses / Procedures Referred By Contac t Referred To Contact Radiology Diagnoses Aneurysm (CMS/HCC) Procedures IR Angiogram Daniel Villalpando MD [address] [address] Phone: tel: fax: Referral ID Status Reason Start Date Expiration Date Visits Re quested Visits Authorized [id number] Closed 03/04/2025 09/03/2026 1 1 Reason for Visit * Imaging (Routine) - Closed Specialty Diagnoses / Procedures Referred By Contac t Referred To Contact Radiology Diagnoses Aneurysm ([facility]/HCC) Procedures IR Angiogram Daniel Villalpando MD [address] [address] Phone: tel: fax: Referral ID Status Reason Start Date Expiration Date Visits Re quested Visits Authorized [id number] Closed 03/04/2025 09/03/2026 1 1 Encounter Details Date Type Department Care Team (Latest Contact Info) Description 03/29/2025 7:12 AM EDT - 03/29/2025 11:59 PM EDT Hospital Encounter [facility] Interventional Radiology [address] [place] [address] Sara Lowe RN ``````````````` ``````````````` `````CH - PACU - MAJOR, P[facility] A Rogelio Maxwell Aneurysm ([facility]); Pre-op exam Discharge Disposition: Home [...] Month) No 025 7:35 AM EDT Rogelio Maxwell 2. Non-Specific Active Suici alva Thoughts (Past [...] seen, go to the nearest emergency department. [facility] Department of Neurosurgery [address] floor, Wing [address], [address] [place] [address] When to seek emergency help: Please go to the nearest Emergency Room or dial 911 if: You have heavy bleeding from the procedure site. You need emergency medical help for any reason. When to call the [facility]: Call if you have questions or concerns about the Neurology Interventional Radiology procedure. How to call the [facility]: Saturday-Saturday, 8 a.m.-4:30 p.m., call the [facility] at [phone]. After hours, weekends, and holidays, call [phone]. Ask for the Neurosurgery or YANIV Resident [...] tablet 12/25/2018 ergocalciferol (Vitamin D-2) 1.25 MG (59236 UT) capsule 07/28/2018 Fluticasone-Umec lidin-Vilant (Trelegy Ellipta) [...] 03/29/2025 8:45 AM EDT Date: 03/29/25 Location: [facility] Name: Ellyn Salas, : 1970, [...] Villalpando MD - 03/29/2025 * H&P - Aviva Ortiz MD - 03/29/2025 8:45 [...] 04/03/2023 ASSESSMENT AND PLAN - Proceed to EMERA Ortiz MD Neuro Endovascular Fellow [1] Past [...] prior angiogram performed on April 03, 2023 PLANNER/SCHEDULER: Daniel Villalpando M.D. LENGTH OF PROCEDURE: 20 [...] exchanged over a wire for a 5 Romanian slender sheath. The sheath was connected to [...] of dissection, pseudoaneurysm, or fistula. A 5 Romanian Nagy 2 catheter was advanced over a 0.035 [place] guidewire through the sheath and into the [...] made to prior angiogram performed on March PLANNER/SCHEDULER: Daniel Villalpando M.D. LENGTH OF PROCEDURE: 20 [...] exchanged over a wire for a 5 Romanian slender sheath.The sheath was connected to a [...] evidence of dissection,pseudoaneurysm, or fistula. A 5 Romanian Nagy 2 catheter was advanced over a [...] documented as of this encounter Care Teams Roller Varnisher Relationship Specialty Start Date End Date Tamiko Russo APRN [facility] [address] [address] PCP - General 04/03/23 Carline Ballesteros PA [id number] [place] [address] Physician Cooperer Neurosurgery 05/06/23 documented as of this encounter
--- OUTSIDE RECORDS SUMMARY | 2025-04-01 08:15 | XMS_ITS ---
Author Organization [facility] D JAVIER Address [address] [facility] [address] [place] [address] Care Team Providers Care Formula Checker Name Role Phone Berry Santana Primary Care Provider [phone] Tamiko Russo [phone] Allergies Allergen (clinical drug ingredient) Drug/Non Drug Allergy documented on EMR Reaction Allergy Type Onset Date Status KEFLEX (uncoded) Unknown Allergy Act angie PREDNISONE-ORAL FORM (uncoded) hives Allergy Active TYLENOL # 3 (uncoded) Unknown Allergy Active Results Component Value Reference Range Notes LIPID PANEL, STANDARD (7600) Reviewed date:04/05/2025 11:32:17 AM Interpretation: Performing Lab:CB, [facility] [id number] [facility]teH[id number] Mario Vazquez Notes/Report: NON-FASTING; NON-FASTING; NON-FASTING FASTING:YES FASTING: YES CHOLESTEROL, TOTAL 172 <200 mg/dL HDL CHOLESTEROL 59 > OR = 50 mg/dL TRIGLYCERIDES 101 <150 mg/dL LDL-CHOLESTEROL 94 Reference range: <100 Desirable range <100 mg/dL for primary prevention; <70 mg/dL for patients with CHD or diabetic patients with > or = 2 CHD risk factors. LDL-C is now calculated using the Stephanie calculation, which is a validated novel method providing better accuracy than the Friedewald equation in the estimation of LDL-C. Ever COLINDRES et al. HONORIO. 2013;310(19): 0384-0065 (http://education.CollegeSolved/faq/VPY409) CHOL/HDLC RATIO 2.9 <5.0 (calc) NON HDL CHOLESTEROL 113 <130 mg/dL (calc) For patients with diabetes plus 1 major ASCVD risk factor, treating to a non-HDL-C goal of <100 mg/dL (LDL-C of <70 mg/dL) is considered a therapeutic option. COMPREHENSIVE METABOLIC PANE (36055) Reviewed date:04/05/2025 11:32:17 AM Interpretation: Performing Lab:ARLIN, [address] [employer], [id number] Mario Vazquez Notes/Report: NON-FASTING; NON-FASTING; NON-FASTING FASTING:YES FASTING: YES GLUCOSE 95 65-99 mg/dL Fasting reference interval UREA NITROGEN (BUN) 6 7-25 mg/dL CREATININE 0.87 0.50-1.03 mg/dL EGFR 79 > OR = 60 mL/min/1.73m2 BUN/CREATININE RATIO 7 6-22 (calc) SODIUM 134 135-146 mmol/L POTASSIUM 4.2 3.5-5.3 mmol/L CHLORIDE 101 98-110 mmol/L CARBON DIOXIDE 23 20-32 mmol/L CALCIUM 9.8 8.6-10.4 mg/dL PROTEIN, TOTAL 7.5 6.1-8.1 g/dL ALBUMIN 4.6 3.6-5.1 g/dL GLOBULIN 2.9 1.9-3.7 g/dL (calc) ALBUMIN/GLOBULIN RATIO 1.6 1.0-2.5 (calc) BILIRUBIN, TOTAL 0.7 0.2-1.2 mg/dL ALKALINE PHOSPHATASE 232 37-153 U/L AST 20 10-35 U/L ALT 22 6-29 U/L CBC (INCLUDES DIFF/PLT) (639 9) Reviewed date:04/05/2025 11:32:17 AM Interpretation: Performing Lab:[facility] [address] [employer], [id number] Mario Vazquez Notes/Report: NON-FASTING; NON-FASTING; NON-FASTING FASTING:YES FASTING: YES WHITE BLOOD CELL COUNT 4.4 3.8-10.8 Thousand/ uL RED BLOOD CELL COUNT 5.03 3.80-5.10 Million/uL HEMOGLOBIN 13.6 11.7-15.5 g/dL HEMATOCRIT 45.9 35.0-45.0 % MCV 91.3 80.0-100.0 fL MCH 27.0 27.0-33.0 pg MCHC 29.6 32.0-36.0 g/dL For adults, a slight decrease in the calculated MCHC value (in the range of 30 to 32 g/dL) is most likely not clinically significant; however, it should be interpreted with caution in correlation with other red cell parameters and the patient's clinical condition. RDW 13.9 11.0-15.0 % PLATELET COUNT 247 140-400 Thousand/uL MPV 11.1 7.5-12.5 fL ABSOLUTE NEUTROPHILS 3080 5379-1290 cells/uL ABSOLUTE LYMPHOCYTES 900 545-4572 cells/uL ABSOLUTE MONOCYTES 352 200-950 cells/uL ABSOLUTE EOSINOPHILS 48 15-500 cells/uL ABSOLUTE BASOPHILS 40 0-200 cells/uL NEUTROPHILS 70 LYMPHOCYTES 20.0 MONOCYTES 8.0 EOSINOPHILS 1.1 BASOPHILS 0.9 Mammogram: Screening Reviewed date:04/20/2025 03:12:48 PM Interpretation: Performing Lab: Notes/Report: Reason For Referral Reason LDCT chest Diagnosis 1 Personal history of tobacco use (Z87.891) Referral Organization [facility] Referring Provider First Name Tamiko Referring Provider Last Name Rafaela Referring Provider Speciality [facility] Referred Organization [facility] Referred Address [address] [place] [id number], Referred Provider Specialty Diagnostic R adiology General Notes Jennifer Villegas 2024 11:57:45 AM >sent to [facility] to schedule appt Referral Priority Routine REASON FOR VISIT Yearly, Wants something to help dog bites on arm Medications Medication SIG (Take, Route, Frequency, Duration) Notes Start Date End Date Status Metoprolol Succinate ER 50 MG Take 1 tablet by mouth once daily; Duration: 90 Active Terbinafine HCl 1 % 1 tucker applied topically 2 times a day; Duration: 14 days 12/05/2023 Active Omeprazole 40 MG 1 cap(s) orally once a day; Duration: 90 days Active buPROPion HCl ER (SR) 150 MG 1 tab(s) orally 2 times a day; Duration: 90 days Active Albuterol Sulfate (2.5 MG/3ML) 0.083% 3 ml by nebulizer every 4 hours prn; Duration: 30 day(s) 06/20/2021 Active Topiramate 25 MG 1 tablet Orally Once a day Active Mupirocin 2 % 1 application Externally Twice a day; Duration: 5 days 04/02/2025 Active Furosemide 20 MG 1 tab(s) orally once a day as needed; Duration: 90 days 04/19/2022 Active ALBUTEROL (EQV-PROAIR HFA) 90 MCG/INH 2 PUFF(S) INHALED EVERY 6 HOURS NEEDED FOR SOA; Duration: 30 DAYS *Please review for potential replacement for e-prescription and drug interaction check* Active Trelegy Ellipta 100 MCG-62.5 MCG-25 MCG/INH 1 PUFF(S) INHALED ONCE A DAY; Duration: 90 DAYS *Please review and pick correct strength-formulati on from Primitive Makeup options. If intended option is not shown, discontinue and re-order from Quick Search* Active Atorvastatin Calcium 20 MG Take 1/2 (one-half) tablet by mouth once daily Orally daily; Duration: 90 days Active Meloxicam 15 MG 1 tab(s) orally once a day for arthritis pain; Duration: 90 days Active ALPRAZolam 0.25 MG TAKE 1 TABLET BY MOUTH EVERY 8 HOURS; Duration: 30 02/27/2025 Active busPIRone HCl 10 MG 1 tab(s) orally three times a day; Duration: 90 days Active Cyclobenzaprine HCl 5 MG TAKE 1 TABLET BY MOUTH EVERY DAY AT BEDTIME; Duration: 90 Active Losartan Potassium 50 MG 1 tab(s) orally once a day; Duration: 90 days 12/08/2024 Active PARoxetine HCl 40 MG 1 tab(s) orally once a day; Duration: 90 days Active ARIPiprazole 10 MG Take 1 tablet by mouth once daily for 90 days; Duration: 90 Active Gabapentin 300 MG 2 caps orally once daily at bedtime; Duration: 30 days 01/05/2025 Active Immunizations Vaccine Route Administration Date Status Comme nts Boostrix IM Intramuscular 04/01/2025 Administered PCV-21 (Pneumococcal conjugate 20) IM Intramuscular 04/01/2025 Administered Social History Tobacco Use: Social History [...] Problem Status W/U Status Risk Notes Problem Gastroesophageal reflux disease (disorder) (484334413) Chronic GERD (K21.9) Active confirmed Problem Sciatica (24958009) Lumbago with sciatica, left side (M54.42) Active confirmed Vital Signs Temperature 97.0 degrees Fahrenheit 04/01/20 25 Blood pressure systolic 130 mm Hg 04/01/20 25 Blood pressure diastolic 80 mm Hg 025 Heart Rate 72 /min 04/01/2025 Height 5 ft 3 in in 04/01/2025 Weight 146.6 lbs 04/01/2025 BMI 25.97 kg/m2 04/01/2025 Encounters Encounter Location Date Provider Diagnosis [facility] PED JAVIER [address] [place] [address] 04/01/2025 Tamiko Russo Major depression, chronic F32.9 ; Routine medical exam Z00.00 ; Anxiety associated with depression F41.8 ; History of subarachnoid hemorrhage Z86.79 ; Dermatitis L30.9 ; Nocturnal hypoxia G47.34 ; Alcohol abuse F10.10 ; Encounter for immunization Z23 ; BMI 25.0-25.9,adult Z68.25 ; Essential hypertension I10 ; Chronic GERD K21.9 ; Chronic obstructive pulmonary disease, unspecified J44.9 ; Lumbago with sciatica, right side M54.41 ; Lumbago with sciatica, left side M54.42 ; Other chronic pain G89.29 ; Personal history of tobacco use Z87.891 ; Visit for screening mammogram Z12.31 and Skin abrasion T14.8XXA Assessments Encounter Date Diagnosis (ICD Code) Assessment Notes Treatment Notes Treatment Clinical Notes Section Notes 04/01/2025 Major depression, chronic (ICD-10 - F32.9) No changes recommended 04/01/2025 Routine medical exam (ICD-10 - Z00.00) Rec update vaccinations as noted and consider Shingrix series next visit. _update imaging as noted and encouraged to continue FU with NS at . 04/01/2025 Anxiety associated with depression (ICD-10 - F41.8) continue buspar, SSRI and lower dose xanax 04/01/2025 History of subarachnoid hemorrhage (ICD-10 - Z86.79) 04/01/2025 Dermatitis (ICD-10 - L30.9) improved overall 04/01/2025 Nocturnal hypoxia (ICD-10 - G47.34) has O2 avaiable for use 04/01/2025 Alcohol abuse (ICD-10 - F10.10) encouraged cessation and certainly continued moderation 04/01/2025 Encounter for immunization (ICD-10 - Z23) 04/01/2025 BMI 25.0-25.9,adult (ICD-10 - Z68.25) 04/01/2025 Essential hypertension (ICD-10 - I10) well controlled on current regimen 04/01/2025 Chronic GERD (ICD-10 - K21.9) continue PPI 04/01/2025 Chronic obstructive pulmonary disease, unspecified (ICD-10 - J44.9) stable on Trelegy 04/01/2025 Lumbago with sciatica, right side (ICD-10 - M54.41) continue meloxicam as needed, gabapentin at HS, cyclobenzaprine as needed 04/01/2025 Lumbago with sciatica, left side (ICD-10 - M54.42) 04/01/2025 Other chronic pain (ICD-10 - G89.29) 04/01/2025 Personal history of tobacco use (ICD-10 - Z87.891) 04/01/2025 Visit for screening mammogram (ICD-10 - Z12.31) 04/01/2025 Skin abrasion (ICD-10 - T14.8XXA) Plan Of Treatment Medication Medication Name Sig Start Date Stop Date Notes Mupirocin 2 % 1 application Denitrator Operator ally Twice a day; Duration: 5 days 04/02/2025 Treatment Notes Assessment Notes Anxiety associated with depression henrique nue buspar, SSRI and lower dose xanax Pending Test Test Name Order Date CT Scan : Chest, Lung Cancer Screening 0 04/01/2025 Referrals Referral Date Details 04/02/2025 04/02/2025, LDCT [facility] , [address] [facility], [place], [address], Next Appt Details Follow Up: 4 Months, Reason: Progress Notes * Ellyn SALAS JDOB:[birth year] (55 yo F)Acc No.[id number]:04/01/2025 Progress Notes Patient: Ellyn MCKEON Provider: BENITO Schreiber :1970 A ge:55 Y S ex:Female Date:04/01/2025 Address:[address] [place] [address], [place], [id number] Pcp:Berry Santana Subjective: * Chief Complaints: * 1 . Yearly. 2. Wants something to help dog bites on arm. * HPI: g en: Presents today for annual physical and chronic disease FU. Only acute concern are some scratches on her arms that are taking a while to heal, all from her dog who is young. No fevers. Unsure about when her last Tdap was given. 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 Imaging has been stable. They did add topamax recently for management of her headaches. She continues to refrain from smoking since the aneurysm surgery. Still drinking alcohol most days of the week but limiting herself to no more than 2 Respiratory symptoms have been much better since she stopped smoking Feels like her chronic depressive/anxiety symptoms are stable on current regimen She is working on weight loss, down 6 pounds this visit. * ROS: R ESPIRATORY: no S hortness of breath. C ough y es, A t baseline. C ARDIOLOGY: no C hest pain. n o P alpitations. L eg edema?yes, m ore at the end of the day. C ONSTITUTIONAL: no L oss of appetite. n o F ever. n o W eakness. W eight loss yes, i ntentional. D ERMATOLOGY: no R ron. E NDOCRINOLOGY: Reviewed, No Symptoms Reported: Y es. G ASTROENTEROLOGY: Heartburn y es, B leonard with prescription. n o V omiting. n o A bdominal pain. n o D iarrhea. n o C onstipation. M USCULOSKELETAL: back pain y es. J oint stiffness y es, r ight knee. N EUROLOGY: See HPI Y es. P SYCHOLOGY: See HPI Y es. U ROLOGY: Reviewed, No Symptoms Reported: Y es. n o D ifficulty urinating. n o B lood in urine. * Medical History: M igraine headache, smoking-COPD, Depession/anxiety, Asthma, Fibromyalgia, EGD 2016 with gastritis and duodentitis, Stroke, TIA, Breast biopsy benign 2018 - normal mammogram 11/2020, Colonoscopy 03/2020, Dr Harkins, repeat in 3 years recommended, Subarachnoid Hemorrhage 04/2023, treated at [facility], Nocturnal Hypoxia, started on supplemental O2 12/2023. * Surgical History: b ack surgery 12/2018, breast biopsy 05/2019, [facility]- bleeding aneurysm- x2 procedures 04/2023. * Hospitalization/Major Diagno stic Procedure: [facility]- Back Surgery 12/2018, Bleeding aneurysm- [facility] 04/2023. * Family History: F ather: alive, heart disease. M other: , stroke. P aternal Grand Father: . P aternal Grand Mother: . M aternal Grand Father: . M aternal Grand Mother: . P aternal uncle: alive. P aternal aunt: alive, breast cancer. M aternal uncle: alive, cholesterol, HTN. M aternal aunt: alive, cholesterol, HTN. S iblings: alive. 1 brother(s) - healthy. . * Social History: S moking A re you a: f ormer smoker, H ow long has it been since you last smoked??6-12 months, A dditional Findings: Tobacco User M oderate cigarette smoker (10-19 cigs/day). R ecreational drug use: no. Exercise: yes. Home smoke detector use: yes. Caffeine: yes, frequency:4-6 cups a day. Living Will: No. Alcohol: socially. Sexually active: yes. Travel outside [place]: no. 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 * Medications: T aking Topiramate 25 MG Tablet 1 tablet Orally Once a day , Taking ALBUTEROL (EQV-PROAIR HFA) 90 MCG/INH AEROSOL 2 PUFF(S) INHALED EVERY 6 HOURS NEEDED FOR SOA , Notes to Pharmacist: *Please review for potential replacement for e- prescription and drug interaction check*, Taking Furosemide 20 MG Tablet 1 tab(s) orally once a day as needed , Taking Trelegy Ellipta 100 MCG-62.5 MCG-25 MCG/INH POWDER 1 PUFF(S) INHALED ONCE A DAY , Notes to Pharmacist: *Please review and pick correct strength-formulation from Primitive Makeup options. If intended option is not shown, discontinue and re-order from Quick Search*, Taking Albuterol Sulfate (2.5 MG/3ML) 0.083% Nebulization Solution 3 ml by nebulizer every 4 hours prn , Taking Terbinafine HCl 1 % Cream 1 tucker applied topically 2 times a day , Taking Metoprolol Succinate ER 50 MG Tablet Extended Release 24 Hour Take 1 tablet by mouth once daily , Taking buPROPion HCl ER (SR) 150 MG Tablet Extended Release 12 Hour 1 tab(s) orally 2 times a day , Taking Omeprazole 40 MG Capsule Delayed Release 1 cap(s) orally once a day , Taking PARoxetine HCl 40 MG Tablet 1 tab(s) orally once a day , Taking Losartan Potassium 50 MG Tablet 1 tab(s) orally once a day , Taking Gabapentin 300 MG Capsule 2 caps orally once daily at bedtime , Taking ARIPiprazole 10 MG Tablet Take 1 tablet by mouth once daily for 90 days , Taking ALPRAZolam 0.25 MG Tablet TAKE 1 TABLET BY MOUTH EVERY 8 HOURS , Taking Cyclobenzaprine HCl 5 MG Tablet TAKE 1 TABLET BY MOUTH EVERY DAY AT BEDTIME , Taking busPIRone HCl 10 MG Tablet 1 tab(s) orally three times a day , Taking Meloxicam 15 MG Tablet 1 tab(s) orally once a day for arthritis pain , Taking Atorvastatin Calcium 20 MG Tablet Take 1/2 (one-half) tablet by mouth once daily Orally daily , Medication List reviewed and reconciled with the patient * Allergies: T YLENOL # 3, KEFLEX, PREDNISONE-ORAL FORM: hives. Objective: * Vitals: N urse: KJ, Pain: 0, Temp: 97.0, RR: 16, HR: 72, BP: 130/80, Ht: 5 ft 3 in, Wt: 146.6, BMI:25.97. * Examination: P sychology: General Appearance: N AD, pleasant. Grooming : a dequate. Eye contact : n ormal. Mood : p leasant. Heart: R egular Rate and Rhythm, no murmur, rubs or gallops. Lungs: c lear to auscultation,, no wheezes or crackles,.? Abdomen: s oft, NT/ND, BS present. Neurologic Exam: A lert and oriented x 3. e rythematous excoriated rash over the anterior left knee, left hand. several abrasions on the arms bilat. Assessment: * Assessment: 1. R outine medical exam - Z00.00 (Primary) 2 . M ajor depression, chronic - F32.9 3 . A nxiety associated with depression - F41.8 4 . H istory of subarachnoid hemorrhage - Z86.79 5 . D ermatitis - L30.9 6. N octurnal hypoxia - G47.34 7 . A lcohol abuse - F10.10 ?8. E ncounter for immunization - Z23 9 . B DC 25.0-25.9,adult - Z68.25? 10. E ssential hypertension - I10 1 1. C hronic GERD - K21.9 1 2. C hronic obstructive pulmonary disease, unspecified - J44.9 ?13. L umbago with sciatica, right side - M54.41 1 4. L umbago with sciatica, left side - M54.42 1 5. O ther chronic pain - G89.29 1 6. Personal history of tobacco use - Z87.891 1 7. V isit for screening mammogram - Z12.31 1 8. S kin abrasion - T14.8XXA Plan: * Treatment: Value Reference Range T RIGLYCERIDES 101 <150 - mg/dL * C HOLESTEROL, TOTAL 172 <200 - mg/dL * H DL CHOLESTEROL 59 > OR = 50 - mg/dL * L DL-CHOLESTEROL 94 - mg/dL (calc) * C HOL/HDLC RATIO 2.9 <5.0 - (calc) * N ON HDL CHOLESTEROL 113 <130 - mg/dL (calc) * Zainab Zhou 04/05/20 25 11:32:02 AM EDT > pt informedThis lab was reviewed by Zainab Zhou on 04/05/2025 at 11:32 AM EDT ?LAB: COMPREHENSIVE METABOLIC PANEL (39499) (Collection Date & Time - 04/01/2025 12:46 PM)* Value Reference Range G LUCOSE 95 65-99 - mg/dL * U CURRY NITROGEN (BUN) 6 L 7-25 - mg/dL * C REATININE 0.87 0.50-1.03 - mg/dL * B UN/CREATININE RATIO 7 6-22 - (calc) * S ODIUM 134 L 135-146 - mmol/L * P OTASSIUM 4.2 3.5-5.3 - mmol/L * C HLORIDE 101 98-110 - mmol/L * C ARBON DIOXIDE 23 20-32 - mmol/L * C ALCIUM 9.8 8.6-10.4 - mg/dL * P ROTEIN, TOTAL 7.5 6.1-8.1 - g/dL * A LBUMIN 4.6 3.6-5.1 - g/dL * G LOBULIN 2.9 1.9-3.7 - g/dL (calc ) * A LBUMIN/GLOBULIN RATIO 1.6 1.0-2.5 - (calc) * B ILIRUBIN, TOTAL 0.7 0.2-1.2 - mg/dL * A LKALINE PHOSPHATASE 232 H 37-153 - U/L * A ST 20 10-35 - U/L * A LT 22 6-29 - U/L * E GFR 79 > OR = 60 - mL/min/1 .73m2 * Zainab Zhou 04/05/20 25 11:32:02 AM EDT > pt informedThis lab was reviewed by Zainab Zhou on 04/05/2025 at 11:32 AM EDT ?LAB: CBC (INCLUDES DIFF/PLT) (6399) (Collection Date & Time - 04/01/2025 12:46 PM)* Value Reference Range W LA BLOOD CELL COUNT 4.4 3.8-10.8 - Thousan d/uL * R ED BLOOD CELL COUNT 5.03 3.80-5.10 - Million/ uL * H EMOGLOBIN 13.6 11.7-15.5 - g/dL * H EMATOCRIT 45.9 H 35.0-45.0 - % * M CV 91.3 80.0-100.0 - fL * M CH 27.0 27.0-33.0 - pg * M CHC 29.6 L 32.0-36.0 - g/dL * R DW 13.9 11.0-15.0 - % * P LATELET COUNT 247 140-400 - Thousand/u L * N EUTROPHILS 70 - % * A BSOLUTE NEUTROPHILS 3080 2527-8051 - cells/uL * L YMPHOCYTES 20.0 - % * A BSOLUTE LYMPHOCYTES 025 056-8666 - cells/uL * M ONOCYTES 8.0 - % * A BSOLUTE MONOCYTES 352 200-950 - cells/uL * E OSINOPHILS 1.1 - % * A BSOLUTE EOSINOPHILS 48 15-500 - cells/uL * B ASOPHILS 0.9 - % * A BSOLUTE BASOPHILS 40 0-200 - cells/uL * M PV 11.1 7.5-12.5 - fL * Zainab Zhou 04/05/20 11:32:02 AM EDT > pt informedThis lab was reviewed by Zainab Zhou on 04/05/2025 at 11:32 AM EDT Clinical Notes: Rec update vaccinations as noted and consider Shingrix series next visit. _update imaging as noted and encouraged to continue FU with NS at . ??2.?Major depression, chronic? Clinical Notes: No changes recommended??3.?Anxiety associated with depression? Notes: continue buspar, SSRI and lower dose xanax??4.?Dermatitis? Clinical Notes: improved overall??5.?Nocturnal hypoxia? Clinical Notes: has O2 avaiable for use??6.?Alcohol abuse? Clinical Notes: encouraged cessation and certainly continued moderation?? 7.?Essential hypertension? Clinical Notes: well controlled on current regimen??8.?Chronic GERD? Clinical Notes: continue PPI??9.?Chronic obstructive pulmonary disease, unspecified? Clinical Notes: stable on Trelegy??10.?Lumbago with sciatica, right side? Clinical Notes: continue meloxicam as needed, gabapentin at , cyclobenzaprine as needed? 11.?Personal history of tobacco use?Imaging: CT Scan : Chest, Lung Cancer Screening* ? Referral To: ?Reason:LDCT chest 12.?Visit for screening mammogram?Imaging: Mammogram: Screening* Slim Carlisle 04/19/2025 1 2:58:05 PM EDT >This DI was reviewed by Ayesha Hernandes on 04/20/2025 at 15:12 PM EDT * 13.?Skin abrasion? Start Mupirocin Ointment, 2 %, 1 application, Externally, Twice a day, 5 days, 1, Refills 0.? * Immunizations: Boostrix : .5 mL (Route: Intramuscular) given by BRYSON Ulrich on Right Arm Prevnar PCV-21 (Pneumococcal conjugate 20) : 0.5 mL (Route: Intramuscular) given by BRYSON Ulrich on Left Arm (Encounter for immunization) * Procedure Codes: 9 0715 Boostrix, 31790 immunization administration through 18 years of age via any route of administration., [address]752 PCV21 VACCINE IM, 89310 ADMINISTRATION IMMUNIZATION ONE VACCINE * Preventive Medicine: Immunizations: P neumococcal u pdated today due to COPD/tobacco history. I nfluenza . T dap D one today in office. C OVID C ompleted series. Screening / Special Tests: M ammogram d ue. P ap Smear 2 023, repeat 2025. C olonoscopy 2 020, Dr Harkins, recommended repeat 7-10 years. L bing Cancer Screening?Has been done - Follow-up is due. * Follow Up: 4 Months * * Sign off status: Completed true * Provider: BENITO Schreiber Date: 0 04/01/2025 Generated for Rogelio sanders/Immanuel/Kristaitting on: 0 04/20/2025 03:23 PM EDT History and Physical Notes * HPI (History of Present Illness) Category Sub-Category Detail Notes Category Not es gen Presents today for annual physical and chronic disease FU. Only acute concern are some scratches on her arms that are taking a while to heal, all from her dog who is young. No fevers. Unsure about when her last Tdap was given. 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 Imaging has been stable. They did add topamax recently for management of her headaches. She continues to refrain from smoking since the aneurysm surgery. Still drinking alcohol most days of the week but limiting herself to no more than 2 Respiratory symptoms have been much better since she stopped smoking Feels like her chronic depressive/anxiety symptoms are stable on current regimen She is working on weight loss, down 6 pounds this visit Examination Category Sub-Category Detail Notes Category Not es Psychology Heart: Regular Rate and Rhythm, no murmur, rubs or gallops erythematous excoriated rash over the anterior left knee, left hand. several abrasions on the arms bilat Lungs: clear to auscultatio n,, no wheezes or crackles, Abdomen: soft, NT/ND, BS pres ent General Appearance: NAD, pleasant Neurologic Exam: Alert and oriented x 3 Grooming : adequate Eye contact : normal Mood : pleasant Consultation Request Notes Referral Date Referring Provider Referred Provider Not es 04/02/2025 Tamiko Russo , LDCT chest
--- OUTSIDE RECORDS SUMMARY | 2025-04-01 09:00 | XMS_ITS | Encounter Summary ---
Author Organization Healthcare Address [address] [place] [address] Care Team Providers Care Final Finisher Name Role Phone Tamiko Russo DALLAS Primary Care Provider [phone] Carline Ballesteros Unavailable [phone] Encounter Details Date Type Department Care Team (Late st Contact Info) Description 04/01/2025 9:00 AM EDT Office Visit [place] [facility] [address] [place] [address] Carline Ballesteros PA [address] [place] [address] Cerebral arterial aneurysm (Primary Dx); Hydrocephalus, acquired (CMS/HCC) Social History Tobacco Use Types Packs/Day Years [...] Progress Notes - Carline Ballesteros PA - 04/01/2025 9:00 AM EDT Dear Tamiko Russo APRN, We had the pleasure of seeing your patient in our neurosurgical clinic today. HISTORY OF PRESENT ILLNESS: Ellyn Salas is a 55 y.o. year old female with Secondary HCP s/p Right Frontal Certas 04/20/2023, last set to 4 returning today for repeat Ct to evaluate ventricles and HCP status. Topamax is helping her headaches but some sleepy. She recently underwent angio with good results, no recurrent aneurysm. Right wrist minimal discoloring, doing well. Past medical history, surgical history, family history, social history and review of systems as well as medications were all reviewed and there are no changes. Last Recorded Vitals Visit Vitals OB Status Perimenopausal Smoking Status Former PHYSICAL EXAM: limited by telehealth venue -Constitutional: Well developed, well nourished. No acute distress. Alert and oriented to person, place, and time. -Head, Eyes, Nose, Throat: Normocephalic, atraumatic. Pupils are equally round and reactive to light. Oral mucosa is pink and moist. -Musculoskeletal: Moves all 4 extremities equally. -Neurologic: Alert and Oriented to person, place, and time. Speech is fluent. Patient follows commands and interacts appropriately. IMAGING: I personally reviewed and independently interpreted the following: CT performed 03/18/2025 @ [facility] shows no evidence of HCP, vents slightly smaller than 2022. ASSESSMENT AND PLAN: Ellyn Salas is a 55 y.o. year old female with: Secondary HCP s/p Right Frontal Certas 04/20/2023, last set to 4 Topamax 25 mg at night helping No evidence of shunt malfunction based on CT Will be seeing Neuro [place] for non shunt headache fu. Right pcomm aneurysm h/o SAH s/p coiling 04/03/2023 with secondary HCP Chronic, stable per recent Angiogram F/U 2 year MRA head Wo Will need same day fu for shunt check which is MRI safe. Thank you. If there are any questions or concerns please feel free to contact us: [facility] Department of Neurosurgery [address] [place] [address] [place], [place] [id number] ; Telehealth Statement Patient Verification Patient identity has been confirmed using name and date of ? Yes Authorizations and Agreements/Telemedicine Consent sent and consent confirmed? Yes Patient Location: Patient's Home Patient confirms they are physically located in [place]? Yes If the patient is not physically located in [place], the provider has confirmed with Legal thatthe provider is authorized to provide services in patient's stated location? N/A Provider Location: HealthCare Facility Audio and video or audio only? Audio and video documented in this encounter Plan of Treatment Not on file documented as of this encounter Visit Diagnoses Diagnosis Cerebral arterial aneurysm- Primary Cerebral aneurysm, nonruptured Hydrocephalus, acquired (CMS/HCC) documented in this encounter Additional Health Concerns Assessment Noted Time A fall risk assessment has been complete d for the patient 03/04/2025 11:04 AM EDT A Body Mass Index follow-up plan has been documented for the patient 04/01/2025 1:25 PM EDT documented as of this encounter Care Teams Final Finisher Relationship Specialty Start Date End Date Tamiko Russo APRN [facility] [address] [address] PCP - General 04/03/23 [facility]os [facility] [address] [facility] [address] [place] [address] Physician Power Press Operator Neurosurgery 05/06/23 documented as of this encounter
--- OUTSIDE RECORDS SUMMARY | 2025-04-20 15:21 | XMS_ITS | Encounter Summary ---
Author Organization [facility] Address [address] [place] [address] Care Team Providers Care Sales Associate Key Holder Name Role Phone Rafaela Tamikonicol Fernandes APRN Primary Care Provider +[phone]- [phone] Carline Ballesteros PA Unavailable [phone] Encounter Details Date Type Department Care Team ([facility] st Contact Info) Description 03/29/2025 Orders Only External Location [address] [place] [address] Provider, External Social History Tobacco Use Types [...] documented as of this encounter Care Teams Sales Associate Key Holder Relationship Specialty Start Date End Date Tamiko Russo APRN [address] [facility] [id number] PCP - General 04/03/23 Carline Ballesteros PA [address] [facility] [address] [place] [address] Physician Site Director Neurosurgery 05/06/23 documented as of this encounter
--- OUTSIDE RECORDS SUMMARY | 2025-04-20 15:21 | XMS_ITS | Encounter Summary ---
Author Organization [facility] Address [address] [place] [address] Care Team Providers Care Shirt Ironer Supervisor Name Role Phone Berry Santana MD Primary Care Provider [phone] Tamiko Russo APRN Primary Care Provider +- [phone] Carline Ballesteros Unavailable [phone] Encounter Details Date Type Department Care Team (Late st Contact Info) Description 05/22/2022 Community [facility] [address] [place] [address] Tamiko Russo APRN [id number] Social History Tobacco Use Types Packs/Day Years [...] documented as of this encounter Care Teams Shirt Ironer Supervisor Relationship Specialty Start Date End Date Berry Santana MD [address] [place] [address] PCP - General 02/17/21 04/02/23 Tamiko Russo APRN [address] [place] [address] PCP - General 04/03/23 Carline Ballesteros PA [address] [facility] [address] [place] [address] Physician Manager Security Neurosurgery 05/06/23 documented as of this encounter
--- OUTSIDE RECORDS SUMMARY | 2025-04-20 15:21 | XMS_ITS | Encounter Summary ---
Author Organization [facility] Address [address] [place] [address] Care Team Providers Care Electric Hoist Operator Name Role Phone Tamiko Russo Dom HAYNES Primary Care Provider +1- [phone] Carline Ballesteros PA Unavailable [phone] Encounter Details Date Type Department Care Team [...] as of this encounter Care Teams Electric Hoist Operator Relationship Specialty Start Date End Date Tamiko Russo APRN [facility] [place] [address] PCP - General 04/03/23 Carline Ballesteros PA [id number] [place] [address] Physician Color Maker Neurosurgery 05/06/23 documented as of this encounter
--- OUTSIDE RECORDS SUMMARY | 2025-04-20 15:21 | XMS_ITS | Encounter Summary ---
Author Organization [facility] Address [address] [place] [address] Care Team Providers Care Hand Deicer Element Winder Name Role Phone Berry Santana MD Primary Care Provider [phone] Tamiko Russo APRN Primary Care Provider + [phone] Carline Ballesteros Unavailable [phone] Encounter Details Date Type Department Care Team (Late st Contact Info) Description 09/04/2018 Orders Only External Location [address] [place] [address] Provider, External Social History Tobacco Use Types [...] documented as of this encounter Care Teams Hand Deicer Element Winder Relationship Specialty Start Date End Date Berry Santana MD [address] [facility] [address] [facility] [address] [place] [address] PCP - General 02/17/21 04/02/23 Tamiko Russo APRN [address] [place] [address] PCP - General 04/03/23 Carline Ballesteros PA [address] [facility] [address] [place] [address] Physician Director Of Collections And Archives Neurosurgery 05/06/23 documented as of this encounter
--- OUTSIDE RECORDS SUMMARY | 2025-04-20 15:22 | XMS_ITS | Encounter Summary ---
Author Organization [facility] Address [address] [place] [address] Care Team Providers Care Transitional Care Nurse Name Role Phone RafaelaTamiko sims Dom HAYNES Primary Care Provider +1- [phone] Carline Ballesteros PA Unavailable [phone] Encounter Details Date Type Department Care Team (Late st Contact Info) Description 03/22/2025 Telephone [facility] Interventional Radiology [address] [place] [address] Brandt Saldaña, RN Social History Tobacco Use [...] documented as of this encounter Care Teams Transitional Care Nurse Relationship Specialty Start Date End Date Marcelo Russoah D[place] Fernandes [address] [place] [address] PCP - General 04/03/23 Carline Ballesteros PA [id number] [place] [address] Physician Cloth Checker Neurosurgery 05/06/23 documented as of this encounter
--- OUTSIDE RECORDS SUMMARY | 2025-04-20 15:22 | XMS_ITS | Clinical Summary ---
Author Organization [facility] Address [address] [place] [address] Care Team Providers Care Vegetable Loader Name Role Phone Tamiko Russo Dom HAYNES Primary Care Provider +1- [phone] Carline Ballesteros PA Unavailable [phone] Allergies Active Allergy Reactions Criticality Noted Date [...] 9 Active ergocalciferol (Vitamin D-2) 1.25 MG (19375 UT) capsule 8 Active Fluticasone-Ume clidin-Vilant (Trelegy [...] unspecified 04/05/2023 0 04/21/2023 Overview (04/07/2023): See [facility] for additional details Hyponatremia 04/05/2023 04/12/2023 Overview [...] Visit [facility] [address], [address] [place] [address] Carline Ballesteros, PA Cerebral arterial aneurysm (Primary Dx); Hydrocephalus, acquired (CMS/HCC) 03/31/2025 Travel 03/29/2025 7:12 AM EDT - 03/29/2025 11:59 PM EDT Hospital Encounter [facility] [address] [place] [address] Sara Lowe, RN Rogelio Maxwell Aneurysm (CMS/HCC); Pre-op exam Discharge Disposition: Home or Self Care 03/29/2025 Orders Only External Location [address] [place] [address] Provider, External 03/29/2025 Travel 03/22/2025 Telephone [facility] [address] [place] [address] Brandt Saldaña, RN 03/18/2025 Orders Only External Location [address] [place] [address] Provider, External 03/05/2025 Telephone [facility] [address], [address] [place] [address] Carline Ballesteros PA 03/04/2025 11:00 AM EDT Office Visit [place] [address], [address] [place] [address] Carline Ballesteros, PA Cerebral arterial aneurysm (Primary Dx); Pre-op exam; Intractable headache, unspecified chronicity pattern, unspecified headache type; Memory changes; SAH (subarachnoid hemorrhage) ([facility]) 03/04/2025 Orders Only [place] [address] [facility], [address] [place] [address] Daniel Villalpando MD Pre-op exam (Primary Dx); Cerebral arterial aneurysm 03/04/2025 Travel 02/16/2025 Orders Only [place] [address] [facility], [address] [place] [address] Daniel Villalpando MD Hydrocephalus, acquired ([facility]) (Primary Dx); Cerebral arterial aneurysm 02/16/2025 Telephone [place] [address] [facility], [address] [place] [phone] Daniel Villalpando MD from Last 3 Months [...] 2020 UKY-Zoster Vaccines (1 of 2) 2020 [facility]-OZGEM-28 Vaccine (3 - season) 2024 04/06/2021, 03/16/2021 [...] this topic Medical Devices Implanted Type Area Medical Nurse Device Identifier Shelf Expiration Date Model / Serial / Lot Coil 360 Ultra 5 X 10 - [id number] Implanted:Qty: 1 on 04/03/2023 by Sandrine Mcguire RN at [facility] [employer]-31 7568 07/29/2025 [id number] / / [id number] Hip Stem Inzone Detachment - [id number] Implanted:Qty: 1 on 04/03/2023 by Sandrine Mcguire RN at [facility] [employer]-31 7568 08/18/2024 [id number] / / [id number] Coil 360 Ultra 2.5 X 4 - [id number] Implanted:Qty: 1 on 04/03/2023 by Sandrine Mcguire RN at [facility] [employer]-31 7568 06/20/2025 [id number] / / [id number] Catheter Bactiseal Stripe - [id number] Implanted:Qty: 1 on 04/20/2023 by Daniel Villalpando MD at [facility] Right: Cranial Integra [employer] [id number] 12/05/2023 [id number] / / [id number] Catheter Antibiotic Str Vent - [id number] Implanted:Qty: 1 on 04/20/2023 by Daniel Villalpando MD at [facility] Right: Cranial Integra [employer] [id number] 01/05/2024 [id number] / / [id number] Certas Plus Inline Siphon - [id number] Implanted:Qty: 1 on 04/20/2023 by Daniel Villalpando MD at [facility] Right: Cranial Integra [employer] [id number] 12/05/2027 [id number] / / [id number] Procedures Procedure Name Priority Date/Time Associated Diagnosis [...] prior angiogram performed on April 03, 2023 PRODUCT SAFETY HEAD: Daniel Villalpando M.D. LENGTH OF PROCEDURE: 20 [...] exchanged over a wire for a 5 Filipino slender sheath. The sheath was connected to [...] of dissection, pseudoaneurysm, or fistula. A 5 Filipino Nagy 2 catheter was advanced over a 0.035 Angle-Crosby guidewire through the sheath and into the [...] made to prior angiogram performed on March PRODUCT SAFETY HEAD: Daniel Villalpando M.D. LENGTH OF PROCEDURE: 20 [...] exchanged over a wire for a 5 Filipino slender sheath.The sheath was connected to a [...] evidence of dissection,pseudoaneurysm, or fistula. A 5 Filipino Nagy 2 catheter was advanced over a [...] Daniel Villalpando on 03/31/2025 4:17 PM Daniel Villalpando MD IMG IR PROCEDURES Final [...] LAB COAGULATION METHOD 03/04/2025 1:56 PM EDT [facility] Blood Venous blood specimen / Unknown Venipuncture / Unknown 03/04/2025 12:14 PM EDT 03/04/2025 12:15 PM EDT Calrine PHILLIPS LAB BLOOD ORDERABLES Final R esult [facility] [address] [place] [address] * Protime-INR (03/04/2025 12:14 PM EDT) Pathologist [facility] Prothrombin Time 12.3 12.0 - 14.3 sec LAB COAGULATION METHOD 03/04/2025 1:56 PM EDT [facility] INR 0.9 0.9 - 1.1 LAB COAGULATION METHOD 03/04/2025 1:56 PM EDT [facility] Blood Venous blood specimen / Unknown Venipuncture / Unknown 03/04/2025 12:14 PM EDT 03/04/2025 12:15 PM EDT Narrative [facility] - 03/04/2025 1:56 PM EDT OPTIMAL INR RANGES FOR PATIENT ON ORAL ANTICOAGULANT THERAPY Prevention of venous thromboembolism INR 2.0 to 3.0 In patients with heart disease: Atrial fibrillation INR 2.0 to 3.0 Valvular heart disease INR 2.0 to 3.0 Tissue heart valves INR 2.0 to 3.0 Mechanical prosthetic valves INR 2.5 to 3.5 Prevention of recurrent WV INR 2.5 to 3.5 us Carline PHILLIPS LAB BLOOD ORDERABLES Final R esult [facility] [address] [place] [address] * (ABNORMAL) CBC and differential (03/04/2025 12:14 PM EDT) WBC Count 4.30 3.70 - 10.30 10*3/uL LAB HEMATOLOGY METHOD 03/04/2025 1:57 PM EDT [facility] RBC Count 4.93 3.90 - 5.20 10*6/uL LAB HEMATOLOGY METHOD 03/04/2025 1:57 PM EDT [facility] HGB 13.0 11.2 - 15.7 g/dL LAB HEMATOLOGY METHOD 03/04/2025 1:57 PM EDT [facility] HCT 43.3 34.0 - 45.0 % LAB HEMATOLOGY METHOD 03/04/2025 1:57 PM EDT [facility] Platelet Count 234 155 - 369 10*3/uL LAB HEMATOLOGY METHOD 03/04/2025 1:57 PM EDT [facility] MCV 88 79 - 98 fL LAB HEMATOLOGY METHOD 03/04/2025 1:57 PM EDT [facility] MCH 26.4 26.0 - 32.0 pg LAB HEMATOLOGY METHOD 03/04/2025 1:57 PM EDT [facility] MCHC 30.0(L) 30.7 - 35.5 g/dL LAB HEMATOLOGY METHOD 03/04/2025 1:57 PM EDT [facility] RDW 13.2 11.5 - 14.5 % LAB HEMATOLOGY METHOD 03/04/2025 1:57 PM EDT [facility] MPV 11.2 8.8 - 12.5 fL LAB HEMATOLOGY METHOD 03/04/2025 1:57 PM EDT [facility] nRBC 0.0 <=0.0 per 100 WBCs LAB HEMATOLOGY METHOD 03/04/2025 1:57 PM EDT [facility] Differential Type Automated LAB HEMATOLOGY METHOD 03/04/2025 1:57 PM EDT [facility] Neutrophils % 56 % LAB HEMATOLOGY METHOD 03/04/2025 1:57 PM EDT [facility] Lymphocytes % 30 % LAB HEMATOLOGY METHOD 03/04/2025 1:57 PM EDT [facility] Monocytes % 11 % LAB HEMATOLOGY METHOD 03/04/2025 1:57 PM EDT [facility] Eosinophils % 2 % LAB HEMATOLOGY METHOD 03/04/2025 1:57 PM EDT [facility] Basophils % 1 % LAB HEMATOLOGY METHOD 03/04/2025 1:57 PM EDT [facility] Immature Granulocytes % 0 % LAB HEMATOLOGY METHOD 03/04/2025 1:57 PM EDT [facility] Neutrophils Absolute 2.43 1.60 - 6.10 10*3/uL LAB HEMATOLOGY METHOD 03/04/2025 1:57 PM EDT [facility] Lymphocytes Absolute 1.28 1.20 - 3.90 10*3/uL LAB HEMATOLOGY METHOD 03/04/2025 1:57 PM EDT [facility] Monocytes Absolute 0.47 0.30 - 0.90 10*3/uL LAB HEMATOLOGY METHOD 03/04/2025 1:57 PM EDT [facility] Eosinophils Absolute 0.08 0.00 - 0.50 10*3/uL LAB HEMATOLOGY METHOD 03/04/2025 1:57 PM EDT [facility] Basophils Absolute 0.03 0.00 - 0.10 10*3/uL LAB HEMATOLOGY METHOD 03/04/2025 1:57 PM EDT [facility] Immature Granulocytes Absolute 0.01 0.00 - 0.06 10*3/uL LAB HEMATOLOGY METHOD 03/04/2025 1:57 PM EDT [facility] Blood Venous blood specimen / Unknown Venipuncture / Unknown 03/04/2025 12:14 PM EDT 03/04/2025 12:15 PM EDT Narrative [facility] - 03/04/2025 1:57 PM EDT Therapeutic decision making should be based on absolute values, rather than percentages. us Carline PHILLIPS LAB BLOOD ORDERABLES Final R esult [facility] [address] [place] [address] * (ABNORMAL) hCG, Total Beta, Quantitative, Plasma (03/04/2025 12:14 PM EDT) hCG, Total Beta 17.8(H) <5 mIU/mL 03/04/2025 2:22 PM EDT [facility] Blood Venous blood specimen / Unknown Venipuncture / Unknown 03/04/2025 12:14 PM EDT 03/04/2025 12:15 PM EDT Narrative [facility] - 03/04/2025 2:22 PM EDT [...] PHILLIPS LAB BLOOD ORDERABLES Final R esult [facility] [address] [place] [address] * (ABNORMAL) Basic metabolic panel (03/04/2025 12:14 PM EDT) Glucose, Plasma 97 74 - 99 mg/dL 03/04/2025 2:22 PM EDT [facility] BUN, Plasma 7 7 - 21 mg/dL 03/04/2025 2:22 PM EDT [facility] Creatinine, Plasma 0.85 0.60 - 1.10 mg/dL 03/04/2025 2:22 PM EDT [facility] BUN/Creatinine Ratio 8 03/04/2025 2:22 PM EDT [facility] Sodium, Plasma 132(L) 136 - 145 mmol/L 03/04/2025 2:22 PM EDT [facility] Potassium, Plasma 4.3 3.6 - 4.9 mmol/L 03/04/2025 2:22 PM EDT [facility] Chloride, Plasma 96(L) 97 - 107 mmol/L 03/04/2025 2:22 PM EDT [facility] CO2, Plasma 22 22 - 29 mmol/L 03/04/2025 2:22 PM EDT [facility] Anion Gap 14 6 - 16 mmol/L 03/04/2025 2:22 PM EDT [facility] Total Calcium, Plasma 9.5 8.9 - 10.2 mg/dL 03/04/2025 2:22 PM EDT [facility] eGFRcr 81.5 mL/min/1.7 3m*2 03/04/2025 2:22 PM EDT [facility] Comment:Reported eGFRcr in m L/min/1.73m2 is based the CKD-EPI 2020 equation that does not use a race coefficient. Blood Venous blood specimen / Unknown Venipuncture / Unknown 03/04/2025 12:14 PM EDT 03/04/2025 12:15 PM EDT us Carline PHILLIPS LAB BLOOD ORDERABLES Final R esult Performing Organization Address City/[facility]/ZIP Co de Phone Number [facility] [address] [place] [address] * HIV 1 & 2 Antibody/Antigen Screen (04/03/2023 12:27 PM EDT) HIV 1 & 2 Antibody/Antigen Screen Non Reactive Non Reactive 04/03/2023 1:25 PM EDT [facility] Comment:Screening for HIV 1 & 2 antibodies, and P24 antigen is NONREACTIVE. No confirmatory testing is required. Blood Venous blood specimen / Unknown Venipuncture / Unknown 04/03/2023 12:27 PM EDT 04/03/2023 12:40 PM EDT us Daquan Burns MD LAB BLOOD ORDERABLES Final Result Performing Organization Address City/[facility]/ZIP Co de Phone Number [facility] [address] [place] [address] * Hepatitis C Antibody - ED (04/03/2023 12:27 PM EDT) Hepatitis C Antibody Negative Negative 04/03/2023 1:25 PM EDT [facility] Blood Venous blood specimen / Unknown Venipuncture / Unknown 04/03/2023 12:27 PM EDT 04/03/2023 12:40 PM EDT us Daquan Burns MD LAB BLOOD ORDERABLES Final Result [facility] [address] [place] [address] from Last 3 Months or Most Recently Relevant to Health Maintenance Insurance [facility] Advance Directives * Full Code (Latest Code Status on File) Date Activated Date Inactivated Comments 04/03/2023 3:09 PM 04/21/2023 7:12 PM Question Answer Comments Patient has decision-making capacity? Yes Care Teams Vegetable Loader Relationship Specialty Start Date End Date Tamiko Russo APRN [address] [address] PCP - General 04/03/23 Carline Ballesteros PA [address] [place] [address] Physician Grooving Machine Operator Neurosurgery 05/06/23
--- OUTSIDE RECORDS SUMMARY | 2025-04-20 15:22 | XMS_ITS | Encounter Summary ---
Author Organization [facility] Address [address] [place] [address] Care Team Providers Care Surveyor Instrument Assistant Name Role Phone Tamiko Russo Dom HAYNES Primary Care Provider +1- [phone] Carline Ballesteros PA Unavailable [phone] Encounter Details Date Type Department Care Team (Late st Contact Info) Description 04/15/2023 Lab Requisition [facility] [address] [place] [address] Sharifa Torres MD [address] [id number] Encounter for general adult medical examination without [...] at day 2 04/17/2023 8:48 AM EDT [facility] Swab (Nares and Nkechi Rectal) 04/15/2023 12:15 PM EDT 04/15/2023 1:23 PM EDT us Sharifa Varghese MD LAB MICROBIOLOGY - GENERAL ORDERABLES Final Result [facility] [address] [place] [address] documented in this encounter Visit Diagnoses Diagnosis Encounter for general adult medical examination without abnormal findings documented in this encounter Care Teams Surveyor Instrument Assistant Relationship Specialty Start Date End Date Tamiko Russo APRN [address] [place] [address] PCP - General 04/03/23 Carline Ballesteros PA [address] [place] [address] Physician Combat Systems Operator Neurosurgery 05/06/23 documented as of this encounter
--- OUTSIDE RECORDS SUMMARY | 2025-04-20 15:22 | XMS_ITS | Encounter Summary ---
Author Organization Healthcare Address [address] [place] [address] Care Team Providers Care Hunter Name Role Phone Tamiko Russo APRN Primary Care Provider [phone]- [phone] Carline Ballesteros PA Unavailable [phone] Encounter Details Date Type Department Care Team (Late st Contact Info) Description 03/18/2025 Orders Only External Location [address] [place] [address] Provider, External Social History Tobacco Use Types [...] documented as of this encounter Care Teams Hunter Relationship Specialty Start Date End Date Tamiko Russo APRN [address] [id number] PCP - General 04/03/23 Carline Ballesteros PA [id number] [place] [address] Physician Logistics Research Engineer Neurosurgery 05/06/23 documented as of this encounter
--- OUTSIDE RECORDS SUMMARY | 2025-04-20 15:22 | XMS_ITS | Encounter Summary ---
Author Organization [facility] Address [address] [place] [address] Care Team Providers Care Section Repairer Name Role Phone Tamiko Russo APRN Primary Care Provider [phone]- [phone] Carline Ballesteros PA Unavailable [phone] Encounter Details Date Type Department Care Team [...] documented as of this encounter Care Teams Section Repairer Relationship Specialty Start Date End Date Tamiko Russo APRN [address] [address] PCP - General 04/03/23 Carline Ballesteros PA [id number] [place] [address] Physician Insole And Heel Stiffener Neurosurgery 05/06/23 documented as of this encounter
--- NOTE | 2025-04-20 15:23 | CT_ITS ---
FINAL REPORT CLINICAL HISTORY: SCREENING FORMER SMOKER QUIT 1 YEAR AGO 2.5PPD X35 YEARS COMPARISON: 12/12/2022 FINDINGS: CT CHEST LOW DOSE SCREENING HISTORY: Screening exam for lung cancer. DOSE: CTDI vol: 2.90 mGy, DLP: 96.38 mGy*cm TECHNIQUE: Axial CT without IV contrast administration using low dose protocol. This study was performed with techniques to keep radiation doses as low as reasonably achievable, (ALARA). Individualized dose reduction techniques using automated exposure control or adjustment of mA and/or kV according to the patient's size were employed. No acute lung disease is present. No pulmonary lesions are seen suspicious for neoplasm. There is moderate endplate edematous change. There is a mildly enlarged anterior pericardial lymph node seen on image 200 of series 2 measures 8 mm, was 2 mm. There are no other sites of adenopathy. No pleural or pericardial effusion is seen. IMPRESSION: No evidence of lung cancer LUNG RADS CATEGORY 1S Modifier S: Interval development of mild pericardial adenopathy. RECOMMENDATION: 6-month follow-up for continued surveillance of pericardial adenopathy. Reviewed, Interpreted and Dictated by Severo Polk MD Transcribed by Anna Rebolledo Authenticated and [facility] [place]
--- OUTSIDE RECORDS SUMMARY | 2025-04-20 15:23 | XMS_ITS | Encounter Summary ---
Author Organization Healthcare Address [address] [place] [address] Care Team Providers Care Marine Electronics Repairer Name Role Phone Tamiko Russo Dom HAYNES Primary Care Provider [phone]- [phone] Carline Ballesteros PA Unavailable [phone] Encounter Details Date Type Department Care Team (Late st Contact Info) Description 02/16/2025 Telephone [place] [facility] [address] [place] [address] Daniel Villalpando MD [address] [place] [address] Social History Tobacco Use Types [...] optimal time of day to reach caller: [phone] Note: Please do not reply to this message. Follow-up communication and further actions as a result of this message need to be communicated with the patient directly, if the patient is not active onMyChart. If the patient is active on MyChart, they will receive notification of the communication/outcome via [employer]. documented in this encounter Plan of Treatment Not on file documented as of this encounter Visit Diagnoses Not on filedocumented in this encounter Additional Health Concerns Assessment Noted Time A fall risk assessment has been complete d for the patient 08/02/2023 3:40 PM EDT documented as of this encounter Care Teams Marine Electronics Repairer Relationship Specialty Start Date End Date Tamiko Russo APRN [address] [address] PCP - General 04/03/23 Carline Ballesteros PA [id number] [place] [address] Physician Plastic Manager Neurosurgery 05/06/23 documented as of this encounter
--- OUTSIDE RECORDS SUMMARY | 2025-04-20 15:23 | XMS_ITS | Encounter Summary ---
Author Organization [facility] Address [address] [place] [address] Care Team Providers Care Cna Instructor Name Role Phone Tamiko Russo Dom HAYNES Primary Care Provider [phone]- [phone] Carline Ballesteros PA Unavailable [phone] Reason for Referral * Imaging (Routine) - Pending Review Specialty Diagnoses / Procedures Referred By Contac t Referred To Contact Radiology Diagnoses Hydrocephalus, acquired (CMS/HCC) Cerebral arterial aneurysm Procedures MR Angio Head wo IV Contrast Daniel Villalpando MD [id number] [place] [address] Phone: tel: fax: Referral ID Status Reason Start Date Expiration Date V isits Requested Visits Authorized [id number] Pending Review 02/16/2025 08/18/2026 1 1 Encounter Details Date Type Department Care Team (Late st Contact Info) Description 02/16/2025 Orders Only [place] [facility] [address] [place] [address] Daniel Villalpando MD [address] [facility] [address] [place] [address] Hydrocephalus, acquired (CMS/HCC) (Primary Dx); [...] documented as of this encounter Care Teams Cna Instructor Relationship Specialty Start Date End Date Tamiko Russo APRN [address] [address] PCP - General 04/03/23 Carline [facility]esteros PA [address] [facility] [address] [place] [address] Physician Respiratory Scientist Neurosurgery 05/06/23 documented as of this encounter
--- OUTSIDE RECORDS SUMMARY | 2025-04-20 15:23 | XMS_ITS | Encounter Summary ---
Author Organization [facility] Address [address] [place] [address] Care Team Providers Care Architect Internship Name Role Phone RafaelaTamiko sims Dom HAYNES Primary Care Provider [phone]- [phone] Carline Ballesteros PA Unavailable [phone] Encounter Details Date Type Department Care Team [...] documented as of this encounter Care Teams Architect Internship Relationship Specialty Start Date End Date Tamiko Russo APRN [facility] [place] [address] PCP - General 04/03/23 Carline Ballesteros PA [address] [address] Physician Experience Designer Neurosurgery 05/06/23 documented as of this encounter
--- OUTSIDE RECORDS SUMMARY | 2025-04-20 15:23 | XMS_ITS | Encounter Summary ---
Author Organization Healthcare Address [address] [place] [address] Care Team Providers Care Hot Metal Mixer Operator Helper Name Role Phone Tamiko Russo Dom HAYNES Primary Care Provider [phone]- [phone] Carline Ballesteros PA Unavailable [phone] Encounter Details Date Type Department Care Team (Late st Contact Info) Description 03/04/2025 Orders Only [place] [facility] [address] [place] [address] Daniel Villalpando MD [address] [place] [address] Pre-op exam (Primary Dx); Cerebral [...] documented as of this encounter Care Teams Hot Metal Mixer Operator Helper Relationship Specialty Start Date End Date Tamiko Russo APRN [facility] [place] [id number] PCP - General 04/03/23 Carline Ballesteros PA [address] [address] Physician Setup Operator Neurosurgery 05/06/23 documented as of this encounter
--- OUTSIDE RECORDS SUMMARY | 2025-04-20 15:23 | XMS_ITS | Encounter Summary ---
Author Organization Healthcare Address [address] [place] [address] Care Team Providers Care Assembler Brazer Name Role Phone Tamiko Russo DALLAS Primary Care Provider +1- [phone] Carline Ballesteros PA Unavailable Encounter Details Date Type Department Care Team (Late st Contact Info) Description 03/05/2025 Telephone [place] [facility] [address] [place] [address] Carline Ballesteros PA [address] [place] [address] Social History Tobacco Use Types [...] Call: Can CT order be placed at [facility] instead? Best contact number and optimal time of day to reach caller: [phone] Note: Please do not reply to this message. Follow-up communication and further actions as a result of this message need to be communicated with the patient directly, if the patient is not active onMyChart. If the patient is active on MyChart, they will receive notification of the communication/outcome via [employer]. documented in this encounter Plan of Treatment [...] documented as of this encounter Care Teams Assembler Brazer Relationship Specialty Start Date End Date Tamiko Russo APRN [address] [facility] [address] [place] [address] PCP - General 04/03/23 Carline Ballesteros PA [address] [facility] [address] [place] [address] Physician Metal Machine Operator Neurosurgery 05/06/23 documented as of this encounter
--- OUTSIDE RECORDS SUMMARY | 2025-04-20 15:23 | XMS_ITS | Encounter Summary ---
Author Organization [facility] Address [address] [place] [address] Care Team Providers Care Construction Driller Name Role Phone Tamiko Russo [place] Primary Care Provider [phone] Carline Ballesteros Unavailable [phone] Reason for Visit * Reason Onset Date Comments HCN - Patient Message 04/30/2023 Post op qu estions and pain meds Encounter Details Date Type Department Care Team (Late st Contact Info) Description 04/30/2023 Telephone [place] [facility] [address], [address] [place] [address] Carline Ballesteros PA [address] [place] [address] HCN - Patient Message (Post [...] hurting and needs something called in to [facility] in [place] Best contact number and optimal time of day to reach caller: [phone] Jayce Note: Please do not reply to this message. Follow-up communication and further actions as a result of this message need to be communicated with the patient directly, if the patient is not active onMyChart. If the patient is active on MyChart, they will receive notification of the communication/outcome via Sodrafthart. documented in this encounter Plan of Treatment Not on file documented as of this encounter Visit Diagnoses Not on filedocumented in this encounter Care Teams Construction Driller Relationship Specialty Start Date End Date Tamiko Russo APRN [facility] [address] [address] PCP - General 04/03/23 Carline Ballesteros PA [id number] [place] [address] Physician Traveling Freight Agent Neurosurgery 05/06/23 documented as of this encounter
--- OUTSIDE RECORDS SUMMARY | 2025-04-20 15:23 | XMS_ITS | Encounter Summary ---
Author Organization [facility] Address [address] [place] [address] Care Team Providers Care Optical Brightener Maker Helper Name Role Phone Tamiko Russo [place] Primary Care Provider [phone] Carline Ballesteros Unavailable [phone] Reason for Visit * Reason Comments Med Refill Encounter Details Date Type Department Care Team (Late st Contact Info) Description 07/30/2023 Refill [place] [facility] [address], [address] [place] [address] Sayra Hogan PA [address] [place] [address] Social History Tobacco Use Types [...] documented as of this encounter Care Teams Optical Brightener Maker Helper Relationship Specialty Start Date End Date Tamiko Russo APRN [address] [address] PCP - General 04/03/23 Carline Ballesteros PA [address] [facility] [address] [place] [address] Physician Machine Room Engineer Neurosurgery 05/06/23 documented as of this encounter
--- OUTSIDE RECORDS SUMMARY | 2025-04-20 15:23 | XMS_ITS | Patient Health Record ---
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 Name Role Phone Berry Santana Primary Care Provider Tamiko Russo Unavailable [phone] Migration, Provider Unavailable Unavailable Allergies Allergen (clinical drug ingredient) Drug/Non Drug Allergy documented on EMR Reaction Allergy Type Onset Date Status KEFLEX (uncoded) Unknown Allergy Act angie PREDNISONE-ORAL FORM (uncoded) hives Allergy Active TYLENOL # 3 (uncoded) Unknown Allergy Active Results Component Value Reference Range Notes LIPID PANEL, STANDARD (7600) Reviewed date:08/12/2024 11:05:29 AM Interpretation: Performing Lab:CB, [facility] W[address] [facility], [facility] HospitalUubpQL[address] Mario Vazquez Notes/Report: NON-FASTING; NON-FASTING; NON-FASTING; NON-FASTING; NON-FAST FASTING:YES FASTING: YES CHOLESTEROL, TOTAL 167 <200 mg/dL HDL CHOLESTEROL 67 > OR = 50 mg/dL TRIGLYCERIDES 91 <150 mg/dL LDL-CHOLESTEROL 81 (http://education.Pawngo/faq/LKO306) Reference range: <100 Desirable range <100 mg/dL for primary prevention; <70 mg/dL for patients with CHD or diabetic patients with > or = 2 CHD risk factors. LDL-C is now calculated using the Stephanie calculation, which is a validated novel method providing better accuracy than the Friedewald equation in the estimation of LDL-C. Ever COLINDRES et al. HONORIO. 2013;310(19): 4386-4090 CHOL/HDLC RATIO 2.5 <5.0 (calc) NON HDL CHOLESTEROL 100 <130 mg/dL (calc) For patients with diabetes plus 1 major ASCVD risk factor, treating to a non-HDL-C goal of <100 mg/dL (LDL-C of <70 mg/dL) is considered a therapeutic option. CBC (INCLUDES DIFF/PLT) (639 9) Reviewed date:08/12/2024 11:05:29 AM Interpretation: Performing Lab:CB, [facility] [address], i.am.plus electronicsGiruLS[address] Mario Vazquez Notes/Report: NON-FASTING; NON-FASTING; NON-FASTING; NON-FASTING; [...] MPV 10.6 7.5-12.5 fL ABSOLUTE NEUTROPHILS 5023 3891-8163 cells/uL ABSOLUTE LYMPHOCYTES 5636 809-5769 cells/uL ABSOLUTE MONOCYTES 538 200-950 cells/uL ABSOLUTE EOSINOPHILS 110 15-500 cells/uL ABSOLUTE BASOPHILS 62 0-200 cells/uL NEUTROPHILS 72.8 LYMPHOCYTES 16.9 MONOCYTES 7.8 EOSINOPHILS 1.6 BASOPHILS 0.9 TSH W/REFLEX TO FT4 (33312) Reviewed date:08/12/2024 11:05:29 AM Interpretation: Performing Lab:CB, [facility] [address], [place] [employer]XwtwTY[address] Mario Vazquez Notes/Report: NON-FASTING; NON-FASTING; NON-FASTING; NON-FASTING; NON-FAST FASTING:YES FASTING: YES TSH W/REFLEX TO FT4 1.92 Ranges First trimester 0.26-2.66 Second trimester 0.55-2.73 Third trimester 0.43-2.91 Reference Range > or = 20 Years 0.40-4.50 VITAMIN D,25-OH,TOTAL,IA (17 306) Reviewed date:08/12/2024 11:05:29 AM Interpretation: Performing Lab:ARLIN, [facility] [address], [facility] HospitalEdafUY[address] Mario Vazquez Notes/Report: NON-FASTING; NON-FASTING; NON-FASTING; NON-FASTING; [...] D, (D2,D3), LC/MS/MS is recommended: order code 13826 (patients >2yrs). See Note 1 Note 1 For additional information, please refer to http://education.Berry Kitchen.TeamLINKS/faq/FLS386 (This link is being provided for informational/ COMPREHENSIVE METABOLIC PANE L (00989) Reviewed date:08/12/2024 11:05:29 AM Interpretation: Performing Lab:ARLIN [facility] [address] [facility], [facility] HospitalObjsUN[address] Mario Vazquez Notes/Report: NON-FASTING; NON-FASTING; NON-FASTING; NON-FASTING; [...] ALT 12 6-29 U/L CBC (INCLUDES DIFF/PLT) (639 9) Reviewed date:04/05/2025 11:32:17 AM Interpretation: Performing Lab:ARLIN, [facility] Hospitale1355 [facility] Centerte[facility], [facility] HospitalFvvcMW[address] Mario Vazquez Notes/Report: NON-FASTING; NON-FASTING; NON-FASTING FASTING:YES [...] MPV 11.1 7.5-12.5 fL ABSOLUTE NEUTROPHILS 3080 5690-2848 cells/uL ABSOLUTE LYMPHOCYTES 247 004-4763 cells/uL ABSOLUTE MONOCYTES 352 200-950 cells/uL ABSOLUTE EOSINOPHILS 48 15-500 cells/uL ABSOLUTE BASOPHILS 40 0-200 cells/uL NEUTROPHILS 70 LYMPHOCYTES 20.0 MONOCYTES 8.0 EOSINOPHILS 1.1 BASOPHILS 0.9 COMPREHENSIVE METABOLIC PANE L (97043) Reviewed date:04/05/2025 11:32:17 AM Interpretation: Performing Lab:ARLIN, [facility] [address] [facility], [facility] HospitalAwddEK[address] Mario Vazquez Notes/Report: NON-FASTING; NON-FASTING; NON-FASTING FASTING:YES [...] 20 10-35 U/L ALT 22 6-29 U/L LIPID PANEL, STANDARD (7600) Reviewed date:04/05/2025 11:32:17 AM Interpretation: Performing Lab:ARLIN [facility] [address] [facility], [facility] HospitalVccjOE[address] Mario Vazquez Notes/Report: NON-FASTING; NON-FASTING; NON-FASTING FASTING:YES [...] LDL-C. Ever COLINDRES et al. HONORIO. 2013;310(19): 6328-1437 (http://ZikBit.Pawngo/faq/IDU977) CHOL/HDLC RATIO 2.9 <5.0 (calc) NON HDL CHOLESTEROL 113 <130 mg/dL (calc) For patients with diabetes plus 1 major ASCVD risk factor, treating to a non-HDL-C goal of <100 mg/dL (LDL-C of <70 mg/dL) is considered a therapeutic option. Mammogram: Screening Reviewed date:04/20/2025 03:12:48 PM Interpretation: Performing Lab: Notes/Report: Medications Medication SIG (Take, Route, Frequency, Duration) [...] times a day; Duration: 90 days Active ALPRAZolam 0.25 MG TAKE 1 TABLET BY MOUTH EVERY 8 HOURS FOR 30 DAYS; Duration: 30 04/13/2025 Active Furosemide 20 MG 1 tab(s) orally [...] review and pick correct strength-formulati on from [employer] options. If intended option is not shown, [...] Notes Problem Benign neoplasm of right breast (942481855730327) Benign neoplasm of right breast (D24.1) Active confirmed Problem Chronic pain (29391488) Other chronic pain (G89.29) Active confirmed Problem Mucopurulent chronic bronchitis (10729497) Mucopurulent chronic bronchitis (J41.1) Active confirmed Problem Chronic obstructive pulmonary disease (53316984) Chronic obstructive pulmonary disease, unspecified (J44.9) Active confirmed Problem Sciatica (35850616) Lumbago with sciatica, right side (M54.41) Active confirmed Problem Sciatica (28867733) Lumbago with sciatica, left side (M54.42) Active confirmed Problem Fibromyalgia (098362170) Fibromyalgia (M79.7) Active confirmed Problem Acute exacerbation of chronic obstructive airways disease () COPD with exacerbation (J44.1) Active confirmed Problem Constipation (31856430) Constipation (K59.00) Active confirmed Problem Paresthesia (63260078) Paresthesia (R20.2) Active confirmed Problem Hematuria (02542904) Hematuria (R31.9) Active confirmed Problem Tobacco use (377811235) Tobacco use disorder (Z72.0) Active confirmed Problem Essential hypertension (01352946) Essential hypertension (I10) Active confirmed Problem Psoriasis (5002739) Psoriasis (L40.9) Active co nfirmed Problem Weight loss (023936395) Weight loss (R63.4) Active confirmed Problem Acute exacerbation of chronic obstructive airways disease () COPD exacerbation (J44.1) Active confirmed Problem Idiopathic sleep related non-obstructive alveolar hypoventilation (145930734) Nocturnal hypoxia (G47.34) Active confirmed Problem Migraine (27308486) Migraine (G43.909) Active confirmed Problem Chronic migraine (829135740) Chronic migraine (G43.709) Active confirmed Problem Insomnia disorder related to another mental disorder (28154104) Insomnia due to mental condition (F51.05) Active confirmed Problem Mixed anxiety and depressive disorder (118112611) Anxiety associated with depression (F41.8) Active confirmed Problem Abnormal mammogram (398041312) Abnormal mammogram (R92.8) Active confirmed Problem Osteoarthritis (140188651) Arthritis of multiple sites (M19.90) Active confirmed Problem Arthropathy (794867359) Arthropathy, multiple sites (M12.9) Active confirmed Problem Varicose veins of bilateral lower limbs (39277405917208052) Spider veins of both lower extremities (I83.93) Active confirmed Problem Hyperlipidemia (84569600) Other and unspecified hyperlipidemia (E78.5) Active confirmed Problem Degeneration of lumbar intervertebral disc (70246526) Lumbar degenerative disc disease (M51.36) Active confirmed Problem Hyperlipidaemia (08274286) Hyperlipidemia, unspecified hyperlipidemia type (E78.5) Active confirmed Problem Alcohol abuse (20513716) Alcohol abuse (F10.10) Active confirmed Problem Daytime somnolence (969813651529) Daytime somnolence (R40.0) Active confirmed Problem Transient ischemic attack (171885542) TIA (transient ischemic attack) (G45.9) Active confirmed Problem Right sided abdominal pain (134496814) Right sided abdominal pain (R10.9) Active confirmed Problem Current drinker of alcohol (388310) Alcohol use (Z78.9) Active confirmed Problem Leukocytosis (379717286) Leukocytosis, unspecified (D72.829) Active confirmed Problem Gastroesophageal reflux disease (disorder) (006874962) Chronic GERD (K21.9) Active confirmed Problem Complicated migraine (802459117) Complicated migraine (G43.109) Active confirmed Problem Vitamin D deficiency (92778293) Unspecified vitamin D deficiency (E55.9) Active confirmed Problem Atrophic gastritis (33209786) Chronic gastritis without bleeding, unspecified gastritis type (K29.50) Active confirmed Problem Serum vitamin B12 low (992313728) Low vitamin B12 level (E53.8) Active confirmed Problem Major depression, single episode (08732562) Major depression, chronic (F32.9) Active confirmed Problem Insomnia (247205008) Secondary insomnia (G47.00) Active confirmed Problem Cerebrovascular disease (20688302) Cerebral microvascular disease (I67.9) Active confirmed Problem History of subarachnoid hemorrhage (347873211) History of subarachnoid hemorrhage (Z86.79) Active confirmed Vital Signs Heart Rate 72 /min 04/01/2025 Temperature 97.0 degrees Fahrenheit 04/01/2025 Blood pressure diastolic 80 mm Hg 04/01/2025 Height 5 ft 3 in in 04/01/2025 Blood pressure systolic 130 mm Hg 04/01/2025 Weight 146.6 lbs 04/01/2025 BMI 25.97 kg/m2 04/01/2025 Encounters Encounter Location Date Provider Diagnosis [facility] [address] [place] [address] 01/09/2025 Provider Migration [facility] [address] [place] [address] 05/07/2024 Tamiko Russo Major depression, chronic F32.9 ; Anxiety associated with depression F41.8 ; History of subarachnoid hemorrhage Z86.79 ; Dermatitis L30.9 and Alcohol abuse F10.10 [facility] [address] [address] 07/22/2024 Tamiko Russo URI with cough and congestion J06.9 [facility] [address] [place] [address] 08/10/2024 Tamiko Russo Major depression, chronic F32.9 ; Anxiety associated with depression F41.8 ; History of subarachnoid hemorrhage Z86.79 ; Alcohol abuse F10.10 ; Chronic obstructive pulmonary disease, unspecified J44.9 ; Unspecified vitamin D deficiency E55.9 ; Other and unspecified hyperlipidemia E78.5 and Immunization(s) administered Z23 [facility] [address] [place] [address] 12/08/2024 Tamiko Russo Essential hypertensi on I10 and Upper back pain M54.9 [facility] [address] [place] [address] 12/22/2024 Tamiko Carneyence Essential hypertensi on I10 [facility] [address] [place] [address] 04/01/2025 Tamiko Russo Major depression, chronic F32.9 [...] screening mammogram Z12.31 and Skin abrasion T14.8XXA [facility] [address] [place] [address] 06/05/2024 Berry Santana Major depression, chronic F32.9 [facility] [address] [place] [address] 06/10/2024 Tamiko Rafaela [facility] [address] [place] [address] 06/22/2024 Tamiko Rafaela [facility] [address] [place] [address] 08/15/2024 Tamiko Rafaela [facility] [address] [place] [address] 08/18/2024 Tamiko Rafaela [facility] [address] [place] [address] 09/02/2024 Berry Santana Major depression, chronic F32.9 [facility] [address] [place] [address] 09/28/2024 Berry Besson [facility] [address] [address] 01/05/2025 Berry Besson [facility] [address] [place] [address] 02/24/2025 Berry Besson [facility] [address] [place] [address] 03/02/2025 Berry Santana Assessments Encounter Date Diagnosis (ICD Code) Assessment Notes Treatment Notes Treatment Clinical Notes Section Notes 06/05/2024 Major depression, chronic (ICD-10 - F32.9) [...] need for reassessment in clinic or ED. 05/07/2024 Major depression, chronic (ICD-10 - F32.9) Overall her mood and energy have improved, tolerating current therapy. Reccommend no changes today. continue to work on cessation of alcohol use. Encouraged limiting to no more than one alcoholic drink per day. 08/10/2024 Anxiety associated with depression (ICD-10 - [...] again in 3-4 months, sooner with concerns. 04/01/2025 Routine medical exam (ICD-10 - Z00.00) [...] buspar, SSRI and lower dose xanax 08/10/2024 Alcohol abuse (ICD-10 - F10.10) 05/07/2024 History of subarachnoid hemorrhage (ICD-10 - Z86.79) has NS FU arranged 04/01/2025 History of subarachnoid hemorrhage (ICD-10 - [...] AUTO DIFF 02/06/2018 H-CBC with AUTO DIFF 04/14/2015 H-CBC with AUTO DIFF 12/20/2010 H-CBC with AUTO DIFF 12/19/2011 H-CBC with AUTO DIFF 08/25/2009 H-CBC with AUTO DIFF 09/12/2017 H-VITAMIN B12 09/12/2017 H-CMP 09/12/2017 H-CMP 08/25/2009 H-CMP 12/19/2011 H-CMP 12/20/2010 H-CMP 04/14/2015 H-BUN 11/14/2017 H-CREATININE SERUM 11/14/2017 H-LIPID PANEL 02/04/2013 H-LIPID PANEL 04/14/2015 H-LIPID PANEL 12/20/2010 H-LIPID PANEL 12/19/2011 H-LIPID PANEL 08/25/2009 H-TSH 08/25/2009 H-TSH 12/19/2011 H-TSH 04/14/2015 H-VIT D, 25-HYDROXY 04/14/2015 H-VIT D, 25-HYDROXY 12/19/2011 H-RHEUMATOID ARTHRITIS PROFILE 7 H-ANSON PROFILE 01/04/2017 H-H.PYLORI ANTIGEN 12/20/2010 C-FOLATE 02/17/2020 H-SS A 08/25/2009 H-SS B 08/25/2009 h-leutinizing hormone 03/10/2009 M-Complete Blood Count Auto Diff 021 M-Complete Blood Count Auto Diff 018 M-Complete Blood Count Auto Diff 023 M-Complete Blood Count Auto Diff 019 M-Comprehensive Metabolic Panel 02/13/20 19 M-Comprehensive Metabolic Panel 05/18/20 19 M-Comprehensive Metabolic Panel 11/08/19 23 M-Comprehensive Metabolic Panel 08/13/20 18 M-Comprehensive Metabolic Panel 11/11/19 21 M-Hemoglobin A1C 08/13/2018 M-Hemoglobin A1C 11/08/2022 M-Lipid Panel 05/18/2019 M-Lipid Panel 11/08/2022 M-Lipid Panel 02/12/2019 M-Lipid Panel 08/13/2018 M-Lipid Panel 11/11/2020 M-Thyroid Stimulating Hormone 08/13/2018 M-Thyroid Stimulating Hormone 11/08/2022 R-Zllf-Mttupzv Antibody Titer 03/15/2021 M-Vitamin B12 03/15/2021 M-Vitamin B12 11/08/2022 M-Vitamin B12 11/11/2020 M-Vitamin D 25 Hydroxy 11/11/2020 M-Vitamin D 25 Hydroxy 11/08/2022 M-Vitamin D 25 Hydroxy 02/12/2019 M-Vitamin D 25 Hydroxy 05/18/2019 M-Vitamin D 25 Hydroxy 03/15/2021 M-Vitamin D 25 Hydroxy 08/13/2018 CT Scan : Chest, Lung Cancer Screening 0 04/01/2025 M-COVID PCR SINGLE RAPID 06/20/2021 M-COVID PCR SINGLE RAPID 01/30/2021 Rapid Covid Antigen 09/13/2021 Rapid Covid Antigen 03/01/2021 Insurance Providers Payer Name Payer Address Payer Phone Subscriber Number Group Number Insured Name Patient Relationship to Insured Coverage Start Date Coverage End Date [place] [address] [address] [place] [address] [id number] Ellyn Salas Self - patient is [...] years recommended Subarachnoid Hemorrhage 04/2023, treated at [facility] Nocturnal Hypoxia, started on supplement al O2 12/2023 Surgical History Surgery Date(Month/Year) back surgery 12/2018 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
== END 2025-04-20 23:59 | disposition home or self-care (01) ==
LOC: RAD 15:19
PROVIDERS: PCP Nurse Practitioner Family; Visit Provider Nurse Practitioner Family
DX: R59.0 Localized enlarged lymph nodes (principal); Z13.9 Encounter for screening, unspecified; Z87.891 Personal history of nicotine dependence
CPT/HCPCS: 71271